=== PATIENT | male | born 1970 | race American Indian/Alaskan Native ===

== ENCOUNTER 2016-07-15 19:55 | Emergency (ER) | payer MEDICARE ==
[2016-07-16 02:40] VITALS: BP 129/92
--- NOTE | 2016-07-16 08:32 | XRay Report ---
CHEST 2 VIEWS: INDICATION: Shortness of breath. COMPARISON: 07/01/2016 FINDINGS: Frontal and lateral chest radiographs, 3 images, demonstrate improved congestive densities with now clear lungs. No large pleural effusions. Better delineated mild exaggerated cardiomediastinal silhouette, though overall felt within normal limits. Thoracic spondylosis. CONCLUSION: No acute chest process with improved congestive appearance, as described. Thank you for the opportunity to participate in this patient's care.
--- NOTE | 2016-07-17 10:57 | ED Elopement Review ---
ED Pt Elopement review - Call Back decision Pt Call Back Decision: No action required
== END 2016-07-16 02:52 ==
LOC: ED 19:55
DX: R06.02 Shortness of breath (principal); Z53.21 Procedure and treatment not carried out due to patient leaving prior to being seen by health care provider
CPT/HCPCS: 71020

== ENCOUNTER 2017-01-12 17:44 | Emergency (ER) | payer MEDICARE ==
[2017-01-12 18:55] LABS: Anion Gap 13 mmol/L; BUN/Creatinine Ratio 18.75; Blood Urea Nitrogen 15 mg/dL (9-20); Calcium 9.2 mg/dL (8.4-10.2); Carbon Dioxide 30 mmol/L (22-30); Chloride 99.5 mmol/L (98-107); Glucose 90 mg/dL (75-100); Potassium 4.5 mmol/L (3.6-5.0); Sodium 138 mmol/L (137-145)
[2017-01-12 19:12] LABS: Hematocrit 41.8 % (35.5-45.6); Hemoglobin 12.9 gm/dl (11.8-15.2); Mean Corpuscular HGB Conc 31 % (32-34); Mean Corpuscular Volume 71 fl (84-94); Red Blood Count 5.91 M/mm3 (3.65-5.03); Red Cell Distribution Width 18.9 % (13.2-15.2); White Blood Count 6.1 K/mm3 (4.5-11.0)
[2017-01-12 19:14] LABS: INR 1.05 (0.87-1.13)
[2017-01-12 19:15] LABS: Partial Thromboplastin Time 30.2 Sec. (24.2-36.6)
[2017-01-12 19:16] LABS: Mean Corpuscular Hemoglobin 22 pg (28-32)
[2017-01-12 20:27] LABS: Basophils % (Manual) 0 % (0.0-1.8); Blastocytes % (Manual) 0 %
[2017-01-12 20:28] LABS: Anisocytosis 1+
[2017-01-12 20:29] LABS: Hypochromasia 1+; Microcytosis 1+; Ovalocytes Few; Polychromasia Few
[2017-01-12 20:30] LABS: Diff Status Complete; Platelet Estimate Consistent w Auto
[2017-01-12 20:59] LABS: Platelet Count 127 K/mm3 (140-440)
[2017-01-13 01:45] VITALS: BP 152/103
--- NOTE | 2017-01-13 02:39 | Emergency Department Report ---
ED Shortness of Breath HPI - General Chief Complaint: Extremity Injury, Lower Stated Complaint: LEG PAIN Time Seen by Provider: 01/13/17 01:43 Source: patient, EMS Mode of arrival: Wheelchair Limitations: Physical Limitation - History of Present Illness Initial Comments: Patient is a 46-year-old male with a history of psychiatric history and recent knee surgery according to the patient here with complaint of bilateral leg swelling. He is a poor historian and is difficult to obtain a consistent concise history from. He complains of leg swelling and states that his surgeon told him to come to the emergency department to get further evaluation. He denies fever or chills he does say he has some mild shortness of breath but this is likely at his baseline given that he is a smoker. No fevers chills nausea vomiting. He says he been without his psychiatric meds for some time. -: Gradual Improves With: rest Worsens With: nothing Known History Of: other (COPD and smoker) Context: smoke/fume exposure Associated Symptoms: lower extremity pain - Related Data Previous Rx's Medication Instructions Recorded Last Taken Type ALBUTEROL NEB's [Proventil 0.083% 2.5 mg IH Q4HRT PRN #30 nebu 07/02/16 Unknown Rx NEBS] Furosemide [Lasix TAB] 40 mg PO QDAY #30 tablet 07/02/16 Unknown Rx Lisinopril [Zestril TAB] 20 mg PO QDAY #30 tablet 07/02/16 Unknown Rx Metoprolol [Lopressor TAB] 25 mg PO BID #60 tablet 07/02/16 Unknown Rx OLANzapine [ZyPREXA] 20 mg PO HS #30 tablet 07/02/16 Unknown Rx Sertraline [Zoloft] 50 mg PO QDAY tablet 01/18/17 Unknown Rx Divalproex ER [Depakote ER] 1,500 mg PO HS #30 tablet 01/20/17 Unknown Rx Allergies Allergy/AdvReac Type Severity Reaction Status Date / Time No Known Allergies Allergy Verified 11/19/13 15:20 ED Review of Systems ROS: Stated complaint: LEG PAIN Other details as noted in HPI Comment: All other systems reviewed and negative Constitutional: denies: chills, fever ENT: denies: ear pain, throat pain Respiratory: shortness of breath. denies: cough, orthopnea Cardiovascular: denies: chest pain, palpitations Gastrointestinal: denies: abdominal pain, nausea Musculoskeletal: other (bilateral tense edema). denies: back pain Skin: denies: rash Neurological: denies: headache Psychiatric: anxiety. denies: depression, homicidal thoughts, suicidal thoughts ED Past Medical Hx - Past Medical History Previous Medical History?: Yes Hx Hypertension: Yes Hx Arthritis: Yes Hx Psychiatric Treatment: Yes (bipolar and depression) Hx Asthma: Yes Additional medical history: sleep apnea - Surgical History Past Surgical History?: Yes Additional Surgical History: right knee surgery - Family History Family history: no significant - Social History Smoking Status: Current Every Day Smoker Substance Use Type: Prescribed - Medications Home Medications: Home Medications Medication Instructions Recorded Confirmed Last Taken Type ALBUTEROL NEB's [Proventil 0.083% 2.5 mg IH Q4HRT PRN #30 nebu 07/02/16 Unknown Rx NEBS] Furosemide [Lasix TAB] 40 mg PO QDAY #30 tablet 07/02/16 Unknown Rx Lisinopril [Zestril TAB] 20 mg PO QDAY #30 tablet 07/02/16 Unknown Rx Metoprolol [Lopressor TAB] 25 mg PO BID #60 tablet 07/02/16 Unknown Rx OLANzapine [ZyPREXA] 20 mg PO HS #30 tablet 07/02/16 Unknown Rx Sertraline [Zoloft] 50 mg PO QDAY tablet 01/18/17 Unknown Rx Divalproex ER [Depakote ER] 1,500 mg PO HS #30 tablet 01/20/17 Unknown Rx ED Physical Exam - General Limitations: No Limitations, Physical Limitation General appearance: alert, in no apparent distress, other (Wang obesity) - Head Head exam: Present: atraumatic, normocephalic - Eye Eye exam: Present: normal appearance - ENT ENT exam: Present: mucous membranes moist - Neck Neck exam: Present: normal inspection - Respiratory Respiratory exam: Present: normal lung sounds bilaterally, wheezes (scant). Absent: respiratory distress - Cardiovascular Cardiovascular Exam: Present: regular rate, normal rhythm. Absent: systolic murmur, diastolic murmur, rubs, gallop - GI/Abdominal GI/Abdominal exam: Present: soft, normal bowel sounds - Rectal Rectal exam: Present: deferred - Extremities Exam Extremities exam: Present: normal inspection, pedal edema, calf tenderness, other (patient with significant bilateral tense edema likely chronic). Absent: normal capillary refill - Back Exam Back exam: Present: normal inspection - Neurological Exam Neurological exam: Present: alert, oriented X3 - Psychiatric Psychiatric exam: Present: normal affect, normal mood - Skin Skin exam: Present: warm, dry, intact, normal color. Absent: rash ED Course Vital Signs 01/12/17 01/13/17 17:51 01:39 Temperature 97.9 F Pulse Rate 81 74 Respiratory 20 16 Rate Blood Pressure 153/96 Blood Pressure 152/103 [Left] O2 Sat by Pulse 98 94 Oximetry ED Medical Decision Making - Lab Data Result diagrams: 01/12/17 18:13 01/12/17 18:13 Laboratory Results - last 24 hr 01/12/17 01/12/17 01/12/17 18:12 18:13 18:13 WBC 6.1 RBC 5.91 H Hgb 12.9 Hct 41.8 MCV 71 L MCH 22 L MCHC 31 L RDW 18.9 H Plt Count 127 L [place] % (Auto) Mechanical Engineering Draftsperson Add Manual Diff Complete Total Counted 100 Seg Neuts % (Manual) 41.0 Band Neutrophils % 1.0 Lymphocytes % (Manual) 42.0 H Reactive Lymphs % (Man) 0 Monocytes % (Manual) 15.0 H Eosinophils % (Manual) 1.0 Basophils % (Manual) 0 Metamyelocytes % 0 Myelocytes % 0 Promyelocytes % 0 Blast Cells % 0 Nucleated RBC % Not Reportable Seg Neutrophils # Man 2.5 Band Neutrophils # 0.1 Lymphocytes # (Manual) 2.6 Abs React Lymphs (Man) 0.0 Monocytes # (Manual) 0.9 H Eosinophils # (Manual) 0.1 Basophils # (Manual) 0.0 Metamyelocytes # 0.0 Myelocytes # 0.0 Promyelocytes # 0.0 Blast Cells # 0.0 WBC Morphology Not Reportable Hypersegmented Neuts Not Reportable Hyposegmented Neuts Not Reportable Hypogranular Neuts Not Reportable Smudge Cells Not Reportable Toxic Granulation Not Reportable Toxic Vacuolation Not Reportable Dohle Bodies Not Reportable Pelger-Huet Anomaly Not Reportable Philip Rods Not Reportable Platelet Estimate Consistent w auto Clumped Platelets Not Reportable Plt Clumps, EDTA Not Reportable Large Platelets Not Reportable Giant Platelets Not Reportable Platelet Satelliting Not Reportable Plt Morphology Comment Not Reportable RBC Morphology Not Reportable Dimorphic RBCs Not Reportable Polychromasia Few Hypochromasia 1+ Poikilocytosis Not Reportable Anisocytosis 1+ Microcytosis 1+ Macrocytosis Not Reportable Spherocytes Not Reportable Pappenheimer Bodies Not Reportable Sickle Cells Not Reportable Target Cells Not Reportable Tear Drop Cells Not Reportable Ovalocytes Few Helmet Cells Not Reportable Jimenez-Bloxom Bodies Not Reportable [place] Rings Not Reportable Serenity Cells Not Reportable Bite Cells Not Reportable Crenated Cell Not Reportable Elliptocytes Not Reportable Acanthocytes (Spur) Not Reportable Rouleaux Not Reportable Hemoglobin C Crystals Not Reportable Schistocytes Not Reportable Malaria parasites Not Reportable Tomás Bodies Not Reportable Hem Pathologist Commnt No PT 13.6 INR 1.05 APTT 30.2 Sodium Potassium Chloride Carbon Dioxide Anion Gap BUN Creatinine Estimated GFR BUN/Creatinine Ratio Glucose Calcium Total Creatine Kinase 429 H NT-Pro-B Natriuret Pep 01/12/17 18:13 WBC RBC Hgb Hct MCV MCH MCHC RDW Plt Count [place] % (Auto) Add Manual Diff Total Counted Seg Neuts % (Manual) Band Neutrophils % Lymphocytes % (Manual) Reactive Lymphs % (Man) Monocytes % (Manual) Eosinophils % (Manual) Basophils % (Manual) Metamyelocytes % Myelocytes % Promyelocytes % Blast Cells % Nucleated RBC % Seg Neutrophils # Man Band Neutrophils # Lymphocytes # (Manual) Abs React Lymphs (Man) Monocytes # (Manual) Eosinophils # (Manual) Basophils # (Manual) Metamyelocytes # Myelocytes # Promyelocytes # Blast Cells # WBC Morphology Hypersegmented Neuts Hyposegmented Neuts Hypogranular Neuts Smudge Cells Toxic Granulation Toxic Vacuolation Dohle Bodies Pelger-Huet Anomaly Philip Rods Platelet Estimate Clumped Platelets Plt Clumps, EDTA Large Platelets Giant Platelets Platelet Satelliting Plt Morphology Comment RBC Morphology Dimorphic RBCs Polychromasia Hypochromasia Poikilocytosis Anisocytosis Microcytosis Macrocytosis Spherocytes Pappenheimer Bodies Sickle Cells Target Cells Tear Drop Cells Ovalocytes Helmet Cells Jimenez-Bloxom Bodies [place] Rings Serenity Cells Bite Cells Crenated Cell Elliptocytes Acanthocytes (Spur) Rouleaux Hemoglobin C Crystals Schistocytes Malaria parasites Tomás Bodies Hem Pathologist Commnt PT INR APTT Sodium 138 Potassium 4.5 Chloride 99.5 Carbon Dioxide 30 Anion Gap 13 BUN 15 Creatinine 0.8 Estimated GFR > 60 BUN/Creatinine Ratio 18.75 Glucose 90 Calcium 9.2 Total Creatine Kinase NT-Pro-B Natriuret Pep 86.89 - Medical Decision Making 46-year-old male with psychiatric history here with complaint of worsening bilateral leg swelling. He appears to have fairly tense edema in both his legs. He states that his orthopedic surgeon told him to come to the emergency department and evaluated. It is unclear to me if this is a chronic issue. The patient states that he has had swelling but this is slightly worse. He can't really elaborate on this. His labs are unremarkable. Given patient's social situation I will hold him in the emergency department overnight for bilateral ultrasounds. My concern is that he would not follow-up for his outpatient studies. If these are negative she can be discharged home. Portions of this chart were dictated with dictation software. There may be dictation errors contained within this note. Critical Care Time: No Critical care attestation.: If time is entered above; I have spent that time in minutes in the direct care of this critically ill patient, excluding procedure time. ED Disposition Clinical Impression: Leg pain, bilateral, Leg swelling Disposition: DC-01 TO HOME OR SELFCARE Is pt being admited?: No Condition: Stable Instructions: Leg Edema (ED), Arthralgia (ED) Additional Instructions: Please follow-up with your primary care physician and your orthopedic physician. Return to the emergency department with any worsening of your symptoms or any acute distress. Referrals: PRIMARY CARE, [Primary Care Provider] - LEYDI
--- NOTE | 2017-01-14 07:17 | Vascular Lab Report ---
LOWER EXTREMITY VENOUS DUPLEX: REASON FOR EXAM: Pain of the lower extremities. COMMENTS ON THE RIGHT: All veins visualized are freely compressible without evidence of internal echogenicity. Flow is spontaneous and phasic throughout. COMMENTS ON THE LEFT: All veins visualized are freely compressible without evidence of internal echogenicity. Flow is spontaneous and phasic throughout. IMPRESSION: No evidence of acute or chronic deep venous thrombosis in either lower extremity.
== END 2017-01-13 11:10 | disposition home or self-care (01) ==
LOC: ED 17:44
DX: M79.605 Pain in left leg (principal); M79.604 Pain in right leg; R22.41 Localized swelling, mass and lump, right lower limb; R22.42 Localized swelling, mass and lump, left lower limb; M19.90 Unspecified osteoarthritis, unspecified site; I10 Essential (primary) hypertension; F31.9 Bipolar disorder, unspecified; F17.200 Nicotine dependence, unspecified, uncomplicated; G47.30 Sleep apnea, unspecified
CPT/HCPCS: 36415; 80048; 82550; 83880; 85007; 85025; 85610; 85730; 93970

== ENCOUNTER 2017-01-14 00:28 | Inpatient (IN) | payer MEDICARE ==
[2017-01-14] MEDS ORDERED: GEODON IM ONE (01:12)
[2017-01-14] MEDS ORDERED: ATIVAN IM ONE (01:12)
[2017-01-14] MEDS ORDERED: BENADRYL IM ONE (01:12)
[2017-01-14] MEDS ORDERED: WATER FOR INJ (PF) 10 ML ONE (01:15)
[2017-01-14 01:46] LABS: Mean Corpuscular HGB Conc 31 % (32-34); Red Blood Count 6.19 M/mm3 (3.65-5.03); Red Cell Distribution Width 18.5 % (13.2-15.2); White Blood Count 6.7 K/mm3 (4.5-11.0)
[2017-01-14 01:49] LABS: Hematocrit 42.9 % (35.5-45.6); Hemoglobin 13.2 gm/dl (11.8-15.2); Mean Corpuscular Hemoglobin 21 pg (28-32); Mean Corpuscular Volume 69 fl (84-94); Platelet Count 126 K/mm3 (140-440)
[2017-01-14 02:05] LABS: Anion Gap 14 mmol/L; Blood Urea Nitrogen 14 mg/dL (9-20); Calcium 9.2 mg/dL (8.4-10.2); Carbon Dioxide 31 mmol/L (22-30); Chloride 97.2 mmol/L (98-107); Glucose 118 mg/dL (75-100); Potassium 3.7 mmol/L (3.6-5.0); Sodium 138 mmol/L (137-145)
[2017-01-14 02:25] LABS: Urine Drugs of Abuse Note Disclamer
[2017-01-14 02:47] LABS: Bilirubin,Urine NEG (Negative); Blood,Urine NEG (Negative); Ketones,Urine NEG (Negative); Leukocyte Esterase,Urine NEG (Negative); Mucus,Urine FEW /HPF; Nitrite,Urine NEG (Negative); Urobilinogen,Urine < 2.0 mg/dL (<2.0)
--- NOTE | 2017-01-14 03:41 | Emergency Department Report ---
ED Psych HPI - General Chief Complaint: Psych Stated Complaint: MH EVAL/MEDICAL CLEARANCE Time Seen by Provider: 01/14/17 01:12 Source: patient, old records reviewed (patient was seen here on the fifth by another ED physician for leg edema. Patient bilateral lower extremity vascular ultrasound that was negative for DVT) Mode of arrival: Ambulatory Limitations: Other - History of Present Illness Initial Comments: 46 yo male with a past medical history of arthritis, asthma, bipolar, sleep apnea, and hypertension presents to the hospital with psychosis and suicidal ideation. Patient does not have a specific plan and denies homicidal ideation. Patient is speaking constantly but is not making any sense. Patient is agitated and requiring seclusion and possible medication for safety. No physical complaints reported. Per previous medical record patient admitted to being noncompliant with psychiatric medication. - Related Data Previous Rx's Medication Instructions Recorded Last Taken Type ALBUTEROL NEB's [Proventil 0.083% 2.5 mg IH Q4HRT PRN #30 nebu 07/02/16 Unknown Rx NEBS] Divalproex [Mary Holm] 4 tab PO QHS #1 mo 07/02/16 Unknown Rx Furosemide [Lasix TAB] 40 mg PO QDAY #30 tablet 07/02/16 Unknown Rx Lisinopril [Zestril TAB] 20 mg PO QDAY #30 tablet 07/02/16 Unknown Rx Metoprolol [Lopressor] 25 mg PO BID #60 tablet 07/02/16 Unknown Rx OLANzapine [ZyPREXA] 20 mg PO HS #30 tablet 07/02/16 Unknown Rx traZODone [Desyrel] 1 tab PO QDAY #30 tablet 07/02/16 Unknown Rx Allergies Allergy/AdvReac Type Severity Reaction Status Date / Time No Known Allergies Allergy Verified 11/19/13 15:20 ED Review of Systems ROS: Stated complaint: MH EVAL/MEDICAL CLEARANCE Other details as noted in HPI Comment: Unobtainable due to pts medical conditions (due to psychosis) ED Past Medical Hx - Past Medical History Previous Medical History?: Yes Hx Hypertension: Yes Hx Arthritis: Yes Hx Psychiatric Treatment: Yes (bipolar and depression) Hx Asthma: Yes Additional medical history: sleep apnea - Surgical History Past Surgical History?: Yes Additional Surgical History: right knee surgery - Social History Smoking Status: Current Every Day Smoker Substance Use Type: None - Medications Home Medications: Home Medications Medication Instructions Recorded Confirmed Last Taken Type ALBUTEROL NEB's [Proventil 0.083% 2.5 mg IH Q4HRT PRN #30 nebu 07/02/16 Unknown Rx NEBS] Divalproex [Mary Holm] 4 tab PO QHS #1 mo 07/02/16 Unknown Rx Furosemide [Lasix TAB] 40 mg PO QDAY #30 tablet 07/02/16 Unknown Rx Lisinopril [Zestril TAB] 20 mg PO QDAY #30 tablet 07/02/16 Unknown Rx Metoprolol [Lopressor] 25 mg PO BID #60 tablet 07/02/16 Unknown Rx OLANzapine [ZyPREXA] 20 mg PO HS #30 tablet 07/02/16 Unknown Rx traZODone [Desyrel] 1 tab PO QDAY #30 tablet 07/02/16 Unknown Rx ED Physical Exam - General Limitations: No Limitations - Other Other exam information: General: Agitated Head exam: Atraumatic, normocephalic Eyes exam: Normal appearance ENT: Moist mucous membrane, normal oropharynx Neck exam: Normal inspection, full range of motion Respiratory exam: Clear to auscultation bilateral, no wheezes, rales, crackles Cardiovascular: Normal rate and rhythm Abdomen: Soft, nondistended, and nontender, with normal bowel sounds, no rebound, or guarding Extremity: Full range of motion, pedal edema Back: Normal Inspection, full range of motion, no tenderness Neurologic: Alert, oriented x3, cranial nerves intact, no motor or sensory deficit Psychiatric: Psychotic, rambling but not making sense Skin: Warm, dry, intact ED Course Vital Signs 01/14/17 01/14/17 01/14/17 00:36 02:57 04:04 Temperature 98.2 F Pulse Rate 92 H Respiratory 18 20 Rate Blood Pressure 142/93 O2 Sat by Pulse 95 74 L Oximetry 01/14/17 04:17 Temperature Pulse Rate 109 H Respiratory 28 H Rate Blood Pressure 155/98 O2 Sat by Pulse 95 Oximetry - Reevaluation(s) Reevaluation #1: 01/14/17 03:43 Patient required Geodon, Ativan, and Benadryl for sedation shortly after arrival and currently having sonorous respirations. I asked respiratory to assess patient and pulse ox. Room air pulse ox 78%. Patient does have a history of sleep apnea. ABG will be obtained and BiPAP and supplemental oxygen will be initiated. ED Medical Decision Making - Lab Data Result diagrams: 01/14/17 01:35 01/14/17 01:35 Lab Results 01/14/17 01/14/17 01/14/17 Range/Units 01:35 01:35 01:35 WBC 6.7 (4.5-11.0) K/mm3 RBC 6.19 H (3.65-5.03) M/mm3 Hgb 13.2 (11.8-15.2) gm/dl Hct 42.9 (35.5-45.6) % MCV 69 L (84-94) fl MCH 21 L (28-32) pg MCHC 31 L (32-34) % RDW 18.5 H (13.2-15.2) % Plt Count 126 L (140-440) K/mm3 [place] % (Auto) Recycling Manager Add Manual Diff Complete Total Counted 100 Seg Neuts % (Manual) 45.0 (40.0-70.0) % Band Neutrophils % 0 % Lymphocytes % (Manual) 35.0 (13.4-35.0) % Reactive Lymphs % (Man) 0 % Monocytes % (Manual) 19.0 H (0.0-7.3) % Eosinophils % (Manual) 1.0 (0.0-4.3) % Basophils % (Manual) 0 (0.0-1.8) % Metamyelocytes % 0 % Myelocytes % 0 % Promyelocytes % 0 % Blast Cells % 0 % Nucleated RBC % Not Reportable Seg Neutrophils # Man 3.0 (1.8-7.7) K/mm3 Band Neutrophils # 0.0 K/mm3 Lymphocytes # (Manual) 2.3 (1.2-5.4) K/mm3 Abs React Lymphs (Man) 0.0 K/mm3 Monocytes # (Manual) 1.3 H (0.0-0.8) K/mm3 Eosinophils # (Manual) 0.1 (0.0-0.4) K/mm3 Basophils # (Manual) 0.0 (0.0-0.1) K/mm3 Metamyelocytes # 0.0 K/mm3 Myelocytes # 0.0 K/mm3 Promyelocytes # 0.0 K/mm3 Blast Cells # 0.0 K/mm3 WBC Morphology Not Reportable Hypersegmented Neuts Not Reportable Hyposegmented Neuts Not Reportable Hypogranular Neuts Not Reportable Smudge Cells Not Reportable Toxic Granulation Few Toxic Vacuolation Not Reportable Dohle Bodies Not Reportable Pelger-Huet Anomaly Not Reportable Philip Rods Not Reportable Platelet Estimate Appears decreased Clumped Platelets Not Reportable Plt Clumps, EDTA Not Reportable Large Platelets Not Reportable Giant Platelets Not Reportable Platelet Satelliting Not Reportable Plt Morphology Comment Not Reportable RBC Morphology Not Reportable Dimorphic RBCs Not Reportable Polychromasia Not Reportable Hypochromasia 2+ Poikilocytosis Not Reportable Anisocytosis 1+ Microcytosis 1+ Macrocytosis Not Reportable Spherocytes Not Reportable Pappenheimer Bodies Not Reportable Sickle Cells Not Reportable Target Cells Few Tear Drop Cells Not Reportable Ovalocytes Not Reportable Helmet Cells Not Reportable Jimenez-Floyd Bodies Not Reportable [place] Rings Not Reportable [place] Cells Not Reportable Bite Cells Not Reportable Crenated Cell Not Reportable Elliptocytes Not Reportable Acanthocytes (Spur) Not Reportable Rouleaux Not Reportable Hemoglobin C Crystals Not Reportable Schistocytes Not Reportable Malaria parasites Not Reportable Tomás Bodies Not Reportable Hem Pathologist Commnt No Sodium 138 (137-145) mmol/L Potassium 3.7 (3.6-5.0) mmol/L Chloride 97.2 L (98-107) mmol/L Carbon Dioxide 31 H (22-30) mmol/L Anion Gap 14 mmol/L BUN 14 (9-20) mg/dL Creatinine 0.5 L (0.8-1.5) mg/dL Estimated GFR > 60 ml/min BUN/Creatinine Ratio 28.00 % Glucose 118 H (75-100) mg/dL Calcium 9.2 (8.4-10.2) mg/dL Urine Color (Yellow) Urine Turbidity (Clear) Urine pH (5.0-7.0) Ur Specific [place] (1.003-1.030) Urine Protein (Negative) mg/dL Urine Glucose (UA) (Negative) mg/dL Urine Ketones (Negative) mg/dL Urine Blood (Negative) Urine Nitrite (Negative) Urine Bilirubin (Negative) Urine Urobilinogen (<2.0) mg/dL Ur Leukocyte Esterase (Negative) Urine WBC (Auto) (0.0-6.0) /HPF Urine RBC (Auto) (0.0-6.0) /HPF U Epithel Cells (Auto) (0-13.0) /HPF Urine Mucus /HPF Urine Opiates Screen Urine Methadone Screen Ur Barbiturates Screen Ur Phencyclidine Scrn Ur Amphetamines Screen U Benzodiazepines Scrn Urine Cocaine Screen U Marijuana (THC) Screen Drugs of Abuse Note Plasma/Serum Alcohol < 0.01 (0-0.07) gm% 01/14/17 01/14/17 Range/Units 01:44 01:44 WBC (4.5-11.0) K/mm3 RBC (3.65-5.03) M/mm3 Hgb (11.8-15.2) gm/dl Hct (35.5-45.6) % MCV (84-94) fl MCH (28-32) pg MCHC (32-34) % RDW (13.2-15.2) % Plt Count (140-440) K/mm3 [place] % (Auto) Add Manual Diff Total Counted Seg Neuts % (Manual) (40.0-70.0) % Band Neutrophils % % Lymphocytes % (Manual) (13.4-35.0) % Reactive Lymphs % (Man) % Monocytes % (Manual) (0.0-7.3) % Eosinophils % (Manual) (0.0-4.3) % Basophils % (Manual) (0.0-1.8) % Metamyelocytes % % Myelocytes % % Promyelocytes % % Blast Cells % % Nucleated RBC % Seg Neutrophils # Man (1.8-7.7) K/mm3 Band Neutrophils # K/mm3 Lymphocytes # (Manual) (1.2-5.4) K/mm3 Abs React Lymphs (Man) K/mm3 Monocytes # (Manual) (0.0-0.8) K/mm3 Eosinophils # (Manual) (0.0-0.4) K/mm3 Basophils # (Manual) (0.0-0.1) K/mm3 Metamyelocytes # K/mm3 Myelocytes # K/mm3 Promyelocytes # K/mm3 Blast Cells # K/mm3 WBC Morphology Hypersegmented Neuts Hyposegmented Neuts Hypogranular Neuts Smudge Cells Toxic Granulation Toxic Vacuolation Dohle Bodies Pelger-Huet Anomaly Philip Rods Platelet Estimate Clumped Platelets Plt Clumps, EDTA Large Platelets Giant Platelets Platelet Satelliting Plt Morphology Comment RBC Morphology Dimorphic RBCs Polychromasia Hypochromasia Poikilocytosis Anisocytosis Microcytosis Macrocytosis Spherocytes Pappenheimer Bodies Sickle Cells Target Cells Tear Drop Cells Ovalocytes Helmet Cells Jimenez-Floyd Bodies [place] Rings Serenity Cells Bite Cells Crenated Cell Elliptocytes Acanthocytes (Spur) Rouleaux Hemoglobin C Crystals Schistocytes Malaria parasites Tomás Bodies Hem Pathologist Commnt Sodium (137-145) mmol/L Potassium (3.6-5.0) mmol/L Chloride (98-107) mmol/L Carbon Dioxide (22-30) mmol/L Anion Gap mmol/L BUN (9-20) mg/dL Creatinine (0.8-1.5) mg/dL Estimated GFR ml/min BUN/Creatinine Ratio % Glucose (75-100) mg/dL Calcium (8.4-10.2) mg/dL Urine Color Yellow (Yellow) Urine Turbidity Clear (Clear) Urine pH 5.0 (5.0-7.0) Ur Specific [place] 1.014 (1.003-1.030) Urine Protein 100 mg/dl (Negative) mg/dL Urine Glucose (UA) Neg (Negative) mg/dL Urine Ketones Neg (Negative) mg/dL Urine Blood Neg (Negative) Urine Nitrite Neg (Negative) Urine Bilirubin Neg (Negative) Urine Urobilinogen < 2.0 (<2.0) mg/dL Ur Leukocyte Esterase Neg (Negative) Urine WBC (Auto) 2.0 (0.0-6.0) /HPF Urine RBC (Auto) 5.0 (0.0-6.0) /HPF U Epithel Cells (Auto) < 1.0 (0-13.0) /HPF Urine Mucus Few /HPF Urine Opiates Screen Presumptive negative Urine Methadone Screen Presumptive negative Ur Barbiturates Screen Presumptive negative Ur Phencyclidine Scrn Presumptive negative Ur Amphetamines Screen Presumptive negative U Benzodiazepines Scrn Presumptive negative Urine Cocaine Screen Presumptive negative U Marijuana (THC) Screen Presumptive negative Drugs of Abuse Note Disclamer Plasma/Serum Alcohol (0-0.07) gm% - Radiology Data Radiology results: image reviewed (chest x-ray: inc interstial markings, poor inspiration) - Medical Decision Making 1013 form signed due to acute suicidal ideation and psychosis Patient on BiPAP for CO2 retention sedated secondary to increased agitation in the ED Patient cannot be medically cleared at this time therefore will be admitted to the hospital for further medical treatment and inpatient psychiatric consultation Patient chest x-ray shows poor inspiration and increased markings that could represent CHF as well - Differential Diagnosis psychosis, substance abuse, suicidal ideation Critical Care Time: No Critical care attestation.: If time is entered above; I have spent that time in minutes in the direct care of this critically ill patient, excluding procedure time. ED Disposition Clinical Impression: Bipolar disorder, Suicidal ideation, Respiratory failure with hypoxia, Sleep apnea, Psychosis, Acute and chronic respiratory failure with hypercapnia, Thrombocytopenia, Hypertension Disposition: OP ADMIT IP TO THIS HOSP Is pt being admited?: Yes Condition: Stable Time of Disposition: 04:29 (Dr Spicer/hosp)
[2017-01-14 03:51] LABS: Basophils % (Manual) 0 % (0.0-1.8); Blastocytes % (Manual) 0 %
[2017-01-14 03:52] LABS: Anisocytosis 1+; Diff Status Complete; Hypochromasia 2+; Microcytosis 1+; Platelet Estimate Appears Decreased; Target Cells Few; Toxic Granulation Few
[2017-01-14] MEDS ORDERED: ZOFRAN IV PRN (05:46)
[2017-01-14] MEDS ORDERED: DULCOLAX PR PRN (05:46)
[2017-01-14] MEDS ORDERED: MILK OF MAGNESIA PO PRN (05:46)
--- NOTE | 2017-01-14 05:48 | History and Physical Report ---
History of Present Illness Date of examination: 01/14/17 History of present illness: 46-year-old man with a history of hypertension, bipolar, obstructive sleep apnea , obesity comes emergency room for suicidal ideation and psychosis. The patient was agitated and was given 50 mg of Benadryl, 1 mg Ativan and 5 mg Geodon. Later was noted to have sonorous respiration, patient was placed on BiPAP. review of systems unobtainable PAST SURGICAL HISTORY: Unknown SOCIAL HISTORY: Unknown FAMILY HISTORY: Unknown Medications and Allergies Allergies Allergy/AdvReac Type Severity Reaction Status Date / Time No Known Allergies Allergy Verified 11/19/13 15:20 Home Medications Medication Instructions Recorded Confirmed Last Taken Type ALBUTEROL NEB's [Proventil 0.083% 2.5 mg IH Q4HRT PRN #30 nebu 07/02/16 Unknown Rx NEBS] Divalproex Dr [Depakote Dr] 4 tab PO QHS #1 mo 07/02/16 Unknown Rx Furosemide [Lasix TAB] 40 mg PO QDAY #30 tablet 07/02/16 Unknown Rx Lisinopril [Zestril TAB] 20 mg PO QDAY #30 tablet 07/02/16 Unknown Rx Metoprolol [Lopressor] 25 mg PO BID #60 tablet 07/02/16 Unknown Rx OLANzapine [ZyPREXA] 20 mg PO HS #30 tablet 07/02/16 Unknown Rx traZODone [Desyrel] 1 tab PO QDAY #30 tablet 07/02/16 Unknown Rx Active Meds: Active Medications Acetaminophen (Tylenol) 650 mg PO Q4H PRN PRN Reason: Pain MILD(1-3)/Fever >100.5/OJEDA Bisacodyl (Dulcolax) 10 mg RI QDAY PRN PRN Reason: Constipation unrelieved by MOM Enoxaparin Sodium (Lovenox) 30 mg SUB-Q QDAY PHIL Magnesium Hydroxide (Milk Of Magnesia) 30 ml PO Q4H PRN PRN Reason: Constipation Ondansetron HCl (Zofran) 4 mg IV Q8H PRN PRN Reason: N/V unrelieved by Reglan Exam - Physical Exam Narrative exam: Gen. appearance: Patient lying in bed, no apparent distress on BiPAP HEENT: Normocephalic, atraumatic, pupils equally round and reactive to light, able to do extraocular movement , and no sclericterus,. No JVD or thyromegaly or nodule,neck supple, no carotid bruit ,mucous membranes moist, no exudate or erythema Heart: S1, S2, regular rate and rhythm Lungs: Clear to auscultation clearly bilaterally, breathing comfortable Abdomen: Positive bowel sounds, nontender, nondistended, no organomegaly Extremity: No edema, cyanosis, clubbing Skin: No rash, nodules, warm, dry Neuro: Sedated - Constitutional Vitals: Temp Pulse Resp BP Pulse Ox 98.2 F 109 H 28 H 155/98 95 01/14/17 00:36 01/14/17 04:17 01/14/17 04:17 01/14/17 04:17 01/14/17 04:17 Results - Labs CBC & Chem 7: 01/14/17 01:35 01/14/17 01:35 Labs: Abnormal lab results 01/14/17 01/14/17 Range/Units 01:35 01:35 RBC 6.19 H (3.65-5.03) M/mm3 MCV 69 L (84-94) fl MCH 21 L (28-32) pg MCHC 31 L (32-34) % RDW 18.5 H (13.2-15.2) % Plt Count 126 L (140-440) K/mm3 Monocytes % (Manual) 19.0 H (0.0-7.3) % Monocytes # (Manual) 1.3 H (0.0-0.8) K/mm3 Chloride 97.2 L (98-107) mmol/L Carbon Dioxide 31 H (22-30) mmol/L Creatinine 0.5 L (0.8-1.5) mg/dL Glucose 118 H (75-100) mg/dL - Imaging and Cardiology Chest x-ray: image reviewed Assessment and Plan Acute respiratory failure Suicide ideation with psychosis Sleep apnea Bipolar Hypertension Obesity Thrombocytopenia Admit to medicine Continue BiPAP, consult psych, place but sitter To prophylaxis with SCD
--- NOTE | 2017-01-14 07:24 | Admit Criteria Form ---
Admission Criteria Documentation: RESPIRATORY FAILURE GRG Clinical Indications for Admission to Inpatient Care (Place 'X' for any and all applicable criteria): Hospital admission is needed for appropriate care of the patient because of acute respiratory failure or insufficiency as indicated by ANY ONE of the following(1)(2)(3)(4)(5)(6)(7)(8): [ X]I. Mechanical ventilation needed (acute invasive or noninvasive) [ ]II. Severe ventilation deficit as indicated by ANY ONE of the following (9) [ ]a) Respiratory acidosis (pH less than 7.32 and partial pressure of carbon dioxide greater than 40 mm Hg (5.3 kPa)) [ ]b) Partial pressure of carbon dioxide greater than 44 mm Hg (5.9 kPa ) (new) [ ]c) Airflow measurements less than 25% of predicted (eg, peak expiratory flow rate less than 100 L/minute) [ ]d) Forced vital capacity less than 15 mL/kg of ideal body weight, or 50% decrease in vital capacity from baseline [ ]III. Noncardiac pulmonary edema not resolving with rapid emergency treatment (8) [ ]IV. Severe respiratory distress as indicated by ANY ONE of the following: [ ]a) Severe tachypnea (respiratory rate greater than 30, greater than 45 for 6-month-old, greater than 60 for ) [ ]b) Severe hypoxemia (partial pressure of oxygen less than 50 mm Hg ( 6.7 kPa) on greater than 50% oxygen or partial pressure of oxygen to FIO2 ratio less than 200) [ ]c) Mental status deterioration from respiratory disease [ ]V. Airway obstruction or inadequate protection [A](10)(11) The original [employer] content created by [employer] has been revised. The portions of the content which have been revised are identified through the use of italic text or in bold, and [employer] has neither reviewed nor approved the modified material. All other unmodified content is copyright [employer]. Please see references footnoted in the original [employer] edition 2016 Admission Criteria Met: Yes
--- NOTE | 2017-01-14 07:48 | XRay Report ---
Single view chest: Compared to 07/15/16. History: Hypoxia. Findings: Cardiomegaly. Trachea is midline. Mild pulmonary venous congestion. No definite consolidation. Normal CP angles. Impression: Cardiomegaly with mild pulmonary venous congestion
[2017-01-14] MEDS ORDERED: LOVENOX SUB-Q SCH (10:00)
[2017-01-14 10:27] LABS: ISTAT Base Excess 6; ISTAT DEVICE 0; ISTAT HCO3 32.1; ISTAT PCO2 60.8 (35-45); ISTAT PO2 49 (80-105); ISTAT SO2 80; ISTAT TCO2 34
[2017-01-14] MEDS ORDERED: APRESOLINE IV ONE (13:09)
--- NOTE | 2017-01-14 17:13 | Event Note ---
Date: 01/14/17 Patient seen and evaluated medical records reviewed Admitted this morning. Suicidal ideation acute hypoxic respiratory failure requiring BiPAP and psychosis Medical records reviewed, agree with the current management Psych consult regarding treatment recommendations and disposition when stable
[2017-01-14] MEDS ORDERED: PROVENTIL IH PRN ×2 (17:14→17:16)
[2017-01-14] MEDS: LOPRESSOR PO SCH (22:10)
[2017-01-15 06:15] LABS: Mean Corpuscular HGB Conc 31 % (32-34); Mean Corpuscular Volume 71 fl (84-94); Red Blood Count 5.83 M/mm3 (3.65-5.03); Red Cell Distribution Width 19.3 % (13.2-15.2); White Blood Count 6.9 K/mm3 (4.5-11.0)
[2017-01-15 06:19] LABS: Anion Gap 8 mmol/L; Blood Urea Nitrogen 14 mg/dL (9-20); Calcium 8.9 mg/dL (8.4-10.2); Carbon Dioxide 37 mmol/L (22-30); Chloride 96.8 mmol/L (98-107); Glucose 97 mg/dL (75-100); Potassium 4.3 mmol/L (3.6-5.0); Sodium 137 mmol/L (137-145)
[2017-01-15 06:51] LABS: Hematocrit 41.5 % (35.5-45.6); Hemoglobin 12.7 gm/dl (11.8-15.2); Mean Corpuscular Hemoglobin 22 pg (28-32); Platelet Count 121 K/mm3 (140-440)
[2017-01-15 07:45] LABS: Anisocytosis 1+; Basophils % (Manual) 0 % (0.0-1.8); Blastocytes % (Manual) 0 %; Eosinophils % (Manual) 0 % (0.0-4.3); Hypochromasia 2+
[2017-01-15 07:52] LABS: Diff Status Complete; Large Platelets Few; Target Cells Rare
[2017-01-15] MEDS: ZESTRIL PO SCH (09:48)
[2017-01-15] MEDS: LOPRESSOR PO SCH ×2 (09:49→23:00)
[2017-01-15] MEDS: LASIX PO SCH (09:49)
[2017-01-15] MEDS: TYLENOL PO PRN (09:49)
--- NOTE | 2017-01-15 16:51 | Progress Note ---
Assessment and Plan Assessment and plan: --Suicidal ideation and thoughts with acute psychosis Continue suicidal watch, supportive therapy, psych evaluation for recommendations --Acute respiratory failure multifactorial COPD, morbid obesity, oxygen titrated O2 sats more than 90%, BiPAP as needed --History of bipolar disorder; continue current management, follow psych evaluation and recommendations --Obstructive sleep apnea; CPAP at night --Morbid obesity, counseling done advised dietary modification and exercise as tolerated and weight reduction when medically stable Patient may benefit by outpatient bariatric surgical evaluation for weight reduction program when medically stable --Hypertension; moderate control, continue current antihypertensives and when necessary medications --DVT prophylaxis with Lovenox --Continue 1013/suicidal watch Possible discharge home versus inpatient psych facility in 1-2 days if stable Plan of care discussed with the patient and his nurse History Interval history: Patient seen and evaluated in his room this morning medical records reviewed Safety seat at the bedside Patient has suicidal thoughts and ideation, feels slightly better today Alert awake oriented 3 not in acute distress Hospitalist Physical - Constitutional Vitals: Temp Pulse Resp BP Pulse Ox 98.1 F 60 20 127/84 97 01/15/17 16:00 01/15/17 16:00 01/15/17 16:00 01/15/17 16:00 01/15/17 09:15 General appearance: Present: no acute distress, well-nourished, obese (morbidly obese) - EENT Eyes: Present: PERRL, EOM intact - Neck Neck: Present: supple, normal ROM - Respiratory Respiratory effort: normal Respiratory: bilateral: diminished, negative: rales, rhonchi, wheezing - Cardiovascular Rhythm: regular Heart Sounds: Present: S1 & S2 - Extremities Extremities: no ischemia, pulses intact, No edema - Abdominal General gastrointestinal: soft, non-tender, non-distended, normal bowel sounds - Integumentary Integumentary: Present: clear, warm - Psychiatric Psychiatric: appropriate mood/affect, cooperative, depressed (sometimes ) - Neurologic Neurologic: CNII-XII intact, moves all extremities Results - Labs CBC & Chem 7: 01/15/17 05:36 01/15/17 05:36 Labs: Laboratory Last Values WBC 6.9 K/mm3 (4.5-11.0) 01/15/17 05:36 RBC 5.83 M/mm3 (3.65-5.03) H 01/15/17 05:36 Hgb 12.7 gm/dl (11.8-15.2) 01/15/17 05:36 Hct 41.5 % (35.5-45.6) 01/15/17 05:36 MCV 71 fl (84-94) L 01/15/17 05:36 MCH 22 pg (28-32) L 01/15/17 05:36 MCHC 31 % (32-34) L 01/15/17 05:36 RDW 19.3 % (13.2-15.2) H 01/15/17 05:36 Plt Count 121 K/mm3 (140-440) L 01/15/17 05:36 [place] % (Auto) Community Liaison Officer 01/15/17 05:36 Add Manual Diff Complete 01/15/17 05:36 Total Counted 100 01/15/17 05:36 Seg Neuts % (Manual) 41.0 % (40.0-70.0) 01/15/17 05:36 Band Neutrophils % 1.0 % 01/15/17 05:36 Lymphocytes % (Manual) 32.0 % (13.4-35.0) 01/15/17 05:36 Reactive Lymphs % (Man) 0 % 01/15/17 05:36 Monocytes % (Manual) 26.0 % (0.0-7.3) H 01/15/17 05:36 Eosinophils % (Manual) 0 % (0.0-4.3) 01/15/17 05:36 Basophils % (Manual) 0 % (0.0-1.8) 01/15/17 05:36 Metamyelocytes % 0 % 01/15/17 05:36 Myelocytes % 0 % 01/15/17 05:36 Promyelocytes % 0 % 01/15/17 05:36 Blast Cells % 0 % 01/15/17 05:36 Nucleated RBC % Not Reportable 01/15/17 05:36 Seg Neutrophils # Man 2.8 K/mm3 (1.8-7.7) 01/15/17 05:36 Band Neutrophils # 0.1 K/mm3 01/15/17 05:36 Lymphocytes # (Manual) 2.2 K/mm3 (1.2-5.4) 01/15/17 05:36 Abs React Lymphs (Man) 0.0 K/mm3 01/15/17 05:36 Monocytes # (Manual) 1.8 K/mm3 (0.0-0.8) H 01/15/17 05:36 Eosinophils # (Manual) 0.0 K/mm3 (0.0-0.4) 01/15/17 05:36 Basophils # (Manual) 0.0 K/mm3 (0.0-0.1) 01/15/17 05:36 Metamyelocytes # 0.0 K/mm3 01/15/17 05:36 Myelocytes # 0.0 K/mm3 01/15/17 05:36 Promyelocytes # 0.0 K/mm3 01/15/17 05:36 Blast Cells # 0.0 K/mm3 01/15/17 05:36 WBC Morphology Not Reportable 01/15/17 05:36 Hypersegmented Neuts Not Reportable 01/15/17 05:36 Hyposegmented Neuts Not Reportable 01/15/17 05:36 Hypogranular Neuts Not Reportable 01/15/17 05:36 Smudge Cells Not Reportable 01/15/17 05:36 Toxic Granulation Not Reportable 01/15/17 05:36 Toxic Vacuolation Not Reportable 01/15/17 05:36 Dohle Bodies Not Reportable 01/15/17 05:36 Pelger-Huet Anomaly Not Reportable 01/15/17 05:36 Philip Rods Not Reportable 01/15/17 05:36 Platelet Estimate Appears normal 01/15/17 05:36 Clumped Platelets Not Reportable 01/15/17 05:36 Plt Clumps, EDTA Not Reportable 01/15/17 05:36 Large Platelets Few 01/15/17 05:36 Giant Platelets Not Reportable 01/15/17 05:36 Platelet Satelliting Not Reportable 01/15/17 05:36 Plt Morphology Comment Not Reportable 01/15/17 05:36 RBC Morphology Not Reportable 01/15/17 05:36 Dimorphic RBCs Not Reportable 01/15/17 05:36 Polychromasia Not Reportable 01/15/17 05:36 Hypochromasia 2+ 01/15/17 05:36 Poikilocytosis Not Reportable 01/15/17 05:36 Anisocytosis 1+ 01/15/17 05:36 Microcytosis Not Reportable 01/15/17 05:36 Macrocytosis Not Reportable 01/15/17 05:36 Spherocytes Not Reportable 01/15/17 05:36 Pappenheimer Bodies Not Reportable 01/15/17 05:36 Sickle Cells Not Reportable 01/15/17 05:36 Target Cells Rare 01/15/17 05:36 Tear Drop Cells Not Reportable 01/15/17 05:36 Ovalocytes Not Reportable 01/15/17 05:36 Helmet Cells Not Reportable 01/15/17 05:36 [place] Bodies Not Reportable 01/15/17 05:36 [place] Rings Not Reportable 01/15/17 05:36 [place] Cells Not Reportable 01/15/17 05:36 Bite Cells Not Reportable 01/15/17 05:36 Crenated Cell Not Reportable 01/15/17 05:36 Elliptocytes Not Reportable 01/15/17 05:36 Acanthocytes (Spur) Not Reportable 01/15/17 05:36 Rouleaux Not Reportable 01/15/17 05:36 Hemoglobin C Crystals Not Reportable 01/15/17 05:36 Schistocytes Not Reportable 01/15/17 05:36 Malaria parasites Not Reportable 01/15/17 05:36 Tomás Bodies Not Reportable 01/15/17 05:36 Hem Pathologist Commnt No 01/15/17 05:36 POC ABG pH 7.330 (7.35-7.45) L 01/14/17 04:04 POC ABG pCO2 60.8 (35-45) H 01/14/17 04:04 POC ABG pO2 49 (80-105) L 01/14/17 04:04 POC ABG HCO3 32.1 01/14/17 04:04 POC ABG Total CO2 34 01/14/17 04:04 POC ABG O2 Sat 80 01/14/17 04:04 POC ABG Base Excess 6 01/14/17 04:04 FiO2 21 % 01/14/17 04:04 Sodium 137 mmol/L (137-145) 01/15/17 05:36 Potassium 4.3 mmol/L (3.6-5.0) 01/15/17 05:36 Chloride 96.8 mmol/L (98-107) L 01/15/17 05:36 Carbon Dioxide 37 mmol/L (22-30) H 01/15/17 05:36 Anion Gap 8 mmol/L 01/15/17 05:36 BUN 14 mg/dL (9-20) 01/15/17 05:36 Creatinine 0.5 mg/dL (0.8-1.5) L 01/15/17 05:36 Estimated GFR > 60 ml/min 01/15/17 05:36 BUN/Creatinine Ratio 28.00 % 01/15/17 05:36 Glucose 97 mg/dL (75-100) 01/15/17 05:36 Calcium 8.9 mg/dL (8.4-10.2) 01/15/17 05:36 Urine Color Yellow (Yellow) 01/14/17 01:44 Urine Turbidity Clear (Clear) 01/14/17 01:44 Urine pH 5.0 (5.0-7.0) 01/14/17 01:44 Ur Specific [place] 1.014 (1.003-1.030) 01/14/17 01:44 Urine Protein 100 mg/dl mg/dL (Negative) 01/14/17 01:44 Urine Glucose (UA) Neg mg/dL (Negative) 01/14/17 01:44 Urine Ketones Neg mg/dL (Negative) 01/14/17 01:44 Urine Blood Neg (Negative) 01/14/17 01:44 Urine Nitrite Neg (Negative) 01/14/17 01:44 Urine Bilirubin Neg (Negative) 01/14/17 01:44 Urine Urobilinogen < 2.0 mg/dL (<2.0) 01/14/17 01:44 Ur Leukocyte Esterase Neg (Negative) 01/14/17 01:44 Urine WBC (Auto) 2.0 /HPF (0.0-6.0) 01/14/17 01:44 Urine RBC (Auto) 5.0 /HPF (0.0-6.0) 01/14/17 01:44 U Epithel Cells (Auto) < 1.0 /HPF (0-13.0) 01/14/17 01:44 Urine Mucus Few /HPF 01/14/17 01:44 Urine Opiates Screen Presumptive negative 01/14/17 01:44 Urine Methadone Screen Presumptive negative 01/14/17 01:44 Ur Barbiturates Screen Presumptive negative 01/14/17 01:44 Ur Phencyclidine Scrn Presumptive negative 01/14/17 01:44 Ur Amphetamines Screen Presumptive negative 01/14/17 01:44 U Benzodiazepines Scrn Presumptive negative 01/14/17 01:44 Urine Cocaine Screen Presumptive negative 01/14/17 01:44 U Marijuana (THC) Screen Presumptive negative 01/14/17 01:44 Drugs of Abuse Note Disclamer 01/14/17 01:44 Plasma/Serum Alcohol < 0.01 gm% (0-0.07) 01/14/17 01:35
[2017-01-15] MEDS ORDERED: DESYREL PO SCH (22:30)
[2017-01-15] MEDS ORDERED: NAPROSYN PO ONE ×2 (22:33)
[2017-01-15] MEDS: LOVENOX SUB-Q SCH (23:00)
--- NOTE | 2017-01-16 09:51 | Progress Note ---
Assessment and Plan Assessment and plan: --Acute respiratory failure multifactorial COPD, morbid obesity, oxygen titrated O2 sats more than 90%, BiPAP as needed 10 symptoms significantly improved --Suicidal ideation and thoughts with acute psychosis Continue suicidal watch, chills denies any suicidal thoughts or psychotic episodes Psych evaluation pending --History of bipolar disorder; continue current management, follow psych evaluation and recommendations --Obstructive sleep apnea; CPAP at night --Morbid obesity, counseling done advised dietary modification and exercise as tolerated and weight reduction when medically stable Patient may benefit by outpatient bariatric surgical evaluation for weight reduction program when medically stable --Hypertension; moderate control, continue current antihypertensives and when necessary medications --DVT prophylaxis with Lovenox --Continue 1013/suicidal watch patient is medically stable for discharge, home versus inpatient psych facility History Interval history: Patient Seen and evaluated this morning medical records reviewed Patient is sleeping easily awakens and feels better no new complaints 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 Hospitalist Physical - Constitutional Vitals: Temp Pulse Resp BP Pulse Ox 98.0 F 47 L 20 139/76 95 01/16/17 07:00 01/16/17 07:00 01/16/17 07:00 01/16/17 07:00 01/16/17 09:14 General appearance: Present: no acute distress, well-nourished, obese (morbidly obese) - EENT Eyes: Present: PERRL, EOM intact - Neck Neck: Present: supple, normal ROM - Respiratory Respiratory effort: normal Respiratory: bilateral: diminished, negative: rales, rhonchi, wheezing - Cardiovascular Rhythm: regular Heart Sounds: Present: S1 & S2 - Extremities Extremities: no ischemia, pulses intact - Abdominal General gastrointestinal: soft, non-tender, non-distended, normal bowel sounds - Integumentary Integumentary: Present: clear, warm - Psychiatric Psychiatric: appropriate mood/affect, cooperative - Neurologic Neurologic: CNII-XII intact, moves all extremities Results - Labs CBC & Chem 7: 01/15/17 05:36 01/15/17 05:36 Labs: Laboratory Last Values WBC 6.9 K/mm3 (4.5-11.0) 01/15/17 05:36 RBC 5.83 M/mm3 (3.65-5.03) H 01/15/17 05:36 Hgb 12.7 gm/dl (11.8-15.2) 01/15/17 05:36 Hct 41.5 % (35.5-45.6) 01/15/17 05:36 MCV 71 fl (84-94) L 01/15/17 05:36 MCH 22 pg (28-32) L 01/15/17 05:36 MCHC 31 % (32-34) L 01/15/17 05:36 RDW 19.3 % (13.2-15.2) H 01/15/17 05:36 Plt Count 121 K/mm3 (140-440) L 01/15/17 05:36 [place] % (Auto) Care Analyst 01/15/17 05:36 Add Manual Diff Complete 01/15/17 05:36 Total Counted 100 01/15/17 05:36 Seg Neuts % (Manual) 41.0 % (40.0-70.0) 01/15/17 05:36 Band Neutrophils % 1.0 % 01/15/17 05:36 Lymphocytes % (Manual) 32.0 % (13.4-35.0) 01/15/17 05:36 Reactive Lymphs % (Man) 0 % 01/15/17 05:36 Monocytes % (Manual) 26.0 % (0.0-7.3) H 01/15/17 05:36 Eosinophils % (Manual) 0 % (0.0-4.3) 01/15/17 05:36 Basophils % (Manual) 0 % (0.0-1.8) 01/15/17 05:36 Metamyelocytes % 0 % 01/15/17 05:36 Myelocytes % 0 % 01/15/17 05:36 Promyelocytes % 0 % 01/15/17 05:36 Blast Cells % 0 % 01/15/17 05:36 Nucleated RBC % Not Reportable 01/15/17 05:36 Seg Neutrophils # Man 2.8 K/mm3 (1.8-7.7) 01/15/17 05:36 Band Neutrophils # 0.1 K/mm3 01/15/17 05:36 Lymphocytes # (Manual) 2.2 K/mm3 (1.2-5.4) 01/15/17 05:36 Abs React Lymphs (Man) 0.0 K/mm3 01/15/17 05:36 Monocytes # (Manual) 1.8 K/mm3 (0.0-0.8) H 01/15/17 05:36 Eosinophils # (Manual) 0.0 K/mm3 (0.0-0.4) 01/15/17 05:36 Basophils # (Manual) 0.0 K/mm3 (0.0-0.1) 01/15/17 05:36 Metamyelocytes # 0.0 K/mm3 01/15/17 05:36 Myelocytes # 0.0 K/mm3 01/15/17 05:36 Promyelocytes # 0.0 K/mm3 01/15/17 05:36 Blast Cells # 0.0 K/mm3 01/15/17 05:36 WBC Morphology Not Reportable 01/15/17 05:36 Hypersegmented Neuts Not Reportable 01/15/17 05:36 Hyposegmented Neuts Not Reportable 01/15/17 05:36 Hypogranular Neuts Not Reportable 01/15/17 05:36 Smudge Cells Not Reportable 01/15/17 05:36 Toxic Granulation Not Reportable 01/15/17 05:36 Toxic Vacuolation Not Reportable 01/15/17 05:36 Dohle Bodies Not Reportable 01/15/17 05:36 Pelger-Huet Anomaly Not Reportable 01/15/17 05:36 Philip Rods Not Reportable 01/15/17 05:36 Platelet Estimate Appears normal 01/15/17 05:36 Clumped Platelets Not Reportable 01/15/17 05:36 Plt Clumps, EDTA Not Reportable 01/15/17 05:36 Large Platelets Few 01/15/17 05:36 Giant Platelets Not Reportable 01/15/17 05:36 Platelet Satelliting Not Reportable 01/15/17 05:36 Plt Morphology Comment Not Reportable 01/15/17 05:36 RBC Morphology Not Reportable 01/15/17 05:36 Dimorphic RBCs Not Reportable 01/15/17 05:36 Polychromasia Not Reportable 01/15/17 05:36 Hypochromasia 2+ 01/15/17 05:36 Poikilocytosis Not Reportable 01/15/17 05:36 Anisocytosis 1+ 01/15/17 05:36 Microcytosis Not Reportable 01/15/17 05:36 Macrocytosis Not Reportable 01/15/17 05:36 Spherocytes Not Reportable 01/15/17 05:36 Pappenheimer Bodies Not Reportable 01/15/17 05:36 Sickle Cells Not Reportable 01/15/17 05:36 Target Cells Rare 01/15/17 05:36 Tear Drop Cells Not Reportable 01/15/17 05:36 Ovalocytes Not Reportable 01/15/17 05:36 Helmet Cells Not Reportable 01/15/17 05:36 [place] Bodies Not Reportable 01/15/17 05:36 [place] Rings Not Reportable 01/15/17 05:36 [place] Cells Not Reportable 01/15/17 05:36 Bite Cells Not Reportable 01/15/17 05:36 Crenated Cell Not Reportable 01/15/17 05:36 Elliptocytes Not Reportable 01/15/17 05:36 Acanthocytes (Spur) Not Reportable 01/15/17 05:36 Rouleaux Not Reportable 01/15/17 05:36 Hemoglobin C Crystals Not Reportable 01/15/17 05:36 Schistocytes Not Reportable 01/15/17 05:36 Malaria parasites Not Reportable 01/15/17 05:36 Tomás Bodies Not Reportable 01/15/17 05:36 Hem Pathologist Commnt No 01/15/17 05:36 POC ABG pH 7.330 (7.35-7.45) L 01/14/17 04:04 POC ABG pCO2 60.8 (35-45) H 01/14/17 04:04 POC ABG pO2 49 (80-105) L 01/14/17 04:04 POC ABG HCO3 32.1 01/14/17 04:04 POC ABG Total CO2 34 01/14/17 04:04 POC ABG O2 Sat 80 01/14/17 04:04 POC ABG Base Excess 6 01/14/17 04:04 FiO2 21 % 01/14/17 04:04 Sodium 137 mmol/L (137-145) 01/15/17 05:36 Potassium 4.3 mmol/L (3.6-5.0) 01/15/17 05:36 Chloride 96.8 mmol/L (98-107) L 01/15/17 05:36 Carbon Dioxide 37 mmol/L (22-30) H 01/15/17 05:36 Anion Gap 8 mmol/L 01/15/17 05:36 BUN 14 mg/dL (9-20) 01/15/17 05:36 Creatinine 0.5 mg/dL (0.8-1.5) L 01/15/17 05:36 Estimated GFR > 60 ml/min 01/15/17 05:36 BUN/Creatinine Ratio 28.00 % 01/15/17 05:36 Glucose 97 mg/dL (75-100) 01/15/17 05:36 Calcium 8.9 mg/dL (8.4-10.2) 01/15/17 05:36 Urine Color Yellow (Yellow) 01/14/17 01:44 Urine Turbidity Clear (Clear) 01/14/17 01:44 Urine pH 5.0 (5.0-7.0) 01/14/17 01:44 Ur Specific [place] 1.014 (1.003-1.030) 01/14/17 01:44 Urine Protein 100 mg/dl mg/dL (Negative) 01/14/17 01:44 Urine Glucose (UA) Neg mg/dL (Negative) 01/14/17 01:44 Urine Ketones Neg mg/dL (Negative) 01/14/17 01:44 Urine Blood Neg (Negative) 01/14/17 01:44 Urine Nitrite Neg (Negative) 01/14/17 01:44 Urine Bilirubin Neg (Negative) 01/14/17 01:44 Urine Urobilinogen < 2.0 mg/dL (<2.0) 01/14/17 01:44 Ur Leukocyte Esterase Neg (Negative) 01/14/17 01:44 Urine WBC (Auto) 2.0 /HPF (0.0-6.0) 01/14/17 01:44 Urine RBC (Auto) 5.0 /HPF (0.0-6.0) 01/14/17 01:44 U Epithel Cells (Auto) < 1.0 /HPF (0-13.0) 01/14/17 01:44 Urine Mucus Few /HPF 01/14/17 01:44 Urine Opiates Screen Presumptive negative 01/14/17 01:44 Urine Methadone Screen Presumptive negative 01/14/17 01:44 Ur Barbiturates Screen Presumptive negative 01/14/17 01:44 Ur Phencyclidine Scrn Presumptive negative 01/14/17 01:44 Ur Amphetamines Screen Presumptive negative 01/14/17 01:44 U Benzodiazepines Scrn Presumptive negative 01/14/17 01:44 Urine Cocaine Screen Presumptive negative 01/14/17 01:44 U Marijuana (THC) Screen Presumptive negative 01/14/17 01:44 Drugs of Abuse Note Disclamer 01/14/17 01:44 Plasma/Serum Alcohol < 0.01 gm% (0-0.07) 01/14/17 01:35
[2017-01-16] MEDS: LOPRESSOR PO SCH ×2 (10:01→21:40)
[2017-01-16] MEDS: ZESTRIL PO SCH (10:02)
[2017-01-16] MEDS: LASIX PO SCH (10:02)
--- NOTE | 2017-01-16 17:35 | Consultation ---
History of Present Illness - Reason for Consult Consult date: 01/16/17 Reason for consult: Mental Health Evaluation Requesting physician: CYRUS HERRERA - Chief Complaint Chief complaint: "I am suicidal" - History of Present Psychiatric Illness 46 yo male with a past medical history of arthritis, asthma, bipolar, sleep apnea, and hypertension presents to the hospital with psychosis and suicidal ideation. Today patient is calm and cooperative during the assessment. Patient would fall asleep during our conversation. He stated, "I'm tired." He stated being "suicidal" without a plan because of social stressors (financial issues and being homeless). He stated that his life is "worthless" at this time. He acknowledged that he was diagnosed with Schizoaffective DO a couple years. He stated that he experience AV's occasionally, but deny them now. He stated that his mood has been down for weeks because he does not have a place to stay. He stated receiving social security, but it's not enough to pay rent. He denies recreational drug use and excessive alcohol consumption (etoh). He denies having SI's in the past. Medications and Allergies Allergies Allergy/AdvReac Type Severity Reaction Status Date / Time No Known Allergies Allergy Verified 11/19/13 15:20 Home Medications Medication Instructions Recorded Confirmed Last Taken Type ALBUTEROL NEB's [Proventil 0.083% 2.5 mg IH Q4HRT PRN #30 nebu 07/02/16 Unknown Rx NEBS] Divalproex Dr [Mary Holm] 4 tab PO QHS #1 mo 07/02/16 Unknown Rx Furosemide [Lasix TAB] 40 mg PO QDAY #30 tablet 07/02/16 Unknown Rx Lisinopril [Zestril TAB] 20 mg PO QDAY #30 tablet 07/02/16 Unknown Rx Metoprolol [Lopressor] 25 mg PO BID #60 tablet 07/02/16 Unknown Rx OLANzapine [ZyPREXA] 20 mg PO HS #30 tablet 07/02/16 Unknown Rx traZODone [Desyrel] 1 tab PO QDAY #30 tablet 07/02/16 Unknown Rx Active Meds: Active Medications Acetaminophen (Tylenol) 650 mg PO Q4H PRN PRN Reason: Pain MILD(1-3)/Fever >100.5/OJEDA Last Admin: 01/15/17 09:49 Dose: 650 mg Albuterol (Proventil) 2.5 mg IH Q6HRT PRN PRN Reason: Shortness Of Breath Bisacodyl (Dulcolax) 10 mg RI QDAY PRN PRN Reason: Constipation unrelieved by MOM Enoxaparin Sodium (Lovenox) 40 mg SUB-Q QDAY@2200 [facility] Last Admin: 01/15/17 23:00 Dose: 40 mg Furosemide (Lasix) 40 mg PO QDAY [facility] Last Admin: 01/16/17 10:02 Dose: 40 mg Lisinopril (Zestril) 20 mg PO QDAY [facility] Last Admin: 01/16/17 10:02 Dose: 20 mg Magnesium Hydroxide (Milk Of Magnesia) 30 ml PO Q4H PRN PRN Reason: Constipation Metoprolol Tartrate (Lopressor) 25 mg PO BID [facility] Last Admin: 01/16/17 10:01 Dose: 25 mg Olanzapine (Zyprexa) 20 mg PO HS [facility] Last Admin: 01/15/17 23:00 Dose: 20 mg Ondansetron HCl (Zofran) 4 mg IV Q8H PRN PRN Reason: N/V unrelieved by Reglan Trazodone HCl (Desyrel) 100 mg PO QHS [facility] Last Admin: 01/15/17 23:00 Dose: 100 mg Past psychiatric history - Past Medical History Past Medical History: arthritis, hypertension, other (Sleep Apnea) Past Surgical History: No surgical history, Other (Right Knee Surgery) - past Psychiatric treatment and history psychiatric treatment history: Patient stated that his mental illness is managed by his PCP. He denies a fam psy hx. - Social History Social history: Lives alone Mental Status Exam - Vital signs Last Vital Signs Temp 98.2 F 01/16/17 16:00 Pulse 71 01/16/17 16:00 Resp 20 01/16/17 16:00 BP 130/90 01/16/17 16:00 Pulse Ox 95 01/16/17 09:14 - Exam Narrative exam: ROS: (+) depression MSE: Appearance: calm, cooperative Behavior: good eye contact, drowsy Speech: regular rate and tone Mood: "not well" Affect: labile Thought Process: circumstantial Thought Content: denies HI's and AH's, AV's intermittently Motor Activity: ambulatory Cognition: A/Ox 3 Insight: limited Judgment: limited Results Result Diagrams: 01/15/17 05:36 01/15/17 05:36 All other labs normal. Assessment and Plan Assessment and plan: Impression: MDD Severe Type, Historical Dx: Schizoaffective DO. Today patient is calm and cooperative during the assessment. Patient drowsy during assessment. PCO2 60.8 on admission. DDx: R/O Bipolar Recommendation/Plan: Continue 1013. Will follow patient to determine proper dispo once medically clear. Start Zoloft 50 mg PO for depression and continue Zyprexa 20 mg PO HS for mood. Discussed possible metabolic side effects of Zyprexa with patient. Discussed possible suicidality/medication induced jessica with patient reference antidepressants.
[2017-01-16] MEDS: ZOLOFT PO SCH (18:27)
[2017-01-16 19:24] LABS: Alanine Aminotransferase 12 units/L (7-56); Alkaline Phosphatase 52 units/L (35-129)
[2017-01-16] MEDS: LOVENOX SUB-Q SCH (21:41)
--- NOTE | 2017-01-17 08:59 | Progress Note ---
Assessment and Plan Assessment and plan: --Suicidal ideation / acute psychosis Psych following, recommend 1013 status, continue current medications --Acute respiratory failure multifactorial COPD, morbid obesity, continue oxygen titrated O2 sats more than 90%, BiPAP as needed Patient's symptoms significantly improved --History of bipolar disorder; continue current management, psych following --Obstructive sleep apnea; CPAP at night --Morbid obesity, counseling done advised dietary modification and exercise as tolerated and weight reduction when medically stable Patient may benefit by outpatient bariatric surgical evaluation for weight reduction program when medically stable --Hypertension; moderate control, continue current antihypertensives and when necessary medications --DVT prophylaxis with Lovenox --Continue 1013/suicidal watch Closely monitor the patient and adjust the management as needed History Interval history: Patient seen and evaluated this morning medical records reviewed No new events reported by the nursing staff, 1013 status Patient feels better and denies chest pain or shortness of breath Alert awake oriented 3 not in acute distress Hospitalist Physical - Constitutional Vitals: Temp Pulse Resp BP Pulse Ox 98.0 F 73 20 130/64 98 01/17/17 08:29 01/17/17 08:29 01/17/17 08:29 01/17/17 08:29 01/17/17 08:18 General appearance: Present: no acute distress, well-nourished, obese (morbidly obese) - EENT Eyes: Present: PERRL, EOM intact - Neck Neck: Present: supple, normal ROM - Respiratory Respiratory effort: normal Respiratory: bilateral: diminished, rhonchi (scanty), negative: rales, wheezing - Cardiovascular Rhythm: regular Heart Sounds: Present: S1 & S2 - Extremities Extremities: no ischemia, pulses intact, pulses symmetrical - Abdominal General gastrointestinal: soft, non-tender, non-distended, normal bowel sounds - Integumentary Integumentary: Present: clear, warm - Psychiatric Psychiatric: appropriate mood/affect, cooperative - Neurologic Neurologic: CNII-XII intact, moves all extremities Results - Labs CBC & Chem 7: 01/15/17 05:36 01/15/17 05:36 Labs: Laboratory Last Values WBC 6.9 K/mm3 (4.5-11.0) 01/15/17 05:36 RBC 5.83 M/mm3 (3.65-5.03) H 01/15/17 05:36 Hgb 12.7 gm/dl (11.8-15.2) 01/15/17 05:36 Hct 41.5 % (35.5-45.6) 01/15/17 05:36 MCV 71 fl (84-94) L 01/15/17 05:36 MCH 22 pg (28-32) L 01/15/17 05:36 MCHC 31 % (32-34) L 01/15/17 05:36 RDW 19.3 % (13.2-15.2) H 01/15/17 05:36 Plt Count 121 K/mm3 (140-440) L 01/15/17 05:36 [place] % (Auto) Data Communications Technician 01/15/17 05:36 Add Manual Diff Complete 01/15/17 05:36 Total Counted 100 01/15/17 05:36 Seg Neuts % (Manual) 41.0 % (40.0-70.0) 01/15/17 05:36 Band Neutrophils % 1.0 % 01/15/17 05:36 Lymphocytes % (Manual) 32.0 % (13.4-35.0) 01/15/17 05:36 Reactive Lymphs % (Man) 0 % 01/15/17 05:36 Monocytes % (Manual) 26.0 % (0.0-7.3) H 01/15/17 05:36 Eosinophils % (Manual) 0 % (0.0-4.3) 01/15/17 05:36 Basophils % (Manual) 0 % (0.0-1.8) 01/15/17 05:36 Metamyelocytes % 0 % 01/15/17 05:36 Myelocytes % 0 % 01/15/17 05:36 Promyelocytes % 0 % 01/15/17 05:36 Blast Cells % 0 % 01/15/17 05:36 Nucleated RBC % Not Reportable 01/15/17 05:36 Seg Neutrophils # Man 2.8 K/mm3 (1.8-7.7) 01/15/17 05:36 Band Neutrophils # 0.1 K/mm3 01/15/17 05:36 Lymphocytes # (Manual) 2.2 K/mm3 (1.2-5.4) 01/15/17 05:36 Abs React Lymphs (Man) 0.0 K/mm3 01/15/17 05:36 Monocytes # (Manual) 1.8 K/mm3 (0.0-0.8) H 01/15/17 05:36 Eosinophils # (Manual) 0.0 K/mm3 (0.0-0.4) 01/15/17 05:36 Basophils # (Manual) 0.0 K/mm3 (0.0-0.1) 01/15/17 05:36 Metamyelocytes # 0.0 K/mm3 01/15/17 05:36 Myelocytes # 0.0 K/mm3 01/15/17 05:36 Promyelocytes # 0.0 K/mm3 01/15/17 05:36 Blast Cells # 0.0 K/mm3 01/15/17 05:36 WBC Morphology Not Reportable 01/15/17 05:36 Hypersegmented Neuts Not Reportable 01/15/17 05:36 Hyposegmented Neuts Not Reportable 01/15/17 05:36 Hypogranular Neuts Not Reportable 01/15/17 05:36 Smudge Cells Not Reportable 01/15/17 05:36 Toxic Granulation Not Reportable 01/15/17 05:36 Toxic Vacuolation Not Reportable 01/15/17 05:36 Dohle Bodies Not Reportable 01/15/17 05:36 Pelger-Huet Anomaly Not Reportable 01/15/17 05:36 Philip Rods Not Reportable 01/15/17 05:36 Platelet Estimate Appears normal 01/15/17 05:36 Clumped Platelets Not Reportable 01/15/17 05:36 Plt Clumps, EDTA Not Reportable 01/15/17 05:36 Large Platelets Few 01/15/17 05:36 Giant Platelets Not Reportable 01/15/17 05:36 Platelet Satelliting Not Reportable 01/15/17 05:36 Plt Morphology Comment Not Reportable 01/15/17 05:36 RBC Morphology Not Reportable 01/15/17 05:36 Dimorphic RBCs Not Reportable 01/15/17 05:36 Polychromasia Not Reportable 01/15/17 05:36 Hypochromasia 2+ 01/15/17 05:36 Poikilocytosis Not Reportable 01/15/17 05:36 Anisocytosis 1+ 01/15/17 05:36 Microcytosis Not Reportable 01/15/17 05:36 Macrocytosis Not Reportable 01/15/17 05:36 Spherocytes Not Reportable 01/15/17 05:36 Pappenheimer Bodies Not Reportable 01/15/17 05:36 Sickle Cells Not Reportable 01/15/17 05:36 Target Cells Rare 01/15/17 05:36 Tear Drop Cells Not Reportable 01/15/17 05:36 Ovalocytes Not Reportable 01/15/17 05:36 Helmet Cells Not Reportable 01/15/17 05:36 [place] Bodies Not Reportable 01/15/17 05:36 [place] Rings Not Reportable 01/15/17 05:36 [place] Cells Not Reportable 01/15/17 05:36 Bite Cells Not Reportable 01/15/17 05:36 Crenated Cell Not Reportable 01/15/17 05:36 Elliptocytes Not Reportable 01/15/17 05:36 Acanthocytes (Spur) Not Reportable 01/15/17 05:36 Rouleaux Not Reportable 01/15/17 05:36 Hemoglobin C Crystals Not Reportable 01/15/17 05:36 Schistocytes Not Reportable 01/15/17 05:36 Malaria parasites Not Reportable 01/15/17 05:36 Tomás Bodies Not Reportable 01/15/17 05:36 Hem Pathologist Commnt No 01/15/17 05:36 POC ABG pH 7.330 (7.35-7.45) L 01/14/17 04:04 POC ABG pCO2 60.8 (35-45) H 01/14/17 04:04 POC ABG pO2 49 (80-105) L 01/14/17 04:04 POC ABG HCO3 32.1 01/14/17 04:04 POC ABG Total CO2 34 01/14/17 04:04 POC ABG O2 Sat 80 01/14/17 04:04 POC ABG Base Excess 6 01/14/17 04:04 FiO2 21 % 01/14/17 04:04 Sodium 137 mmol/L (137-145) 01/15/17 05:36 Potassium 4.3 mmol/L (3.6-5.0) 01/15/17 05:36 Chloride 96.8 mmol/L (98-107) L 01/15/17 05:36 Carbon Dioxide 37 mmol/L (22-30) H 01/15/17 05:36 Anion Gap 8 mmol/L 01/15/17 05:36 BUN 14 mg/dL (9-20) 01/15/17 05:36 Creatinine 0.5 mg/dL (0.8-1.5) L 01/15/17 05:36 Estimated GFR > 60 ml/min 01/15/17 05:36 BUN/Creatinine Ratio 28.00 % 01/15/17 05:36 Glucose 97 mg/dL (75-100) 01/15/17 05:36 Calcium 8.9 mg/dL (8.4-10.2) 01/15/17 05:36 AST 14 units/L (5-40) 01/16/17 18:52 ALT 12 units/L (7-56) 01/16/17 18:52 Alkaline Phosphatase 52 units/L (35-129) 01/16/17 18:52 Urine Color Yellow (Yellow) 01/14/17 01:44 Urine Turbidity Clear (Clear) 01/14/17 01:44 Urine pH 5.0 (5.0-7.0) 01/14/17 01:44 Ur Specific [place] 1.014 (1.003-1.030) 01/14/17 01:44 Urine Protein 100 mg/dl mg/dL (Negative) 01/14/17 01:44 Urine Glucose (UA) Neg mg/dL (Negative) 01/14/17 01:44 Urine Ketones Neg mg/dL (Negative) 01/14/17 01:44 Urine Blood Neg (Negative) 01/14/17 01:44 Urine Nitrite Neg (Negative) 01/14/17 01:44 Urine Bilirubin Neg (Negative) 01/14/17 01:44 Urine Urobilinogen < 2.0 mg/dL (<2.0) 01/14/17 01:44 Ur Leukocyte Esterase Neg (Negative) 01/14/17 01:44 Urine WBC (Auto) 2.0 /HPF (0.0-6.0) 01/14/17 01:44 Urine RBC (Auto) 5.0 /HPF (0.0-6.0) 01/14/17 01:44 U Epithel Cells (Auto) < 1.0 /HPF (0-13.0) 01/14/17 01:44 Urine Mucus Few /HPF 01/14/17 01:44 Urine Opiates Screen Presumptive negative 01/14/17 01:44 Urine Methadone Screen Presumptive negative 01/14/17 01:44 Ur Barbiturates Screen Presumptive negative 01/14/17 01:44 Valproic Acid < 2.8 ug/mL (50-100) L 01/16/17 18:52 Ur Phencyclidine Scrn Presumptive negative 01/14/17 01:44 Ur Amphetamines Screen Presumptive negative 01/14/17 01:44 U Benzodiazepines Scrn Presumptive negative 01/14/17 01:44 Urine Cocaine Screen Presumptive negative 01/14/17 01:44 U Marijuana (THC) Screen Presumptive negative 01/14/17 01:44 Drugs of Abuse Note Disclamer 01/14/17 01:44 Plasma/Serum Alcohol < 0.01 gm% (0-0.07) 01/14/17 01:35
[2017-01-17] MEDS: ZESTRIL PO SCH (10:01)
[2017-01-17] MEDS: LASIX PO SCH (10:01)
[2017-01-17] MEDS: LOPRESSOR PO SCH ×2 (10:02→22:00)
[2017-01-17] MEDS: ZOLOFT PO SCH (10:02)
--- NOTE | 2017-01-17 11:07 | Progress Note ---
Subjective - Reason for Consult Consult date: 01/17/17 Reason for consult: Psychiatry Follow-up - Chief Complaint Chief complaint: "I need money" 46 yo male with a past medical history of arthritis, asthma, bipolar, sleep apnea, and hypertension presents to the hospital with psychosis and suicidal ideation. Today patient is calm and cooperative during the assessment. Patient was able to tell me more about his concerns. Yesterday, patient was drowsy and falling asleep during our conversation. He stated one of his main issues is a all took his money that he was going to use to get a place to stay. Currently, the patient lives with friends. He stated that he has attempted suicide multiple times. He tried to poison himself on his last attempt because of life stressors. He stated, "I just want my life to get better." He denies HI's, VH's , but stated that he experience AV's intermittently. He rate his depression 6/10 , with 10 being the worse. He acknowledged side effects when he take depakote. He denies any side effects of his current psy medication regimen. Mental Status Exam - Vital signs Last Vital Signs Temp 98.0 F 01/17/17 08:29 Pulse 73 01/17/17 08:29 Resp 20 01/17/17 08:29 BP 130/78 01/17/17 10:02 Pulse Ox 98 01/17/17 08:18 - Exam Narrative exam: MSE: Appearance: calm, cooperative Behavior: good eye contact, drowsy Speech: regular rate and tone Mood: "still down" Affect: labile Thought Process: circumstantial Thought Content: denies HI's and AH's, AV's intermittently Motor Activity: ambulatory Cognition: A/Ox 3 Insight: fair Judgment: limited Assessment and Plan Impression: MDD Severe Type, Historical Dx: Schizoaffective DO. Today patient is calm and cooperative during the assessment. Patient more alert today. Recommendation/Plan: Continue 1013. Will follow patient to determine proper dispo once medically clear. Continue Zoloft 50 mg PO for depression and Zyprexa 20 mg PO HS for mood. Discussed possible metabolic side effects of Zyprexa with patient. Discussed possible suicidality/medication induced jessica with patient reference antidepressants.
[2017-01-17] MEDS: TYLENOL PO PRN (15:49)
[2017-01-17] MEDS: LOVENOX SUB-Q SCH (21:59)
[2017-01-18 09:03] LABS: Anion Gap 13 mmol/L; Blood Urea Nitrogen 18 mg/dL (9-20); Calcium 9.3 mg/dL (8.4-10.2); Carbon Dioxide 34 mmol/L (22-30); Chloride 98.9 mmol/L (98-107); Glucose 94 mg/dL (75-100); Potassium 4.4 mmol/L (3.6-5.0); Sodium 141 mmol/L (137-145)
--- NOTE | 2017-01-18 10:41 | Progress Note ---
Subjective - Reason for Consult Consult date: 01/18/17 Reason for consult: Psychiatry Follow-up - Chief Complaint Chief complaint: "I'm just tired" 46 yo male with a past medical history of arthritis, asthma, bipolar, sleep apnea, and hypertension presents to the hospital with psychosis and suicidal ideation. Today patient is calm and cooperative during the assessment. Patient stated that he want a better life "[place]." He stated getting a place to stay is priority. He stated that his SI's are ceasing, but they are still there. He denies HI's and VH's. Patient admit to "some" AH's, but he stated, "I ignore them." He denies sleep disturbance and a poor appetite. Mental Status Exam - Vital signs Last Vital Signs Temp 98.8 F 01/18/17 08:00 Pulse 63 01/18/17 08:00 Resp 18 01/18/17 08:00 BP 131/93 01/18/17 08:00 Pulse Ox 90 01/18/17 08:00 - Exam Narrative exam: MSE: Appearance: calm, cooperative Behavior: good eye contact, drowsy Speech: regular rate and tone Mood: "okay" Affect: labile Thought Process: circumstantial Thought Content: denies HI's and AH's, AV's intermittently Motor Activity: ambulatory Cognition: A/Ox 3 Insight: fair Judgment: limited Assessment and Plan Impression: MDD Severe Type, Historical Dx: Schizoaffective DO. Today patient is calm and cooperative during the assessment. Passive SI's. Recommendation/Plan: Continue 1013 with placement to inpatient psy services once medically clear. Continue Zoloft 50 mg PO for depression and Zyprexa 20 mg PO HS for mood. Discussed possible metabolic side effects of Zyprexa with patient. Discussed possible suicidality/medication induced jessica with patient reference antidepressants.
--- NOTE | 2017-01-18 12:21 | Progress Note ---
Hospitalist Physical - Constitutional Vitals: Temp Pulse Resp BP Pulse Ox 98.8 F 63 18 131/93 90 01/18/17 08:00 01/18/17 08:00 01/18/17 08:00 01/18/17 08:00 01/18/17 08:00 General appearance: Present: no acute distress, well-nourished, obese (morbidly obese) Results - Labs CBC & Chem 7: 01/15/17 05:36 01/18/17 08:16 Labs: Laboratory Last Values WBC 6.9 K/mm3 (4.5-11.0) 01/15/17 05:36 RBC 5.83 M/mm3 (3.65-5.03) H 01/15/17 05:36 Hgb 12.7 gm/dl (11.8-15.2) 01/15/17 05:36 Hct 41.5 % (35.5-45.6) 01/15/17 05:36 MCV 71 fl (84-94) L 01/15/17 05:36 MCH 22 pg (28-32) L 01/15/17 05:36 MCHC 31 % (32-34) L 01/15/17 05:36 RDW 19.3 % (13.2-15.2) H 01/15/17 05:36 Plt Count 121 K/mm3 (140-440) L 01/15/17 05:36 [place] % (Auto) Cnc Lathe Programmer 01/15/17 05:36 Add Manual Diff Complete 01/15/17 05:36 Total Counted 100 01/15/17 05:36 Seg Neuts % (Manual) 41.0 % (40.0-70.0) 01/15/17 05:36 Band Neutrophils % 1.0 % 01/15/17 05:36 Lymphocytes % (Manual) 32.0 % (13.4-35.0) 01/15/17 05:36 Reactive Lymphs % (Man) 0 % 01/15/17 05:36 Monocytes % (Manual) 26.0 % (0.0-7.3) H 01/15/17 05:36 Eosinophils % (Manual) 0 % (0.0-4.3) 01/15/17 05:36 Basophils % (Manual) 0 % (0.0-1.8) 01/15/17 05:36 Metamyelocytes % 0 % 01/15/17 05:36 Myelocytes % 0 % 01/15/17 05:36 Promyelocytes % 0 % 01/15/17 05:36 Blast Cells % 0 % 01/15/17 05:36 Nucleated RBC % Not Reportable 01/15/17 05:36 Seg Neutrophils # Man 2.8 K/mm3 (1.8-7.7) 01/15/17 05:36 Band Neutrophils # 0.1 K/mm3 01/15/17 05:36 Lymphocytes # (Manual) 2.2 K/mm3 (1.2-5.4) 01/15/17 05:36 Abs React Lymphs (Man) 0.0 K/mm3 01/15/17 05:36 Monocytes # (Manual) 1.8 K/mm3 (0.0-0.8) H 01/15/17 05:36 Eosinophils # (Manual) 0.0 K/mm3 (0.0-0.4) 01/15/17 05:36 Basophils # (Manual) 0.0 K/mm3 (0.0-0.1) 01/15/17 05:36 Metamyelocytes # 0.0 K/mm3 01/15/17 05:36 Myelocytes # 0.0 K/mm3 01/15/17 05:36 Promyelocytes # 0.0 K/mm3 01/15/17 05:36 Blast Cells # 0.0 K/mm3 01/15/17 05:36 WBC Morphology Not Reportable 01/15/17 05:36 Hypersegmented Neuts Not Reportable 01/15/17 05:36 Hyposegmented Neuts Not Reportable 01/15/17 05:36 Hypogranular Neuts Not Reportable 01/15/17 05:36 Smudge Cells Not Reportable 01/15/17 05:36 Toxic Granulation Not Reportable 01/15/17 05:36 Toxic Vacuolation Not Reportable 01/15/17 05:36 Dohle Bodies Not Reportable 01/15/17 05:36 Pelger-Huet Anomaly Not Reportable 01/15/17 05:36 Philip Rods Not Reportable 01/15/17 05:36 Platelet Estimate Appears normal 01/15/17 05:36 Clumped Platelets Not Reportable 01/15/17 05:36 Plt Clumps, EDTA Not Reportable 01/15/17 05:36 Large Platelets Few 01/15/17 05:36 Giant Platelets Not Reportable 01/15/17 05:36 Platelet Satelliting Not Reportable 01/15/17 05:36 Plt Morphology Comment Not Reportable 01/15/17 05:36 RBC Morphology Not Reportable 01/15/17 05:36 Dimorphic RBCs Not Reportable 01/15/17 05:36 Polychromasia Not Reportable 01/15/17 05:36 Hypochromasia 2+ 01/15/17 05:36 Poikilocytosis Not Reportable 01/15/17 05:36 Anisocytosis 1+ 01/15/17 05:36 Microcytosis Not Reportable 01/15/17 05:36 Macrocytosis Not Reportable 01/15/17 05:36 Spherocytes Not Reportable 01/15/17 05:36 Pappenheimer Bodies Not Reportable 01/15/17 05:36 Sickle Cells Not Reportable 01/15/17 05:36 Target Cells Rare 01/15/17 05:36 Tear Drop Cells Not Reportable 01/15/17 05:36 Ovalocytes Not Reportable 01/15/17 05:36 Helmet Cells Not Reportable 01/15/17 05:36 [place] Bodies Not Reportable 01/15/17 05:36 [place] Rings Not Reportable 01/15/17 05:36 [place] Cells Not Reportable 01/15/17 05:36 Bite Cells Not Reportable 01/15/17 05:36 Crenated Cell Not Reportable 01/15/17 05:36 Elliptocytes Not Reportable 01/15/17 05:36 Acanthocytes (Spur) Not Reportable 01/15/17 05:36 Rouleaux Not Reportable 01/15/17 05:36 Hemoglobin C Crystals Not Reportable 01/15/17 05:36 Schistocytes Not Reportable 01/15/17 05:36 Malaria parasites Not Reportable 01/15/17 05:36 Tomás Bodies Not Reportable 01/15/17 05:36 Hem Pathologist Commnt No 01/15/17 05:36 POC ABG pH 7.330 (7.35-7.45) L 01/14/17 04:04 POC ABG pCO2 60.8 (35-45) H 01/14/17 04:04 POC ABG pO2 49 (80-105) L 01/14/17 04:04 POC ABG HCO3 32.1 01/14/17 04:04 POC ABG Total CO2 34 01/14/17 04:04 POC ABG O2 Sat 80 01/14/17 04:04 POC ABG Base Excess 6 01/14/17 04:04 FiO2 21 % 01/14/17 04:04 Sodium 141 mmol/L (137-145) 01/18/17 08:16 Potassium 4.4 mmol/L (3.6-5.0) 01/18/17 08:16 Chloride 98.9 mmol/L (98-107) 01/18/17 08:16 Carbon Dioxide 34 mmol/L (22-30) H 01/18/17 08:16 Anion Gap 13 mmol/L 01/18/17 08:16 BUN 18 mg/dL (9-20) 01/18/17 08:16 Creatinine 0.6 mg/dL (0.8-1.5) L 01/18/17 08:16 Estimated GFR > 60 ml/min 01/18/17 08:16 BUN/Creatinine Ratio 30.00 % 01/18/17 08:16 Glucose 94 mg/dL (75-100) 01/18/17 08:16 Calcium 9.3 mg/dL (8.4-10.2) 01/18/17 08:16 AST 14 units/L (5-40) 01/16/17 18:52 ALT 12 units/L (7-56) 01/16/17 18:52 Alkaline Phosphatase 52 units/L (35-129) 01/16/17 18:52 Urine Color Yellow (Yellow) 01/14/17 01:44 Urine Turbidity Clear (Clear) 01/14/17 01:44 Urine pH 5.0 (5.0-7.0) 01/14/17 01:44 Ur Specific [place] 1.014 (1.003-1.030) 01/14/17 01:44 Urine Protein 100 mg/dl mg/dL (Negative) 01/14/17 01:44 Urine Glucose (UA) Neg mg/dL (Negative) 01/14/17 01:44 Urine Ketones Neg mg/dL (Negative) 01/14/17 01:44 Urine Blood Neg (Negative) 01/14/17 01:44 Urine Nitrite Neg (Negative) 01/14/17 01:44 Urine Bilirubin Neg (Negative) 01/14/17 01:44 Urine Urobilinogen < 2.0 mg/dL (<2.0) 01/14/17 01:44 Ur Leukocyte Esterase Neg (Negative) 01/14/17 01:44 Urine WBC (Auto) 2.0 /HPF (0.0-6.0) 01/14/17 01:44 Urine RBC (Auto) 5.0 /HPF (0.0-6.0) 01/14/17 01:44 U Epithel Cells (Auto) < 1.0 /HPF (0-13.0) 01/14/17 01:44 Urine Mucus Few /HPF 01/14/17 01:44 Urine Opiates Screen Presumptive negative 01/14/17 01:44 Urine Methadone Screen Presumptive negative 01/14/17 01:44 Ur Barbiturates Screen Presumptive negative 01/14/17 01:44 Valproic Acid < 2.8 ug/mL (50-100) L 01/16/17 18:52 Ur Phencyclidine Scrn Presumptive negative 01/14/17 01:44 Ur Amphetamines Screen Presumptive negative 01/14/17 01:44 U Benzodiazepines Scrn Presumptive negative 01/14/17 01:44 Urine Cocaine Screen Presumptive negative 01/14/17 01:44 U Marijuana (THC) Screen Presumptive negative 01/14/17 01:44 Drugs of Abuse Note Disclamer 01/14/17 01:44 Plasma/Serum Alcohol < 0.01 gm% (0-0.07) 01/14/17 01:35
[2017-01-18] MEDS: LOPRESSOR PO SCH ×2 (12:59→21:59)
[2017-01-18] MEDS: ZOLOFT PO SCH (13:02)
[2017-01-18] MEDS: ZESTRIL PO SCH (13:02)
[2017-01-18] MEDS: LASIX PO SCH (13:02)
--- NOTE | 2017-01-18 18:11 | Discharge Summary ---
Providers - Providers Date of Admission: 01/14/17 05:46 Date of discharge: 01/18/17 Attending physician: VLAD LUGO 01/15/17 09:33 psychiatry consult [Consult to Mental Health] [CONS] Routine Reason For Exam: suicidal/1013 Place consult to:: lead simulation modeling engineer Notified:: seen by psych Primary care physician: STONE DECORATOR Hospitalization Reason for admission: suicidal ideation/acute respiratory failure Condition: Stable Pertinent studies: Chest x-ray; cardiomegaly with mild pulmonary venous congestion Hospital course: 46-year-old morbidly obese male patient with significant past medical history of hypertension bipolar disorder obstructive sleep apnea due to obesity was admitted through emergency room. with History of suicidal ideation and acute psychosis The patient was agitated and was given Benadryl Ativan and Geodon, when he suddenly went into deep sleepwith sonorous respirations. Patient was evaluated and admitted to the hospital symptomatically managed, site place the patient on 1013 status, received oxygen nebulizers and supportive care Patient symptoms significant, psych has recommended transfer to inpatient psych facility once medically stable. Today he is comfortable in bed, saturating well at room air, sometimes required nasal cannula oxygen Alert awake oriented 3, Vital signs stable [id number] evaluation and physical examination done by me prior to discharge, did not show any new changes Medically and hemodynamically stable for discharge and transfer to inpatient psych facility. Final diagnosis; Suicidal ideation Acute psychosis Acute respiratory Failure improved Morbid obesity Hypertension Obstructive sleep apnea on CPAP at night COPD On going tobacco use Disposition: DC/TX-65 PSY HOSP/PSY UNIT Time spent for discharge: 33 min Core Measure Documentation - Palliative Care Palliative Care/ Comfort Measures: Not Applicable - Core Measures Any of the following diagnoses?: none Exam - Constitutional Vitals: Temp Pulse Resp BP Pulse Ox 98.4 F 61 18 142/75 97 01/18/17 16:41 01/18/17 16:41 01/18/17 16:41 01/18/17 16:41 01/18/17 16:41 General appearance: Present: no acute distress, well-nourished, obese (morbidly obese) - EENT Eyes: Present: PERRL, EOM intact - Neck Neck: Present: supple, normal ROM - Respiratory Respiratory effort: normal Respiratory: bilateral: diminished, wheezing (scanty), negative: rales, rhonchi - Cardiovascular Rhythm: regular Heart Sounds: Present: S1 & S2 - Extremities Extremities: no ischemia, pulses intact - Abdominal General gastrointestinal: Present: soft, non-tender, non-distended, normal bowel sounds - Integumentary Integumentary: Present: clear, warm - Musculoskeletal Musculoskeletal: strength equal bilaterally - Psychiatric Psychiatric: appropriate mood/affect, cooperative - Neurologic Neurologic: CNII-XII intact, moves all extremities Plan Activity: advance as tolerated, other (1013 status) Diet: other (Cardiac diet) Special Instructions: smoking cessation Additional Instructions: Transfer to inpatient psych facility for further evaluation and management Follow up with: PRIMARY CARE, [Primary Care Provider] - 3-5 Days
[2017-01-18] MEDS: LOVENOX SUB-Q SCH (21:56)
[2017-01-19] MEDS: ZESTRIL PO SCH (11:04)
[2017-01-19] MEDS: ZOLOFT PO SCH (11:05)
[2017-01-19] MEDS: LOPRESSOR PO SCH ×2 (11:05→22:28)
[2017-01-19] MEDS: LASIX PO SCH (11:05)
--- NOTE | 2017-01-19 16:31 | Progress Note ---
Subjective - Reason for Consult Consult date: 01/19/17 Reason for consult: follow up - Chief Complaint Chief complaint: "I need to go home" 46 yo male with a past medical history of arthritis, asthma, bipolar, sleep apnea, and hypertension presented to the hospital with psychosis and suicidal ideation. Today patient is calm and cooperative during the assessment.He denies all hallucinations today. He denies SI/HI. He denies sleep disturbance and a poor appetite. He is perseverative about going home. He is concerned his knees will stop working with his lack of mobility in the hospital. He denies medication side effects. Mental Status Exam - Vital signs Last Vital Signs Temp 97.8 F 01/19/17 16:14 Pulse 66 01/19/17 16:14 Resp 20 01/19/17 16:14 BP 122/80 01/19/17 16:14 Pulse Ox 99 01/19/17 16:14 Assessment and Plan MSE: Appearance: calm, cooperative Behavior: good eye contact Speech: regular rate and tone Mood: labile Affect: labile Thought Process: circumstantial Thought Content: denies HI's and AVH's, Motor Activity: ambulatory Cognition: A/Ox 3 Insight: fair Judgment: limited Assessment and Plan Impression: MDD Severe Type, Historical Dx: Schizoaffective DO. Today patient is calm and cooperative during the assessment. Denies SI/HI or AVH Recommendation/Plan: Continue 1013 with placement to inpatient psy services once medically clear. Continue Zoloft 50 mg PO for depression and Zyprexa 20 mg PO HS for mood. Discussed possible metabolic side effects of Zyprexa with patient. Discussed possible suicidality/medication induced jessica with patient reference antidepressants. He was previously on depakote 2000mg hs for mood/ bipolar disorder. Depakote 1500mg er started HS for mood stabilization. Continue zoloft and zyprexa for mood/depression/psychotic features.
--- NOTE | 2017-01-19 17:42 | Progress Note ---
Assessment and Plan Assessment and plan: --Suicidal ideation / acute psychosis Continue current management ,Psych following, recommend 1013 status, advised transfer to inpatient psych facility when medically stable --Acute on chronic respiratory failure multifactorial Secondary to COPD morbid obesity, oxygen titrated to O2 sats more than 90%, supportive care --History of bipolar disorder; continue current medications per psych --Obstructive sleep apnea; CPAP at night --Morbid obesity, counseling done advised dietary modification and exercise as tolerated and weight reduction when medically stable Patient may benefit by outpatient bariatric surgical evaluation for weight reduction program when medically stable --Hypertension; moderate control, continue current antihypertensives and when necessary medications --DVT prophylaxis with Lovenox --Continue 1013/suicidal watch Closely monitor the patient and adjust the management as needed Initially patient was discharged for possible transfer to inpatient psych, however no beds available and advised to transfer back when beds are available History Interval history: Patient seen and evaluated medical records reviewed Feels better today, no new complaints Remains 1013/suicide watch Alert awake oriented 3, no acute distress Hospitalist Physical - Constitutional Vitals: Temp Pulse Resp BP Pulse Ox 97.8 F 66 20 122/80 99 01/19/17 16:14 01/19/17 16:14 01/19/17 16:14 01/19/17 16:14 01/19/17 16:14 General appearance: Present: no acute distress, well-nourished, obese (morbidly obese) - EENT Eyes: Present: PERRL, EOM intact - Neck Neck: Present: supple, normal ROM - Respiratory Respiratory effort: normal Respiratory: negative: rales, rhonchi, wheezing - Cardiovascular Rhythm: regular Heart Sounds: Present: S1 & S2 - Extremities Extremities: no ischemia, pulses intact Peripheral Pulses: within normal limits - Abdominal General gastrointestinal: soft, non-tender, non-distended, normal bowel sounds - Integumentary Integumentary: Present: clear, warm - Psychiatric Psychiatric: appropriate mood/affect, cooperative - Neurologic Neurologic: CNII-XII intact, moves all extremities Results - Labs CBC & Chem 7: 01/15/17 05:36 01/18/17 08:16 Labs: Laboratory Last Values WBC 6.9 K/mm3 (4.5-11.0) 01/15/17 05:36 RBC 5.83 M/mm3 (3.65-5.03) H 01/15/17 05:36 Hgb 12.7 gm/dl (11.8-15.2) 01/15/17 05:36 Hct 41.5 % (35.5-45.6) 01/15/17 05:36 MCV 71 fl (84-94) L 01/15/17 05:36 MCH 22 pg (28-32) L 01/15/17 05:36 MCHC 31 % (32-34) L 01/15/17 05:36 RDW 19.3 % (13.2-15.2) H 01/15/17 05:36 Plt Count 121 K/mm3 (140-440) L 01/15/17 05:36 [place] % (Auto) Hall Coordinator 01/15/17 05:36 Add Manual Diff Complete 01/15/17 05:36 Total Counted 100 01/15/17 05:36 Seg Neuts % (Manual) 41.0 % (40.0-70.0) 01/15/17 05:36 Band Neutrophils % 1.0 % 01/15/17 05:36 Lymphocytes % (Manual) 32.0 % (13.4-35.0) 01/15/17 05:36 Reactive Lymphs % (Man) 0 % 01/15/17 05:36 Monocytes % (Manual) 26.0 % (0.0-7.3) H 01/15/17 05:36 Eosinophils % (Manual) 0 % (0.0-4.3) 01/15/17 05:36 Basophils % (Manual) 0 % (0.0-1.8) 01/15/17 05:36 Metamyelocytes % 0 % 01/15/17 05:36 Myelocytes % 0 % 01/15/17 05:36 Promyelocytes % 0 % 01/15/17 05:36 Blast Cells % 0 % 01/15/17 05:36 Nucleated RBC % Not Reportable 01/15/17 05:36 Seg Neutrophils # Man 2.8 K/mm3 (1.8-7.7) 01/15/17 05:36 Band Neutrophils # 0.1 K/mm3 01/15/17 05:36 Lymphocytes # (Manual) 2.2 K/mm3 (1.2-5.4) 01/15/17 05:36 Abs React Lymphs (Man) 0.0 K/mm3 01/15/17 05:36 Monocytes # (Manual) 1.8 K/mm3 (0.0-0.8) H 01/15/17 05:36 Eosinophils # (Manual) 0.0 K/mm3 (0.0-0.4) 01/15/17 05:36 Basophils # (Manual) 0.0 K/mm3 (0.0-0.1) 01/15/17 05:36 Metamyelocytes # 0.0 K/mm3 01/15/17 05:36 Myelocytes # 0.0 K/mm3 01/15/17 05:36 Promyelocytes # 0.0 K/mm3 01/15/17 05:36 Blast Cells # 0.0 K/mm3 01/15/17 05:36 WBC Morphology Not Reportable 01/15/17 05:36 Hypersegmented Neuts Not Reportable 01/15/17 05:36 Hyposegmented Neuts Not Reportable 01/15/17 05:36 Hypogranular Neuts Not Reportable 01/15/17 05:36 Smudge Cells Not Reportable 01/15/17 05:36 Toxic Granulation Not Reportable 01/15/17 05:36 Toxic Vacuolation Not Reportable 01/15/17 05:36 Dohle Bodies Not Reportable 01/15/17 05:36 Pelger-Huet Anomaly Not Reportable 01/15/17 05:36 Philip Rods Not Reportable 01/15/17 05:36 Platelet Estimate Appears normal 01/15/17 05:36 Clumped Platelets Not Reportable 01/15/17 05:36 Plt Clumps, EDTA Not Reportable 01/15/17 05:36 Large Platelets Few 01/15/17 05:36 Giant Platelets Not Reportable 01/15/17 05:36 Platelet Satelliting Not Reportable 01/15/17 05:36 Plt Morphology Comment Not Reportable 01/15/17 05:36 RBC Morphology Not Reportable 01/15/17 05:36 Dimorphic RBCs Not Reportable 01/15/17 05:36 Polychromasia Not Reportable 01/15/17 05:36 Hypochromasia 2+ 01/15/17 05:36 Poikilocytosis Not Reportable 01/15/17 05:36 Anisocytosis 1+ 01/15/17 05:36 Microcytosis Not Reportable 01/15/17 05:36 Macrocytosis Not Reportable 01/15/17 05:36 Spherocytes Not Reportable 01/15/17 05:36 Pappenheimer Bodies Not Reportable 01/15/17 05:36 Sickle Cells Not Reportable 01/15/17 05:36 Target Cells Rare 01/15/17 05:36 Tear Drop Cells Not Reportable 01/15/17 05:36 Ovalocytes Not Reportable 01/15/17 05:36 Helmet Cells Not Reportable 01/15/17 05:36 [place] Bodies Not Reportable 01/15/17 05:36 [place] Rings Not Reportable 01/15/17 05:36 [place] Cells Not Reportable 01/15/17 05:36 Bite Cells Not Reportable 01/15/17 05:36 Crenated Cell Not Reportable 01/15/17 05:36 Elliptocytes Not Reportable 01/15/17 05:36 Acanthocytes (Spur) Not Reportable 01/15/17 05:36 Rouleaux Not Reportable 01/15/17 05:36 Hemoglobin C Crystals Not Reportable 01/15/17 05:36 Schistocytes Not Reportable 01/15/17 05:36 Malaria parasites Not Reportable 01/15/17 05:36 Tomás Bodies Not Reportable 01/15/17 05:36 Hem Pathologist Commnt No 01/15/17 05:36 POC ABG pH 7.330 (7.35-7.45) L 01/14/17 04:04 POC ABG pCO2 60.8 (35-45) H 01/14/17 04:04 POC ABG pO2 49 (80-105) L 01/14/17 04:04 POC ABG HCO3 32.1 01/14/17 04:04 POC ABG Total CO2 34 01/14/17 04:04 POC ABG O2 Sat 80 01/14/17 04:04 POC ABG Base Excess 6 01/14/17 04:04 FiO2 21 % 01/14/17 04:04 Sodium 141 mmol/L (137-145) 01/18/17 08:16 Potassium 4.4 mmol/L (3.6-5.0) 01/18/17 08:16 Chloride 98.9 mmol/L (98-107) 01/18/17 08:16 Carbon Dioxide 34 mmol/L (22-30) H 01/18/17 08:16 Anion Gap 13 mmol/L 01/18/17 08:16 BUN 18 mg/dL (9-20) 01/18/17 08:16 Creatinine 0.6 mg/dL (0.8-1.5) L 01/18/17 08:16 Estimated GFR > 60 ml/min 01/18/17 08:16 BUN/Creatinine Ratio 30.00 % 01/18/17 08:16 Glucose 94 mg/dL (75-100) 01/18/17 08:16 Calcium 9.3 mg/dL (8.4-10.2) 01/18/17 08:16 AST 14 units/L (5-40) 01/16/17 18:52 ALT 12 units/L (7-56) 01/16/17 18:52 Alkaline Phosphatase 52 units/L (35-129) 01/16/17 18:52 Urine Color Yellow (Yellow) 01/14/17 01:44 Urine Turbidity Clear (Clear) 01/14/17 01:44 Urine pH 5.0 (5.0-7.0) 01/14/17 01:44 Ur Specific [place] 1.014 (1.003-1.030) 01/14/17 01:44 Urine Protein 100 mg/dl mg/dL (Negative) 01/14/17 01:44 Urine Glucose (UA) Neg mg/dL (Negative) 01/14/17 01:44 Urine Ketones Neg mg/dL (Negative) 01/14/17 01:44 Urine Blood Neg (Negative) 01/14/17 01:44 Urine Nitrite Neg (Negative) 01/14/17 01:44 Urine Bilirubin Neg (Negative) 01/14/17 01:44 Urine Urobilinogen < 2.0 mg/dL (<2.0) 01/14/17 01:44 Ur Leukocyte Esterase Neg (Negative) 01/14/17 01:44 Urine WBC (Auto) 2.0 /HPF (0.0-6.0) 01/14/17 01:44 Urine RBC (Auto) 5.0 /HPF (0.0-6.0) 01/14/17 01:44 U Epithel Cells (Auto) < 1.0 /HPF (0-13.0) 01/14/17 01:44 Urine Mucus Few /HPF 01/14/17 01:44 Urine Opiates Screen Presumptive negative 01/14/17 01:44 Urine Methadone Screen Presumptive negative 01/14/17 01:44 Ur Barbiturates Screen Presumptive negative 01/14/17 01:44 Valproic Acid < 2.8 ug/mL (50-100) L 01/16/17 18:52 Ur Phencyclidine Scrn Presumptive negative 01/14/17 01:44 Ur Amphetamines Screen Presumptive negative 01/14/17 01:44 U Benzodiazepines Scrn Presumptive negative 01/14/17 01:44 Urine Cocaine Screen Presumptive negative 01/14/17 01:44 U Marijuana (THC) Screen Presumptive negative 01/14/17 01:44 Drugs of Abuse Note Disclamer 01/14/17 01:44 Plasma/Serum Alcohol < 0.01 gm% (0-0.07) 01/14/17 01:35
--- NOTE | 2017-01-19 17:52 | Progress Note ---
Assessment and Plan Assessment and plan: --Acute on chronic respiratory failure multifactorial COPD, morbid obesity, continue oxygen titrated O2 sats more than 90%, BiPAP as needed Patient's symptoms significantly improved --Suicidal ideation / acute psychosis Patient denies suicidal thoughts , but reports intermittent hallucinations Psych following, continue current medications --History of bipolar disorder; continue current management, psych following --Obstructive sleep apnea; CPAP at night --Morbid obesity, counseling done advised dietary modification and exercise as tolerated and weight reduction when medically stable Patient may benefit by outpatient bariatric surgical evaluation for weight reduction program when medically stable --Hypertension; moderate control, continue current antihypertensives and when necessary medications --DVT prophylaxis with Lovenox --Continue 1013/suicidal watch Closely monitor the patient and adjust the management as needed Disposition; DC and transfer to psych facility when bed is available History Interval history: Patient seen and evaluated this morning medical records reviewed Could not be discharged as no beds available in psych facility Patient is alert and awake no new complaints Vital signs reviewed stable Hospitalist Physical - Constitutional Vitals: Temp Pulse Resp BP Pulse Ox 97.8 F 66 20 122/80 99 01/19/17 16:14 01/19/17 16:14 01/19/17 16:14 01/19/17 16:14 01/19/17 16:14 General appearance: Present: no acute distress, well-nourished, obese (morbidly obese) - EENT Eyes: Present: PERRL, EOM intact - Neck Neck: Present: supple, normal ROM - Respiratory Respiratory effort: normal Respiratory: bilateral: CTA, negative: rales, rhonchi, wheezing - Cardiovascular Rhythm: regular Heart Sounds: Present: S1 & S2 - Extremities Extremities: no ischemia, No edema Peripheral Pulses: within normal limits - Abdominal General gastrointestinal: soft, non-tender, non-distended, normal bowel sounds - Integumentary Integumentary: Present: clear, warm - Psychiatric Psychiatric: appropriate mood/affect, cooperative - Neurologic Neurologic: CNII-XII intact, moves all extremities Results - Labs CBC & Chem 7: 01/15/17 05:36 01/18/17 08:16 Labs: Laboratory Last Values WBC 6.9 K/mm3 (4.5-11.0) 01/15/17 05:36 RBC 5.83 M/mm3 (3.65-5.03) H 01/15/17 05:36 Hgb 12.7 gm/dl (11.8-15.2) 01/15/17 05:36 Hct 41.5 % (35.5-45.6) 01/15/17 05:36 MCV 71 fl (84-94) L 01/15/17 05:36 MCH 22 pg (28-32) L 01/15/17 05:36 MCHC 31 % (32-34) L 01/15/17 05:36 RDW 19.3 % (13.2-15.2) H 01/15/17 05:36 Plt Count 121 K/mm3 (140-440) L 01/15/17 05:36 [place] % (Auto) Retirement Administrator 01/15/17 05:36 Add Manual Diff Complete 01/15/17 05:36 Total Counted 100 01/15/17 05:36 Seg Neuts % (Manual) 41.0 % (40.0-70.0) 01/15/17 05:36 Band Neutrophils % 1.0 % 01/15/17 05:36 Lymphocytes % (Manual) 32.0 % (13.4-35.0) 01/15/17 05:36 Reactive Lymphs % (Man) 0 % 01/15/17 05:36 Monocytes % (Manual) 26.0 % (0.0-7.3) H 01/15/17 05:36 Eosinophils % (Manual) 0 % (0.0-4.3) 01/15/17 05:36 Basophils % (Manual) 0 % (0.0-1.8) 01/15/17 05:36 Metamyelocytes % 0 % 01/15/17 05:36 Myelocytes % 0 % 01/15/17 05:36 Promyelocytes % 0 % 01/15/17 05:36 Blast Cells % 0 % 01/15/17 05:36 Nucleated RBC % Not Reportable 01/15/17 05:36 Seg Neutrophils # Man 2.8 K/mm3 (1.8-7.7) 01/15/17 05:36 Band Neutrophils # 0.1 K/mm3 01/15/17 05:36 Lymphocytes # (Manual) 2.2 K/mm3 (1.2-5.4) 01/15/17 05:36 Abs React Lymphs (Man) 0.0 K/mm3 01/15/17 05:36 Monocytes # (Manual) 1.8 K/mm3 (0.0-0.8) H 01/15/17 05:36 Eosinophils # (Manual) 0.0 K/mm3 (0.0-0.4) 01/15/17 05:36 Basophils # (Manual) 0.0 K/mm3 (0.0-0.1) 01/15/17 05:36 Metamyelocytes # 0.0 K/mm3 01/15/17 05:36 Myelocytes # 0.0 K/mm3 01/15/17 05:36 Promyelocytes # 0.0 K/mm3 01/15/17 05:36 Blast Cells # 0.0 K/mm3 01/15/17 05:36 WBC Morphology Not Reportable 01/15/17 05:36 Hypersegmented Neuts Not Reportable 01/15/17 05:36 Hyposegmented Neuts Not Reportable 01/15/17 05:36 Hypogranular Neuts Not Reportable 01/15/17 05:36 Smudge Cells Not Reportable 01/15/17 05:36 Toxic Granulation Not Reportable 01/15/17 05:36 Toxic Vacuolation Not Reportable 01/15/17 05:36 Dohle Bodies Not Reportable 01/15/17 05:36 Pelger-Huet Anomaly Not Reportable 01/15/17 05:36 Philip Rods Not Reportable 01/15/17 05:36 Platelet Estimate Appears normal 01/15/17 05:36 Clumped Platelets Not Reportable 01/15/17 05:36 Plt Clumps, EDTA Not Reportable 01/15/17 05:36 Large Platelets Few 01/15/17 05:36 Giant Platelets Not Reportable 01/15/17 05:36 Platelet Satelliting Not Reportable 01/15/17 05:36 Plt Morphology Comment Not Reportable 01/15/17 05:36 RBC Morphology Not Reportable 01/15/17 05:36 Dimorphic RBCs Not Reportable 01/15/17 05:36 Polychromasia Not Reportable 01/15/17 05:36 Hypochromasia 2+ 01/15/17 05:36 Poikilocytosis Not Reportable 01/15/17 05:36 Anisocytosis 1+ 01/15/17 05:36 Microcytosis Not Reportable 01/15/17 05:36 Macrocytosis Not Reportable 01/15/17 05:36 Spherocytes Not Reportable 01/15/17 05:36 Pappenheimer Bodies Not Reportable 01/15/17 05:36 Sickle Cells Not Reportable 01/15/17 05:36 Target Cells Rare 01/15/17 05:36 Tear Drop Cells Not Reportable 01/15/17 05:36 Ovalocytes Not Reportable 01/15/17 05:36 Helmet Cells Not Reportable 01/15/17 05:36 [place] Bodies Not Reportable 01/15/17 05:36 [place] Rings Not Reportable 01/15/17 05:36 [place] Cells Not Reportable 01/15/17 05:36 Bite Cells Not Reportable 01/15/17 05:36 Crenated Cell Not Reportable 01/15/17 05:36 Elliptocytes Not Reportable 01/15/17 05:36 Acanthocytes (Spur) Not Reportable 01/15/17 05:36 Rouleaux Not Reportable 01/15/17 05:36 Hemoglobin C Crystals Not Reportable 01/15/17 05:36 Schistocytes Not Reportable 01/15/17 05:36 Malaria parasites Not Reportable 01/15/17 05:36 Tomás Bodies Not Reportable 01/15/17 05:36 Hem Pathologist Commnt No 01/15/17 05:36 POC ABG pH 7.330 (7.35-7.45) L 01/14/17 04:04 POC ABG pCO2 60.8 (35-45) H 01/14/17 04:04 POC ABG pO2 49 (80-105) L 01/14/17 04:04 POC ABG HCO3 32.1 01/14/17 04:04 POC ABG Total CO2 34 01/14/17 04:04 POC ABG O2 Sat 80 01/14/17 04:04 POC ABG Base Excess 6 01/14/17 04:04 FiO2 21 % 01/14/17 04:04 Sodium 141 mmol/L (137-145) 01/18/17 08:16 Potassium 4.4 mmol/L (3.6-5.0) 01/18/17 08:16 Chloride 98.9 mmol/L (98-107) 01/18/17 08:16 Carbon Dioxide 34 mmol/L (22-30) H 01/18/17 08:16 Anion Gap 13 mmol/L 01/18/17 08:16 BUN 18 mg/dL (9-20) 01/18/17 08:16 Creatinine 0.6 mg/dL (0.8-1.5) L 01/18/17 08:16 Estimated GFR > 60 ml/min 01/18/17 08:16 BUN/Creatinine Ratio 30.00 % 01/18/17 08:16 Glucose 94 mg/dL (75-100) 01/18/17 08:16 Calcium 9.3 mg/dL (8.4-10.2) 01/18/17 08:16 AST 14 units/L (5-40) 01/16/17 18:52 ALT 12 units/L (7-56) 01/16/17 18:52 Alkaline Phosphatase 52 units/L (35-129) 01/16/17 18:52 Urine Color Yellow (Yellow) 01/14/17 01:44 Urine Turbidity Clear (Clear) 01/14/17 01:44 Urine pH 5.0 (5.0-7.0) 01/14/17 01:44 Ur Specific [place] 1.014 (1.003-1.030) 01/14/17 01:44 Urine Protein 100 mg/dl mg/dL (Negative) 01/14/17 01:44 Urine Glucose (UA) Neg mg/dL (Negative) 01/14/17 01:44 Urine Ketones Neg mg/dL (Negative) 01/14/17 01:44 Urine Blood Neg (Negative) 01/14/17 01:44 Urine Nitrite Neg (Negative) 01/14/17 01:44 Urine Bilirubin Neg (Negative) 01/14/17 01:44 Urine Urobilinogen < 2.0 mg/dL (<2.0) 01/14/17 01:44 Ur Leukocyte Esterase Neg (Negative) 01/14/17 01:44 Urine WBC (Auto) 2.0 /HPF (0.0-6.0) 01/14/17 01:44 Urine RBC (Auto) 5.0 /HPF (0.0-6.0) 01/14/17 01:44 U Epithel Cells (Auto) < 1.0 /HPF (0-13.0) 01/14/17 01:44 Urine Mucus Few /HPF 01/14/17 01:44 Urine Opiates Screen Presumptive negative 01/14/17 01:44 Urine Methadone Screen Presumptive negative 01/14/17 01:44 Ur Barbiturates Screen Presumptive negative 01/14/17 01:44 Valproic Acid < 2.8 ug/mL (50-100) L 01/16/17 18:52 Ur Phencyclidine Scrn Presumptive negative 01/14/17 01:44 Ur Amphetamines Screen Presumptive negative 01/14/17 01:44 U Benzodiazepines Scrn Presumptive negative 01/14/17 01:44 Urine Cocaine Screen Presumptive negative 01/14/17 01:44 U Marijuana (THC) Screen Presumptive negative 01/14/17 01:44 Drugs of Abuse Note Disclamer 01/14/17 01:44 Plasma/Serum Alcohol < 0.01 gm% (0-0.07) 01/14/17 01:35
[2017-01-19] MEDS: LOVENOX SUB-Q SCH (22:28)
[2017-01-20] MEDS: LASIX PO SCH (09:38)
[2017-01-20] MEDS: LOPRESSOR PO SCH (09:38)
[2017-01-20] MEDS: ZOLOFT PO SCH (09:38)
[2017-01-20] MEDS: ZESTRIL PO SCH (09:39)
--- NOTE | 2017-01-20 10:41 | Progress Note ---
Subjective - Reason for Consult Consult date: 01/20/17 Reason for consult: Psychiatry Follow-up - Chief Complaint Chief complaint: "I want to go home" 46 yo male with a past medical history of arthritis, asthma, bipolar, sleep apnea, and hypertension presented to the hospital with psychosis and suicidal ideation. Today patient is calm and cooperative during the assessment. He denies SI/HI's, AVH's, and depression. He stated that he will go to a group home or call a friend to reside with that person. Our previous conversation, patient was concerned about not having a place to stay. During our conversation I observed patient eating his breakfast. Per the staff, patient has been completing his ADL's. He denies any side effects from his medications. Mental Status Exam - Vital signs Last Vital Signs Temp 98.2 F 01/20/17 08:00 Pulse 70 01/20/17 08:00 Resp 20 01/20/17 08:00 BP 124/74 01/20/17 09:39 Pulse Ox 96 01/20/17 08:00 - Exam Narrative exam: MSE: Appearance: calm, cooperative Behavior: good eye contact, drowsy Speech: regular rate and tone Mood: "okay" Affect: congruent to mood Thought Process: linear Thought Content: denies SI/HI's and AVH's Motor Activity: ambulatory Cognition: A/Ox 3 Insight: fair Judgment: fair Assessment and Plan Impression: MDD Severe Type, Historical Dx: Schizoaffective DO. Today patient is calm and cooperative during the assessment. Denies SI//HI's. Patient is no threat to self or others. Recommendation/Plan: Rescind 1013. Continue Zoloft 50 mg PO for depression, Zyprexa 20 mg PO HS for mood, and Depakote 1500 mg daily for mood. Discussed possible metabolic side effects of Zyprexa with patient. Discussed possible suicidality/medication induced jessica with patient reference antidepressants. Route Service Manager involvement, patient is homeless. Patient prefer to see his PCP for outpatient psy services.
--- NOTE | 2017-01-20 15:25 | Discharge Summary ---
Providers - Providers Date of Admission: 01/14/17 05:46 Date of discharge: 01/20/17 Attending physician: VLAD LUGO 01/15/17 09:33 psychiatry consult [Consult to Mental Health] [CONS] Routine Reason For Exam: suicidal/1013 Place consult to:: internal control consultant Notified:: seen by psych Primary care physician: FISH RECEIVER Hospitalization Condition: Stable Disposition: DC-01 TO HOME OR SELFCARE Time spent for discharge: 33 min Core Measure Documentation - Palliative Care Palliative Care/ Comfort Measures: Not Applicable - Core Measures Any of the following diagnoses?: none Exam - Constitutional Vitals: Temp Pulse Resp BP Pulse Ox 98.2 F 70 20 124/74 96 01/20/17 08:00 01/20/17 08:00 01/20/17 08:00 01/20/17 09:39 01/20/17 10:50 General appearance: Present: no acute distress, obese (morbidly obese) - EENT Eyes: Present: PERRL, EOM intact - Neck Neck: Present: supple, normal ROM - Respiratory Respiratory effort: normal Respiratory: bilateral: diminished, negative: rales, rhonchi, wheezing - Cardiovascular Rhythm: regular Heart Sounds: Present: S1 & S2 - Extremities Extremities: no ischemia, No edema - Abdominal General gastrointestinal: Present: soft, non-tender, non-distended, normal bowel sounds - Integumentary Integumentary: Present: clear, warm - Musculoskeletal Musculoskeletal: strength equal bilaterally - Psychiatric Psychiatric: appropriate mood/affect, cooperative - Neurologic Neurologic: CNII-XII intact, moves all extremities Plan Activity: no restrictions Diet: regular Special Instructions: smoking cessation Additional Instructions: Outpatient psych/behavioral health follow-up 3-4 days. if You have any chest pain or shortness of breath, contact M.D. or go to emergency room. f/u Private Workers Compensation Manager 1 week Follow up with: PRIMARY CARE, [Primary Care Provider] - 3-5 Days Prescriptions: Divalproex ER [Depakote ER] 1,500 mg PO HS #30 tablet
[2017-01-20 16:03] VITALS: BP 117/59
== END 2017-01-20 18:50 | disposition home or self-care (01) | DRG 189 ==
LOC: ED 00:28 → 3A 05:46
PROVIDERS: ADMIT Internal Medicine; ATTEND Internal Medicine
PROC: 4A033R1 Measurement of Arterial Saturation, Peripheral, Percutaneous Approach (ICD-10-PCS; principal; 2017-01-14)
PROC: 5A09457 Assistance with Respiratory Ventilation, 24-96 Consecutive Hours, Continuous Positive Airway Pressure (ICD-10-PCS; 2017-01-15)
DX: J96.21 Acute and chronic respiratory failure with hypoxia (principal); R45.851 Suicidal ideations; Z68.41 Body mass index [BMI] 40.0-44.9, adult; F23 Brief psychotic disorder; J45.909 Unspecified asthma, uncomplicated; F31.9 Bipolar disorder, unspecified; I10 Essential (primary) hypertension; F17.200 Nicotine dependence, unspecified, uncomplicated; J96.22 Acute and chronic respiratory failure with hypercapnia; D69.6 Thrombocytopenia, unspecified; G47.30 Sleep apnea, unspecified; E66.01 Morbid (severe) obesity due to excess calories; J44.9 Chronic obstructive pulmonary disease, unspecified; F25.9 Schizoaffective disorder, unspecified
CPT/HCPCS: 36415; 71010; 80048; 80164; 80307; 80320; 81001; 82803; 84075; 84450; 84460; 85007; 85025; 94660; 94760; 96372; 99406; G0480; J0360; J1200; J1650; J2060; J3486

== ENCOUNTER 2017-02-14 14:09 | Emergency (ER) | payer MEDICARE ==
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
[2017-02-14 16:45] VITALS: BP 143/97
--- NOTE | 2017-02-14 18:20 | Emergency Department Report ---
HPI - General Chief Complaint: Extremity Injury, Lower Time Seen by Provider: 02/14/17 16:31 - HPI HPI: This is a 46-year-old male presents to ED complaining of right knee pain for the past couple of months. Patient states he had surgery on it a while ago. Patient states he has some pain to his right knee swelling. Patient denies any injury to the knee. ED Past Medical Hx - Past Medical History Previous Medical History?: Yes Hx Hypertension: Yes Hx Arthritis: Yes Hx Psychiatric Treatment: Yes (bipolar and depression) Hx Asthma: Yes Hx COPD: Yes Additional medical history: sleep apnea - Surgical History Past Surgical History?: Yes Additional Surgical History: right knee surgery - Social History Smoking Status: Current Every Day Smoker Substance Use Type: None - Medications Home Medications: Home Medications Medication Instructions Recorded Confirmed Last Taken Type ALBUTEROL NEB's [Proventil 0.083% 2.5 mg IH Q4HRT PRN #30 nebu 07/02/16 Unknown Rx NEBS] Furosemide [Lasix TAB] 40 mg PO QDAY #30 tablet 07/02/16 Unknown Rx Lisinopril [Zestril TAB] 20 mg PO QDAY #30 tablet 07/02/16 Unknown Rx Metoprolol [Lopressor TAB] 25 mg PO BID #60 tablet 07/02/16 Unknown Rx OLANzapine [ZyPREXA] 20 mg PO HS #30 tablet 07/02/16 Unknown Rx Sertraline [Zoloft] 50 mg PO QDAY tablet 01/18/17 Unknown Rx Divalproex ER [Depakote ER] 1,500 mg PO HS #30 tablet 01/20/[address] [Teenan Dr] 75 mg PO DAILY #30 tablet 02/14/17 Unknown Rx ED Review of Systems ROS: Stated complaint: RIGHT KNEE PAIN Other details as noted in HPI Constitutional: denies: chills, fever Eyes: denies: eye pain, eye discharge, vision change ENT: denies: ear pain, throat pain Respiratory: denies: cough, shortness of breath, wheezing Cardiovascular: denies: chest pain, palpitations Endocrine: no symptoms reported Gastrointestinal: denies: abdominal pain, nausea, diarrhea Genitourinary: denies: urgency, dysuria Musculoskeletal: denies: back pain, joint swelling, arthralgia, myalgia Skin: denies: rash, lesions Neurological: denies: headache, weakness, paresthesias Psychiatric: denies: anxiety, depression Hematological/Lymphatic: denies: easy bleeding, easy bruising Physical Exam - Physical Exam Vital Signs: Vital Signs 02/14/17 16:42 Temperature 98.2 F Pulse Rate 83 Respiratory 16 Rate Blood Pressure 143/97 O2 Sat by Pulse 100 Oximetry Physical Exam: GENERAL: Alert and oriented x3, no apparent distress, resting comfortably on the bed Normal Gait, atraumatic. HEAD: Head is normocephalic and a-traumatic. EYES: Extra ocular muscles are intact. Pupils are equal, round, and reactive to light and accommodation. LUNGS: Symetrical with respiration, No wheezing, no rales or crackles, CTAB. HEART: S1, S2 present, regular rate and rhythm without murmur, no rubs, no gallops. Non tender to palpation ABDOMEN: No organomegaly was noted,Positive bowel sounds, soft, and non- distended. . Nontender to palpation on all Quadrants, NO CVA tenderness. EXTREMITIES/MUSCULOSKELETAL: No cyanosis, clubbing, rash, lesions or edema. Full ROM bilaterally. UE/LE Pulses 2+ bilaterally. Knee joint swelling and tenderness scars seen from old surgery, mildly tender to palpation of the right knee, no calf tenderness bilaterally. NEUROLOGIC: The patient is cooperative with no focal neurologic deficits. Cranial nerves II through XII are grossly intact. Normal speech. Normal sensation in V1, V2, V3 bilaterally. Normal sensation in bilateral upper extremities, No loss of sensation, SKIN: Warm and dry, No lesions, No ulceration or induration present. ED Course Vital Signs 02/14/17 16:42 Temperature 98.2 F Pulse Rate 83 Respiratory 16 Rate Blood Pressure 143/97 O2 Sat by Pulse 100 Oximetry ED Medical Decision Making - Radiology Data Radiology results: report reviewed, image reviewed FINAL REPORT EXAM: XR KNEE 3V RT HISTORY: pain TECHNIQUE: Right knee three views PRIORS: No prior studies available for comparison FINDINGS: There is tibiofemoral joint space narrowing greatest at the lateral compartment. There is degenerative change at the patellofemoral joint space. Superior and inferior patellar osteophytes are noted. There is no evidence for joint effusion. No acute fracture is identified. No dislocation seen. IMPRESSION: Moderate DJD greatest at the patellofemoral joint space Transcribed By: NORMA Dictated By: SHARLA HU MD Electronically Authenticated By: SHARLA HU MD Signed Date/Time: 02/14/17 1823 - Medical Decision Making 46-year-old male presents with knee pain ED course: X-ray of the knees obtained. CBC result above Discussed findings with patient. Discussed with patient's ice and rest his knee. Discussed the patient osteoarthritis Discussed patient to follow up with his primary care physician. Critical care attestation.: If time is entered above; I have spent that time in minutes in the direct care of this critically ill patient, excluding procedure time. ED Disposition Clinical Impression: Chronic knee pain Qualifiers: Laterality: right Qualified Code(s): M25.561 - Pain in right knee Disposition: DC- TO HOME OR SELFCARE Is pt being admited?: No Does the pt Need Aspirin: No Condition: Stable Instructions: Osteoarthritis (ED), Arthralgia (ED) Prescriptions: Diclofenac Dr [Voltaren ] 75 mg PO DAILY #30 tablet Referrals: PRIMARY CAREMD [Primary Care Provider] - 3-5 Days MIRIAN AWAD MD [Staff Physician] - 3-5 Days IRAIS SANCHEZ MD [Referring] - 3-5 Days MIKO MURRAY MD [Referring] - 3-5 Days Forms: Work/School Release Form(ED) Time of Disposition: 18:49
--- NOTE | 2017-02-14 18:29 | XRay Report ---
FINAL REPORT EXAM: XR KNEE 3V RT HISTORY: pain TECHNIQUE: Right knee three views PRIORS: No prior studies available for comparison FINDINGS: There is tibiofemoral joint space narrowing greatest at the lateral compartment. There is degenerative change at the patellofemoral joint space. Superior and inferior patellar osteophytes are noted. There is no evidence for joint effusion. No acute fracture is identified. No dislocation seen. IMPRESSION: Moderate DJD greatest at the patellofemoral joint space
[2017-02-14] MEDS ORDERED: TORADOL IM ONE (18:57)
== END 2017-02-14 19:34 | disposition home or self-care (01) ==
LOC: ED 14:09
DX: M25.561 Pain in right knee (principal); I10 Essential (primary) hypertension; M19.90 Unspecified osteoarthritis, unspecified site; F31.9 Bipolar disorder, unspecified; J45.909 Unspecified asthma, uncomplicated; J44.9 Chronic obstructive pulmonary disease, unspecified; F17.200 Nicotine dependence, unspecified, uncomplicated
CPT/HCPCS: 73562; 96372; 99283; J1885

== ENCOUNTER 2017-06-16 18:12 | Emergency (ER) | payer MEDICARE ==
[2017-06-16 19:44] LABS: Mean Corpuscular HGB Conc 30 % (32-34); Red Blood Count 7.04 M/mm3 (3.65-5.03); White Blood Count 5.8 K/mm3 (4.5-11.0)
[2017-06-16 19:46] LABS: Hematocrit 45.8 % (35.5-45.6); Hemoglobin 13.6 gm/dl (11.8-15.2); Mean Corpuscular Hemoglobin 19 pg (28-32); Mean Corpuscular Volume 65 fl (84-94); Red Cell Distribution Width 24.2 % (13.2-15.2)
[2017-06-16 19:47] LABS: Platelet Count 111 K/mm3 (140-440)
[2017-06-16 19:56] LABS: Alanine Aminotransferase 8 units/L (7-56); Albumin 3.7 g/dL (3.9-5); Alkaline Phosphatase 66 units/L (35-129); Anion Gap 13 mmol/L; BUN/Creatinine Ratio 23; Blood Urea Nitrogen 14 mg/dL (9-20); Calcium 8.8 mg/dL (8.4-10.2); Carbon Dioxide 32 mmol/L (22-30); Chloride 100.2 mmol/L (98-107); Glucose 95 mg/dL (75-100); Lipase 19 units/L (13-60); Potassium 4.4 mmol/L (3.6-5.0); Sodium 141 mmol/L (137-145); Total Protein 7.4 g/dL (6.3-8.2)
[2017-06-16 20:21] LABS: Basophils % (Manual) 0 % (0.0-1.8); Blastocytes % (Manual) 0 %; Eosinophils % (Manual) 0 % (0.0-4.3)
[2017-06-16 20:22] LABS: Anisocytosis 2+; Giant Platelets Rare; Large Platelets Few; Platelet Estimate Consistent w Auto; Target Cells 1+
[2017-06-16 20:23] LABS: Diff Status Complete; Microcytosis 1+
[2017-06-17 04:23] VITALS: BP 189/110
== END 2017-06-17 06:48 | disposition left against medical advice (07) ==
LOC: ED 18:12
DX: R10.9 Unspecified abdominal pain (principal); Z53.21 Procedure and treatment not carried out due to patient leaving prior to being seen by health care provider
CPT/HCPCS: 36415; 80053; 83690; 85007; 85025

== ENCOUNTER 2017-11-29 15:09 | Outpatient (CLI) | payer MEDICARE ==
[2017-11-29 16:06] LABS: Mean Corpuscular HGB Conc 31 % (32-34); Mean Corpuscular Volume 72 fl (84-94); Red Blood Count 6.34 M/mm3 (3.65-5.03); Red Cell Distribution Width 18.9 % (13.2-15.2)
[2017-11-29 16:08] LABS: Hematocrit 45.3 % (35.5-45.6); Hemoglobin 14.1 gm/dl (11.8-15.2); Mean Corpuscular Hemoglobin 22 pg (28-32); Platelet Count 101 K/mm3 (140-440)
[2017-11-29 16:40] LABS: Alanine Aminotransferase 11 units/L (7-56); Albumin 3.9 g/dL (3.9-5); BUN/Creatinine Ratio 33; Blood Urea Nitrogen 20 mg/dL (9-20); Calcium 9.5 mg/dL (8.4-10.2); Chol/HDL Ratio 4.66 %; HDL Cholesterol 39 mg/dL (40-59); Hemolysis Index 2; LDL Cholesterol,Direct 131 mg/dL (50-130)
[2017-11-29 16:47] LABS: Free T4 (Free Thyroxine) 1.06 ng/dL (0.76-1.46)
--- NOTE | 2017-11-30 08:45 | XRay Report ---
FINAL REPORT EXAM: XR CHEST ROUTINE 2V HISTORY: ASTHMA TECHNIQUE: PA and lateral views of the chest were submitted. FINDINGS: The heart is mildly enlarged. The thoracic aorta is mildly tortuous. The lungs are not congested. There are no localized infiltrates or effusions. The skeletal structures reveal multilevel disc degeneration in the dorsal spine. IMPRESSION: No active chest disease.
== END 2017-11-29 15:10 | disposition home or self-care (01) ==
LOC: XRAY 15:09
PROVIDERS: ATTEND Internal Medicine
DX: I51.7 Cardiomegaly (principal); M51.34 Other intervertebral disc degeneration, thoracic region; J45.909 Unspecified asthma, uncomplicated; I10 Essential (primary) hypertension; E66.9 Obesity, unspecified; F17.210 Nicotine dependence, cigarettes, uncomplicated
CPT/HCPCS: 36415; 71046; 80053; 80061; 82785; 84439; 84443; 85027; 86003

== ENCOUNTER 2018-04-02 22:28 | Emergency (ER) | payer MEDICARE ==
[2018-04-02 22:40] VITALS: BP 136/76
[2018-04-03 00:10] LABS: Hemoglobin 13.9 gm/dl (11.8-15.2); Red Cell Distribution Width 19.7 % (13.2-15.2)
[2018-04-03 00:16] LABS: Hematocrit 43.6 % (35.5-45.6); Mean Corpuscular HGB Conc 32 % (32-34); Mean Corpuscular Volume 73 fl (84-94); Red Blood Count 5.94 M/mm3 (3.65-5.03)
[2018-04-03 00:19] LABS: Mean Corpuscular Hemoglobin 23 pg (28-32); Platelet Count 110 K/mm3 (140-440)
[2018-04-03 00:21] LABS: INR 1.04 (0.87-1.13)
[2018-04-03 00:22] LABS: Partial Thromboplastin Time 26.9 Sec. (24.2-36.6)
[2018-04-03 00:52] LABS: BUN/Creatinine Ratio 23; Blood Urea Nitrogen 16 mg/dL (9-20); Calcium 9.3 mg/dL (8.4-10.2); Hemolysis Index 3
--- NOTE | 2018-04-03 01:57 | Emergency Department Report ---
ED Extremity Problem HPI - General Chief complaint: Extremity Injury, Lower Stated complaint: LT KNEE PAIN Time Seen by Provider: 04/03/18 01:31 Source: family, EMS Mode of arrival: Wheelchair Limitations: No Limitations - History of Present Illness Initial comments: 47-year-old -[place] male with a past medical history of bipolar, depression, arthritis, asthma, COPD, right knee surgery comes in complaining of left knee stiffness and pain and swelling. Patient states that he had he has to extend his left leg because of the swelling and the pain he is not able to flex it. Patient does have a history of chronic knee problems and is followed by Dr. Blank. Patient reports that he has pending a bilateral total knee replacement. Patient reports that the swelling and the pain in the stiffness started 2 days ago. She denies any chest pain no shortness of breathing no headache. He reports that the pain is sharp achy and throbbing. MD Complaint: extremity pain, extremity swelling -: days(s) (2) Location: left - Related Data Home Medications Medication Instructions Recorded Confirmed Last Taken Divalproex ER [Depakote ER] 2,000 mg PO HS 11/16/17 11/16/17 Unknown traZODone [Desyrel] 50 mg PO QHS 11/16/17 11/16/17 Unknown Previous Rx's Medication Instructions Recorded Last Taken Type OLANzapine [ZyPREXA] 20 mg PO HS #30 tablet 07/02/16 Unknown Rx Allergies Allergy/AdvReac Type Severity Reaction Status Date / Time tramadol AdvReac Unknown Verified 04/03/18 02:52 ED Review of Systems ROS: Stated complaint: LT KNEE PAIN Other details as noted in HPI ED Past Medical Hx - Past Medical History Hx Hypertension: Yes (NEVER GOT RX FILLED ( ONE YR AGO)) Hx Arthritis: Yes Hx Psychiatric Treatment: Yes (bipolar and depression) Hx Asthma: Yes Hx COPD: Yes Hx Tuberculosis: Yes (POSITIVE SKIN TEST,TOOK [place] , NEG CXR) Hx HIV: No Additional medical history: sleep apnea - Surgical History Additional Surgical History: right knee surgery - Social History Smoking Status: Never Smoker Substance Use Type: None - Medications Home Medications: Home Medications Medication Instructions Recorded Confirmed Last Taken Type OLANzapine [ZyPREXA] 20 mg PO HS #30 tablet 07/02/16 11/16/17 Unknown Rx Divalproex ER [Depakote ER] 2,000 mg PO HS 11/16/17 11/16/17 Unknown History traZODone [Desyrel] 50 mg PO QHS 11/16/17 11/16/17 Unknown History ED Physical Exam - General Limitations: No Limitations General appearance: alert, in no apparent distress - Head Head exam: Present: atraumatic, normocephalic - Eye Eye exam: Present: EOMI - ENT ENT exam: Present: mucous membranes moist - Respiratory Respiratory exam: Present: normal lung sounds bilaterally. Absent: respiratory distress - Cardiovascular Cardiovascular Exam: Present: regular rate, normal rhythm. Absent: systolic murmur, diastolic murmur, rubs, gallop - Expanded Lower Extremity Exam Left Hip exam: Present: normal inspection, full ROM, tenderness Upper Leg exam: Present: normal inspection, full ROM Knee exam: Present: tenderness (posterior knee), swelling. Absent: full ROM ( not able to flex) Foot/Toe exam: Present: full ROM, swelling. Absent: tenderness Neuro vascular tendon exam: Present: no vascular compromise. Absent: pulse deficit Gait: Positive: observed and normal - Back Exam Back exam: Present: full ROM, tenderness - Neurological Exam Neurological exam: Present: alert, oriented X3 - Psychiatric Psychiatric exam: Present: normal affect, normal mood - Skin Skin exam: Present: warm, dry, intact, normal color. Absent: rash ED Course Vital Signs 04/02/18 04/02/18 22:34 22:47 Temperature 99.5 F 99.5 F Pulse Rate 72 80 Respiratory 18 18 Rate Blood Pressure 136/76 136/76 O2 Sat by Pulse 95 95 Oximetry ED Medical Decision Making - Lab Data Result diagrams: 04/02/18 23:57 04/02/18 23:57 - Medical Decision Making Patient has been evaluated by this provider fast track. PTT PT INR d-dimer CBCs BMP ordered Patient has elevated d-dimer 870 something. Patient be given Lovenox 120 mg subcutaneous Patient instructed to follow up around 932 vascular for ultrasound of leg.. Ambulatory orders have been printed in given to patient's. Critical care attestation.: If time is entered above; I have spent that time in minutes in the direct care of this critically ill patient, excluding procedure time. ED Disposition Clinical Impression: Pain and swelling of left lower extremity, Elevated d-dimer Disposition: TO HOME OR SELFCARE Is pt being admited?: No Does the pt Need Aspirin: No Condition: Stable Additional Instructions: Please return back to x-ray ultrasound approximately 9:30 in the morning to have urine ultrasound of her left leg. Referrals: PRIMARY CARE, [Primary Care Provider] - 3-5 Days
[2018-04-03] MEDS ORDERED: LOVENOX SUB-Q SCH (02:00)
[2018-04-03] MEDS ORDERED: ULTRAM PO ONE (02:18)
[2018-04-03] MEDS ORDERED: TYLENOL PO ONE (02:54)
--- NOTE | 2018-04-03 02:54 | XRay Report ---
FINAL REPORT PROCEDURE: XR SPINE LUMBOSACRAL 2-3V TECHNIQUE: Lumbar spine radiographs, including AP, lateral, and lumbosacral spot views. CPT 68843 HISTORY: back pain lower COMPARISON: No prior studies are available for comparison. FINDINGS: Alignment: Normal. Vertebral body heights/Disk spaces: Normal. Fracture(s): None. Facets: Normal. Bone mineralization: Normal. IMPRESSION: Normal Examination.
== END 2018-04-03 03:17 | disposition home or self-care (01) ==
LOC: ED 22:28
DX: M25.662 Stiffness of left knee, not elsewhere classified (principal); M79.89 Other specified soft tissue disorders; M25.562 Pain in left knee; R79.1 Abnormal coagulation profile; I10 Essential (primary) hypertension; M19.90 Unspecified osteoarthritis, unspecified site; J44.9 Chronic obstructive pulmonary disease, unspecified; Z88.8 Allergy status to other drugs, medicaments and biological substances
CPT/HCPCS: 36415; 72100; 80048; 85027; 85379; 85610; 85730; 96372; 99284; J1650

== ENCOUNTER 2018-04-03 08:01 | Emergency (ER) | payer MEDICARE ==
[2018-04-03 09:20] LABS: Basophils # (Auto) 0.1 K/mm3 (0.0-0.1); Basophils % (Auto) 1.3 % (0.0-1.8); Eosinophils # (Auto) 0.1 K/mm3 (0.0-0.4); Hematocrit 41.9 % (35.5-45.6); Hemoglobin 13.5 gm/dl (11.8-15.2); Lymphocytes % (Auto) 42.4 % (13.4-35.0); Mean Corpuscular HGB Conc 32 % (32-34); Mean Corpuscular Volume 73 fl (84-94); Monocytes # (Auto) 0.9 K/mm3 (0.0-0.8); Monocytes % (Auto) 13.2 % (0.0-7.3); Red Blood Count 5.75 M/mm3 (3.65-5.03)
[2018-04-03 09:23] LABS: Mean Corpuscular Hemoglobin 24 pg (28-32); Platelet Count 117 K/mm3 (140-440)
[2018-04-03 09:35] LABS: BUN/Creatinine Ratio 28; Blood Urea Nitrogen 17 mg/dL (9-20); Calcium 9.2 mg/dL (8.4-10.2); Hemolysis Index 32
--- NOTE | 2018-04-03 13:31 | Emergency Department Report ---
ED General Adult HPI - General Chief complaint: Chest Pain Stated complaint: CHEST PAIN Time Seen by Provider: 04/03/18 13:18 Source: patient Mode of arrival: Ambulatory Limitations: No Limitations - History of Present Illness Initial comments: Patient presents immersed for more left leg pain and was seen last night for this complaint as well. Patient had elevated d-dimer and appointment with outpatient ultrasound this morning but showed up to the ED instead -: Sudden Radiation: non-radiation Severity scale (0 -10): 6 Consistency: constant Improves with: none Worsens with: none Associated Symptoms: denies other symptoms Treatments Prior to Arrival: none - Related Data Home Medications Medication Instructions Recorded Confirmed Last Taken Divalproex ER [Depakote ER] 2,000 mg PO HS 11/16/17 11/16/17 Unknown traZODone [Desyrel] 50 mg PO QHS 11/16/17 11/16/17 Unknown Previous Rx's Medication Instructions Recorded Last Taken Type OLANzapine [ZyPREXA] 20 mg PO HS #30 tablet 07/02/16 Unknown Rx Allergies Allergy/AdvReac Type Severity Reaction Status Date / Time tramadol AdvReac Unknown Verified 04/03/18 02:52 ED Review of Systems ROS: Stated complaint: CHEST PAIN Other details as noted in HPI Comment: All other systems reviewed and negative Constitutional: denies: chills, fever Eyes: denies: eye pain, eye discharge, vision change ENT: denies: ear pain, throat pain Respiratory: denies: cough, shortness of breath, wheezing Cardiovascular: denies: chest pain, palpitations Endocrine: no symptoms reported Gastrointestinal: denies: abdominal pain, nausea, diarrhea Genitourinary: denies: urgency, dysuria Musculoskeletal: denies: back pain, joint swelling, arthralgia Skin: denies: rash, lesions Neurological: denies: headache, weakness, paresthesias Psychiatric: denies: anxiety, depression Hematological/Lymphatic: denies: easy bleeding, easy bruising ED Past Medical Hx - Past Medical History Previous Medical History?: Yes Hx Hypertension: Yes (NEVER GOT RX FILLED ( ONE YR AGO)) Hx Arthritis: Yes Hx Psychiatric Treatment: Yes (bipolar and depression) Hx Asthma: Yes Hx COPD: Yes Hx Tuberculosis: Yes (POSITIVE SKIN TEST,TOOK [place] , NEG CXR) Hx HIV: No Additional medical history: sleep apnea - Surgical History Past Surgical History?: Yes Additional Surgical History: right knee surgery - Social History Smoking Status: Current Every Day Smoker Substance Use Type: None - Medications Home Medications: Home Medications Medication Instructions Recorded Confirmed Last Taken Type OLANzapine [ZyPREXA] 20 mg PO HS #30 tablet 07/02/16 11/16/17 Unknown Rx Divalproex ER [Depakote ER] 2,000 mg PO HS 11/16/17 11/16/17 Unknown History traZODone [Desyrel] 50 mg PO QHS 11/16/17 11/16/17 Unknown History ED Physical Exam - General Limitations: No Limitations General appearance: alert, in no apparent distress - Head Head exam: Present: atraumatic, normocephalic - Eye Eye exam: Present: normal appearance - ENT ENT exam: Present: mucous membranes moist - Neck Neck exam: Present: normal inspection - Respiratory Respiratory exam: Present: normal lung sounds bilaterally. Absent: respiratory distress, wheezes, rales, rhonchi - Cardiovascular Cardiovascular Exam: Present: regular rate, normal rhythm. Absent: systolic murmur, diastolic murmur, rubs, gallop - GI/Abdominal GI/Abdominal exam: Present: soft, normal bowel sounds. Absent: distended, tenderness - Rectal Rectal exam: Present: deferred - Extremities Exam Extremities exam: Present: normal inspection - Back Exam Back exam: Present: normal inspection - Neurological Exam Neurological exam: Present: alert, oriented X3, CN II-XII intact. Absent: motor sensory deficit - Psychiatric Psychiatric exam: Present: normal affect, normal mood - Skin Skin exam: Present: warm, dry, intact, normal color. Absent: rash ED Course Vital Signs 04/03/18 04/03/18 08:42 12:54 Temperature 98.2 F 98.7 F Pulse Rate 76 62 Respiratory 18 15 Rate Blood Pressure 140/82 127/80 O2 Sat by Pulse 94 95 Oximetry ED Medical Decision Making - Lab Data Result diagrams: 04/03/18 08:57 04/03/18 08:57 - Medical Decision Making Patient will be sent to ultrasound for his scheduled DVT ultrasound Critical care attestation.: If time is entered above; I have spent that time in minutes in the direct care of this critically ill patient, excluding procedure time. ED Disposition Clinical Impression: Leg pain Disposition: DC-01 TO HOME OR SELFCARE Is pt being admited?: No Does the pt Need Aspirin: No Condition: Stable Instructions: Knee Pain (ED) Additional Instructions: Return if worse He will be sent to radiology for an ultrasound that was scheduled for this a.m. Referrals: PRIMARY CARE, [Primary Care Provider] - 3-5 Days Time of Disposition: 13:31
[2018-04-03 14:21] VITALS: BP 139/100
== END 2018-04-03 14:22 | disposition home or self-care (01) ==
LOC: ED 08:01
DX: M79.605 Pain in left leg (principal); I10 Essential (primary) hypertension; M19.90 Unspecified osteoarthritis, unspecified site; F31.9 Bipolar disorder, unspecified; J44.9 Chronic obstructive pulmonary disease, unspecified; G47.30 Sleep apnea, unspecified; F17.200 Nicotine dependence, unspecified, uncomplicated; Z88.5 Allergy status to narcotic agent
CPT/HCPCS: 36415; 80048; 84484; 85025; 93005; 93010; 99284

== ENCOUNTER 2018-04-09 04:45 | Emergency (ER) | payer MEDICARE ==
[2018-04-09 06:11] VITALS: BP 148/99
--- NOTE | 2018-04-09 09:27 | Emergency Department Report ---
HPI - General Chief Complaint: Extremity Injury, Lower Time Seen by Provider: 04/09/18 09:16 - HPI HPI: 47-year-old English male presents to the emergency department with complaint of acute on chronic left knee pain and left hip and back pain. The patient was seen here 3 days ago, had some blood work, an x-ray of the lumbar spine, and a venous Doppler ultrasound. He says that he is unaware of any of the results. He has a past medical history of asthma, COPD, hypertension, bipolar disorder and depression, sleep apnea. He says that he has a primary care physician but has not seen them regarding his symptoms. He walks with a cane at baseline. ED Past Medical Hx - Past Medical History Hx Hypertension: Yes (NEVER GOT RX FILLED ( ONE YR AGO)) Hx Arthritis: Yes Hx Psychiatric Treatment: Yes (bipolar and depression) Hx Asthma: Yes Hx COPD: Yes Hx Tuberculosis: Yes (POSITIVE SKIN TEST,TOOK TX , NEG CXR) Hx HIV: No Additional medical history: sleep apnea - Surgical History Additional Surgical History: right knee surgery - Social History Smoking Status: Current Every Day Smoker Substance Use Type: None - Medications Home Medications: Home Medications Medication Instructions Recorded Confirmed Last Taken Type OLANzapine [ZyPREXA] 20 mg PO HS #30 tablet 07/02/16 11/16/17 Unknown Rx Divalproex ER [Depakote ER] 2,000 mg PO HS 11/16/17 11/16/17 Unknown History traZODone [Desyrel] 50 mg PO QHS 11/16/17 11/16/17 Unknown History Ibuprofen 800 mg PO TID #20 tablet 04/09/18 Unknown Rx ED Review of Systems ROS: Stated complaint: LEFT KNEE PAIN Other details as noted in HPI Comment: All other systems reviewed and negative Constitutional: denies: chills, fever Eyes: denies: eye pain, eye discharge, vision change ENT: denies: ear pain, throat pain Respiratory: denies: cough, shortness of breath, wheezing Cardiovascular: edema. denies: chest pain, palpitations Gastrointestinal: denies: abdominal pain, nausea, diarrhea Genitourinary: denies: urgency, dysuria Musculoskeletal: back pain, arthralgia Skin: denies: rash, lesions Neurological: denies: headache, weakness, paresthesias Physical Exam - Physical Exam Vital Signs: Vital Signs 04/09/18 06:04 Temperature 98.8 F Pulse Rate 89 Respiratory 18 Rate Blood Pressure 148/99 O2 Sat by Pulse 100 Oximetry Physical Exam: GENERAL: The patient is well-developed well-nourished. HENT: Normocephalic. Atraumatic. Patient has moist mucous membranes. EYES: Extraocular motions are intact. Pupils equal reactive to light bilaterally. NECK: Supple. Trachea is midline. CHEST/LUNGS: Clear to auscultation. There is no respiratory distress noted. HEART/CARDIOVASCULAR: Regular. There is no tachycardia. There is no murmur. ABDOMEN: Abdomen is soft, nontender. Patient has normal bowel sounds. Morbidly obese habitus. SKIN: Skin is warm and dry. NEURO: Patient appears very sleepy but is easily arousable. Once awake he is alert and oriented to person place and time. He is cooperative. No focal deficits. He has normal speech. MUSCULOSKELETAL: There is some tenderness palpation to the left anterior knee. No laxity with valgus or varus stress of the affected left knee. Negative anterior and posterior drawer test. There is some swelling of the left knee. BACK: No midline thoracic or lumbar tenderness to palpation, step-off or deformity. ED Course Vital Signs 04/09/18 06:04 Temperature 98.8 F Pulse Rate 89 Respiratory 18 Rate Blood Pressure 148/99 O2 Sat by Pulse 100 Oximetry ED Medical Decision Making - Lab Data Result diagrams: 04/09/18 09:28 04/09/18 09:28 - Radiology Data Radiology results: image reviewed interpreted by me: X-ray of the left hip does not show any fracture, dislocation or any other acute process. X-ray of the left knee does not show any fracture, dislocation but there is a mild joint effusion. - Medical Decision Making First patient is very sleepy, but he has a history of sleep apnea and has been in the emergency department since about 2 AM. Upon reevaluation later, the patient is awake, alert and no longer falling asleep. Labs were unremarkable without any elevation in his CO2/bicarbonate, no renal insufficiency or any leukocytosis or hypoglycemia/hyperglycemia. X-rays were done of the left hip and the left knee that did not show any fracture, dislocation but just shows a mild left knee joint effusion. The patient has chronic knee, hip and back pains. he has established care with Dr. Blank. He will be placed on some anti -inflammatories and encouraged to see his orthopedist. He will return to the ER with any worsening of symptoms or any acute distress. Also I reviewed the patient's previous venous Doppler ultrasound which showed no signs of any DVT but did show a Acuña's cyst. This could potentially be part of the reason the patient has knee pain and swelling. - Differential Diagnosis fracture, dislocation, osteoarthritis, joint effusion Critical Care Time: No Critical care attestation.: If time is entered above; I have spent that time in minutes in the direct care of this critically ill patient, excluding procedure time. ED Disposition Clinical Impression: Left hip pain Left knee pain Qualifiers: Chronicity: unspecified Qualified Code(s): M25.562 - Pain in left knee Acuña's cyst of knee Qualifiers: Laterality: left Qualified Code(s): M71.22 - Synovial cyst of popliteal space [ Acuña], left knee Disposition: TO HOME OR SELFCARE Is pt being admited?: No Condition: Stable Instructions: Acuña's Cyst (ED), Knee Pain (ED), Arthralgia (ED) Additional Instructions: Please follow up with Dr. Blank this week. Return to the emergency Department with any worsening of her symptoms or any acute distress. Prescriptions: Ibuprofen 800 mg PO TID #20 tablet Referrals: PAUL NIETO MD [Primary Care Provider] - 3-5 Days HAYDEE BLANK MD [Staff Physician] - 3-5 Days Time of Disposition: 10:53
[2018-04-09 10:02] LABS: Hematocrit 43.8 % (35.5-45.6); Hemoglobin 14.1 gm/dl (11.8-15.2); Mean Corpuscular HGB Conc 32 % (32-34); Mean Corpuscular Volume 74 fl (84-94); Red Blood Count 5.94 M/mm3 (3.65-5.03); Red Cell Distribution Width 19.9 % (13.2-15.2)
[2018-04-09 10:12] LABS: BUN/Creatinine Ratio 20; Blood Urea Nitrogen 14 mg/dL (9-20); Calcium 9.3 mg/dL (8.4-10.2); Hemolysis Index 8
[2018-04-09 10:14] LABS: Mean Corpuscular Hemoglobin 24 pg (28-32)
[2018-04-09 10:16] LABS: Platelet Count 98 K/mm3 (140-440)
[2018-04-09] MEDS ORDERED: TORADOL IM ONE (10:30)
--- NOTE | 2018-04-09 10:32 | XRay Report ---
FINAL REPORT EXAM: XR KNEE 3V LT HISTORY: left knee pain COMPARISON: None. TECHNIQUE: Three views of the left knee FINDINGS: There is joint space narrowing with tricompartmental osteophyte formation. There is no acute fracture or dislocation. There is a moderate joint effusion. The overlying soft tissues are intact. IMPRESSION: Severe degenerative changes of the left knee. Moderate joint effusion. No acute fracture or dislocation.
--- NOTE | 2018-04-09 10:52 | XRay Report ---
FINAL REPORT EXAM: XR HIP 2-3V LT HISTORY: left hip pain COMPARISON: None. TECHNIQUE: Frontal view of the pelvis and lateral view of the left hip FINDINGS: There is normal alignment without acute fracture or dislocation. The bilateral hip joint spaces are preserved. The sacroiliac joints and symphysis pubis are intact. The overlying soft tissues are normal. IMPRESSION: No acute bony abnormality of the pelvis and left hip.
[2018-04-09 11:09] LABS: Band Neutrophils # (Manual) 0.1 K/mm3; Basophils % (Manual) 0 % (0.0-1.8); Eosinophils % (Manual) 0 % (0.0-4.3); Total Cells Counted 100
[2018-04-09 11:10] LABS: Anisocytosis 1+; Hypochromasia 1+
== END 2018-04-09 11:01 | disposition home or self-care (01) ==
LOC: ED 04:45
DX: M71.22 Synovial cyst of popliteal space [Baker], left knee (principal); M25.552 Pain in left hip; M54.89 Other dorsalgia; I10 Essential (primary) hypertension; M19.90 Unspecified osteoarthritis, unspecified site; F31.9 Bipolar disorder, unspecified; F32.9 Major depressive disorder, single episode, unspecified; J44.9 Chronic obstructive pulmonary disease, unspecified; F17.200 Nicotine dependence, unspecified, uncomplicated; A15.8 Other respiratory tuberculosis; Z79.899 Other long term (current) drug therapy
CPT/HCPCS: 36415; 73502; 73562; 80048; 83880; 85007; 85025; 96372; 99283; J1885

== ENCOUNTER 2018-07-31 10:36 | Emergency (ER) | payer MEDICARE ==
[2018-07-31 10:52] VITALS: BP 148/93
[2018-07-31] MEDS ORDERED: TETRACAINE 0.5% OU PRN (11:04)
[2018-07-31] MEDS ORDERED: TETRACAINE 0.5% ONE (11:07)
--- NOTE | 2018-07-31 11:19 | Emergency Department Report ---
ED Eye Problem HPI - General Chief complaint: Eye Problems Stated complaint: OBJECT IN (R) EYE Time Seen by Provider: 07/31/18 11:01 Source: patient, EMS Mode of arrival: Ambulatory Limitations: No Limitations - History of Present Illness Initial comments: Mr. Villalpando is a very pleasant 47-year-old male presents with foreign body sensation in the right eye. He awakened with foreign body sensation. He feels as if crumb is moving around in his eye. He denies any significant dust or environmental exposure. He denies fever. Denies trauma. Denies cold symptoms. No occupational hazards due to unemployment. He is currently disabled due to severe knee pain. No history of eye problems. No history of cataract or glaucoma. No history of contact lens use. MD chief complaint: foreign body -: This morning Onset Description: gradual Location: right eye Place: home If Injury: none Eye Symptoms: redness, foreign body sensation, itching Severity: mild Consistency: constant Treatments Prior to Arrival: irrigated eye - Related Data Home Medications Medication Instructions Recorded Confirmed Last Taken Divalproex ER [Depakote ER] 2,000 mg PO HS 11/16/17 07/18/18 Unknown traZODone [Desyrel] 150 mg PO QHS 11/16/17 07/18/18 Unknown Albuterol Sulfate [Ventolin Hfa] 2 puff IH PRN PRN 07/18/18 07/18/18 Unknown Previous Rx's Medication Instructions Recorded Last Taken Type OLANzapine [ZyPREXA] 20 mg PO HS #30 tablet 07/02/16 Unknown Rx Allergies Allergy/AdvReac Type Severity Reaction Status Date / Time tramadol AdvReac Unknown Verified 04/03/18 02:52 ED Review of Systems ROS: Stated complaint: OBJECT IN (R) EYE Other details as noted in HPI Constitutional: denies: fever, malaise Eyes: denies: eye pain, eye discharge, vision change Respiratory: denies: cough, shortness of breath Cardiovascular: denies: chest pain ED Past Medical Hx - Past Medical History Previous Medical History?: Yes Hx Hypertension: Yes (NEVER GOT RX FILLED ( ONE YR AGO)) Hx Arthritis: Yes Hx Psychiatric Treatment: Yes (bipolar and depression) Hx Asthma: Yes Hx COPD: Yes Hx Tuberculosis: Yes (POSITIVE SKIN TEST,TOOK [place] , NEG CXR) Hx HIV: No Additional medical history: sleep apnea - Surgical History Past Surgical History?: Yes Additional Surgical History: right knee surgery - Social History Smoking Status: Current Every Day Smoker Substance Use Type: None - Medications Home Medications: Home Medications Medication Instructions Recorded Confirmed Last Taken Type OLANzapine [ZyPREXA] 20 mg PO HS #30 tablet 07/02/16 07/18/18 Unknown Rx Divalproex ER [Depakote ER] 2,000 mg PO HS 11/16/17 07/18/18 Unknown History traZODone [Desyrel] 150 mg PO QHS 11/16/17 07/18/18 Unknown History Albuterol Sulfate [Ventolin Hfa] 2 puff IH PRN PRN 07/18/18 07/18/18 Unknown History ED Physical Exam - General Limitations: No Limitations General appearance: alert, in no apparent distress - Head Head exam: Present: atraumatic, normocephalic - Eye Eye exam: Present: conjunctival injection. Absent: scleral icterus, nystagmus, periorbital swelling, periorbital tenderness - Expanded Eye Exam Expanded Eyelids: Normal Inspection: Right Pupils: Regular, Round: Right, Reactive: Right Sclera/Conjunctival: Injection: Right (yes), Hemorrhage: Right (none), Foreign Body: Right (none), Exudate: Right (none) Anterior chamber: Normal Inspection: Right Posterior chamber: Deferred: Right - ENT ENT exam: Present: mucous membranes moist - Respiratory Respiratory exam: Absent: respiratory distress - Neurological Exam Neurological exam: Present: alert, oriented X3, normal gait - Psychiatric Psychiatric exam: Present: normal affect, normal mood - Skin Skin exam: Present: warm, dry, intact, normal color ED Course Vital Signs 07/31/18 07/31/18 10:46 10:53 Temperature 97.4 F L Pulse Rate 72 Respiratory 18 Rate Blood Pressure 148/93 O2 Sat by Pulse 96 Oximetry ED Medical Decision Making - Medical Decision Making Foreign body sensation right eye, symptoms resolved with tetracaine. After flushing with normal saline, Mr. Villalpando could not feel FB sensation. With eyelid inversion unable to find foreign body. Possible eyelash or dust particle. Recommended [id number] eyedrops for continued irrigation. Critical care attestation.: If time is entered above; I have spent that time in minutes in the direct care of this critically ill patient, excluding procedure time. ED Disposition Clinical Impression: Eye foreign body Disposition: DC-01 TO HOME OR SELFCARE Is pt being admited?: No Does the pt Need Aspirin: No Instructions: Eye Foreign Body (ED) Referrals: ANU HERRERA JR, MD [Primary Care Provider] - as needed
== END 2018-07-31 11:51 | disposition home or self-care (01) ==
LOC: ED 10:36
DX: T15.91XA Foreign body on external eye, part unspecified, right eye, initial encounter (principal); I10 Essential (primary) hypertension; M19.90 Unspecified osteoarthritis, unspecified site; F31.9 Bipolar disorder, unspecified; J44.9 Chronic obstructive pulmonary disease, unspecified; F17.200 Nicotine dependence, unspecified, uncomplicated; Z98.890 Other specified postprocedural states; Z88.6 Allergy status to analgesic agent; W45.8XXA Other foreign body or object entering through skin, initial encounter; Y93.89 Activity, other specified; Y92.009 Unspecified place in unspecified non-institutional (private) residence as the place of occurrence of the external cause; Y99.8 Other external cause status
CPT/HCPCS: 99283

== ENCOUNTER 2018-11-21 17:26 | Emergency (ER) | payer MEDICARE ==
[2018-11-21 17:54] VITALS: BP 153/93
--- NOTE | 2018-11-21 17:58 | Emergency Department Report ---
Chief Complaint: Psych Stated Complaint: MEDICATION REFILL Time Seen by Provider: 11/21/18 17:53 - HPI History of Present Illness: This is a 47 y.o. male that presents to ER with psychosis. Patient reports hearing voices. He was brought in via EMS. Patient states he is seeing things that others can't see. He is paranoid and think someone is out to kill him and following him. He denies SI/HI. - Exam Vital Signs: Vital Signs 11/21/18 17:53 Temperature 97.7 F Pulse Rate 91 H Respiratory 22 Rate Blood Pressure 153/93 O2 Sat by Pulse 92 Oximetry MSE screening note: Focused history and physical exam performed. Due to findings the following was ordered: Labs Main ED for further evaluation. ED Disposition for MSE Condition: Stable
--- NOTE | 2018-11-21 18:58 | Emergency Department Report ---
ED Psych HPI - General Chief Complaint: Psych Stated Complaint: MEDICATION REFILL Time Seen by Provider: 11/21/18 17:53 Source: patient, EMS Mode of arrival: Ambulatory - History of Present Illness Initial Comments: 47 years old male with history of schizophrenia, hypertension, obstructive sleep apnea and COPD. Patient presented to the ER by EMS stating that he is hearing voices and seeing things that other people don't see. Patient also stating that a lot of people out there to get him. Patient is paranoid. Patient denied any suicidal or homicidal ideation. Patient stated that he is out of his psych medicines for the last 2 weeks. MD Complaint: altered mental status - Related Data Home Medications Medication Instructions Recorded Confirmed Last Taken Divalproex ER [Depakote ER] 2,000 mg PO HS 11/16/17 11/22/18 Unknown traZODone [Desyrel] 150 mg PO QHS 11/16/17 11/22/18 Unknown Albuterol Sulfate [Ventolin Hfa] 2 puff IH PRN PRN 07/18/18 11/22/18 Unknown Previous Rx's Medication Instructions Recorded Last Taken Type OLANzapine [ZyPREXA] 20 mg PO HS #30 tablet 07/02/16 Unknown Rx Polymyxin B Sulf/Trimethoprim 1 drop OP Q3HR 3 Days #1 bottle 07/31/18 Unknown Rx [Polytrim Eye Drops [id number]/0.1%] Allergies Allergy/AdvReac Type Severity Reaction Status Date / Time tramadol AdvReac Unknown Verified 11/25/18 11:40 ED Review of Systems ROS: Stated complaint: MEDICATION REFILL Other details as noted in HPI Comment: All other systems reviewed and negative Constitutional: denies: chills, fever Respiratory: denies: cough, shortness of breath, SOB with exertion Cardiovascular: denies: chest pain, palpitations Gastrointestinal: denies: abdominal pain, nausea, diarrhea, constipation Neurological: denies: headache, weakness, numbness, paresthesias, confusion Psychiatric: auditory hallucinations, visual hallucinations. denies: anxiety, depression, homicidal thoughts, suicidal thoughts ED Past Medical Hx - Past Medical History Hx Hypertension: Yes Hx Arthritis: Yes Hx Psychiatric Treatment: Yes (bipolar and depression) Hx Asthma: Yes Hx COPD: Yes Hx Tuberculosis: Yes (POSITIVE SKIN TEST,TOOK [place] , NEG CXR) Hx HIV: No Additional medical history: sleep apnea - Surgical History Additional Surgical History: right knee surgery - Social History Smoking Status: Never Smoker Substance Use Type: None - Medications Home Medications: Home Medications Medication Instructions Recorded Confirmed Last Taken Type OLANzapine [ZyPREXA] 20 mg PO HS #30 tablet 07/02/16 11/22/18 Unknown Rx Divalproex ER [Depakote ER] 2,000 mg PO HS 11/16/17 11/22/18 Unknown History traZODone [Desyrel] 150 mg PO QHS 11/16/17 11/22/18 Unknown History Albuterol Sulfate [Ventolin Hfa] 2 puff IH PRN PRN 07/18/18 11/22/18 Unknown History Polymyxin B Sulf/Trimethoprim 1 drop OP Q3HR 3 Days #1 bottle 07/31/18 11/22/18 Unknown Rx [Polytrim Eye Drops [id number]/0.1%] ED Physical Exam - General Limitations: No Limitations General appearance: alert, in no apparent distress - Head Head exam: Present: atraumatic, normocephalic, normal inspection - Eye Eye exam: Present: normal appearance, PERRL - ENT ENT exam: Present: normal exam, normal orophraynx, mucous membranes moist - Neck Neck exam: Present: normal inspection, full ROM. Absent: tenderness, meningismus, lymphadenopathy, thyromegaly - Respiratory Respiratory exam: Present: normal lung sounds bilaterally - Cardiovascular Cardiovascular Exam: Present: regular rate, normal rhythm, normal heart sounds - GI/Abdominal GI/Abdominal exam: Present: soft, normal bowel sounds. Absent: distended, tenderness, guarding, rebound, rigid, organomegaly, mass, bruit, pulsatile mass, hernia - Extremities Exam Extremities exam: Present: normal inspection, full ROM, normal capillary refill. Absent: pedal edema, calf tenderness - Back Exam Back exam: Present: normal inspection, full ROM. Absent: CVA tenderness (R), CVA tenderness (L), muscle spasm, paraspinal tenderness, vertebral tenderness - Neurological Exam Neurological exam: Present: alert, oriented X3, CN II-XII intact, normal gait, reflexes normal - Psychiatric Psychiatric exam: Present: normal mood. Absent: depressed, agitated, anxious, flat affect, manic, homicidal ideation, suicidal ideation - Skin Skin exam: Present: warm, intact, normal color ED Course Vital Signs 11/21/18 17:53 Temperature 97.7 F Pulse Rate 91 H Respiratory 22 Rate Blood Pressure 153/93 O2 Sat by Pulse 92 Oximetry ED Medical Decision Making - Lab Data Result diagrams: 11/21/18 18:53 11/21/18 18:53 - Medical Decision Making 47 years old male with history of schizophrenia, hypertension, obstructive sleep apnea and COPD. Patient presented to the ER by EMS stating that he is hearing voices and seeing things that other people don't see. Patient also stating that a lot of people out there to get him. Patient is paranoid. Patient denied any suicidal or homicidal ideation. Patient stated that he is out of his psych medicines for the last 2 weeks. Patient remained stable in the emergency room. No evidence of acute psychosis. No suicidal or homicidal ideation. Patient was not placed on 1013. Patient is medically cleared to be evaluated by psychiatric team. Critical care attestation.: If time is entered above; I have spent that time in minutes in the direct care of this critically ill patient, excluding procedure time. ED Disposition Clinical Impression: Schizophrenia Disposition: DC-07 LEFT AGAINST MED ADVICE Is pt being admited?: No Condition: Stable Referrals: XIAO HATCH MD [Primary Care Provider] - 3-5 Days
[2018-11-21 19:06] LABS: Basophils % (Auto) 0.7 % (0.0-1.8); Eosinophils # (Auto) 0.2 K/mm3 (0.0-0.4); Eosinophils % (Auto) 3.9 % (0.0-4.3); Lymphocytes # (Auto) 1.9 K/mm3 (1.2-5.4); Lymphocytes % (Auto) 33.4 % (13.4-35.0); Mean Corpuscular HGB Conc 31 % (32-34); Mean Corpuscular Volume 71 fl (84-94); Monocytes # (Auto) 0.7 K/mm3 (0.0-0.8); Monocytes % (Auto) 13.1 % (0.0-7.3); Red Blood Count 6.94 M/mm3 (3.65-5.03)
[2018-11-21 19:09] LABS: Hemoglobin 15.3 gm/dl (11.8-15.2)
[2018-11-21 19:10] LABS: Hematocrit 49.4 % (35.5-45.6); Platelet Count 93 K/mm3 (140-440)
[2018-11-21 19:21] LABS: BUN/Creatinine Ratio 22; Blood Urea Nitrogen 13 mg/dL (9-20); Calcium 9.5 mg/dL (8.4-10.2); Hemolysis Index 28
[2018-11-22 10:58] LABS: Bacteria,Urine 1+ /HPF (Negative); Bilirubin,Urine NEG (Negative); Blood,Urine NEG (Negative); Color,Urine Yellow (Yellow); Mucus,Urine 3+ /HPF; Urobilinogen,Urine < 2.0 mg/dL (<2.0)
[2018-11-22 11:11] LABS: Amphetamine Screen,Urine PRESUMPTIVE NEGATIVE; Benzodiazepines Screen,Urine PRESUMPTIVE NEGATIVE; Cannabinoid Screen,Urine PRESUMPTIVE NEGATIVE; Cocaine Screen,Urine PRESUMPTIVE NEGATIVE; Methadone Screen,Urine PRESUMPTIVE NEGATIVE; Opiate Screen,Urine PRESUMPTIVE NEGATIVE
== END 2018-11-22 10:30 | disposition left against medical advice (07) ==
LOC: ED 17:26
DX: F20.9 Schizophrenia, unspecified (principal); F31.9 Bipolar disorder, unspecified; I10 Essential (primary) hypertension; M19.90 Unspecified osteoarthritis, unspecified site; J44.9 Chronic obstructive pulmonary disease, unspecified; Z88.6 Allergy status to analgesic agent
CPT/HCPCS: 36415; 80048; 80307; 81001; 85025; 99284; G0480; 80320

== ENCOUNTER 2018-12-07 10:59 | Emergency (ER) | payer MEDICARE ==
[2018-12-07 11:08] VITALS: BP 129/76
--- NOTE | 2018-12-07 11:50 | Emergency Department Report ---
HPI - General Chief Complaint: Extremity Injury, Lower Time Seen by Provider: 12/07/18 11:25 - HPI HPI: 47-year-old -[place] male presents to the emergency department with complaint of a one-week history of bilateral lower extremity darkening of the skin, pain, and some recent swelling. The patient also complains of some pain towards the right side of his rib cage. He denies any recent travel. He denies any fever, shortness of breath, nausea, vomiting or diaphoresis. He says he got some Lasix from his primary care physician for the swelling which did improve. He has a past medical history of arthritis, asthma, hypertension and bipolar disorder. ED Past Medical Hx - Past Medical History Hx Hypertension: Yes Hx Arthritis: Yes Hx Psychiatric Treatment: Yes (bipolar and depression) Hx Asthma: Yes Hx COPD: Yes Hx Tuberculosis: Yes (POSITIVE SKIN TEST,TOOK TX , NEG CXR) Hx HIV: No Additional medical history: sleep apnea - Surgical History Additional Surgical History: right knee surgery - Social History Smoking Status: Current Every Day Smoker Substance Use Type: None - Medications Home Medications: Home Medications Medication Instructions Recorded Confirmed Last Taken Type OLANzapine [ZyPREXA] 20 mg PO HS #30 tablet 07/02/16 11/22/18 Unknown Rx Divalproex ER [Depakote ER] 2,000 mg PO HS 11/16/17 11/22/18 Unknown History traZODone [Desyrel] 150 mg PO QHS 11/16/17 11/22/18 Unknown History Albuterol Sulfate [Ventolin Hfa] 2 puff IH PRN PRN 07/18/18 11/22/18 Unknown History Polymyxin B Sulf/Trimethoprim 1 drop OP Q3HR 3 Days #1 bottle 07/31/18 11/22/18 Unknown Rx [Polytrim Eye Drops 20211tkqgt/0.1%] ED Review of Systems ROS: Stated complaint: (L) SIDE EXTREME PAIN Other details as noted in HPI Comment: All other systems reviewed and negative Constitutional: denies: chills, fever Eyes: denies: eye pain, vision change ENT: denies: ear pain, throat pain Respiratory: denies: cough, shortness of breath Cardiovascular: edema. denies: palpitations Gastrointestinal: denies: abdominal pain, vomiting Genitourinary: denies: dysuria, discharge Musculoskeletal: arthralgia, myalgia Skin: change in color. denies: rash Neurological: paresthesias. denies: weakness Physical Exam - Physical Exam Vital Signs: Vital Signs 12/07/18 11:05 Temperature 98 F Pulse Rate 95 H Respiratory 16 Rate Blood Pressure 129/76 O2 Sat by Pulse 97 Oximetry Physical Exam: GENERAL: The patient is well-developed well-nourished. HENT: Normocephalic. Atraumatic. Patient has moist mucous membranes. EYES: Extraocular motions are intact. Pupils equal reactive to light bilat erally. NECK: Supple. Trachea is midline. CHEST/LUNGS: Clear to auscultation. There is no respiratory distress noted. HEART/CARDIOVASCULAR: Regular. There is no tachycardia. There is no murmur. ABDOMEN: Abdomen is soft, nontender. Patient has normal bowel sounds. Obese habitus. SKIN: There is some darkening of the bilateral lower extremities from the knees down to the ankles. No lesions. No erythema. No warmth or fluctuance. There is some very mild pitting edema to the bilateral lower extremities from the knees distally. NEURO: The patient is awake, alert, and oriented. The patient is cooperative. The patient has no focal neurologic deficits. The patient has normal speech. MUSCULOSKELETAL: There is some tenderness to palpation to the bilateral tib-fib There is no limitation range of motion. There is no evidence of acute injury. ED Course Vital Signs 12/07/18 11:05 Temperature 98 F Pulse Rate 95 H Respiratory 16 Rate Blood Pressure 129/76 O2 Sat by Pulse 97 Oximetry ED Medical Decision Making - Lab Data Result diagrams: 12/07/18 11:38 12/07/18 11:38 - Radiology Data Radiology results: report reviewed, image reviewed interpreted by me: Chest x-ray does not show any acute process. There are no pleural effusions, obvious pneumonia and there is no pneumothorax. PROCEDURE: VL VENOUS DUPLEX LE BILAT TECHNIQUE: Duplex Doppler ultrasound examination of the venous system of the right leg and left leg HISTORY: LE pain and swelling COMPARISONS: 04/03/2018 FINDINGS: RIGHT LEG: Normal compressibility, vascular patency, and augmentation are present diffusely throughout the visualized portion of the deep veins. No abnormal intraluminal echoes are visualized to suggest deep vein thrombus. IMPRESSION: No ultrasound evidence of DVT in the right leg LEFT LEG: Normal compressibility, vascular patency, and augmentation are present diffusely throughout the visualized portion of the deep veins. No abnormal intraluminal echoes are visualized to suggest deep vein thrombus. IMPRESSION: No ultrasound evidence of DVT in the left leg This document is electronically signed by Emeka Foley MD., Dec 07 2018 02:07:04 PM ET Transcribed By: LUIS ENRIQUE Dictated By: EMEKA FOLEY MD Electronically Authenticated By: EMEKA FOLEY MD Signed Date/Time: 12/07/18 1409 - Medical Decision Making This patient presents to the emergency department with bilateral lower extremity swelling, pain and darkening of the skin. He also complains of some pain towards the right side of the rib cage. He had bilateral lower extremity venous Dopplers that were negative for DVT. His labs have been unremarkable including CBC, metabolic panel, proBNP and TSH. A chest x-ray did not show any pneumothorax, focal consolidation, pneumonia, or any other acute processes. I think the patient's symptoms could be secondary to venous stasis, but there does not appear to be any type of pathology requiring admission at this time. He has been discharged to follow up with primary care and return to the ER with any worsening of symptoms or any acute distress. - Differential Diagnosis DVT, venous stasis, cellulitis, CHF Critical Care Time: No Critical care attestation.: If time is entered above; I have spent that time in minutes in the direct care of this critically ill patient, excluding procedure time. ED Disposition Clinical Impression: Lower extremity pain, bilateral, Swelling of lower extremity, Venous stasis of both lower extremities, Rib pain on right side Disposition: -01 TO HOME OR SELFCARE Is pt being admited?: No Condition: Stable Instructions: Stasis Dermatitis (ED), Leg Edema (ED) Additional Instructions: Please follow-up with your primary care physician in the next few days. Return to the emergency Department with any worsening of your symptoms or any acute distress. Referrals: Primary Care Provider, Your [Other] - [facility]
[2018-12-07 12:17] LABS: Hemoglobin 15.4 gm/dl (11.8-15.2); Mean Corpuscular HGB Conc 32 % (32-34); Mean Corpuscular Volume 70 fl (84-94); Red Blood Count 6.98 M/mm3 (3.65-5.03)
--- NOTE | 2018-12-07 12:20 | XRay Report ---
ROUTINE CHEST, TWO VIEWS: HISTORY: Rib pain. The trachea, heart, mediastinal contour, lung simon and bony thorax are unremarkable. No rib abnormality is detected on x-ray. IMPRESSION: Unremarkable chest x-ray.
[2018-12-07 12:23] LABS: Red Cell Distribution Width 20.5 % (13.2-15.2)
[2018-12-07 12:41] LABS: BUN/Creatinine Ratio 19; Blood Urea Nitrogen 13 mg/dL (9-20); Hemolysis Index 14
--- NOTE | 2018-12-07 14:09 | Vascular Lab Report ---
PROCEDURE: VL VENOUS DUPLEX LE BILAT TECHNIQUE: Duplex Doppler ultrasound examination of the venous system of the right leg and left leg HISTORY: LE pain and swelling COMPARISONS: 04/03/2018 FINDINGS: RIGHT LEG: Normal compressibility, vascular patency, and augmentation are present diffusely throughout the visua lized portion of the deep veins. No abnormal intraluminal echoes are visualized to suggest deep vein thrombus. IMPRESSION: No ultrasound evidence of DVT in the right leg LEFT LEG: Normal compressibility, vascular patency, and augmentation are present diffusely throughout the visua lized portion of the deep veins. No abnormal intraluminal echoes are visualized to suggest deep vein thrombus. IMPRESSION: No ultrasound evidence of DVT in the left leg This document is electronically signed by Emeka Foley MD., Dec 07 2018 02:07:04 PM ET
[2018-12-07 15:06] LABS: Anisocytosis 1+; Basophils % (Manual) 0 % (0.0-1.8); Hypochromasia 1+; Platelet Estimate Consistent w Auto; Total Cells Counted 100
[2018-12-07 15:19] LABS: Platelet Count 110 K/mm3 (140-440)
== END 2018-12-07 14:24 | disposition home or self-care (01) ==
LOC: ED 10:59
DX: M79.661 Pain in right lower leg (principal); M79.662 Pain in left lower leg; M79.89 Other specified soft tissue disorders; R07.81 Pleurodynia; M79.10 Myalgia, unspecified site; F17.200 Nicotine dependence, unspecified, uncomplicated; I10 Essential (primary) hypertension; M19.90 Unspecified osteoarthritis, unspecified site; J44.9 Chronic obstructive pulmonary disease, unspecified; G47.30 Sleep apnea, unspecified; Z88.5 Allergy status to narcotic agent
CPT/HCPCS: 36415; 71046; 80048; 83880; 84443; 85007; 85025; 93970; 99284

== ENCOUNTER 2018-12-08 01:09 | Emergency (ER) | payer MEDICARE ==
[2018-12-08 01:38] VITALS: BP 138/89
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
== END 2018-12-08 04:07 | disposition home or self-care (01) ==
LOC: ED 01:09
DX: G47.33 Obstructive sleep apnea (adult) (pediatric) (principal); R06.02 Shortness of breath; I10 Essential (primary) hypertension; M19.90 Unspecified osteoarthritis, unspecified site; J44.9 Chronic obstructive pulmonary disease, unspecified; F17.200 Nicotine dependence, unspecified, uncomplicated; Z79.899 Other long term (current) drug therapy; Z88.6 Allergy status to analgesic agent
CPT/HCPCS: 99281

== ENCOUNTER 2018-12-23 13:40 | Emergency (ER) | payer MEDICARE ==
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
[2018-12-23 15:06] LABS: Hematocrit 49.2 % (35.5-45.6); Hemoglobin 15.6 gm/dl (11.8-15.2); Mean Corpuscular HGB Conc 32 % (32-34); Mean Corpuscular Volume 71 fl (84-94)
[2018-12-23 15:18] LABS: BUN/Creatinine Ratio 20; Blood Urea Nitrogen 12 mg/dL (9-20); Calcium 9.5 mg/dL (8.4-10.2); Hemolysis Index 8
[2018-12-23 15:47] LABS: Bilirubin,Urine NEG (Negative); Blood,Urine NEG (Negative); Color,Urine Yellow (Yellow); Mucus,Urine 2+ /HPF; Protein,Urine <15 mg/dL mg/dL (Negative)
[2018-12-23 15:56] LABS: Amphetamine Screen,Urine PRESUMPTIVE NEGATIVE; Benzodiazepines Screen,Urine PRESUMPTIVE NEGATIVE; Cannabinoid Screen,Urine PRESUMPTIVE NEGATIVE; Cocaine Screen,Urine PRESUMPTIVE NEGATIVE; Methadone Screen,Urine PRESUMPTIVE NEGATIVE; Opiate Screen,Urine PRESUMPTIVE NEGATIVE
[2018-12-23 15:57] LABS: Platelet Count 115 K/mm3 (140-440); Red Cell Distribution Width 20.7 % (13.2-15.2)
[2018-12-23 16:02] LABS: Basophils % (Manual) 0 % (0.0-1.8); Total Cells Counted 100
[2018-12-23 16:03] LABS: Hypochromasia 1+; Large Platelets Few; Platelet Estimate Consistent w Auto; Target Cells 1+
[2018-12-23 21:32] VITALS: BP 144/89
== END 2018-12-23 21:32 ==
LOC: ED 13:40
DX: F31.9 Bipolar disorder, unspecified (principal); I10 Essential (primary) hypertension; M19.90 Unspecified osteoarthritis, unspecified site; J44.9 Chronic obstructive pulmonary disease, unspecified; F17.210 Nicotine dependence, cigarettes, uncomplicated; Z88.6 Allergy status to analgesic agent
CPT/HCPCS: 36415; 80048; 80156; 80164; 80307; 81001; 85007; 85025; 99284; G0480; 80320

== ENCOUNTER 2018-12-23 20:44 | Inpatient (IN) | payer MEDICARE ==
[2018-12-23] MEDS ORDERED: PROAIR IH PRN (21:18)
[2018-12-23] MEDS ORDERED: HALDOL IM PRN (21:20)
[2018-12-23] MEDS ORDERED: ATIVAN IM PRN (21:20)
[2018-12-23] MEDS ORDERED: PROVENTIL IH PRN (21:52)
[2018-12-23] MEDS ORDERED: DESYREL PO SCH (22:00)
[2018-12-23] MEDS: DESYREL PO SCH (23:39)
[2018-12-24] MEDS ORDERED: [UNRECOGNIZED DRUG - OTHER] OP SCH
[2018-12-24] MEDS ORDERED: POLYMYXIN B SULF OP SCH
[2018-12-24] MEDS ORDERED: TRIMETHOPRIM OP SCH
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
--- NOTE | 2018-12-24 11:20 | Consultation ---
History of Present Illness - History of Present Illness 48M with schizophrenia admitted for hallucinations Past History Past Medical History: arthritis, COPD, hypertension, hyperlipidemia Past Surgical History: No surgical history Social history: smoking, alcohol abuse Medications and Allergies Allergies Allergy/AdvReac Type Severity Reaction Status Date / Time ziprasidone [From Geodon] Allergy Unknown Verified 01/01/19 21:01 tramadol AdvReac Unknown Verified 12/07/18 11:00 Home Medications Medication Instructions Recorded Confirmed Last Taken Type Albuterol Sulfate [Ventolin Hfa] 2 puff IH PRN PRN 07/18/18 01/02/19 Unknown History Polymyxin B Sulf/Trimethoprim 1 drop OP Q3HR 3 Days #1 bottle 07/31/18 01/02/19 Unknown Rx [Polytrim Eye Drops 10091gvjkd/0.1%] Divalproex ER [Depakote ER] 2,000 mg PO HS 30 Days tablet 12/26/18 01/02/19 Unknown Rx Nicotine [Habitrol] 14 mg TD QDAY #30 patch 12/26/18 01/02/19 Unknown Rx OLANzapine [Zyprexa] 20 mg PO HS 30 Days tablet 12/26/18 01/02/19 Unknown Rx traZODone [Desyrel] 150 mg PO QHS 30 Days tablet 12/26/18 01/02/19 Unknown Rx Active Meds: Active Medications Albuterol (Proventil) 2.5 mg IH Q4HRT PRN PRN Reason: Shortness Of Breath Divalproex Sodium (Depakote Er) 2,000 mg PO [facility] Last Admin: 12/23/18 23:39 Dose: 2,000 mg Documented by: Haloperidol Lactate (Haldol) 5 mg IM Q6H PRN PRN Reason: Agitation Lorazepam (Ativan) 2 mg IM Q6H PRN PRN Reason: Agitation Miscellaneous Medication (Polymyxin B Sulf/Trimethoprim [Polytrim Eye Drops 25223gpmym/0.1%]) 1 drop OP Q3HR PHIL Nicotine (Habitrol) 14 mg TD QDAY PHIL Olanzapine (Zyprexa) 20 mg PO HS [facility] Last Admin: 12/23/18 23:39 Dose: 20 mg Documented by: Trazodone HCl (Desyrel) 150 mg PO QHS [facility] Last Admin: 12/23/18 23:39 Dose: 150 mg Documented by: Review of Systems All systems: negative Constitutional: no sweats Ears, nose, mouth and throat: no ear pain Cardiovascular: no chest pain Respiratory: no cough Gastrointestinal: no abdominal pain Genitourinary Male: no dysuria Rectal: no pain Musculoskeletal: no neck stiffness Integumentary: no rash Neurological: no head injury Psychiatric: change in sleep habits Endocrine: no cold intolerance Hematologic/Lymphatic: no easy bruising Allergic/Immunologic: no urticaria Exam - Constitutional General appearance: Present: no acute distress, well-nourished - EENT Eyes: Present: PERRL ENT: hearing intact, clear oral mucosa - Neck Neck: Present: supple, normal ROM - Respiratory Respiratory effort: normal Respiratory: bilateral: CTA - Cardiovascular Heart Sounds: Present: S1 & S2. Absent: rub, click - Extremities Extremities: pulses symmetrical, No edema Peripheral Pulses: within normal limits - Abdominal General gastrointestinal: Present: soft, non-tender, non-distended, normal bowel sounds Male genitourinary: Present: normal - Integumentary Integumentary: Present: clear, warm, dry - Musculoskeletal Musculoskeletal: gait normal, strength equal bilaterally - Psychiatric Psychiatric: no appropriate mood/affect, no intact judgment & insight - Neurologic Neurologic: CNII-XII intact, moves all extremities Assessment and Plan 46-year-old man with a history of hypertension, bipolar, hx of SI, obstructive sleep apnea, obesity , copd, tobacco abuse copd christian bipolar obesity tobacco abuse cont home meds psych rx per psychiatry
[2018-12-24] MEDS: HABITROL TD SCH (13:18)
[2018-12-24 18:56] LABS: Chol/HDL Ratio 4.62 %
[2018-12-24] MEDS: DESYREL PO SCH (22:00)
--- NOTE | 2018-12-25 09:24 | Progress Note ---
Subjective Date of service: 12/25/18 Principal diagnosis: Schizoaffective disorder Subjective Comment: Patient seen in the dayroom this morning. He reports that he is experiencing distressing auditory hallucinations, mainly of negative and derogatory contents. He states that the voices are telling him to kill himself. He endorses suicidal thoughts with plans to walk in to traffic. He also endorses feeling paranoid and feels unsafe outside the hospital. He is compliant with medications and reports feeling over sedated as side effects. Objective - Criteria for Continued Treatment Criteria for Continued Treatment: Improving Level of Functioning, Stablizing Level of Functioning, Improving Emotional/Socia, Decreasing Frequency of Hospitalization - Mental Status Mental Status: Alert - Objective Observation Participation Level: Moderate Assessment and Plan - Patient Problems (1) Schizoaffective disorder, bipolar type Current Visit: Yes Status: Acute Plan to address problem: Patient will be admitted for inpatient psychiatric evaluation, medication adjustment and close monitoring The patient's behavior, mood, sleep and appetite will be closely monitored. Patient will be enrolled in individual and group therapeutic sessions and encouraged to attend. Patient will be provided with a safe and structured environment. Patient's physical health needs will be addressed by the Hospitalist. Social Assessment will be completed and the Silk Screen Repairer will work with patient and family to ensure a suitable and safe disposition Medication adjustment will be made as clinically indicated Will add Abilify 5mg qam to help with psychosis and mood plus it is not sedating The patient agreed on the treatment plan, understood the risk, benefit, alternative treatment, potential consequence of no treatment, and gave informed consent.
[2018-12-25] MEDS: HABITROL TD SCH (10:56)
[2018-12-25] MEDS: ABILIFY PO SCH (16:37)
[2018-12-25] MEDS: DESYREL PO SCH (21:18)
--- NOTE | 2018-12-26 07:43 | Progress Note ---
Subjective Date of service: 12/26/18 Principal diagnosis: Schizoaffective disorder Subjective Comment: Patient seen with Nursing Staff in in his room this morning. He reports that he is experiencing auditory hallucinations but denies SI/HI/Paranoia. He declined the Abilify that was started yesterday, states that he cannot tolerate Abilify. He states that he is homeless and has no where to go to if discharged today. Patient encouraged to spend this morning to call around and make arrangement for his accommodation. The plan is to discharge him later today if he is able to secure an accommodation or in am tomorrow. He is compliant with medications and denies side effects. Objective - Criteria for Continued Treatment Criteria for Continued Treatment: Improving Level of Functioning, Stablizing Level of Functioning, Improving Emotional/Socia, Decreasing Frequency of Hospitalization - Mental Status Mental Status: Alert - Objective Observation Participation Level: Moderate Assessment and Plan - Patient Problems (1) Schizoaffective disorder, bipolar type Current Visit: Yes Status: Acute Plan to address problem: Patient will be admitted for inpatient psychiatric evaluation, medication adjustment and close monitoring The patient's behavior, mood, sleep and appetite will be closely monitored. Patient will be enrolled in individual and group therapeutic sessions and encouraged to attend. Patient will be provided with a safe and structured environment. Patient's physical health needs will be addressed by the Hospitalist. Social Assessment will be completed and the Marketing Information Coordinator will work with pat ient and family to ensure a suitable and safe disposition Medication adjustment will be made as clinically indicated Will discontinue Abilify as patient states that he is not able to tolerate it The patient agreed on the treatment plan, understood the risk, benefit, alternative treatment, potential consequence of no treatment, and gave informed consent.
--- NOTE | 2018-12-26 09:19 | Discharge Summary ---
Providers - Providers Date of Admission: 12/23/18 21:13 Date of discharge: 12/26/18 Attending physician: CLARE SHEARER MD [facility] Reason for admission: Distressing auditory and visual hallucinations Condition: Good Hospital course: The patient was provided inpatient psychiatric treatment with safe and supportive environment, group therapy, individual counseling, psychiatric medication, medication adjustment, adverse effect monitor, medical evaluation, medical treatment, social service assessment, family/social support meeting, placement assessment and psycho-education. The patients mood, anxiety, thoughts, stress management skill, cognition, impulse/anger control, motivation, understanding of disease, compliance to treatment and appreciation on family/social support are improved and stabilized. At the time of discharge, the patient had no suicidal ideas, no homicidal ideas, no aggressive thoughts, no endangering behavior and no debilitating adverse effects. The patient agreed on the treatment plan, understood the risk, benefit, alternative treatment, poten tial consequence of no treatment, and gave informed consent. The patient was advised to be compliant with medications, not to use drugs and not to drink alcohol. The patient understands that if suicidal ideas, homicidal ideas, or any endangering thoughts arise, the patient should immediately seek for emergent assistance including but not limited to crisis hot line and emergency room. Follow up with out-patient Psychiatrist and PCP within 14 - 21 days of discharge. Disposition: -01 TO HOME OR SELFCARE Allergies/Adverse Reactions: Allergies tramadol Adverse Reaction (Verified 12/07/18 11:00) Unknown Vital Signs: Last Vital Signs Temp 98.0 F 12/25/18 19:37 Pulse 64 12/25/18 19:37 Resp 18 12/25/18 19:37 BP 138/85 12/25/18 19:37 Pulse Ox 95 12/25/18 19:37 Last Lab: Laboratory Last Values 6.2 % (4-6) H 12/24/18 11:44 Triglycerides 91 mg/dL (2-149) 12/24/18 11:44 Cholesterol 162 mg/dL (50-199) 12/24/18 11:44 114 mg/dL (50-130) 12/24/18 11:44 35 mg/dL (40-59) L 12/24/18 11:44 4.62 % 12/24/18 11:44 - Discharge Diagnoses (1) Schizoaffective disorder, bipolar type Status: Acute Core Measure Documentation - Palliative Care Palliative Care/ Comfort Measures: Not Applicable - Core Measures Any of the following diagnoses?: none Exam - Constitutional Vitals: Temp Pulse Resp BP Pulse Ox 98.0 F 64 18 138/85 95 12/25/18 19:37 12/25/18 19:37 12/25/18 19:37 12/25/18 19:37 12/25/18 19:37 General appearance: Present: no acute distress, well-nourished - EENT Eyes: Present: PERRL, EOM intact ENT: hearing intact, clear oral mucosa, dentition normal - Neck Neck: Present: supple, normal ROM - Respiratory Respiratory effort: normal Plan Activity: no restrictions Weight Bearing Status: Full Weight Bearing Diet: regular Follow up with: XIAO HATCH MD [Primary Care Provider] - 7 Days Prescriptions: traZODone [Desyrel] 150 mg PO QHS 30 Days tablet Divalproex ER [Depakote ER] 2,000 mg PO HS 30 Days tablet Nicotine [Habitrol] 14 mg TD QDAY #30 patch OLANzapine [Zyprexa] 20 mg PO HS 30 Days tablet
[2018-12-26 09:50] VITALS: BP 127/81
[2018-12-26] MEDS: HABITROL TD SCH (10:21)
[2018-12-26] MEDS: ABILIFY PO SCH (10:21)
== END 2018-12-26 16:00 | disposition home or self-care (01) | DRG 885 ==
LOC: UNDOADMIN 20:44 → 3A 20:44 → 5A 21:13
PROVIDERS: ADMIT Psychiatry & Neurology Psychiatry; ATTEND Psychiatry & Neurology Psychiatry
DX: F25.0 Schizoaffective disorder, bipolar type (principal); Z68.41 Body mass index [BMI] 40.0-44.9, adult; J44.9 Chronic obstructive pulmonary disease, unspecified; G47.33 Obstructive sleep apnea (adult) (pediatric); E66.9 Obesity, unspecified; F17.200 Nicotine dependence, unspecified, uncomplicated; I10 Essential (primary) hypertension; Z59.0 Homelessness; Z88.6 Allergy status to analgesic agent; Z79.51 Long term (current) use of inhaled steroids
CPT/HCPCS: 36415; 80048; 80061; 80156; 80164; 80307; 80320; 81001; 83036; 85007; 85025; 99284; G0378; G0480

== ENCOUNTER 2018-12-28 21:47 | Emergency (ER) | payer MEDICARE ==
[2018-12-28 21:53] VITALS: BP 142/88
--- NOTE | 2018-12-28 21:54 | Emergency Department Report ---
Blank Doc - Documentation Documentation: This is a 48-year-old male that presents with dizziness and headache. Denies history of dizziness or headaches. Denies any other complaints or symptoms. This initial assessment/diagnostic orders/clinical plan/treatment(s) is/are subject to change based on patient's health status, clinical progression and re- assessment by fellow clinical providers in the ED. Further treatment and workup at subsequent clinical providers discretion. Patient/guardians urged not to elope from the ED as their condition may be serious if not clinically assessed and managed. Initial orders include: 1- Patient sent to [facility] for further evaluation and treatment 2- labs 3- CT head
[2018-12-28 22:43] LABS: Hematocrit 46.5 % (35.5-45.6); Hemoglobin 15.2 gm/dl (11.8-15.2); Mean Corpuscular HGB Conc 33 % (32-34); Mean Corpuscular Volume 71 fl (84-94); Red Blood Count 6.54 M/mm3 (3.65-5.03)
[2018-12-28 22:44] LABS: Platelet Count 129 K/mm3 (140-440); Red Cell Distribution Width 20.6 % (13.2-15.2)
[2018-12-28 22:58] LABS: BUN/Creatinine Ratio 16; Blood Urea Nitrogen 13 mg/dL (9-20); Calcium 9.5 mg/dL (8.4-10.2); Hemolysis Index 3
--- NOTE | 2018-12-29 01:45 | Emergency Department Report ---
ED Dizziness HPI - General Chief Complaint: Dizziness Stated Complaint: OJEDA/SWEATS Time Seen by Provider: 12/28/18 21:53 Source: patient Mode of arrival: Ambulatory Limitations: No Limitations - History of Present Illness Initial Comments: 48-year-old -Malag[place] male with a past medical history of tobacco abuse, obesity, asthma, hypertension, bipolar and depression disorder presents emergency department complaining of having so mild dizziness and sweats while he was outside on the portable a lot of mosquitoes. Reports no fever, chills, sweats, rashes, chest pain, palpitations, coryza Complaint: dizziness Timing: unsure History of Same: No History of Trauma: No Improves With: nothing Worsens With: nothing Associated Symptoms: denies: chest pain, confusion, cough, fever/chills, loss of appetite, malaise, seizure, shortness of breath, syncope, weakness - Related Data Home Medications Medication Instructions Recorded Confirmed Last Taken Albuterol Sulfate [Ventolin Hfa] 2 puff IH PRN PRN 07/18/18 12/24/18 Unknown Previous Rx's Medication Instructions Recorded Last Taken Type Polymyxin B Sulf/Trimethoprim 1 drop OP Q3HR 3 Days #1 bottle 07/31/18 Unknown Rx [Polytrim Eye Drops 17187xcxbp/0.1%] Divalproex ER [Depakote ER] 2,000 mg PO HS 30 Days tablet 12/26/18 Unknown Rx Nicotine [Habitrol] 14 mg TD QDAY #30 patch 12/26/18 Unknown Rx OLANzapine [Zyprexa] 20 mg PO HS 30 Days tablet 12/26/18 Unknown Rx traZODone [Desyrel] 150 mg PO QHS 30 Days tablet 12/26/18 Unknown Rx Allergies Allergy/AdvReac Type Severity Reaction Status Date / Time tramadol AdvReac Unknown Verified 12/07/18 11:00 ED Review of Systems ROS: Stated complaint: OJEDA/SWEATS Other details as noted in HPI Constitutional: denies: chills, fever Eyes: denies: eye pain, eye discharge, vision change ENT: denies: ear pain, throat pain Respiratory: denies: cough, shortness of breath, wheezing Cardiovascular: denies: chest pain, palpitations Endocrine: no symptoms reported Gastrointestinal: denies: abdominal pain, nausea, diarrhea Genitourinary: denies: urgency, dysuria Musculoskeletal: denies: back pain, joint swelling, arthralgia Skin: denies: rash, lesions Neurological: denies: headache, weakness, paresthesias Psychiatric: denies: anxiety, depression Hematological/Lymphatic: denies: easy bleeding, easy bruising ED Past Medical Hx - Past Medical History Previous Medical History?: Yes Hx Hypertension: Yes Hx Arthritis: Yes Hx Psychiatric Treatment: Yes (bipolar and depression) Hx Asthma: Yes Hx COPD: Yes Hx Tuberculosis: Yes (POSITIVE SKIN TEST,TOOK TX , NEG CXR) Hx HIV: No Additional medical history: sleep apnea - Surgical History Past Surgical History?: Yes Additional Surgical History: right knee surgery - Social History Smoking Status: Current Every Day Smoker Substance Use Type: None - Medications Home Medications: Home Medications Medication Instructions Recorded Confirmed Last Taken Type Albuterol Sulfate [Ventolin Hfa] 2 puff IH PRN PRN 07/18/18 12/24/18 Unknown History Polymyxin B Sulf/Trimethoprim 1 drop OP Q3HR 3 Days #1 bottle 07/31/18 12/24/18 Unknown Rx [Polytrim Eye Drops 67189vnyeh/0.1%] Divalproex ER [Depakote ER] 2,000 mg PO HS 30 Days tablet 12/26/18 Unknown Rx Nicotine [Habitrol] 14 mg TD QDAY #30 patch 12/26/18 Unknown Rx OLANzapine [Zyprexa] 20 mg PO HS 30 Days tablet 12/26/18 Unknown Rx traZODone [Desyrel] 150 mg PO QHS 30 Days tablet 12/26/18 Unknown Rx ED Physical Exam - General Limitations: No Limitations General appearance: alert, in no apparent distress - Head Head exam: Present: atraumatic, normocephalic - Eye Eye exam: Present: normal appearance, PERRL, EOMI Pupils: Present: normal accommodation - ENT ENT exam: Present: mucous membranes moist - Neck Neck exam: Present: normal inspection - Respiratory Respiratory exam: Present: normal lung sounds bilaterally. Absent: respiratory distress - Cardiovascular Cardiovascular Exam: Present: regular rate, normal rhythm. Absent: systolic murmur, diastolic murmur, rubs, gallop - GI/Abdominal GI/Abdominal exam: Present: soft, normal bowel sounds - Rectal Rectal exam: Present: deferred - Extremities Exam Extremities exam: Present: normal inspection, full ROM, normal capillary refill. Absent: pedal edema, joint swelling, calf tenderness - Back Exam Back exam: Present: normal inspection - Neurological Exam Neurological exam: Present: alert, oriented X3 - Psychiatric Psychiatric exam: Present: normal affect, normal mood - Skin Skin exam: Present: warm, dry, intact, normal color. Absent: rash ED Course Vital Signs 12/28/18 12/28/18 21:52 21:53 Temperature 97.8 F 97.8 F Pulse Rate 77 74 Respiratory 20 18 Rate Blood Pressure 142/88 142/88 O2 Sat by Pulse 89 98 Oximetry ED Medical Decision Making - Lab Data Result diagrams: 12/28/18 22:16 12/28/18 22:16 - Medical Decision Making 48-year-old male complaining of so of having some dizziness earlier this evening which is resolved emergency department. She is ambulatory, speaking in full sentences, eating, tolerating by mouth no chest pain or palpitations noted. He is able to recite periodic table Critical care attestation.: If time is entered above; I have spent that time in minutes in the direct care of this critically ill patient, excluding procedure time. ED Disposition Clinical Impression: Dizziness Disposition: DC-01 TO HOME OR SELFCARE Is pt being admited?: No Does the pt Need Aspirin: No Condition: Stable Instructions: Dizziness (ED), Lightheadedness (ED) Referrals: ZANDRA EDOUARD MD [Primary Care Provider] - 3-5 Days
[2018-12-29 04:23] LABS: Anisocytosis 1+; Eosinophils % (Manual) 0 % (0.0-4.3); Hypochromasia 1+; Platelet Estimate Consistent w Auto; Total Cells Counted 100
== END 2018-12-29 02:00 | disposition home or self-care (01) ==
LOC: ED 21:47
DX: R42 Dizziness and giddiness (principal); I10 Essential (primary) hypertension; F31.9 Bipolar disorder, unspecified; M19.90 Unspecified osteoarthritis, unspecified site; J44.9 Chronic obstructive pulmonary disease, unspecified; F17.200 Nicotine dependence, unspecified, uncomplicated; G47.00 Insomnia, unspecified; E66.9 Obesity, unspecified; Z68.41 Body mass index [BMI] 40.0-44.9, adult; Z79.899 Other long term (current) drug therapy; Z88.5 Allergy status to narcotic agent
CPT/HCPCS: 36415; 80048; 85007; 85025; 99283

== ENCOUNTER 2019-01-01 20:55 | Inpatient (IN) | payer MEDICARE ==
--- NOTE | 2019-01-01 21:49 | Event Note ---
ED Screening Note Date of service: 01/01/19 Time: 21:45 ED Screening Note: 48 y/o male reports that he is homeless and has chest pain. This initial assessment/diagnostic orders/clinical plan/treatment(s) is/are subject to change based on patients health status, clinical progression and re-assessment by fellow clinical providers in the ED. Further treatment and workup at subsequent clinical providers discretion. Patient/guardian urged not to elope from the ED as their condition may be serious if not clinically assessed and managed. Initial orders include:
[2019-01-01 22:20] LABS: Hematocrit 46.6 % (35.5-45.6); Hemoglobin 14.8 gm/dl (11.8-15.2); Mean Corpuscular HGB Conc 32 % (32-34); Mean Corpuscular Volume 71 fl (84-94); Red Blood Count 6.54 M/mm3 (3.65-5.03)
[2019-01-01 22:25] LABS: Red Cell Distribution Width 20.7 % (13.2-15.2)
[2019-01-01 22:26] LABS: Platelet Count 111 K/mm3 (140-440)
[2019-01-01 22:51] LABS: BUN/Creatinine Ratio 20; Blood Urea Nitrogen 14 mg/dL (9-20); Calcium 8.9 mg/dL (8.4-10.2); Hemolysis Index 10
[2019-01-01 22:55] LABS: Basophils % (Manual) 0 % (0.0-1.8); Eosinophils % (Manual) 0 % (0.0-4.3); Total Cells Counted 100
[2019-01-01 22:56] LABS: Platelet Estimate Consistent w Auto
[2019-01-01 22:57] LABS: Anisocytosis 1+; Target Cells Few
--- NOTE | 2019-01-02 01:48 | Emergency Department Report ---
HPI - General Chief Complaint: Chest Pain Time Seen by Provider: 01/02/19 01:19 - HPI HPI: 48-year-old -[place] male presents to the emergency department with complaint of some palpitations that started tonight. He says it feels like his heart is racing and like "some energy is building on." He says it is associated with some shortness of breath and a mixed dry and productive cough. Patient also complains of having both auditory and visual hallucinations. He is unable to describe the auditory hallucinations very well but says that he sees spirits flying around him. He does admit to some depression but denies any suicidal ideations or any homicidal ideations. The patient has a history of bipolar disorder and depression but says he is not on any medication and is currently homeless. He has a past medical history of arthritis, asthma, CHF, COPD, hypertension. He has not taken anything for his symptoms prior to presentation. ED Past Medical Hx - Past Medical History Hx Hypertension: Yes Hx Congestive Heart Failure: Yes Hx Renal Disease: No Hx Arthritis: Yes Hx Seizures: No Hx Psychiatric Treatment: Yes (bipolar and depression) Hx Asthma: Yes Hx COPD: Yes Hx Tuberculosis: Yes (POSITIVE SKIN TEST,TOOK TX , NEG CXR) Hx Dementia: No Hx HIV: No Additional medical history: sleep apnea - Surgical History Hx Cholecystectomy: No Hx Appendectomy: No Additional Surgical History: right knee surgery - Social History Smoking Status: Never Smoker Substance Use Type: None - Medications Home Medications: Home Medications Medication Instructions Recorded Confirmed Last Taken Type Albuterol Sulfate [Ventolin Hfa] 2 puff IH PRN PRN 07/18/18 12/24/18 Unknown History Polymyxin B Sulf/Trimethoprim 1 drop OP Q3HR 3 Days #1 bottle 07/31/18 12/24/18 Unknown Rx [Polytrim Eye Drops 60168guhcz/0.1%] Divalproex ER [Depakote ER] 2,000 mg PO HS 30 Days tablet 12/26/18 Unknown Rx Nicotine [Habitrol] 14 mg TD QDAY #30 patch 12/26/18 Unknown Rx OLANzapine [Zyprexa] 20 mg PO HS 30 Days tablet 12/26/18 Unknown Rx traZODone [Desyrel] 150 mg PO QHS 30 Days tablet 12/26/18 Unknown Rx ED Review of Systems ROS: Stated complaint: CHEST PAIN Other details as noted in HPI Comment: All other systems reviewed and negative Constitutional: denies: chills, fever Eyes: denies: eye pain, vision change ENT: denies: ear pain, throat pain Respiratory: cough, shortness of breath Cardiovascular: palpitations. denies: edema Gastrointestinal: denies: abdominal pain, vomiting Genitourinary: denies: dysuria, discharge Musculoskeletal: denies: back pain, arthralgia Skin: denies: rash, lesions Neurological: denies: headache, weakness Psychiatric: depression, auditory hallucinations, visual hallucinations. denies: homicidal thoughts, suicidal thoughts Physical Exam - Physical Exam Vital Signs: Vital Signs 01/01/19 21:44 Temperature 98.9 F Pulse Rate 84 Respiratory 18 Rate Blood Pressure 136/85 O2 Sat by Pulse 98 Oximetry Physical Exam: GENERAL: The patient is well-developed well-nourished. HENT: Normocephalic. Atraumatic. Patient has moist mucous membranes. Mallampati of 4. EYES: Extraocular motions are intact. Pupils equal reactive to light bilaterally. NECK: Supple. Trachea is midline. CHEST/LUNGS: Clear to auscultation. There is no respiratory distress noted. HEART/CARDIOVASCULAR: Regular. There is no tachycardia. There is no murmur. ABDOMEN: Abdomen is soft, nontender. Patient has normal bowel sounds. Obese habitus SKIN: Skin is warm and dry. NEURO: The patient is awake, alert, and oriented. The patient is cooperative. The patient has no focal neurologic deficits. MUSCULOSKELETAL: There is no tenderness or deformity. There is no limitation range of motion. There is no evidence of acute injury. PSYCH: Pressured speech. ED Course Vital Signs 01/01/19 21:44 Temperature 98.9 F Pulse Rate 84 Respiratory 18 Rate Blood Pressure 136/85 O2 Sat by Pulse 98 Oximetry ED Medical Decision Making - Lab Data Result diagrams: 01/01/19 21:57 01/01/19 21:57 - EKG Data -: EKG Interpreted by Me EKG shows normal: sinus rhythm, axis, intervals, QRS complexes, ST-T waves (nonspecific ST-T waves) Rate: normal - EKG Data When compared to previous EKG there are: no significant change Interpretation: unchanged when compared t (04/07/18) - Radiology Data Radiology results: report reviewed PROCEDURE: CT ANGIO CHEST TECHNIQUE: Computerized tomographic angiography of the chest was performed after the IV injection of iodinated nonionic contrast including image processing. The image data was postprocessed using 2-dimensional multiplanar reformatted (MPR) and 3-dimensional (MIP and/or volume rendered) techniques. Automated exposure control, adjustment of mA and/or kV according to patient size, or iterative reconstruction dose optimization techniques were utilized. CT DOSE LENGTH PRODUCT: 855.4 mGycm HISTORY: CP, elevated dimer COMPARISONS: None . FINDINGS: Normal caliber main pulmonary artery. Well opacified pulmonary arterial tree. No pulmonary embolism. No pericardial effusion. Thoracic aorta is normal in course and caliber. No periaortic fluid or stranding. No pneumothorax, effusion or focal airspace disease. Bibasilar atelectasis. Motion artifact. The central airways are patent. No bronchiectasis. Imaged portion of the upper abdomen is unremarkable. The superficial soft tissues are unremarkable. No acute bony abnormality or worrisome osseous lesions identified. IMPRESSION: No pulmonary embolism or other acute finding. This document is electronically signed by Amador Diaz MD., January 02 2019 05:26:36 AM ET Transcribed By: MATIAS Dictated By: AMADOR DIAZ MD Electronically Authenticated By: AMADOR DIAZ MD Signed Date/Time: 01/02/19 0528 - Medical Decision Making This patient presents to the emergency department with a complaint of some palpitations, chest pain, and a request to get some psychiatric help. Regarding the psychiatric, the patient has some pressured speech and says that he has some auditory and visual hallucinations, denies any suicidal or homicidal ideations. He was seen by the psych supervisor steno pool, Alfonso, who agrees that he does not necessarily meet criteria to be made a 1013 and the patient was just recently discharged from the geropsychiatric unit. Some of this seems like more of a social concern then psychiatric as patient is currently homeless and is in between a [facility] and a senior living. The patient's labs were mostly unremarkable except for an elevated d-dimer. Negative troponins 2 thus far. He had a CT angiography of the chest on that does not show any pulmonary embolism, dissection, aneurysm. The patient has a history of obstructive sleep apnea and it appears to be very severe. When he is sleeping in the emergency department, he keeps taking off the BiPAP mask provided and then has oxygen desaturation into the 70s. We attempted to redirect him multiple times but he appears to be noncompliant with the CPAP/BiPAP here. If the patient is truly homeless, I do not feel that he will be able to obtain an use a CPAP or BiPAP machine to treat this obstructive sleep apnea. This also may be the reason for the patient's complaints of palpitations and chest pain. It does not appear that he has had any recent full cardiac workup including a stress test. For all these reasons, the patient w ill be admitted to the hospital for further evaluation and treatment and was accepted for admission by the hospitalist, Dr. Spicer. - Differential Diagnosis NM, PE, sleep apnea, COPD, pneumonia Critical Care Time: No Critical care attestation.: If time is entered above; I have spent that time in minutes in the direct care of this critically ill patient, excluding procedure time. ED Disposition Clinical Impression: Obstructive sleep apnea, Acute chest pain, Hypoxia, Palpitations Disposition: OP ADMIT IP TO THIS HOSP Is pt being admited?: Yes Condition: Fair Instructions: Chest Pain (ED) Referrals: ZANDRA EDOUARD MD [Primary Care Provider] - 3-5 Days Time of Disposition: 06:10
--- NOTE | 2019-01-02 05:28 | Cat Scan Report ---
PROCEDURE: CT ANGIO CHEST TECHNIQUE: Computerized tomographic angiography of the chest was performed after the IV injection of iodinated nonionic contrast including image processing. The image data was postprocessed using 2-di mensional multiplanar reformatted (MPR) and 3-dimensional (MIP and/or volume rendered) techniques. Au tomated exposure control, adjustment of mA and/or kV according to patient size, or iterative reconstr uction dose optimization techniques were utilized. CT DOSE LENGTH PRODUCT: 855.4 mGycm HISTORY: CP, elevated dimer COMPARISONS: None . FINDINGS: Normal caliber main pulmonary artery. Well opacified pulmonary arterial tree. No pulmonary embolism . No pericardial effusion. Thoracic aorta is normal in course and caliber. No periaortic fluid or stranding. No pneumothorax, effusion or focal airspace disease. Bibasilar atelectasis. Motion artifact. The cent ral airways are patent. No bronchiectasis. Imaged portion of the upper abdomen is unremarkable. The superficial soft tissues are unremarkable. No acute bony abnormality or worrisome osseous lesions identified. IMPRESSION: No pulmonary embolism or other acute finding. This document is electronically signed by Amador Vazquez MD., January 02 2019 05:26:36 AM ET
--- NOTE | 2019-01-02 06:12 | History and Physical Report ---
History of Present Illness Date of examination: 01/02/19 Date of admission: 01/02/2019 Chief complaint: SOB palpitation History of present illness: Pt is a 48 year old male with PMHx of asthma, CHF, COPD, hypertension, bipolar disorder, arthritis, hypertension and depression who presents to the ER with c/o SOB and palpitation. Pt was seen in the ER and started in nebulizer treatment, his respiration deteriorated and he end up in a BiPAP patient continue to decli ne and he is admitted to ICU for continuous treatments. Patient was unable to provide medical history due to his condition, most of the history was provided by patient's nurse in the room. Patient appears to be in acute distress, his respiration is unlabored, stat ABGs ordered, results pending. Past History Past Medical History: arthritis, COPD, hypertension, hyperlipidemia Past Surgical History: No surgical history Social history: smoking, alcohol abuse Medications and Allergies Allergies Allergy/AdvReac Type Severity Reaction Status Date / Time ziprasidone [From Geodon] Allergy Unknown Verified 01/01/19 21:01 tramadol AdvReac Unknown Verified 12/07/18 11:00 Home Medications Medication Instructions Recorded Confirmed Last Taken Type Albuterol Sulfate [Ventolin Hfa] 2 puff IH PRN PRN 07/18/18 12/24/18 Unknown History Polymyxin B Sulf/Trimethoprim 1 drop OP Q3HR 3 Days #1 bottle 07/31/18 12/24/18 Unknown Rx [Polytrim Eye Drops 13933haxgc/0.1%] Divalproex ER [Depakote ER] 2,000 mg PO HS 30 Days tablet 12/26/18 Unknown Rx Nicotine [Habitrol] 14 mg TD QDAY #30 patch 12/26/18 Unknown Rx OLANzapine [Zyprexa] 20 mg PO HS 30 Days tablet 12/26/18 Unknown Rx traZODone [Desyrel] 150 mg PO QHS 30 Days tablet 12/26/18 Unknown Rx Active Meds: Active Medications Enoxaparin Sodium (Lovenox) 30 mg SUB-Q QDAY [facility] Review of Systems ROS unobtainable: due to endotracheal tube, due to mental status Exam - Constitutional Vitals: Temp Pulse Resp BP Pulse Ox 98.9 F 91 H 22 155/92 93 01/01/19 21:44 01/02/19 06:00 01/02/19 06:00 01/02/19 06:00 01/02/19 06:00 General appearance: Present: severe distress - EENT ENT: hearing intact - Neck Neck: Present: normal ROM - Respiratory Respiratory effort: labored Respiratory: bilateral: diminished - Cardiovascular Rhythm: regular Heart Sounds: Present: S1 & S2 - Extremities Extremity abnormal: edema, ulceration Peripheral Pulses: within normal limits - Abdominal General gastrointestinal: Present: deferred Male genitourinary: Present: deferred - Rectal Rectal Exam: deferred - Integumentary Integumentary: Present: warm - Musculoskeletal Musculoskeletal: strength equal bilaterally - Psychiatric Psychiatric: appropriate mood/affect - Neurologic Neurologic: moves all extremities Results - Labs CBC & Chem 7: 01/01/19 21:57 01/01/19 21:57 Labs: Laboratory Last Values WBC 5.2 K/mm3 (4.5-11.0) 01/01/19 21:57 RBC 6.54 M/mm3 (3.65-5.03) H 01/01/19 21:57 Hgb 14.8 gm/dl (11.8-15.2) 01/01/19 21:57 Hct 46.6 % (35.5-45.6) H 01/01/19 21:57 MCV 71 fl (84-94) L 01/01/19 21:57 MCH 23 pg (28-32) L 01/01/19 21:57 MCHC 32 % (32-34) 01/01/19 21:57 RDW 20.7 % (13.2-15.2) H 01/01/19 21:57 Plt Count 111 K/mm3 (140-440) L 01/01/19 21:57 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 01/01/19 21:57 Add Manual Diff Complete 01/01/19 21:57 Total Counted 100 01/01/19 21:57 Seg Neuts % (Manual) 42.0 % (40.0-70.0) 01/01/19 21:57 0 % 01/01/19 21:57 46.0 % (13.4-35.0) H 01/01/19 21:57 Reactive Lymphs % (Man) 0 % 01/01/19 21:57 12.0 % (0.0-7.3) H 01/01/19 21:57 0 % (0.0-4.3) 01/01/19 21:57 0 % (0.0-1.8) 01/01/19 21:57 0 % 01/01/19 21:57 0 % 01/01/19 21:57 0 % 01/01/19 21:57 0 % 01/01/19 21:57 Nucleated RBC % Not Reportable 01/01/19 21:57 Seg Neutrophils # Man 2.2 K/mm3 (1.8-7.7) 01/01/19 21:57 Band Neutrophils # 0.0 K/mm3 01/01/19 21:57 2.4 K/mm3 (1.2-5.4) 01/01/19 21:57 Abs React Lymphs (Man) 0.0 K/mm3 01/01/19 21:57 0.6 K/mm3 (0.0-0.8) 01/01/19 21:57 0.0 K/mm3 (0.0-0.4) 01/01/19 21:57 0.0 K/mm3 (0.0-0.1) 01/01/19 21:57 0.0 K/mm3 01/01/19 21:57 0.0 K/mm3 01/01/19 21:57 0.0 K/mm3 01/01/19 21:57 Blast Cells # 0.0 K/mm3 01/01/19 21:57 WBC Morphology Not Reportable 01/01/19 21:57 Hypersegmented Neuts Not Reportable 01/01/19 21:57 Hyposegmented Neuts Not Reportable 01/01/19 21:57 Hypogranular Neuts Not Reportable 01/01/19 21:57 Not Reportable 01/01/19 21:57 Not Reportable 01/01/19 21:57 Not Reportable 01/01/19 21:57 Not Reportable 01/01/19 21:57 Not Reportable 01/01/19 21:57 Not Reportable 01/01/19 21:57 Consistent w auto 01/01/19 21:57 Not Reportable 01/01/19 21:57 Plt Clumps, EDTA Not Reportable 01/01/19 21:57 Not Reportable 01/01/19 21:57 Not Reportable 01/01/19 21:57 Not Reportable 01/01/19 21:57 Plt Morphology Comment Not Reportable 01/01/19 21:57 RBC Morphology Not Reportable 01/01/19 21:57 Dimorphic RBCs Not Reportable 01/01/19 21:57 Not Reportable 01/01/19 21:57 Not Reportable 01/01/19 21:57 Not Reportable 01/01/19 21:57 1+ 01/01/19 21:57 Not Reportable 01/01/19 21:57 Not Reportable 01/01/19 21:57 Not Reportable 01/01/19 21:57 Not Reportable 01/01/19 21:57 Not Reportable 01/01/19 21:57 Few 01/01/19 21:57 Not Reportable 01/01/19 21:57 Not Reportable 01/01/19 21:57 Not Reportable 01/01/19 21:57 Not Reportable 01/01/19 21:57 Not Reportable 01/01/19 21:57 Not Reportable 01/01/19 21:57 Not Reportable 01/01/19 21:57 Not Reportable 01/01/19 21:57 Not Reportable 01/01/19 21:57 Acanthocytes (Spur) Not Reportable 01/01/19 21:57 Rouleaux Not Reportable 01/01/19 21:57 Not Reportable 01/01/19 21:57 Not Reportable 01/01/19 21:57 Not Reportable 01/01/19 21:57 Not Reportable 01/01/19 21:57 Hem Pathologist Commnt No 01/01/19 21:57 375.73 ng/mlDDU (0-234) H 01/02/19 01:58 Sodium 139 mmol/L (137-145) 01/01/19 21:57 Potassium 4.1 mmol/L (3.6-5.0) 01/01/19 21:57 Chloride 101.4 mmol/L (98-107) 01/01/19 21:57 Carbon Dioxide 27 mmol/L (22-30) 01/01/19 21:57 15 mmol/L 01/01/19 21:57 BUN 14 mg/dL (9-20) 01/01/19 21:57 0.7 mg/dL (0.8-1.5) L 01/01/19 21:57 Estimated GFR > 60 ml/min 01/01/19 21:57 20 % 01/01/19 21:57 Glucose 121 mg/dL (75-100) H 01/01/19 21:57 Calcium 8.9 mg/dL (8.4-10.2) 01/01/19 21:57 < 0.010 ng/mL (0.00-0.029) 01/02/19 01:58 NT-Pro-B Natriuret Pep 32.20 pg/mL (0-450) 01/02/19 01:58 TSH 2.490 mlU/mL (0.270-4.200) 01/02/19 01:58 Plasma/Serum Alcohol < 0.01 % (0-0.07) 01/02/19 01:58 Assessment and Plan Assessment and plan: 1. COPD with acute exacerbation 2. Hypoxia with acute respiratory failure 3. Acute dyspnea 4. Obstructive sleep apnea 5. CAD/CHF 6. Obesity 6. Hypotension 7. H/o schizophrenia and bipolar disorder 8. Osteoarthritis Plan: Patient is admitted to ICU for respiratory failure Started on Solu-Medrol IV every 6 hours Monitor respiratory status Consult pulmonary critical care for management Resume home meds Advair twice a day Case management for DC planning (patient is homeless) Advance Directives: Yes VTE prophylaxis?: Chemical Plan of care discussed with patient/family: Yes
[2019-01-02] MEDS ORDERED: ZOFRAN IV PRN ×2 (06:25→06:27)
[2019-01-02] MEDS ORDERED: SODIUM CHLORIDE FLUSH SYRINGE 10 ML IV PRN (06:25)
[2019-01-02] MEDS ORDERED: TYLENOL PO PRN (06:25)
--- NOTE | 2019-01-02 06:45 | Event Note ---
48 year-old man with history of COPD, sleep apnea, obesity, hypertension, bipolar, schizophrenia, CHF, emergency room for evaluation of chest pain, shortness of breath. The patient was placed on BiPAP in the emergency room. When I saw the patient he was very hard to be arouse, he is combative and noncompliant in wearing the BiPAP. I order stat ABG which shows respiratory acidosis with hypercarbia, 7.18/78/210/30. The patient took his mask off and threw it off, he is now more awake. We'll place him in the ICU for close monitoring, start high-dose steroids, nebulizer treatments, consult critical care. Check cardiac enzymes, evaluate for stress test. The history could not be obtained because he so combative. ER physician reports that he is homeless
[2019-01-02] MEDS ORDERED: DUONEB *Not for PRN Use IH SCH (08:00)
[2019-01-02] MEDS ORDERED: LOVENOX SUB-Q SCH ×2 (10:00)
[2019-01-02] MEDS: SOLU-Medrol IV SCH ×2 (14:36→18:03)
[2019-01-02] MEDS: SODIUM CHLORIDE FLUSH SYRINGE 10 ML IV SCH ×2 (14:36→22:00)
[2019-01-02] MEDS ORDERED: SOLU-Medrol ONE (18:00)
[2019-01-02] MEDS ORDERED: DUONEB *Not for PRN Use IH ONE (20:04)
[2019-01-02 21:21] VITALS: BP 119/81
[2019-01-02 22:31] LABS: Bilirubin,Urine NEG (Negative); Blood,Urine NEG (Negative); Color,Urine Yellow (Yellow); Mucus,Urine FEW /HPF; Protein,Urine <15 mg/dL mg/dL (Negative); Urobilinogen,Urine < 2.0 mg/dL (<2.0)
[2019-01-02 22:41] LABS: Amphetamine Screen,Urine PRESUMPTIVE NEGATIVE; Benzodiazepines Screen,Urine PRESUMPTIVE NEGATIVE; Cannabinoid Screen,Urine PRESUMPTIVE NEGATIVE; Cocaine Screen,Urine PRESUMPTIVE NEGATIVE; Methadone Screen,Urine PRESUMPTIVE NEGATIVE; Opiate Screen,Urine PRESUMPTIVE NEGATIVE
--- NOTE | 2019-01-03 01:57 | Event Note ---
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 Pt was on ER holding awaiting to be transferred to ICU. While in the ER, patient was very anxious and agitated, he was refusing all treatments, he was alert and oriented 3. Patient became more anxious in the units, he refuses to comply to treatments, he got dressed and demands to leave AMA. All attempt to convince patient to stay for the breathing treatment and blood pressure monitoring was unsuccessful, he was extremely agitated and willing to signed the AMA form. Pt states that he would await for his brother to pick him up. Patient was assessed before leaving, he was alert and orientated in no acute distress, he was ambulatory, no signs of respiratory distress. AMA form was signed and witnessed.
--- NOTE | 2019-01-03 10:22 | Discharge Summary ---
Providers - Providers Date of Admission: 01/02/19 05:51 Date of discharge: 01/03/19 Attending physician: JONI JORDAN 01/02/19 03:55 Consult to Case Management [CONS] Routine Services Needed at Discharge: Legal Office Administrator Comment:: Disposition planning 01/02/19 06:25 Consult to Physician [CONS] Routine Comment: Dr. Jamisno notified @ 1227 Consulting Provider: MADHURI GODOY Physician Instructions: Reason For Exam: cc Primary care physician: ZANDRA EDOUARD Hospitalization Condition: Fair Hospital course: Pt is a 48 year old male with PMHx of asthma, CHF, COPD, hypertension, bipolar disorder, arthritis, hypertension and depression who presents to the ER with c/o SOB and palpitation. Pt was seen in the ER and started in nebulizer treatment, his respiration deteriorated and he end up in a BiPAP patient continue to decline and he is admitted to ICU for continuous treatments. Patient was unable to provide medical history due to his condition, most of the history was provided by patient's nurse in the room. Patient in acute distress, his respiration is labored, stat ABGs ordered Past History Past Medical History: arthritis, COPD, hypertension, hyperlipidemia Past Surgical History: No surgical history Social history: smoking, alcohol abuse A/p 1. COPD with acute exacerbation 2. Hypoxia with acute respiratory failure 3. Acute dyspnea 4. Obstructive sleep apnea 5. CAD/CHF 6. Obesity 6. Hypotension 7. H/o schizophrenia and bipolar disorder 8. Osteoarthritis Plan: Patient admitted to ICU for respiratory failure Started on Solu-Medrol IV every 6 hours Duonebs and IV Abx Consulted pulmonary critical care for management Resumed home meds Advair twice a day Patient was improving Patient signed AMA around midnight saying that he usually goes to [place] Disposition: DC-07 LEFT AGAINST MED ADVICE Core Measure Documentation - Palliative Care Palliative Care/ Comfort Measures: Not Applicable - Core Measures Any of the following diagnoses?: none Exam - Constitutional Vitals: Temp Pulse Resp BP Pulse Ox 98.1 F 82 26 H 119/81 100 01/02/19 19:10 01/02/19 22:00 01/02/19 21:00 01/02/19 21:00 01/02/19 21:32 General appearance: Present: no acute distress, well-nourished - EENT Eyes: Present: PERRL ENT: hearing intact, clear oral mucosa - Neck Neck: Present: supple, normal ROM - Respiratory Respiratory effort: normal Respiratory: bilateral: CTA - Cardiovascular Heart rate: 78 Rhythm: regular Heart Sounds: Present: S1 & S2. Absent: rub, click - Extremities Extremities: no ischemia, pulses intact, pulses symmetrical, No edema Peripheral Pulses: within normal limits - Abdominal General gastrointestinal: Present: soft, non-tender, non-distended, normal bowel sounds Male genitourinary: Present: normal - Integumentary Integumentary: Present: clear, warm, dry - Musculoskeletal Musculoskeletal: gait normal, strength equal bilaterally - Psychiatric Psychiatric: appropriate mood/affect, intact judgment & insight - Neurologic Neurologic: CNII-XII intact, moves all extremities - Allied Health Allied health notes reviewed: nursing, case management Plan Activity: no restrictions Follow up with: ZANDRA EDOUARD MD [Primary Care Provider] - 3-5 Days
== END 2019-01-03 | disposition left against medical advice (07) | DRG 189 ==
LOC: ED 20:55 → CC1 01-02 05:51
PROVIDERS: ADMIT Internal Medicine; ATTEND Internal Medicine
PROC: 5A09357 Assistance with Respiratory Ventilation, Less than 24 Consecutive Hours, Continuous Positive Airway Pressure (ICD-10-PCS; principal; 2019-01-02)
PROC: 4A033R1 Measurement of Arterial Saturation, Peripheral, Percutaneous Approach (ICD-10-PCS; 2019-01-02)
DX: J96.01 Acute respiratory failure with hypoxia (principal); J44.1 Chronic obstructive pulmonary disease with (acute) exacerbation; I11.0 Hypertensive heart disease with heart failure; I50.9 Heart failure, unspecified; F31.9 Bipolar disorder, unspecified; M19.90 Unspecified osteoarthritis, unspecified site; G47.33 Obstructive sleep apnea (adult) (pediatric); I25.10 Atherosclerotic heart disease of native coronary artery without angina pectoris; E66.9 Obesity, unspecified; F20.9 Schizophrenia, unspecified; Z53.21 Procedure and treatment not carried out due to patient leaving prior to being seen by health care provider; Z68.41 Body mass index [BMI] 40.0-44.9, adult; Z88.8 Allergy status to other drugs, medicaments and biological substances
CPT/HCPCS: 36415; 36600; 71275; 80048; 80307; 80320; 81001; 82550; 82553; 82803; 83880; 84443; 84484; 85007; 85025; 85379; 93005; 93010; 94640; 94660; G0378; G0480; J2930; Q9967

== ENCOUNTER 2019-03-04 18:13 | Emergency (ER) | payer MEDICARE ==
[2019-03-04 20:27] LABS: Bilirubin,Urine NEG (Negative); Blood,Urine NEG (Negative); Color,Urine Yellow (Yellow); Mucus,Urine 1+ /HPF
[2019-03-04 20:35] LABS: Amphetamine Screen,Urine PRESUMPTIVE NEGATIVE; Benzodiazepines Screen,Urine PRESUMPTIVE NEGATIVE; Cannabinoid Screen,Urine PRESUMPTIVE NEGATIVE; Cocaine Screen,Urine PRESUMPTIVE NEGATIVE; Methadone Screen,Urine PRESUMPTIVE NEGATIVE; Opiate Screen,Urine PRESUMPTIVE NEGATIVE
[2019-03-04 21:35] LABS: Basophils # (Auto) 0.1 K/mm3 (0.0-0.1); Basophils % (Auto) 1.2 % (0.0-1.8); Eosinophils # (Auto) 0.1 K/mm3 (0.0-0.4); Eosinophils % (Auto) 1.8 % (0.0-4.3); Hematocrit 51.9 % (35.5-45.6); Hemoglobin 16.7 gm/dl (11.8-15.2); Lymphocytes # (Auto) 2.3 K/mm3 (1.2-5.4); Lymphocytes % (Auto) 39.4 % (13.4-35.0); Mean Corpuscular HGB Conc 32 % (32-34); Mean Corpuscular Volume 72 fl (84-94); Monocytes # (Auto) 0.8 K/mm3 (0.0-0.8); Monocytes % (Auto) 13.3 % (0.0-7.3); Red Blood Count 7.21 M/mm3 (3.65-5.03); Red Cell Distribution Width 19.5 % (13.2-15.2)
[2019-03-04 21:37] LABS: Platelet Count 121 K/mm3 (140-440)
--- NOTE | 2019-03-04 21:44 | Emergency Department Report ---
<CYRUS HERRERA - Last Filed: 03/05/19 01:48> ED Psych HPI - General Chief Complaint: Psych Stated Complaint: OUT OF MEDS Time Seen by Provider: 03/04/19 18:58 Source: patient, EMS Mode of arrival: Ambulatory Limitations: No Limitations - History of Present Illness Initial Comments: 48-year-old male with a past medical history schizophrenia, bipolar disorder, arthritis, CHF, asthma, COPD, and hypertension presents to the hospital with complaints of auditory hallucinations and racing thoughts that worsened today. Patient ran out of his medication 5 days ago (not 5 years as per triage).. He does not have a psychiatrist or primary care doctor to refill his medication. Patient states he is having voices telling him he is worthless and he is talking to these voices because he was unsure if they were real or not. He is r equesting admission for stabilization. He denies homicidal or suicidal ideation. He has chronic knee pain and denies any other pain complaints. - Related Data Home Medications Medication Instructions Recorded Confirmed Last Taken Albuterol Sulfate [Ventolin Hfa] 2 puff IH PRN PRN 07/18/18 01/02/19 Unknown Previous Rx's Medication Instructions Recorded Last Taken Type Polymyxin B Sulf/Trimethoprim 1 drop OP Q3HR 3 Days #1 bottle 07/31/18 Unknown Rx [Polytrim Eye Drops 36113mrrsx/0.1%] Divalproex ER [Depakote ER] 2,000 mg PO HS 30 Days tablet 12/26/18 Unknown Rx Nicotine [Habitrol] 14 mg TD QDAY #30 patch 12/26/18 Unknown Rx OLANzapine [Zyprexa] 20 mg PO HS 30 Days tablet 12/26/18 Unknown Rx traZODone [Desyrel] 150 mg PO QHS 30 Days tablet 12/26/18 Unknown Rx Allergies Allergy/AdvReac Type Severity Reaction Status Date / Time ziprasidone [From Geodon] Allergy Unknown Verified 03/04/19 18:22 tramadol AdvReac Unknown Verified 03/04/19 18:22 ED Past Medical Hx - Past Medical History Previous Medical History?: Yes Hx Hypertension: Yes Hx Congestive Heart Failure: Yes Hx Renal Disease: No Hx Arthritis: Yes Hx Seizures: No Hx Psychiatric Treatment: Yes (bipolar and depression) Hx Asthma: Yes Hx COPD: Yes Hx Tuberculosis: Yes (POSITIVE SKIN TEST,TOOK [place] , NEG CXR) Hx Dementia: No Hx HIV: No Additional medical history: sleep apnea - Surgical History Past Surgical History?: Yes Hx Cholecystectomy: No Hx Appendectomy: No Additional Surgical History: right knee surgery - Social History Smoking Status: Current Every Day Smoker Substance Use Type: None - Medications Home Medications: Home Medications Medication Instructions Recorded Confirmed Last Taken Type Albuterol Sulfate [Ventolin Hfa] 2 puff IH PRN PRN 07/18/18 01/02/19 Unknown History Polymyxin B Sulf/Trimethoprim 1 drop OP Q3HR 3 Days #1 bottle 07/31/18 01/02/19 Unknown Rx [Polytrim Eye Drops 43863mnrqo/0.1%] Divalproex ER [Depakote ER] 2,000 mg PO HS 30 Days tablet 12/26/18 01/02/19 Unknown Rx Nicotine [Habitrol] 14 mg TD QDAY #30 patch 12/26/18 01/02/19 Unknown Rx OLANzapine [Zyprexa] 20 mg PO HS 30 Days tablet 12/26/18 01/02/19 Unknown Rx traZODone [Desyrel] 150 mg PO QHS 30 Days tablet 12/26/18 01/02/19 Unknown Rx ED Physical Exam - General Limitations: No Limitations ED Medical Decision Making - Lab Data Result diagrams: 03/04/19 21:21 03/04/19 21:21 Lab Results 03/04/19 03/04/19 03/04/19 Range/Units 19:55 19:55 21:21 WBC 5.9 (4.5-11.0) K/mm3 RBC 7.21 H (3.65-5.03) M/mm3 Hgb 16.7 H (11.8-15.2) gm/dl Hct 51.9 H (35.5-45.6) % MCV 72 L (84-94) fl MCH 23 L (28-32) pg MCHC 32 (32-34) % RDW 19.5 H (13.2-15.2) % Plt Count 121 L (140-440) K/mm3 Lymph % (Auto) 39.4 H (13.4-35.0) % Rincon % (Auto) 13.3 H (0.0-7.3) % Eos % (Auto) 1.8 (0.0-4.3) % Baso % (Auto) 1.2 (0.0-1.8) % Lymph # 2.3 (1.2-5.4) K/mm3 Rincon # 0.8 (0.0-0.8) K/mm3 Eos # 0.1 (0.0-0.4) K/mm3 Baso # 0.1 (0.0-0.1) K/mm3 Seg Neutrophils % 44.3 (40.0-70.0) % Seg Neutrophils # 2.6 (1.8-7.7) K/mm3 Sodium (137-145) mmol/L Potassium (3.6-5.0) mmol/L Chloride (98-107) mmol/L Carbon Dioxide (22-30) mmol/L Anion Gap mmol/L BUN (9-20) mg/dL Creatinine (0.8-1.5) mg/dL Estimated GFR ml/min BUN/Creatinine Ratio % Glucose (75-100) mg/dL Calcium (8.4-10.2) mg/dL Total Bilirubin (0.1-1.2) mg/dL AST (5-40) units/L ALT (7-56) units/L Alkaline Phosphatase (35-129) units/L Total Protein (6.3-8.2) g/dL Albumin (3.9-5) g/dL Albumin/Globulin Ratio % Urine Color Yellow (Yellow) Urine Turbidity Clear (Clear) Urine pH 7.0 (5.0-7.0) Ur Specific Dwight 1.021 (1.003-1.030) Urine Protein 100 mg/dl (Negative) mg/dL Urine Glucose (UA) Neg (Negative) mg/dL Urine Ketones Neg (Negative) mg/dL Urine Blood Neg (Negative) Urine Nitrite Neg (Negative) Urine Bilirubin Neg (Negative) Urine Urobilinogen 2.0 (<2.0) mg/dL Ur Leukocyte Esterase Neg (Negative) Urine WBC (Auto) 1.0 (0.0-6.0) /HPF Urine RBC (Auto) 2.0 (0.0-6.0) /HPF U Epithel Cells (Auto) < 1.0 (0-13.0) /HPF Urine Mucus 1+ /HPF Salicylates (2.8-20.0) mg/dL Urine Opiates Screen Presumptive negative Urine Methadone Screen Presumptive negative Acetaminophen (10.0-30.0) ug/mL Ur Barbiturates Screen Presumptive negative Valproic Acid (50-100) ug/mL Ur Phencyclidine Scrn Presumptive negative Ur Amphetamines Screen Presumptive negative U Benzodiazepines Scrn Presumptive negative Urine Cocaine Screen Presumptive negative U Marijuana (THC) Screen Presumptive negative Drugs of Abuse Note Disclamer Plasma/Serum Alcohol (0-0.07) % 03/04/19 03/04/19 03/04/19 Range/Units 21:21 21:21 21:21 WBC (4.5-11.0) K/mm3 RBC (3.65-5.03) M/mm3 Hgb (11.8-15.2) gm/dl Hct (35.5-45.6) % MCV (84-94) fl MCH (28-32) pg MCHC (32-34) % RDW (13.2-15.2) % Plt Count (140-440) K/mm3 Lymph % (Auto) (13.4-35.0) % Rincon % (Auto) (0.0-7.3) % Eos % (Auto) (0.0-4.3) % Baso % (Auto) (0.0-1.8) % Lymph # (1.2-5.4) K/mm3 Rincon # (0.0-0.8) K/mm3 Eos # (0.0-0.4) K/mm3 Baso # (0.0-0.1) K/mm3 Seg Neutrophils % (40.0-70.0) % Seg Neutrophils # (1.8-7.7) K/mm3 Sodium 140 (137-145) mmol/L Potassium 4.1 (3.6-5.0) mmol/L Chloride 98.7 (98-107) mmol/L Carbon Dioxide 28 (22-30) mmol/L Anion Gap 17 mmol/L BUN 10 (9-20) mg/dL Creatinine 0.7 L (0.8-1.5) mg/dL Estimated GFR > 60 ml/min BUN/Creatinine Ratio 14 % Glucose 85 (75-100) mg/dL Calcium 9.5 (8.4-10.2) mg/dL Total Bilirubin 0.40 (0.1-1.2) mg/dL AST 21 (5-40) units/L ALT 13 (7-56) units/L Alkaline Phosphatase 69 (35-129) units/L Total Protein 8.4 H (6.3-8.2) g/dL Albumin 4.2 (3.9-5) g/dL Albumin/Globulin Ratio 1.0 % Urine Color (Yellow) Urine Turbidity (Clear) Urine pH (5.0-7.0) Ur Specific Dwight (1.003-1.030) Urine Protein (Negative) mg/dL Urine Glucose (UA) (Negative) mg/dL Urine Ketones (Negative) mg/dL Urine Blood (Negative) Urine Nitrite (Negative) Urine Bilirubin (Negative) Urine Urobilinogen (<2.0) mg/dL Ur Leukocyte Esterase (Negative) Urine WBC (Auto) (0.0-6.0) /HPF Urine RBC (Auto) (0.0-6.0) /HPF U Epithel Cells (Auto) (0-13.0) /HPF Urine Mucus /HPF Salicylates < 0.3 L (2.8-20.0) mg/dL Urine Opiates Screen Urine Methadone Screen Acetaminophen < 5.0 L (10.0-30.0) ug/mL Ur Barbiturates Screen Valproic Acid 16.7 L (50-100) ug/mL Ur Phencyclidine Scrn Ur Amphetamines Screen U Benzodiazepines Scrn Urine Cocaine Screen U Marijuana (THC) Screen Drugs of Abuse Note Plasma/Serum Alcohol (0-0.07) % 03/04/19 Range/Units 21:21 WBC (4.5-11.0) K/mm3 RBC (3.65-5.03) M/mm3 Hgb (11.8-15.2) gm/dl Hct (35.5-45.6) % MCV (84-94) fl MCH (28-32) pg MCHC (32-34) % RDW (13.2-15.2) % Plt Count (140-440) K/mm3 Lymph % (Auto) (13.4-35.0) % R[place] % (Auto) (0.0-7.3) % Eos % (Auto) (0.0-4.3) % Baso % (Auto) (0.0-1.8) % Lymph # (1.2-5.4) K/mm3 [place] # (0.0-0.8) K/mm3 Eos # (0.0-0.4) K/mm3 Baso # (0.0-0.1) K/mm3 Seg Neutrophils % (40.0-70.0) % Seg Neutrophils # (1.8-7.7) K/mm3 Sodium (137-145) mmol/L Potassium (3.6-5.0) mmol/L Chloride (98-107) mmol/L Carbon Dioxide (22-30) mmol/L Anion Gap mmol/L BUN (9-20) mg/dL Creatinine (0.8-1.5) mg/dL Estimated GFR ml/min BUN/Creatinine Ratio % Glucose (75-100) mg/dL Calcium (8.4-10.2) mg/dL Total Bilirubin (0.1-1.2) mg/dL AST (5-40) units/L ALT (7-56) units/L Alkaline Phosphatase (35-129) units/L Total Protein (6.3-8.2) g/dL Albumin (3.9-5) g/dL Albumin/Globulin Ratio % Urine Color (Yellow) Urine Turbidity (Clear) Urine pH (5.0-7.0) Ur Specific Dwight (1.003-1.030) Urine Protein (Negative) mg/dL Urine Glucose (UA) (Negative) mg/dL Urine Ketones (Negative) mg/dL Urine Blood (Negative) Urine Nitrite (Negative) Urine Bilirubin (Negative) Urine Urobilinogen (<2.0) mg/dL Ur Leukocyte Esterase (Negative) Urine WBC (Auto) (0.0-6.0) /HPF Urine RBC (Auto) (0.0-6.0) /HPF U Epithel Cells (Auto) (0-13.0) /HPF Urine Mucus /HPF Salicylates (2.8-20.0) mg/dL Urine Opiates Screen Urine Methadone Screen Acetaminophen (10.0-30.0) ug/mL Ur Barbiturates Screen Valproic Acid (50-100) ug/mL Ur Phencyclidine Scrn Ur Amphetamines Screen U Benzodiazepines Scrn Urine Cocaine Screen U Marijuana (THC) Screen Drugs of Abuse Note Plasma/Serum Alcohol < 0.01 (0-0.07) % - Medical Decision Making pt with psychosis secondary to medication noncompliance requesting stabilization At this time patient isn't volunteering does not meet 1013 criteria Mental health evaluation pending inpatient medically clear Norvasc 5 mg daily will be started for hypertension - Differential Diagnosis psychosis, schizophrenia, bipolar, medication noncompliance, SI, HI Critical Care Time: No ED Disposition Clinical Impression: Bipolar disorder, Schizoaffective disorder, bipolar type Disposition: DC-01 TO HOME OR SELFCARE Is pt being admited?: No Condition: Stable Instructions: Schizophrenia (ED) [facility] [Primary Care Provider] - 3-5 Days Time of Disposition: 01:49 <SAGE DEL RIO - Last Filed: 03/05/19 09:35> ED Review of Systems ROS: Stated complaint: OUT OF MEDS Other details as noted in HPI ED Course Vital Signs 03/04/19 03/04/19 03/04/19 18:17 21:30 22:00 Temperature 98.6 F 98.6 F Pulse Rate 78 75 Respiratory 18 18 20 Rate Blood Pressure 172/92 Blood Pressure 162/88 [Right] O2 Sat by Pulse 99 99 98 Oximetry 03/05/19 03/05/19 03:30 07:00 Temperature 97.9 F 98.3 F Pulse Rate 68 85 Respiratory 20 18 Rate Blood Pressure Blood Pressure 151/97 150/87 [Right] O2 Sat by Pulse 96 92 Oximetry - Reevaluation(s) Reevaluation #1: 03/05/19 09:33 Patient is 48 years old male with history of schizophrenia. Patient seen by our psychiatric team and advised patient can be discharged and follow up with his psychiatric as an outpatient. I personally examined the patient patient denied any suicidal or homicidal ideation. Patient is not in acute psychosis. Patient discharged home in a stable medical and psychiatric condition. ED Medical Decision Making - Lab Data Result diagrams: 03/04/19 21:21 03/04/19 21:21 Critical care attestation.: If time is entered above; I have spent that time in minutes in the direct care of this critically ill patient, excluding procedure time.
[2019-03-04 21:58] LABS: Alanine Aminotransferase 13 units/L (7-56); Albumin 4.2 g/dL (3.9-5); BUN/Creatinine Ratio 14; Blood Urea Nitrogen 10 mg/dL (9-20); Calcium 9.5 mg/dL (8.4-10.2); Hemolysis Index 28
[2019-03-05] MEDS ORDERED: PROVENTIL IH PRN (01:45)
[2019-03-05 07:58] VITALS: BP 150/87
--- NOTE | 2019-03-05 08:52 | Consultation ---
History of Present Illness - Reason for Consult Consult date: 03/05/19 Reason for consult: Mental Health Evaluation Requesting physician: CYRUS HERRERA - Chief Complaint Chief complaint: "I am fine" - History of Present Psychiatric Illness 48 y.o. AA male who presented to the ER for medication refill. Today the patient was calm during the assessment. He stated that he just want to take he want to go inpatient (psy) and take his medication so he can be released. He was explained the referral process for inpatient psy services, PHP, and outpatient psy services. He stated that he prefer to "go home" and see his PCP who manage his medications. The patient was offered prescriptions for his psy medications, PHP referral, and or a outpatient referral for psy services since he no longer have a psychiatrist, he refused. He stated, 'I will see my primary doctor." He denies SI/HI's and VH's. He stated that he hear voices "sometimes." He stated that the voices are not telling him to do unsafe acts. He denies erratic sleep and a poor appetite. He denies recreational drug use and alcohol consumption (etoh). Medications and Allergies Allergies Allergy/AdvReac Type Severity Reaction Status Date / Time ziprasidone [From Geodon] Allergy Unknown Verified 03/04/19 18:22 tramadol AdvReac Unknown Verified 03/04/19 18:22 Home Medications Medication Instructions Recorded Confirmed Last Taken Type Albuterol Sulfate [Ventolin Hfa] 2 puff IH PRN PRN 07/18/18 01/02/19 Unknown History Polymyxin B Sulf/Trimethoprim 1 drop OP Q3HR 3 Days #1 bottle 07/31/18 01/02/19 Unknown Rx [Polytrim Eye Drops 96530cpujo/0.1%] Divalproex ER [Depakote ER] 2,000 mg PO HS 30 Days tablet 12/26/18 01/02/19 Unknown Rx Nicotine [Habitrol] 14 mg TD QDAY #30 patch 12/26/18 01/02/19 Unknown Rx OLANzapine [Zyprexa] 20 mg PO HS 30 Days tablet 12/26/18 01/02/19 Unknown Rx traZODone [Desyrel] 150 mg PO QHS 30 Days tablet 12/26/18 01/02/19 Unknown Rx Active Meds: Active Medications Albuterol (Proventil) 2.5 mg IH Q4HR PRN PRN Reason: Wheezing Last Admin: 03/05/19 04:40 Dose: 2.5 mg Documented by: Amlodipine Besylate (Norvasc) 5 mg PO DAILY PHIL Past psychiatric history - Past Medical History Past Medical History: COPD, hypertension, other (Arthritis ) Past Surgical History: Other (Right Knee Surgery) - past Psychiatric treatment and history psychiatric treatment history: Hx of mood/psychotic do. Denies a fam psy hx. - Social History Social history: Lives alone Mental Status Exam - Vital signs Last Vital Signs Temp 98.3 F 03/05/19 07:00 Pulse 85 03/05/19 07:00 Resp 18 03/05/19 07:00 BP 150/87 03/05/19 07:00 Pulse Ox 92 03/05/19 07:00 - Exam Narrative exam: MSE: Appearance: calm, cooperative Behavior: regular eye contact Speech: regular rate and tone Mood: "okay" Affect: congruent to mood Thought Process: circumstantial Thought Content: denies SI/HI's and AVH's Motor Activity: ambulatory Cognition: A/O x3 Insight: fair Judgment: fair Results Result Diagrams: 03/04/19 21:21 03/04/19 21:21 Abnormal lab results 03/04/19 03/04/19 03/04/19 Range/Units 21:21 21:21 21:21 RBC 7.21 H (3.65-5.03) M/mm3 Hgb 16.7 H (11.8-15.2) gm/dl Hct 51.9 H (35.5-45.6) % MCV 72 L (84-94) fl MCH 23 L (28-32) pg RDW 19.5 H (13.2-15.2) % Plt Count 121 L (140-440) K/mm3 Lymph % (Auto) 39.4 H (13.4-35.0) % [place] % (Auto) 13.3 H (0.0-7.3) % Creatinine 0.7 L (0.8-1.5) mg/dL Total Protein 8.4 H (6.3-8.2) g/dL Salicylates < 0.3 L (2.8-20.0) mg/dL Acetaminophen (10.0-30.0) ug/mL Valproic Acid 16.7 L (50-100) ug/mL 03/04/19 Range/Units 21:21 RBC (3.65-5.03) M/mm3 Hgb (11.8-15.2) gm/dl Hct (35.5-45.6) % MCV (84-94) fl MCH (28-32) pg RDW (13.2-15.2) % Plt Count (140-440) K/mm3 Lymph % (Auto) (13.4-35.0) % [place] % (Auto) (0.0-7.3) % Creatinine (0.8-1.5) mg/dL Total Protein (6.3-8.2) g/dL Salicylates (2.8-20.0) mg/dL Acetaminophen < 5.0 L (10.0-30.0) ug/mL Valproic Acid (50-100) ug/mL All other labs normal. Assessment and Plan Assessment and plan: Impression: Hx of Mood/Psychotic DO. Today the patient was calm during the asses sment. Recommendation/Plan: The patient prefer to see hs PCP for his medications. Dispo: The patient can follow up with [facility] or his PCP for outpatient psy services. Psy sign off. Will staff with Dr Gurdeep Angeles.
[2019-03-05] MEDS ORDERED: NORVASC PO SCH (10:00)
== END 2019-03-05 09:36 | disposition home or self-care (01) ==
LOC: EEVIPCON 18:13 → ED 18:13
DX: F31.9 Bipolar disorder, unspecified (principal); F25.9 Schizoaffective disorder, unspecified; I11.0 Hypertensive heart disease with heart failure; I50.9 Heart failure, unspecified; M19.90 Unspecified osteoarthritis, unspecified site; J44.9 Chronic obstructive pulmonary disease, unspecified; F17.200 Nicotine dependence, unspecified, uncomplicated; Z88.8 Allergy status to other drugs, medicaments and biological substances; Z79.899 Other long term (current) drug therapy
CPT/HCPCS: 36415; 80053; 80164; 80307; 80320; 81001; 85025; 94640; G0480

== ENCOUNTER 2019-07-12 21:21 | Emergency (ER) | payer MEDICARE ==
[2019-07-12 22:07] LABS: Basophils # (Auto) 0.1 K/mm3 (0.0-0.1); Basophils % (Auto) 1.5 % (0.0-1.8); Eosinophils # (Auto) 0.1 K/mm3 (0.0-0.4); Eosinophils % (Auto) 2.4 % (0.0-4.3); Lymphocytes # (Auto) 2.5 K/mm3 (1.2-5.4); Lymphocytes % (Auto) 41.2 % (13.4-35.0); Mean Corpuscular HGB Conc 31 % (32-34); Monocytes # (Auto) 0.9 K/mm3 (0.0-0.8); Monocytes % (Auto) 14.5 % (0.0-7.3); Red Blood Count 6.95 M/mm3 (3.65-5.03)
[2019-07-12 22:08] LABS: Hematocrit 48.5 % (35.5-45.6); Mean Corpuscular Volume 70 fl (84-94); Platelet Count 121 K/mm3 (140-440); Red Cell Distribution Width 22.1 % (13.2-15.2)
[2019-07-12 22:27] LABS: BUN/Creatinine Ratio 13; Blood Urea Nitrogen 9 mg/dL (9-20); Hemolysis Index 19
--- NOTE | 2019-07-12 22:35 | Emergency Department Report ---
<CLARITA MOJICA - Last Filed: 07/12/19 22:31> ED Psych HPI - General Chief Complaint: Psych Stated Complaint: FATIGUE Time Seen by Provider: 07/12/19 22:19 Source: patient, EMS Mode of arrival: Ambulatory - History of Present Illness MD Complaint: suicidal ideation -: Gradual, days(s) (2) Associated Psychiatric Symptoms: depression, suicidal ideation History of same: Yes Quality: constant Improves With: none Worsens With: none Context: not taking psychiatric (been off medications for 1 month as he was unable to get refill from his doctor.) Treatments Prior to Arrival: none If Self Harm: admits thoughts of, has plan - Related Data Home Medications Medication Instructions Recorded Confirmed Last Taken Albuterol Sulfate [Ventolin Hfa] 2 puff IH PRN PRN 07/18/18 01/02/19 Unknown Previous Rx's Medication Instructions Recorded Last Taken Type Polymyxin B Sulf/Trimethoprim 1 drop OP Q3HR 3 Days #1 bottle 07/31/18 Unknown Rx [Polytrim Eye Drops 88434ahsdv/0.1%] Divalproex ER [Depakote ER] 2,000 mg PO HS 30 Days tablet 12/26/18 Unknown Rx Nicotine [Habitrol] 14 mg TD QDAY #30 patch 12/26/18 Unknown Rx OLANzapine [Zyprexa] 20 mg PO HS 30 Days tablet 12/26/18 Unknown Rx traZODone [Desyrel] 150 mg PO QHS 30 Days tablet 12/26/18 Unknown Rx Allergies Allergy/AdvReac Type Severity Reaction Status Date / Time ziprasidone [From Geodon] Allergy Unknown Verified 03/04/19 18:22 tramadol AdvReac Unknown Verified 03/04/19 18:22 ED Past Medical Hx - Past Medical History Previous Medical History?: Yes Hx Hypertension: Yes Hx Congestive Heart Failure: Yes Hx Renal Disease: No Hx Arthritis: Yes Hx Seizures: No Hx Psychiatric Treatment: Yes (bipolar and depression) Hx Asthma: Yes Hx COPD: Yes Hx Tuberculosis: Yes (POSITIVE SKIN TEST,TOOK [place] , NEG CXR) Hx Dementia: No Hx HIV: No Additional medical history: sleep apnea - Surgical History Past Surgical History?: Yes Hx Cholecystectomy: No Hx Appendectomy: No Additional Surgical History: right knee surgery - Social History Smoking Status: Never Smoker - Medications Home Medications: Home Medications Medication Instructions Recorded Confirmed Last Taken Type Albuterol Sulfate [Ventolin Hfa] 2 puff IH PRN PRN 07/18/18 01/02/19 Unknown History Polymyxin B Sulf/Trimethoprim 1 drop OP Q3HR 3 Days #1 bottle 07/31/18 01/02/19 Unknown Rx [Polytrim Eye Drops 35889haqqw/0.1%] Divalproex ER [Depakote ER] 2,000 mg PO HS 30 Days tablet 12/26/18 01/02/19 Unknown Rx Nicotine [Habitrol] 14 mg TD QDAY #30 patch 12/26/18 01/02/19 Unknown Rx OLANzapine [Zyprexa] 20 mg PO HS 30 Days tablet 12/26/18 01/02/19 Unknown Rx traZODone [Desyrel] 150 mg PO QHS 30 Days tablet 12/26/18 01/02/19 Unknown Rx ED Physical Exam - General Limitations: No Limitations General appearance: alert, in no apparent distress - Head Head exam: Present: atraumatic, normocephalic, normal inspection - Eye Eye exam: Present: normal appearance, PERRL, EOMI. Absent: conjunctival injection, periorbital swelling Pupils: Present: normal accommodation - ENT ENT exam: Present: mucous membranes moist - Neck Neck exam: Present: normal inspection, full ROM - Respiratory Respiratory exam: Present: normal lung sounds bilaterally. Absent: respiratory distress, wheezes, rales, accessory muscle use, decreased breath sounds - Cardiovascular Cardiovascular Exam: Present: regular rate, normal rhythm. Absent: bradycardia, tachycardia, systolic murmur, diastolic murmur, rubs, gallop - GI/Abdominal GI/Abdominal exam: Present: soft, normal bowel sounds. Absent: guarding, rebound, hyperactive bowel sounds, hypoactive bowel sounds, organomegaly, mass, bruit - Rectal Rectal exam: Present: deferred - Extremities Exam Extremities exam: Present: normal inspection - Back Exam Back exam: Present: normal inspection - Neurological Exam Neurological exam: Present: alert, oriented X3 - Psychiatric Psychiatric exam: Present: normal affect, normal mood - Skin Skin exam: Present: warm, dry, intact, normal color. Absent: rash ED Medical Decision Making - Lab Data Result diagrams: 07/12/19 21:55 07/12/19 21:55 ED Disposition Clinical Impression: Suicidal thoughts, Schizoaffective disorder, bipolar type, Medical clearance for psychiatric admission Disposition: DC/TX-65 PSY HOSP/PSY UNIT Condition: Stable <JAVIERCYRUS C - Last Filed: 07/13/19 14:00> ED Review of Systems ROS: Stated complaint: FATIGUE Other details as noted in HPI ED Course Vital Signs 07/12/19 07/13/19 07/13/19 21:38 02:28 10:28 Temperature 98.5 F 98.8 F 98.3 F Pulse Rate 100 H 93 H 63 Respiratory 18 18 16 Rate Blood Pressure 137/90 152/83 Blood Pressure 150/91 [Left] O2 Sat by Pulse 96 96 99 Oximetry ED Medical Decision Making - Lab Data Result diagrams: 07/12/19 21:55 07/12/19 21:55 Critical care attestation.: If time is entered above; I have spent that time in minutes in the direct care of this critically ill patient, excluding procedure time. ED Disposition Is pt being admited?: No Time of Disposition: 14:00 (pt d/katlny to 5th floor psych unit)
[2019-07-12] MEDS ORDERED: LORazepam 2 MG/ML VIAL IM STA (23:25)
[2019-07-12 23:52] LABS: Bilirubin,Urine NEG (Negative); Blood,Urine NEG (Negative); Color,Urine Yellow (Yellow); Protein,Urine <15 mg/dL mg/dL (Negative); Urobilinogen,Urine < 2.0 mg/dL (<2.0); WBC,Urine < 1.0 /HPF (0.0-6.0)
[2019-07-12 23:59] LABS: Amphetamine Screen,Urine PRESUMPTIVE NEGATIVE; Benzodiazepines Screen,Urine PRESUMPTIVE NEGATIVE; Cannabinoid Screen,Urine PRESUMPTIVE NEGATIVE; Cocaine Screen,Urine PRESUMPTIVE NEGATIVE; Methadone Screen,Urine PRESUMPTIVE NEGATIVE; Opiate Screen,Urine PRESUMPTIVE NEGATIVE
[2019-07-13 20:10] VITALS: BP 114/76
== END 2019-07-13 20:47 ==
LOC: ED 21:21
DX: F25.0 Schizoaffective disorder, bipolar type (principal); R45.851 Suicidal ideations; I11.0 Hypertensive heart disease with heart failure; I50.9 Heart failure, unspecified; M19.90 Unspecified osteoarthritis, unspecified site; F31.9 Bipolar disorder, unspecified; J44.9 Chronic obstructive pulmonary disease, unspecified; Z86.11 Personal history of tuberculosis
CPT/HCPCS: 36415; 80048; 80164; 80307; 81001; 85025; 96372; 99284; J2060; 80320; G0480

== ENCOUNTER 2019-08-06 04:25 | Emergency (ER) | payer MEDICARE ==
--- NOTE | 2019-08-06 05:49 | XRay Report ---
CHEST 1 VIEW INDICATION / CLINICAL INFORMATION: JOSE LUIS. COMPARISON: 12/07/2018 FINDINGS: SUPPORT DEVICES: None. HEART / MEDIASTINUM: No significant abnormality. LUNGS / PLEURA: There is prominence of the right hilum which appears to be right perihilar airspace c onsolidation... No pneumothorax. ADDITIONAL FINDINGS: No significant additional findings. IMPRESSION: 1. There is prominence of the right hilum which appears to be right perihilar airspace consolidation. Follow-up radiograph should be obtained in the next several weeks to ensure clearing and to ensure t hat there is no underlying lesion. Signer Name: Mynor Monson MD Signed: 08/06/2019 5:45 AM Workstation Name: [id number]
--- NOTE | 2019-08-06 09:10 | Emergency Department Report ---
ED Abdominal Pain HPI - General Chief Complaint: Abdominal Pain Stated Complaint: RIB PAIN Time Seen by Provider: 08/06/19 08:40 Source: patient, EMS Mode of arrival: Ambulatory Limitations: Physical Limitation - History of Present Illness Initial Comments: This is a 48-year-old male who presents to the emergency room with right flank pain. Past medical history of COPD, hypertension, schizoaffective disorder, sleep apnea, and bipolar. Patient states he was seen at [facility] 2 weeks ago and diagnosed with pulmonary embolism on the right lung. He is currently taking Xarelto. Patient states he's finished all of his prednisone. He denies follow-up with her primary care doctor. Reports pain on the right flank and not sure if is related to pulmonary embolism. He also reports a cough which he had for 2-3 weeks. MD Complaint: flank pain (right) Onset/Timin -: days(s) Location: R flank Radiation: none Migration to: no migration Severity: moderate Severity scale (0 -10): 7 Quality: aching Consistency: intermittent Improves With: nothing Worsens With: nothing Associated Symptoms: denies other symptoms - Related Data Home Medications Medication Instructions Recorded Confirmed Last Taken Albuterol Sulfate [Ventolin Hfa] 2 puff IH PRN PRN 07/18/18 07/14/19 Unknown Previous Rx's Medication Instructions Recorded Last Taken Type Polymyxin B Sulf/Trimethoprim 1 drop OP Q3HR 3 Days #1 bottle 07/31/18 Unknown Rx [Polytrim Eye Drops 95927vbuku/0.1%] Divalproex ER [Depakote ER] 2,000 mg PO HS 30 Days tablet 12/26/18 Unknown Rx Nicotine [Habitrol] 14 mg TD QDAY #30 patch 12/26/18 Unknown Rx OLANzapine [Zyprexa] 20 mg PO HS 30 Days #30 tablet 07/16/19 Unknown Rx traZODone [Desyrel] 150 mg PO QHS 30 Days #30 tablet 07/16/19 Unknown Rx levoFLOXacin [Levaquin] 750 mg PO QDAY #5 tablet 08/06/19 Unknown Rx Allergies Allergy/AdvReac Type Severity Reaction Status Date / Time ziprasidone [From Geodon] Allergy Unknown Verified 03/04/19 18:22 tramadol AdvReac Unknown Verified 03/04/19 18:22 ED Review of Systems ROS: Stated complaint: RIB PAIN Other details as noted in HPI Constitutional: denies: chills, fever Respiratory: denies: cough, shortness of breath, wheezing Cardiovascular: denies: chest pain, palpitations Gastrointestinal: abdominal pain. denies: nausea, diarrhea Genitourinary: denies: urgency, dysuria Musculoskeletal: denies: back pain, joint swelling, arthralgia Skin: denies: rash, lesions Neurological: denies: headache, weakness, paresthesias Psychiatric: denies: anxiety, depression ED Past Medical Hx - Past Medical History Previous Medical History?: Yes Hx Hypertension: Yes Hx Congestive Heart Failure: Yes Hx Renal Disease: No Hx Arthritis: Yes Hx Seizures: No Hx Psychiatric Treatment: Yes (bipolar and depression) Hx Asthma: Yes Hx COPD: Yes Hx Tuberculosis: Yes (POSITIVE SKIN TEST,TOOK TX , NEG CXR) Hx Dementia: No Hx HIV: No Additional medical history: sleep apnea - Surgical History Past Surgical History?: Yes Hx Cholecystectomy: No Hx Appendectomy: No Additional Surgical History: right knee surgery - Social History Smoking Status: Current Every Day Smoker Substance Use Type: None - Medications Home Medications: Home Medications Medication Instructions Recorded Confirmed Last Taken Type Albuterol Sulfate [Ventolin Hfa] 2 puff IH PRN PRN 07/18/18 07/14/19 Unknown His tory Polymyxin B Sulf/Trimethoprim 1 drop OP Q3HR 3 Days #1 bottle 07/31/18 07/14/19 Unknown Rx [Polytrim Eye Drops [id number]/0.1%] Divalproex ER [Depakote ER] 2,000 mg PO HS 30 Days tablet 12/26/18 07/14/19 Unknown Rx Nicotine [Habitrol] 14 mg TD QDAY #30 patch 12/26/18 07/14/19 Unknown Rx OLANzapine [Zyprexa] 20 mg PO HS 30 Days #30 tablet 07/16/19 Unknown Rx traZODone [Desyrel] 150 mg PO QHS 30 Days #30 tablet 07/16/19 Unknown Rx levoFLOXacin [Levaquin] 750 mg PO QDAY #5 tablet 08/06/19 Unknown Rx ED Physical Exam - General Limitations: Physical Limitation General appearance: alert, in no apparent distress - Respiratory Respiratory exam: Present: normal lung sounds bilaterally. Absent: respiratory distress - Cardiovascular Cardiovascular Exam: Present: regular rate, normal rhythm. Absent: systolic murmur, diastolic murmur, rubs, gallop - GI/Abdominal GI/Abdominal exam: Present: soft, tenderness (right upper quadrant), normal bowel sounds. Absent: distended, guarding, rebound, rigid, organomegaly, mass - Back Exam Back exam: Present: full ROM. Absent: CVA tenderness (R), CVA tenderness (L), muscle spasm, rash noted - Neurological Exam Neurological exam: Present: alert, oriented X3, normal gait - Psychiatric Psychiatric exam: Present: normal affect, normal mood - Skin Skin exam: Present: warm, dry, intact, normal color. Absent: rash ED Course Vital Signs 08/06/19 08/06/19 04:29 10:28 Temperature 98.5 F 98.5 F Pulse Rate 105 H 102 H Respiratory 20 16 Rate Blood Pressure 148/90 134/85 O2 Sat by Pulse 94 84 Oximetry - Reevaluation(s) Reevaluation #1: 08/06/19 10:[address] Mcnamara concerning air space and prominent right hilum on CXR. Suggested to start on antibiotics for possible pneumonia. ED Medical Decision Making - Lab Data Result diagrams: 08/06/19 09:16 08/06/19 09:16 Lab Results 08/06/19 08/06/19 08/06/19 Range/Units 09:16 09:16 09:17 WBC 7.4 (4.5-11.0) K/mm3 RBC 6.72 H (3.65-5.03) M/mm3 Hgb 14.4 (11.8-15.2) gm/dl Hct 46.2 H (35.5-45.6) % MCV 69 L (84-94) fl MCH 22 L (28-32) pg MCHC 31 L (32-34) % RDW 21.6 H (13.2-15.2) % Lymph % (Auto) 18.8 (13.4-35.0) % [place] % (Auto) 15.5 H (0.0-7.3) % Eos % (Auto) 0.9 (0.0-4.3) % Baso % (Auto) 0.5 (0.0-1.8) % Lymph # 1.4 (1.2-5.4) K/mm3 [place] # 1.2 H (0.0-0.8) K/mm3 Eos # 0.1 (0.0-0.4) K/mm3 Baso # 0.0 (0.0-0.1) K/mm3 Seg Neutrophils % 64.3 (40.0-70.0) % Seg Neutrophils # 4.8 (1.8-7.7) K/mm3 Sodium 139 (137-145) mmol/L Potassium 4.5 (3.6-5.0) mmol/L Chloride 98.0 (98-107) mmol/L Carbon Dioxide 26 (22-30) mmol/L Anion Gap 20 mmol/L BUN 8 L (9-20) mg/dL Creatinine 0.6 L (0.8-1.5) mg/dL Estimated GFR > 60 ml/min BUN/Creatinine Ratio 13 % Glucose 113 H (75-100) mg/dL Calcium 9.2 (8.4-10.2) mg/dL Total Bilirubin 0.20 (0.1-1.2) mg/dL AST 15 (5-40) units/L ALT 11 (7-56) units/L Alkaline Phosphatase 51 (35-129) units/L Total Protein 7.6 (6.3-8.2) g/dL Albumin 3.7 L (3.9-5) g/dL Albumin/Globulin Ratio 0.9 % Lipase 15 (13-60) units/L Urine Color Yellow (Yellow) Urine Turbidity Clear (Clear) Urine pH 6.0 (5.0-7.0) Ur Specific [place] 1.017 (1.003-1.030) Urine Protein 30 mg/dl (Negative) mg/dL Urine Glucose (UA) Neg (Negative) mg/dL Urine Ketones Neg (Negative) mg/dL Urine Blood Neg (Negative) Urine Nitrite Neg (Negative) Urine Bilirubin Neg (Negative) Urine Urobilinogen 4.0 (<2.0) mg/dL Ur Leukocyte Esterase Neg (Negative) Urine WBC (Auto) 2.0 (0.0-6.0) /HPF Urine RBC (Auto) 2.0 (0.0-6.0) /HPF U Epithel Cells (Auto) < 1.0 (0-13.0) /HPF - Radiology Data Radiology results: report reviewed CHEST 1 VIEW INDICATION / CLINICAL INFORMATION: JOSE LUIS. COMPARISON: 12/07/2018 FINDINGS: SUPPORT DEVICES: None. HEART / MEDIASTINUM: No significant abnormality. LUNGS / PLEURA: There is prominence of the right hilum which appears to be right perihilar airspace consolidation... No pneumothorax. ADDITIONAL FINDINGS: No significant additional findings. IMPRESSION: 1. There is prominence of the right hilum which appears to be right perihilar airspace consolidation. Follow-up radiograph should be obtained in the next several weeks to ensure clearing and to ensure that there is no underlying lesion. LIMITED RUQ ABDOMINAL ULTRASOUND INDICATION: RUQ tenderness. COMPARISON: No relevant prior imaging study available. FINDINGS: Pancreas: Visualized portions show no significant abnormality. Abdominal Aorta: No significant abnormality. IVC: No significant abnormality. Liver: The liver measures 19.1 cm in length. No significant abnormality. Normal hepatopedal blood flow in the main portal vein. Gallbladder: No significant abnormality. Bile ducts: No significant abnormality. Common bile duct measures 3 mm. Right kidney: No significant abnormality visualized.. Free fluid: None. Additional Findings: None. IMPRESSION: 1. Hepatomegaly. Otherwise unremarkable exam. - Medical Decision Making This is a 48 y.o. male that presents with right flank pain for 2 days. Vitals are stable inpatient in no acute distress. Obtained CMP, CBC, UA, chest x-ray, and US of abdomen. Mild anemia. All other labs are unremarkable. There is prominence of the right hilum which appears to be right perihilar airspace consolidation. Follow-up radiograph should be obtained in the next several weeks to ensure clearing and to ensure that there is no underlying lesion. US of abdomen Hepatomegaly. Otherwise unremarkable exam. Consulted attending Dr. Mcnamara. Patient will be treated with antibiotics for possible pneumonia. Instructed to have repeat chest x-ray in 3-4 weeks outpatient with PCP. Instructed to continue taken Xarelto for pulmonary embolism. Discussed plan with patient and agreed to plan. No further questions noted by the patient. Discharged home in stable condition. Follow up with PCP in 2-3 days. Critical care attestation.: If time is entered above; I have spent that time in minutes in the direct care of this critically ill patient, excluding procedure time. ED Disposition Clinical Impression: Right flank pain, Cough in adult Community acquired pneumonia Qualifiers: Laterality: right Lung location: unspecified part of lung Qualified Code(s): J18.9 - Pneumonia, unspecified organism Disposition: DC-01 TO HOME OR SELFCARE Is pt being admited?: No Condition: Stable Instructions: Bacterial Pneumonia (ED) Additional Instructions: Complete antibiotics as prescribed. Follow-up with the primary care doctor in 2-3 days. You will need to get a repeat chest x-ray in 3-4 weeks. This can be done outpatient with a primary care doctor. I have provided a list of people for you to follow-up with below in the referral section. Prescriptions: levoFLOXacin [Levaquin] 750 mg PO QDAY #5 tablet Referrals: [facility] [Provider Group] - 3-5 Days [facility] [Outside] - 3-5 Days ZANDRA EDOUARD MD [Staff Physician] - 3-5 Days SCOTT FREGOSO MD [Staff Physician] - 3-5 Days ANU HERRERA JR, MD [Staff Physician] - 3-5 Days Time of Disposition: 10:26
[2019-08-06 09:31] LABS: Bilirubin,Urine NEG (Negative); Blood,Urine NEG (Negative); Color,Urine Yellow (Yellow)
--- NOTE | 2019-08-06 09:55 | Ultrasound Report ---
LIMITED RUQ ABDOMINAL ULTRASOUND INDICATION: RUQ tenderness. COMPARISON: No relevant prior imaging study available. FINDINGS: Pancreas: Visualized portions show no significant abnormality. Abdominal Aorta: No significant abnormality. IVC: No significant abnormality. Liver: The liver measures 19.1 cm in length. No significant abnormality. Normal hepatopedal blood fl ow in the main portal vein. Gallbladder: No significant abnormality. Bile ducts: No significant abnormality. Common bile duct measures 3 mm. Right kidney: No significant abnormality visualized.. Free fluid: None. Additional Findings: None. IMPRESSION: 1. Hepatomegaly. Otherwise unremarkable exam. Signer Name: Omega White MD Signed: 08/06/2019 9:50 AM Workstation Name: [id number]
[2019-08-06 09:56] LABS: Basophils % (Auto) 0.5 % (0.0-1.8); Eosinophils # (Auto) 0.1 K/mm3 (0.0-0.4); Eosinophils % (Auto) 0.9 % (0.0-4.3); Hematocrit 46.2 % (35.5-45.6); Hemoglobin 14.4 gm/dl (11.8-15.2); Lymphocytes # (Auto) 1.4 K/mm3 (1.2-5.4); Lymphocytes % (Auto) 18.8 % (13.4-35.0); Mean Corpuscular HGB Conc 31 % (32-34); Monocytes # (Auto) 1.2 K/mm3 (0.0-0.8); Monocytes % (Auto) 15.5 % (0.0-7.3); Red Blood Count 6.72 M/mm3 (3.65-5.03)
[2019-08-06 10:01] LABS: Mean Corpuscular Volume 69 fl (84-94); Red Cell Distribution Width 21.6 % (13.2-15.2)
[2019-08-06 10:19] LABS: Alanine Aminotransferase 11 units/L (7-56); Albumin 3.7 g/dL (3.9-5); BUN/Creatinine Ratio 13; Blood Urea Nitrogen 8 mg/dL (9-20); Calcium 9.2 mg/dL (8.4-10.2); Hemolysis Index 25
[2019-08-06 10:31] VITALS: BP 134/85
[2019-08-06 10:45] LABS: Platelet Count 57 K/mm3 (140-440)
== END 2019-08-06 10:37 | disposition home or self-care (01) ==
LOC: ED 04:25
DX: J16.8 Pneumonia due to other specified infectious organisms (principal); R05 Cough; R10.9 Unspecified abdominal pain; I11.0 Hypertensive heart disease with heart failure; I50.9 Heart failure, unspecified; M19.90 Unspecified osteoarthritis, unspecified site; J45.909 Unspecified asthma, uncomplicated; A15.9 Respiratory tuberculosis unspecified; F17.200 Nicotine dependence, unspecified, uncomplicated; Z79.899 Other long term (current) drug therapy; Z88.8 Allergy status to other drugs, medicaments and biological substances
CPT/HCPCS: 36415; 71046; 76705; 80053; 81001; 83690; 85025

== ENCOUNTER 2019-08-08 09:01 | Emergency (ER) | payer MEDICARE ==
--- NOTE | 2019-08-08 11:02 | Event Note ---
ED Screening Note ED Screening Note: he presents with CP +sob recently diagnosed with PNA recent diagnosis of PE at an outside hospital states two days ago he missed one dose of xareto +productive fever +chills This initial assessment/diagnostic orders/clinical plan/treatment(s) is/are subject to change based on patients health status, clinical progression and re- assessment by fellow clinical providers in the ED. Further treatment and workup at subsequent clinical providers discretion. Patient/guardian urged not to elope from the ED as their condition may be serious if not clinically assessed and managed.
[2019-08-08 11:25] LABS: Mean Corpuscular HGB Conc 31 % (32-34)
[2019-08-08 11:30] LABS: Hematocrit 44.3 % (35.5-45.6); Hemoglobin 13.6 gm/dl (11.8-15.2); Mean Corpuscular Volume 69 fl (84-94); Red Cell Distribution Width 21.8 % (13.2-15.2)
--- NOTE | 2019-08-08 11:41 | XRay Report ---
CHEST 2 VIEWS INDICATION / CLINICAL INFORMATION: Shortness of breath. COMPARISON: 08/06/2019. FINDINGS: SUPPORT DEVICES: None. HEART / MEDIASTINUM: There is borderline cardiomegaly. Right hilar prominence is stable. LUNGS / PLEURA: There is mild diffuse interstitial lung disease. No definite focal parenchymal diseas e is seen. No pneumothorax. ADDITIONAL FINDINGS: No significant additional findings. IMPRESSION: No significant interval change. Signer Name: Wang Medina MD Signed: 08/08/2019 11:36 AM Workstation Name: [id number]
[2019-08-08 11:54] LABS: Alanine Aminotransferase 15 units/L (7-56); Albumin 3.4 g/dL (3.9-5); BUN/Creatinine Ratio 14; Blood Urea Nitrogen 18 mg/dL (9-20); Calcium 8.8 mg/dL (8.4-10.2); Hemolysis Index 11
[2019-08-08] MEDS ORDERED: ALBUTEROL 2.5 MG/3 ML NEBU IH ONE (11:59)
[2019-08-08] MEDS ORDERED: IPRATROPIUM 0.02% NEBU 2.5 ML IH ONE (11:59)
[2019-08-08] MEDS ORDERED: FUROSEMIDE 40 MG/4 ML INJ IV ONE (11:59)
--- NOTE | 2019-08-08 12:00 | Emergency Department Report ---
ED Shortness of Breath HPI - General Chief Complaint: Dyspnea/Respdistress Stated Complaint: LOW O2 Time Seen by Provider: 08/08/19 11:21 Source: patient Mode of arrival: Ambulatory Limitations: No Limitations - History of Present Illness Initial Comments: patient is a 40-year-old male presents emergency room with complaints of shortness of breath that worsened today. He has associated left-sided chest pain. He states he is also still having a productive cough, chills and subjective fever. patient was diagnosed with pneumonia 2 days ago in the em ergency department and was started on Levaquin. Patient states also approximately 2 or 3 weeks ago he was diagnosed with a PE at an outside hospital and was started on xarelto. He states that 2 days ago he did miss one dose of his xaretlo. He is a current every day smoker and smokes approximately half a pack to a pack per day. He denies any oxygen use at home. He does not report any nausea, vomiting, diarrhea, radiation of his chest pain, headache, vision changes, numbness, weakness. - Related Data Home Medications Medication Instructions Recorded Confirmed Last Taken Albuterol Sulfate [Ventolin Hfa] 2 puff IH PRN PRN 07/18/18 08/08/19 Unknown Fluticasone/Vilanterol [Breo 1 each IH DAILY 08/08/19 08/08/19 Unknown Ellipta 100-25 Mcg INH] Rivaroxaban [Xarelto] 15 mg PO BID 08/08/19 08/08/19 Unknown amLODIPine [Norvasc] 10 mg PO DAILY 08/08/19 08/08/19 Unknown lisinopriL [Zestril] 20 mg PO QDAY 08/08/19 08/08/19 Unknown Previous Rx's Medication Instructions Recorded Last Taken Type Polymyxin B Sulf/Trimethoprim 1 drop OP Q3HR 3 Days #1 bottle 07/31/18 Unknown Rx [Polytrim Eye Drops 06552wdyif/0.1%] Divalproex ER [Depakote ER] 2,000 mg PO HS 30 Days tablet 12/26/18 Unknown Rx Nicotine [Habitrol] 14 mg TD QDAY #30 patch 12/26/18 Unknown Rx OLANzapine [Zyprexa] 20 mg PO HS 30 Days #30 tablet 07/16/19 Unknown Rx traZODone [Desyrel] 150 mg PO QHS 30 Days #30 tablet 07/16/19 Unknown Rx levoFLOXacin [Levaquin] 750 mg PO QDAY #5 tablet 08/06/19 Unknown Rx Allergies Allergy/AdvReac Type Severity Reaction Status Date / Time ziprasidone [From Geodon] Allergy Unknown Verified 03/04/19 18:22 tramadol AdvReac Unknown Verified 03/04/19 18:22 ED Review of Systems ROS: Stated complaint: LOW O2 Other details as noted in HPI Comment: All other systems reviewed and negative ED Past Medical Hx - Past Medical History Previous Medical History?: Yes Hx Hypertension: Yes Hx Congestive Heart Failure: Yes Hx Diabetes: No Hx Renal Disease: No Hx Arthritis: Yes Hx Seizures: No Hx Psychiatric Treatment: Yes (bipolar and depression) Hx Asthma: Yes Hx COPD: Yes Hx Tuberculosis: Yes (POSITIVE SKIN TEST,TOOK [place] , NEG CXR) Hx Dementia: No Hx HIV: No Additional medical history: sleep apnea - Surgical History Past Surgical History?: Yes Hx Cholecystectomy: No Hx Appendectomy: No Additional Surgical History: right knee surgery - Social History Smoking Status: Current Every Day Smoker Substance Use Type: None - Medications Home Medications: Home Medications Medication Instructions Recorded Confirmed Last Taken Type Albuterol Sulfate [Ventolin Hfa] 2 puff IH PRN PRN 07/18/18 08/08/19 Unknown History Polymyxin B Sulf/Trimethoprim 1 drop OP Q3HR 3 Days #1 bottle 07/31/18 08/08/19 Unknown Rx [Polytrim Eye Drops 86153uyfsi/0.1%] Divalproex ER [Depakote ER] 2,000 mg PO HS 30 Days tablet 12/26/18 08/08/19 Unknown Rx Nicotine [Habitrol] 14 mg TD QDAY #30 patch 12/26/18 08/08/19 Unknown Rx OLANzapine [Zyprexa] 20 mg PO HS 30 Days #30 tablet 07/16/19 08/08/19 Unknown Rx traZODone [Desyrel] 150 mg PO QHS 30 Days #30 tablet 07/16/19 08/08/19 Unknown Rx levoFLOXacin [Levaquin] 750 mg PO QDAY #5 tablet 08/06/19 08/08/19 Unknown Rx Fluticasone/Vilanterol [Breo 1 each IH DAILY 08/08/19 08/08/19 Unknown History Ellipta 100-25 Mcg INH] Rivaroxaban [Xarelto] 15 mg PO BID 08/08/19 08/08/19 Unknown History amLODIPine [Norvasc] 10 mg PO DAILY 08/08/19 08/08/19 Unknown History lisinopriL [Zestril] 20 mg PO QDAY 08/08/19 08/08/19 Unknown History ED Physical Exam - General Limitations: No Limitations General appearance: alert, in no apparent distress - Head Head exam: Present: atraumatic, normocephalic - Eye Eye exam: Present: normal appearance - ENT ENT exam: Present: mucous membranes moist - Respiratory Respiratory exam: Present: wheezes (very mild expiratory wheeze), rhonchi, decreased breath sounds. Absent: rales, stridor, chest wall tenderness, accessory muscle use, prolonged expiratory - Cardiovascular Cardiovascular Exam: Present: normal rhythm, tachycardia, normal heart sounds. Absent: systolic murmur, diastolic murmur, rubs, gallop - Extremities Exam Extremities exam: Present: other (bilateral LE edema, left greater than right) - Neurological Exam Neurological exam: Present: alert, oriented X3 - Psychiatric Psychiatric exam: Present: normal affect, normal mood - Skin Skin exam: Present: warm, dry, intact ED Course Vital Signs 08/08/19 08/08/19 08/08/19 09:17 10:56 11:30 Temperature 98.7 F Pulse Rate 108 H 100 H Pulse Rate [ Throughout] Respiratory 20 19 Rate Respiratory Rate [ Throughout] Blood Pressure 115/70 Blood Pressure 119/67 [Right] O2 Sat by Pulse 86 91 89 Oximetry 08/08/19 08/08/19 08/08/19 11:45 12:00 12:33 Temperature Pulse Rate 96 H 96 H 96 H Pulse Rate [ Throughout] Respiratory 28 H 13 16 Rate Respiratory Rate [ Throughout] Blood Pressure 129/72 124/44 133/62 Blood Pressure [Right] O2 Sat by Pulse 88 97 99 Oximetry 08/08/19 08/08/19 12:41 13:00 Temperature Pulse Rate 98 H Pulse Rate [ 82 Throughout] Respiratory 19 Rate Respiratory 18 Rate [ Throughout] Blood Pressure 123/50 Blood Pressure [Right] O2 Sat by Pulse 92 Oximetry ED Medical Decision Making - Lab Data Result diagrams: 08/08/19 11:11 08/08/19 11:11 Lab Results 08/08/19 08/08/19 08/08/19 Range/Units 11:11 11:11 11:11 WBC 6.9 (4.5-11.0) K/mm3 RBC 6.40 H (3.65-5.03) M/mm3 Hgb 13.6 (11.8-15.2) gm/dl Hct 44.3 (35.5-45.6) % MCV 69 L (84-94) fl MCH 21 L (28-32) pg MCHC 31 L (32-34) % RDW 21.8 H (13.2-15.2) % Plt Count 71 L (140-440) K/mm3 Beckham % (Auto) Direct Sales Consultant Add Manual Diff Complete Total Counted 100 Seg Neuts % (Manual) 63.0 (40.0-70.0) % Band Neutrophils % 0 % Lymphocytes % (Manual) 23.0 (13.4-35.0) % Reactive Lymphs % (Man) 0 % Monocytes % (Manual) 13.0 H (0.0-7.3) % Eosinophils % (Manual) 1.0 (0.0-4.3) % Basophils % (Manual) 0 (0.0-1.8) % Metamyelocytes % 0 % Myelocytes % 0 % Promyelocytes % 0 % Blast Cells % 0 % Nucleated RBC % 1.0 H (0.0-0.9) % Seg Neutrophils # Man 4.3 (1.8-7.7) K/mm3 Band Neutrophils # 0.0 K/mm3 Lymphocytes # (Manual) 1.6 (1.2-5.4) K/mm3 Abs React Lymphs (Man) 0.0 K/mm3 Monocytes # (Manual) 0.9 H (0.0-0.8) K/mm3 Eosinophils # (Manual) 0.1 (0.0-0.4) K/mm3 Basophils # (Manual) 0.0 (0.0-0.1) K/mm3 Metamyelocytes # 0.0 K/mm3 Myelocytes # 0.0 K/mm3 Promyelocytes # 0.0 K/mm3 Blast Cells # 0.0 K/mm3 WBC Morphology Not Reportable Hypersegmented Neuts Not Reportable Hyposegmented Neuts Not Reportable Hypogranular Neuts Not Reportable Smudge Cells Not Reportable Toxic Granulation Not Reportable Toxic Vacuolation Not Reportable Dohle Bodies Not Reportable Pelger-Huet Anomaly Not Reportable Philip Rods Not Reportable Platelet Estimate Consistent w auto Clumped Platelets Not Reportable Plt Clumps, EDTA Not Reportable Large Platelets Few Giant Platelets Not Reportable Platelet Satelliting Not Reportable Plt Morphology Comment Not Reportable RBC Morphology Not Reportable Dimorphic RBCs Not Reportable Polychromasia Not Reportable Hypochromasia 2+ Poikilocytosis Few Anisocytosis 1+ Microcytosis 1+ Macrocytosis Not Reportable Spherocytes Not Reportable Pappenheimer Bodies Not Reportable Sickle Cells Not Reportable Target Cells 1+ Tear Drop Cells Not Reportable Ovalocytes Not Reportable Helmet Cells Not Reportable Jimenez-Wauzeka Bodies Not Reportable Cameron Rings Not Reportable Cliff Cells Not Reportable Bite Cells Not Reportable Crenated Cell Not Reportable Elliptocytes Not Reportable Acanthocytes (Spur) Not Reportable Rouleaux Not Reportable Hemoglobin C Crystals Not Reportable Schistocytes Not Reportable Malaria parasites Not Reportable Tomás Bodies Not Reportable Hem Pathologist Commnt No Sodium 137 (137-145) mmol/L Potassium 4.5 (3.6-5.0) mmol/L Chloride 96.5 L (98-107) mmol/L Carbon Dioxide 25 (22-30) mmol/L Anion Gap 20 mmol/L BUN 18 (9-20) mg/dL Creatinine 1.3 D (0.8-1.5) mg/dL Estimated GFR > 60 ml/min BUN/Creatinine Ratio 14 % Glucose 107 H (75-100) mg/dL Lactic Acid 1.80 (0.7-2.0) mmol/L Calcium 8.8 (8.4-10.2) mg/dL Total Bilirubin 0.20 (0.1-1.2) mg/dL AST 21 (5-40) units/L ALT 15 (7-56) units/L Alkaline Phosphatase 49 (35-129) units/L Troponin T (0.00-0.029) ng/mL NT-Pro-B Natriuret Pep (0-450) pg/mL Total Protein 7.0 (6.3-8.2) g/dL Albumin 3.4 L (3.9-5) g/dL Albumin/Globulin Ratio 0.9 % Urine Color (Yellow) Urine Turbidity (Clear) Urine pH (5.0-7.0) Ur Specific [place] (1.003-1.030) Urine Protein (Negative) mg/dL Urine Glucose (UA) (Negative) mg/dL Urine Ketones (Negative) mg/dL Urine Blood (Negative) Urine Nitrite (Negative) Urine Bilirubin (Negative) Urine Urobilinogen (<2.0) mg/dL Ur Leukocyte Esterase (Negative) Urine WBC (Auto) (0.0-6.0) /HPF Urine RBC (Auto) (0.0-6.0) /HPF U Epithel Cells (Auto) (0-13.0) /HPF Urine Mucus /HPF 08/08/19 08/08/19 08/08/19 Range/Units 11:11 11:11 14:21 WBC (4.5-11.0) K/mm3 RBC (3.65-5.03) M/mm3 Hgb (11.8-15.2) gm/dl Hct (35.5-45.6) % MCV (84-94) fl MCH (28-32) pg MCHC (32-34) % RDW (13.2-15.2) % Plt Count (140-440) K/mm3 Beckham % (Auto) Add Manual Diff Total Counted Seg Neuts % (Manual) (40.0-70.0) % Band Neutrophils % % Lymphocytes % (Manual) (13.4-35.0) % Reactive Lymphs % (Man) % Monocytes % (Manual) (0.0-7.3) % Eosinophils % (Manual) (0.0-4.3) % Basophils % (Manual) (0.0-1.8) % Metamyelocytes % % Myelocytes % % Promyelocytes % % Blast Cells % % Nucleated RBC % (0.0-0.9) % Seg Neutrophils # Man (1.8-7.7) K/mm3 Band Neutrophils # K/mm3 Lymphocytes # (Manual) (1.2-5.4) K/mm3 Abs React Lymphs (Man) K/mm3 Monocytes # (Manual) (0.0-0.8) K/mm3 Eosinophils # (Manual) (0.0-0.4) K/mm3 Basophils # (Manual) (0.0-0.1) K/mm3 Metamyelocytes # K/mm3 Myelocytes # K/mm3 Promyelocytes # K/mm3 Blast Cells # K/mm3 WBC Morphology Hypersegmented Neuts Hyposegmented Neuts Hypogranular Neuts Smudge Cells Toxic Granulation Toxic Vacuolation Dohle Bodies Pelger-Huet Anomaly Philip Rods Platelet Estimate Clumped Platelets Plt Clumps, EDTA Large Platelets Giant Platelets Platelet Satelliting Plt Morphology Comment RBC Morphology Dimorphic RBCs Polychromasia Hypochromasia Poikilocytosis Anisocytosis Microcytosis Macrocytosis Spherocytes Pappenheimer Bodies Sickle Cells Target Cells Tear Drop Cells Ovalocytes Helmet Cells Jimenez-Wauzeka Bodies Cameron Rings Cliff Cells Bite Cells Crenated Cell Elliptocytes Acanthocytes (Spur) Rouleaux Hemoglobin C Crystals Schistocytes Malaria parasites Tomás Bodies Hem Pathologist Commnt Sodium (137-145) mmol/L Potassium (3.6-5.0) mmol/L Chloride (98-107) mmol/L Carbon Dioxide (22-30) mmol/L Anion Gap mmol/L BUN (9-20) mg/dL Creatinine (0.8-1.5) mg/dL Estimated GFR ml/min BUN/Creatinine Ratio % Glucose (75-100) mg/dL Lactic Acid (0.7-2.0) mmol/L Calcium (8.4-10.2) mg/dL Total Bilirubin (0.1-1.2) mg/dL AST (5-40) units/L ALT (7-56) units/L Alkaline Phosphatase (35-129) units/L Troponin T < 0.010 0.013 (0.00-0.029) ng/mL NT-Pro-B Natriuret Pep 1155 H (0-450) pg/mL Total Protein (6.3-8.2) g/dL Albumin (3.9-5) g/dL Albumin/Globulin Ratio % Urine Color (Yellow) Urine Turbidity (Clear) Urine pH (5.0-7.0) Ur Specific [place] (1.003-1.030) Urine Protein (Negative) mg/dL Urine Glucose (UA) (Negative) mg/dL Urine Ketones (Negative) mg/dL Urine Blood (Negative) Urine Nitrite (Negative) Urine Bilirubin (Negative) Urine Urobilinogen (<2.0) mg/dL Ur Leukocyte Esterase (Negative) Urine WBC (Auto) (0.0-6.0) /HPF Urine RBC (Auto) (0.0-6.0) /HPF U Epithel Cells (Auto) (0-13.0) /HPF Urine Mucus /HPF 08/08/19 Range/Units Unknown WBC (4.5-11.0) K/mm3 RBC (3.65-5.03) M/mm3 Hgb (11.8-15.2) gm/dl Hct (35.5-45.6) % MCV (84-94) fl MCH (28-32) pg MCHC (32-34) % RDW (13.2-15.2) % Plt Count (140-440) K/mm3 Beckham % (Auto) Add Manual Diff Total Counted Seg Neuts % (Manual) (40.0-70.0) % Band Neutrophils % % Lymphocytes % (Manual) (13.4-35.0) % Reactive Lymphs % (Man) % Monocytes % (Manual) (0.0-7.3) % Eosinophils % (Manual) (0.0-4.3) % Basophils % (Manual) (0.0-1.8) % Metamyelocytes % % Myelocytes % % Promyelocytes % % Blast Cells % % Nucleated RBC % (0.0-0.9) % Seg Neutrophils # Man (1.8-7.7) K/mm3 Band Neutrophils # K/mm3 Lymphocytes # (Manual) (1.2-5.4) K/mm3 Abs React Lymphs (Man) K/mm3 Monocytes # (Manual) (0.0-0.8) K/mm3 Eosinophils # (Manual) (0.0-0.4) K/mm3 Basophils # (Manual) (0.0-0.1) K/mm3 Metamyelocytes # K/mm3 Myelocytes # K/mm3 Promyelocytes # K/mm3 Blast Cells # K/mm3 WBC Morphology Hypersegmented Neuts Hyposegmented Neuts Hypogranular Neuts Smudge Cells Toxic Granulation Toxic Vacuolation Dohle Bodies Pelger-Huet Anomaly Philip Rods Platelet Estimate Clumped Platelets Plt Clumps, EDTA Large Platelets Giant Platelets Platelet Satelliting Plt Morphology Comment RBC Morphology Dimorphic RBCs Polychromasia Hypochromasia Poikilocytosis Anisocytosis Microcytosis Macrocytosis Spherocytes Pappenheimer Bodies Sickle Cells Target Cells Tear Drop Cells Ovalocytes Helmet Cells Jimenez-Wauzeka Bodies Cameron Rings Serenity Cells Bite Cells Crenated Cell Elliptocytes Acanthocytes (Spur) Rouleaux Hemoglobin C Crystals Schistocytes Malaria parasites Tomás Bodies Hem Pathologist Commnt Sodium (137-145) mmol/L Potassium (3.6-5.0) mmol/L Chloride (98-107) mmol/L Carbon Dioxide (22-30) mmol/L Anion Gap mmol/L BUN (9-20) mg/dL Creatinine (0.8-1.5) mg/dL Estimated GFR ml/min BUN/Creatinine Ratio % Glucose (75-100) mg/dL Lactic Acid (0.7-2.0) mmol/L Calcium (8.4-10.2) mg/dL Total Bilirubin (0.1-1.2) mg/dL AST (5-40) units/L ALT (7-56) units/L Alkaline Phosphatase (35-129) units/L Troponin T (0.00-0.029) ng/mL NT-Pro-B Natriuret Pep (0-450) pg/mL Total Protein (6.3-8.2) g/dL Albumin (3.9-5) g/dL Albumin/Globulin Ratio % Urine Color Yellow (Yellow) Urine Turbidity Slightly-cloudy (Clear) Urine pH 5.0 (5.0-7.0) Ur Specific [place] 1.011 (1.003-1.030) Urine Protein 30 mg/dl (Negative) mg/dL Urine Glucose (UA) Neg (Negative) mg/dL Urine Ketones Neg (Negative) mg/dL Urine Blood Neg (Negative) Urine Nitrite Neg (Negative) Urine Bilirubin Neg (Negative) Urine Urobilinogen < 2.0 (<2.0) mg/dL Ur Leukocyte Esterase Neg (Negative) Urine WBC (Auto) 6.0 (0.0-6.0) /HPF Urine RBC (Auto) 4.0 (0.0-6.0) /HPF U Epithel Cells (Auto) 1.0 (0-13.0) /HPF Urine Mucus Few /HPF - Radiology Data Radiology results: report reviewed CT chest with contrast INDICATION : CP, SOB, hypoxia, recent dx of PNA and PE TECHNIQUE: 100 mL of intravenous contrast administered. All CT scans at this location are performed using CT dose reduction for ALARA by means of automated exposure control. COMPARISON: Chest radiograph performed earlier the same day, CT 01/02/2019. FINDINGS: Lungs are clear without evidence of focal pulmonary consolidation or edema. No discrete pulmonary mass or nodule. No pleural effusion or pneumothorax. Heart is borderline enlarged in terms of size. No pericardial effusion. No mediastinal or axillary lymphadenopathy. Osseous structures show no evidence acute fracture or aggressive osseous destructive lesion. Limited evaluation of the upper abdomen is unremarkable. IMPRESSION: No acute findings within the chest. Specifically, no evidence of pulmonary embolism. Signer Name: Amador Martinez MD Signed: 08/08/2019 2:40 PM Workstation Name: [id number] Transcribed By: MA Dictated By: AMADOR MARTINEZ MD Electronically Authenticated By: AMADOR MARTINEZ MD Signed Date/Time: 08/08/19 1440 DD/ 1430 TD/TT: CHEST 2 VIEWS INDICATION / CLINICAL INFORMATION: Shortness of breath. COMPARISON: 08/06/2019. FINDINGS: SUPPORT DEVICES: None. HEART / MEDIASTINUM: There is borderline cardiomegaly. Right hilar prominence is stable. LUNGS / PLEURA: There is mild diffuse interstitial lung disease. No definite focal parenchymal disease is seen. No pneumothorax. ADDITIONAL FINDINGS: No significant additional findings. IMPRESSION: No significant interval change. Signer Name: Wang Medina MD Signed: 08/08/2019 11:36 AM Workstation Name: [id number] Transcribed By: Dictated By: Wang Medina MD Electronically Authenticated By: Wang Medina MD Signed Date/Time: 08/08/19 1136 DD/ 1132 TD/TT: - Medical Decision Making patient is a 40-year-old male presents emergency room with complaints of shortness of breath that worsened today. He has associated left-sided chest pain. He states he is also still having a productive cough, chills and subjective fever. patient was diagnosed with pneumonia 2 days ago in the emergency department and was started on Levaquin. Patient states also approximately 2 or 3 weeks ago he was diagnosed with a PE at an outside hospital and was started on xarelto. He states that 2 days ago he did miss one dose of his xaretlo. He is a current every day smoker and smokes approximately half a pack to a pack per day. He denies any oxygen use at home. He does not report any nausea, vomiting, diarrhea, radiation of his chest pain, headache, vision changes, numbness, weakness. initial vitals with tachycardia and hypoxia. improved upon placing pt on a nonrebreather mask. labs with elevated BNP otherwise stable. pt has bilateral LE edema. CXR: There is borderline cardiomegaly. Right hilar prominence is stable. LUNGS / PLEURA: There is mild diffuse interstitial lung disease. No definite focal parenchymal disease is seen. No pneumothorax. CT angio chest: No acute findings within the chest. Specifically, no evidence of pulmonary embolism. Symptoms and examination most likely consistent with acute heart failure. 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 I advised patient that he would n eed to be admitted to the hospital. She was initially agreeable with admission. I spoke in depth with patient 2-3 times about patient staying in the hospital and the risk associated with leaving AGAINST MEDICAL ADVICE. pt elected to leave AMA and signed AMA form. Patient is alert and oriented 3. The patient exhibits decision-making capacity. The patient is free from distracting injury. The risks of leaving without a complete medical examination, and AGAINST MEDICAL ADVICE, were explained to the patient, and they included , disability, paralysis, permanent loss of quality of life. The patient verbalized understanding to these and was able to articulate these risks in their own words. - Differential Diagnosis CHF, PE, ACS, PTX, cardiomyopathy, COPD, asthma, bronchitis Critical care attestation.: If time is entered above; I have spent that time in minutes in the direct care of this critically ill patient, excluding procedure time. ED Disposition Clinical Impression: Hypoxia, SOB (shortness of breath), Leg swelling, Elevated brain natriuretic peptide (BNP) level Disposition: DC-07 LEFT AGAINST MED ADVICE Is pt being admited?: No Does the pt Need Aspirin: No Condition: Undetermined Referrals: PRIMARY CARE, [Referring] - [facility] Forms: AMA Form
[2019-08-08 12:13] LABS: Basophils % (Manual) 0 % (0.0-1.8); Total Cells Counted 100
[2019-08-08 12:14] LABS: Anisocytosis 1+; Hypochromasia 2+; Large Platelets Few; Platelet Estimate Consistent w Auto; Poikilocytosis Few; Target Cells 1+
[2019-08-08 12:27] LABS: Platelet Count 71 K/mm3 (140-440)
[2019-08-08 14:10] LABS: Bilirubin,Urine NEG (Negative); Blood,Urine NEG (Negative); Color,Urine Yellow (Yellow); Mucus,Urine FEW /HPF; Urobilinogen,Urine < 2.0 mg/dL (<2.0)
[2019-08-08 14:13] VITALS: BP 123/50
--- NOTE | 2019-08-08 14:44 | Cat Scan Report ---
CT chest with contrast INDICATION : CP, SOB, hypoxia, recent dx of PNA and PE TECHNIQUE: 100 mL of intravenous contrast administered. All CT scans at this location are performed using CT dose reduction for ALARA by means of automated exposure control. COMPARISON: Chest radiograph performed earlier the same day, CT 01/02/2019. FINDINGS: Lungs are clear without evidence of focal pulmonary consolidation or edema. No discrete pulmonary mas s or nodule. No pleural effusion or pneumothorax. Heart is borderline enlarged in terms of size. No pericardial effusion. No mediastinal or axillary ly mphadenopathy. Osseous structures show no evidence acute fracture or aggressive osseous destructive lesion. Limited evaluation of the upper abdomen is unremarkable. IMPRESSION: No acute findings within the chest. Specifically, no evidence of pulmonary embolism. Signer Name: Amador Link MD Signed: 08/08/2019 2:40 PM Workstation Name: [id number]
[2019-08-08] MEDS ORDERED: LORazepam 2 MG/ML VIAL IV ONE (14:47)
[2019-08-08] MEDS ORDERED: guaiFENesin ER 600 MG TAB PO ONE (14:47)
== END 2019-08-08 17:20 | disposition left against medical advice (07) ==
LOC: ED 09:01
DX: R06.02 Shortness of breath (principal); R09.02 Hypoxemia; R79.89 Other specified abnormal findings of blood chemistry; M79.89 Other specified soft tissue disorders; I11.0 Hypertensive heart disease with heart failure; I50.9 Heart failure, unspecified; M19.90 Unspecified osteoarthritis, unspecified site; F31.9 Bipolar disorder, unspecified; J44.9 Chronic obstructive pulmonary disease, unspecified; F17.200 Nicotine dependence, unspecified, uncomplicated; Z86.11 Personal history of tuberculosis; Z98.890 Other specified postprocedural states; Z88.8 Allergy status to other drugs, medicaments and biological substances; Z79.899 Other long term (current) drug therapy
CPT/HCPCS: 36415; 71046; 71275; 80053; 81001; 82140; 83880; 84484; 85007; 85025; 87040; 94640; 96374; 96375; 99285; J1940; J2060; Q9967; 94644

== ENCOUNTER 2019-11-12 02:18 | Emergency (ER) | payer MEDICARE ==
[2019-11-12 02:33] VITALS: BP 141/87
--- NOTE | 2019-11-12 03:01 | Emergency Department Report ---
ED Extremity Problem HPI - General Chief complaint: Extremity Problem,Nontraumatic Stated complaint: KNEE PAIN Time Seen by Provider: 11/12/19 02:36 Source: patient, EMS Mode of arrival: Wheelchair Limitations: Physical Limitation - History of Present Illness Initial comments: 48-year-old male with history of bipolar disorder, osteoarthritis presents to ED with bilateral knee pain and swelling. Patient has had multiple visits to this ER for knee pain and swelling in the lower extremities. Patient has also had multiple visits with Dr. Blank, orthopedic surgeon. Patient states he has a diagnosis of arthritis. States his pain and swelling in both legs began again approximately 3 days ago. Patient denies any fever or shortness of breath. MD Complaint: extremity pain, extremity swelling -: days(s) (3) Location: bilateral lower extremity History of Same: Yes -: Yes arthralgia Severity scale (0 -10): 10 Consistency: constant Worsens with: walking Associated Symptoms: denies: chest pain, shortness of breath, fever - Related Data Home Medications Medication Instructions Recorded Confirmed Last Taken Albuterol Sulfate [Ventolin Hfa] 2 puff IH PRN PRN 07/18/18 08/08/19 Unknown Fluticasone/Vilanterol [Breo 1 each IH DAILY 08/08/19 08/08/19 Unknown Ellipta 100-25 Mcg INH] Rivaroxaban [Xarelto] 15 mg PO BID 08/08/19 08/08/19 Unknown amLODIPine [Norvasc] 10 mg PO DAILY 08/08/19 08/08/19 Unknown lisinopriL [Zestril] 20 mg PO QDAY 08/08/19 08/08/19 Unknown Previous Rx's Medication Instructions Recorded Last Taken Type Polymyxin B Sulf/Trimethoprim 1 drop OP Q3HR 3 Days #1 bottle 07/31/18 Unknown Rx [Polytrim Eye Drops 85569hmblq/0.1%] Divalproex ER [Depakote ER] 2,000 mg PO HS 30 Days tablet 12/26/18 Unknown Rx Nicotine [Habitrol] 14 mg TD QDAY #30 patch 12/26/18 Unknown Rx OLANzapine [Zyprexa] 20 mg PO HS 30 Days #30 tablet 07/16/19 Unknown Rx traZODone [Desyrel] 150 mg PO QHS 30 Days #30 tablet 07/16/19 Unknown Rx levoFLOXacin [Levaquin] 750 mg PO QDAY #5 tablet 08/06/19 Unknown Rx Allergies Allergy/AdvReac Type Severity Reaction Status Date / Time ziprasidone [From [place]] Allergy Unknown Verified 03/04/19 18:22 tramadol AdvReac Unknown Verified 03/04/19 18:22 ED Review of Systems ROS: Stated complaint: KNEE PAIN Other details as noted in HPI Constitutional: denies: chills, fever Respiratory: denies: shortness of breath Cardiovascular: denies: chest pain Musculoskeletal: as per HPI ED Past Medical Hx - Past Medical History Previous Medical History?: Yes Hx Hypertension: Yes Hx Congestive Heart Failure: Yes Hx Diabetes: No Hx Renal Disease: No Hx Arthritis: Yes Hx Seizures: No Hx Psychiatric Treatment: Yes (bipolar and depression) Hx Asthma: Yes Hx COPD: Yes Hx Tuberculosis: Yes (POSITIVE SKIN TEST,TOOK [place] , NEG CXR) Hx Dementia: No Hx HIV: No Additional medical history: sleep apnea - Surgical History Past Surgical History?: Yes Hx Cholecystectomy: No Hx Appendectomy: No Additional Surgical History: right knee surgery - Social History Smoking Status: Current Every Day Smoker - Medications Home Medications: Home Medications Medication Instructions Recorded Confirmed Last Taken Type Albuterol Sulfate [Ventolin Hfa] 2 puff IH PRN PRN 07/18/18 08/08/19 Unknown History Polymyxin B Sulf/Trimethoprim 1 drop OP Q3HR 3 Days #1 bottle 07/31/18 08/08/19 Unknown Rx [Polytrim Eye Drops 38442qqajv/0.1%] Divalproex ER [Depakote ER] 2,000 mg PO HS 30 Days tablet 12/26/18 08/08/19 Unknown Rx Nicotine [Habitrol] 14 mg TD QDAY #30 patch 12/26/18 08/08/19 Unknown Rx OLANzapine [Zyprexa] 20 mg PO HS 30 Days #30 tablet 07/16/19 08/08/19 Unknown Rx traZODone [Desyrel] 150 mg PO QHS 30 Days #30 tablet 07/16/19 08/08/19 Unknown Rx levoFLOXacin [Levaquin] 750 mg PO QDAY #5 tablet 08/06/19 08/08/19 Unknown Rx Fluticasone/Vilanterol [Breo 1 each IH DAILY 08/08/19 08/08/19 Unknown History Ellipta 100-25 Mcg INH] Rivaroxaban [Xarelto] 15 mg PO BID 08/08/19 08/08/19 Unknown History amLODIPine [Norvasc] 10 mg PO DAILY 08/08/19 08/08/19 Unknown History lisinopriL [Zestril] 20 mg PO QDAY 08/08/19 08/08/19 Unknown History ED Physical Exam - General Limitations: Physical Limitation General appearance: alert, in no apparent distress - Head Head exam: Present: atraumatic, normocephalic - Eye Eye exam: Present: normal appearance, EOMI - ENT ENT exam: Present: mucous membranes moist - Neck Neck exam: Present: normal inspection - Respiratory Respiratory exam: Present: normal lung sounds bilaterally. Absent: respiratory distress - Cardiovascular Cardiovascular Exam: Present: regular rate, normal rhythm - GI/Abdominal GI/Abdominal exam: Absent: distended - Extremities Exam Extremities exam: Present: other (2+ nonpitting edema to BLE w/ moderate swelling to bilateral knees) - Neurological Exam Neurological exam: Present: alert, oriented X3 - Psychiatric Psychiatric exam: Present: normal affect, normal mood - Skin Skin exam: Present: warm, dry, intact, normal color ED Course Vital Signs 11/12/19 02:26 Temperature 97.4 F L Pulse Rate 89 Respiratory 18 Rate Blood Pressure 141/87 [Right] O2 Sat by Pulse 94 Oximetry ED Medical Decision Making - Medical Decision Making Patient with history of chronic knee pain and swelling presents to ED today due to worsening of his condition. Patient denies any chest pain, shortness of breath or fever.. Vitals unremarkable. Patient advised to follow-up with Dr. Blank, his orthopedic surgeon. - Differential Diagnosis Arthritis Critical care attestation.: If time is entered above; I have spent that time in minutes in the direct care of this critically ill patient, excluding procedure time. ED Disposition Clinical Impression: Osteoarthritis, Bilateral lower extremity pain Disposition: - TO HOME OR SELFCARE Is pt being admited?: No Condition: Stable Instructions: Osteoarthritis (ED), Arthralgia (ED) Referrals: HAYDEE BLANK MD [Staff Physician] - 3-5 Days Time of Disposition: 03:02
== END 2019-11-12 04:06 | disposition home or self-care (01) ==
LOC: ED 02:18
DX: M17.4 Other bilateral secondary osteoarthritis of knee (principal); I11.0 Hypertensive heart disease with heart failure; I50.9 Heart failure, unspecified; F31.9 Bipolar disorder, unspecified; J44.9 Chronic obstructive pulmonary disease, unspecified; F17.200 Nicotine dependence, unspecified, uncomplicated; Z98.890 Other specified postprocedural states; Z79.899 Other long term (current) drug therapy; Z88.6 Allergy status to analgesic agent; Z88.8 Allergy status to other drugs, medicaments and biological substances

== ENCOUNTER 2019-11-18 03:11 | Emergency (ER) | payer MEDICARE ==
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
[2019-11-18 04:21] LABS: Hematocrit 47.2 % (35.5-45.6); Hemoglobin 14.6 gm/dl (11.8-15.2)
--- NOTE | 2019-11-18 04:26 | XRay Report ---
CHEST 1 VIEW INDICATION: cough "fume exposure". COMPARISON: 08/08/2019 FINDINGS: Support devices: None. Heart: Within normal limits. Lungs/Pleura: Mild bilateral central peribronchial thickening without consolidation or effusion. Additional findings: None. IMPRESSION: 1. Mild bilateral central peribronchial thickening could be reactive or seen with edema. Signer Name: Omega White MD Signed: 11/18/2019 4:21 AM Workstation Name: [id number]
--- NOTE | 2019-11-18 04:27 | XRay Report ---
Bilateral knees-2 views each INDICATION: b/l knee pain. COMPARISON: None. IMPRESSION: True lateral views are not provided. There is moderate tricompartmental DJD bilaterally with generalized soft tissue swelling about both knees. No gross fracture identified. Signer Name: Omega White MD Signed: 11/18/2019 4:23 AM Workstation Name: [id number]
[2019-11-18 04:35] LABS: BUN/Creatinine Ratio 23; Blood Urea Nitrogen 14 mg/dL (9-20); Calcium 9.3 mg/dL (8.4-10.2); Hemolysis Index 11
[2019-11-20 12:24] VITALS: BP 143/88
== END 2019-11-18 05:58 | disposition home or self-care (01) ==
LOC: ED 03:11
DX: M17.4 Other bilateral secondary osteoarthritis of knee (principal); E66.01 Morbid (severe) obesity due to excess calories; I11.0 Hypertensive heart disease with heart failure; I50.9 Heart failure, unspecified; J44.9 Chronic obstructive pulmonary disease, unspecified; F31.9 Bipolar disorder, unspecified; F32.89 Other specified depressive episodes; F17.200 Nicotine dependence, unspecified, uncomplicated; Z98.890 Other specified postprocedural states; Z68.41 Body mass index [BMI] 40.0-44.9, adult; Z79.899 Other long term (current) drug therapy; Z88.6 Allergy status to analgesic agent
CPT/HCPCS: 36415; 71045; 80048; 80164; 80320; 82550; 83735; 85014; 85018; 85049; 93005; G0480

== ENCOUNTER 2019-12-16 23:01 | Emergency (ER) | payer MEDICARE ==
[2019-12-16 23:09] VITALS: BP 140/78
[2019-12-17 00:23] LABS: Hematocrit 45.7 % (35.5-45.6); Hemoglobin 14.5 gm/dl (11.8-15.2); Mean Corpuscular HGB Conc 32 % (32-34); Mean Corpuscular Volume 70 fl (84-94); Red Blood Count 6.48 M/mm3 (3.65-5.03); Red Cell Distribution Width 18.8 % (13.2-15.2)
[2019-12-17 00:43] LABS: BUN/Creatinine Ratio 16; Blood Urea Nitrogen 14 mg/dL (9-20); Calcium 8.9 mg/dL (8.4-10.2); Hemolysis Index 26
[2019-12-17 03:53] LABS: Basophils % (Manual) 0 % (0.0-1.8); Eosinophils % (Manual) 0 % (0.0-4.3); Total Cells Counted 100
[2019-12-17 03:55] LABS: Anisocytosis 1+; Hypochromasia 1+
[2019-12-17 03:56] LABS: Platelet Estimate Consistent w Auto
[2019-12-17 04:08] LABS: Platelet Count 121 K/mm3 (140-440)
== END 2019-12-17 01:31 | disposition left against medical advice (07) ==
LOC: ED 23:01
DX: K62.5 Hemorrhage of anus and rectum (principal); I11.0 Hypertensive heart disease with heart failure; I50.9 Heart failure, unspecified; M19.91 Primary osteoarthritis, unspecified site; J44.9 Chronic obstructive pulmonary disease, unspecified; F31.9 Bipolar disorder, unspecified; Z00.00 Encounter for general adult medical examination without abnormal findings; Z98.890 Other specified postprocedural states; Z88.8 Allergy status to other drugs, medicaments and biological substances
CPT/HCPCS: 36415; 80048; 85007; 85025

== ENCOUNTER 2019-12-23 13:42 | Emergency (ER) | payer MEDICARE ==
[2019-12-23 14:41] VITALS: BP 120/70
--- NOTE | 2019-12-23 16:40 | Event Note ---
ED Screening Note ED Screening Note: pt presents for anal drainage This initial assessment/diagnostic orders/clinical plan/treatment(s) is/are subject to change based on patients health status, clinical progression and re- assessment by fellow clinical providers in the ED. Further treatment and workup at subsequent clinical providers discretion. Patient/guardian urged not to elope from the ED as their condition may be serious if not clinically assessed and managed. Initial orders include: ACC eval
== END 2019-12-23 16:40 ==
LOC: ED 13:42
DX: K62.89 Other specified diseases of anus and rectum (principal); Z53.21 Procedure and treatment not carried out due to patient leaving prior to being seen by health care provider

== ENCOUNTER 2020-01-29 14:37 | Emergency (ER) | payer MEDICARE ==
[2020-01-29 15:54] VITALS: BP 126/69
--- NOTE | 2020-01-29 16:10 | Event Note ---
ED Screening Note ED Screening Note: r wrist pain no fall or trauma hyperverbal his pcp is not open This initial assessment/diagnostic orders/clinical plan/treatment(s) is/are subject to change based on patients health status, clinical progression and re- assessment by fellow clinical providers in the ED. Further treatment and workup at subsequent clinical providers discretion. Patient/guardian urged not to elope from the ED as their condition may be serious if not clinically assessed and managed. Initial orders include: refuses to leave ER
--- NOTE | 2020-01-29 16:14 | Emergency Department Report ---
Chief Complaint: Extremity Injury, Upper Stated Complaint: RT WRIST AND ARM PAIN Time Seen by Provider: 01/29/20 16:01 - Exam Vital Signs: Vital Signs 01/29/20 15:51 Temperature 98.2 F Pulse Rate 102 H Respiratory 18 Rate Blood Pressure 126/69 O2 Sat by Pulse 91 Oximetry MSE screening note: Focused history and physical exam performed. Due to findings the following was ordered: ED Disposition for MSE Clinical Impression: Wrist pain Disposition: MED SCREENING EXAM-LEFT Is pt being admited?: No Does the pt Need Aspirin: No Condition: Stable Additional Instructions: MOTRIN FOR PAIN SEE PCP NEW REFERRAL BELOW Time of Disposition: 16:14
== END 2020-01-29 16:37 | disposition left against medical advice (07) ==
LOC: ED 14:37
DX: M25.531 Pain in right wrist (principal); Z53.21 Procedure and treatment not carried out due to patient leaving prior to being seen by health care provider

== ENCOUNTER 2020-03-09 06:29 | Emergency (ER) | payer MEDICARE ==
[2020-03-09 07:55] VITALS: BP 119/96
--- NOTE | 2020-03-09 07:55 | Emergency Department Report ---
ED Lower Extremity HPI - General Chief Complaint: Extremity Problem,Nontraumatic Stated Complaint: BOTH LEG PAIN Time Seen by Provider: 03/09/20 07:29 Source: patient Mode of arrival: Wheelchair Limitations: No Limitations - History of Present Illness Initial Comments: This is a 49-year-old male nontoxic, well nourished in appearance, no acute signs of distress presents to the ED with c/o of chronic bilateral knee pain 2 years. Patient does follow-up with a primary care doctor and Dr. Weber and was told that he needs bilateral knee replacements. Patient denies any new injuries or trauma. Patient denies taking anything [id number] for pain. Patient also is requesting for psychiatric medication refill. Last dose was about last week and see his primary care doctor for this condition. Patient denies any suicidal homicidal ideation. Denies any anxiety or depression. Patient denies any numbness, tingling, fever, chills, nausea, vomiting, chest pain, shortness of breath, headache, stiff neck. Patient denies any joint swelling or joint redness. Patient denies decreased range of motion. Patient stated has decreased gait due to pain. MD Complaint: knee injury -: year(s) Injury: Knee: Right, Left Severity: mild Severity scale (0 -10): 3 Improves With: nothing Worsens With: nothing Associated Symptoms: ambulatory. denies: snap/pop sensation, swelling, numbness, tingling, unable to bear weight, able to partially bear weight - Related Data Home Medications Medication Instructions Recorded Confirmed Last Taken Albuterol Sulfate [Ventolin Hfa] 2 puff IH PRN PRN 07/18/18 08/08/19 Unknown Fluticasone/Vilanterol [Breo 1 each IH DAILY 08/08/19 08/08/19 Unknown Ellipta 100-25 Mcg INH] Rivaroxaban [Xarelto] 15 mg PO BID 08/08/19 08/08/19 Unknown amLODIPine [Norvasc] 10 mg PO DAILY 08/08/19 08/08/19 Unknown lisinopriL [Zestril] 20 mg PO QDAY 08/08/19 08/08/19 Unknown Previous Rx's Medication Instructions Recorded Last Taken Type Polymyxin B Sulf/Trimethoprim 1 drop OP Q3HR 3 Days #1 bottle 07/31/18 Unknown Rx [Polytrim Eye Drops 68577utdcz/0.1%] Divalproex ER [Depakote ER] 2,000 mg PO HS 30 Days tablet 12/26/18 Unknown Rx Nicotine [Habitrol] 14 mg TD QDAY #30 patch 12/26/18 Unknown Rx OLANzapine [Zyprexa] 20 mg PO HS 30 Days #30 tablet 07/16/19 Unknown Rx traZODone [Desyrel] 150 mg PO QHS 30 Days #30 tablet 07/16/19 Unknown Rx levoFLOXacin [Levaquin] 750 mg PO QDAY #5 tablet 08/06/19 Unknown Rx Acetaminophen [Non-Aspirin Extra 500 mg PO Q6HR PRN #30 tablet 11/18/19 Unknown Rx Strength] Albuterol Sulfate [Proair 90 mcg IH Q4HR PRN #2 aer.pow.ba 11/18/19 Unknown Rx Respiclick] Furosemide [Lasix] 20 mg PO QDAY #30 tablet 11/18/19 Unknown Rx Furosemide [Lasix TAB] 40 mg PO QDAY 30 Days #30 tablet 12/29/19 Unknown Rx Allergies Allergy/AdvReac Type Severity Reaction Status Date / Time ziprasidone [From Geodon] Allergy Unknown Verified 12/23/19 14:34 tramadol AdvReac Unknown Verified 12/23/19 14:34 ED Review of Systems ROS: Stated complaint: BOTH LEG PAIN Other details as noted in HPI Constitutional: denies: chills, fever Eyes: denies: eye pain, eye discharge, vision change ENT: denies: ear pain, throat pain Respiratory: denies: cough, shortness of breath, wheezing Cardiovascular: denies: chest pain, palpitations Endocrine: no symptoms reported Gastrointestinal: denies: abdominal pain, nausea, diarrhea Genitourinary: denies: urgency, dysuria Musculoskeletal: denies: back pain, joint swelling, arthralgia Skin: denies: rash, lesions Neurological: denies: headache, weakness, paresthesias Psychiatric: denies: anxiety, depression Hematological/Lymphatic: denies: easy bleeding, easy bruising ED Past Medical Hx - Past Medical History Previous Medical History?: Yes Hx Hypertension: Yes Hx Congestive Heart Failure: Yes Hx Diabetes: No Hx Renal Disease: No Hx Arthritis: Yes Hx Seizures: No Hx Psychiatric Treatment: Yes (bipolar and depression) Hx Asthma: Yes Hx COPD: Yes Hx Tuberculosis: Yes (POSITIVE SKIN TEST,TOOK TX , NEG CXR) Hx Dementia: No Hx HIV: No Additional medical history: sleep apnea - Surgical History Past Surgical History?: Yes Hx Cholecystectomy: No Hx Appendectomy: No Additional Surgical History: right knee surgery - Social History Smoking Status: Current Every Day Smoker Substance Use Type: Alcohol - Medications Home Medications: Home Medications Medication Instructions Recorded Confirmed Last Taken Type Albuterol Sulfate [Ventolin Hfa] 2 puff IH PRN PRN 07/18/18 08/08/19 Unknown History Polymyxin B Sulf/Trimethoprim 1 drop OP Q3HR 3 Days #1 bottle 07/31/18 08/08/19 Unknown Rx [Polytrim Eye Drops 56168fninb/0.1%] Divalproex ER [Depakote ER] 2,000 mg PO HS 30 Days tablet 12/26/18 08/08/19 Unknown Rx Nicotine [Habitrol] 14 mg TD QDAY #30 patch 12/26/18 08/08/19 Unknown Rx OLANzapine [Zyprexa] 20 mg PO HS 30 Days #30 tablet 07/16/19 08/08/19 Unknown Rx traZODone [Desyrel] 150 mg PO QHS 30 Days #30 tablet 07/16/19 08/08/19 Unknown Rx levoFLOXacin [Levaquin] 750 mg PO QDAY #5 tablet 08/06/19 08/08/19 Unknown Rx Fluticasone/Vilanterol [Breo 1 each IH DAILY 08/08/19 08/08/19 Unknown History Ellipta 100-25 Mcg INH] Rivaroxaban [Xarelto] 15 mg PO BID 08/08/19 08/08/19 Unknown History amLODIPine [Norvasc] 10 mg PO DAILY 08/08/19 08/08/19 Unknown History lisinopriL [Zestril] 20 mg PO QDAY 08/08/19 08/08/19 Unknown History Acetaminophen [Non-Aspirin Extra 500 mg PO Q6HR PRN #30 tablet 11/18/19 Unknown Rx Strength] Albuterol Sulfate [Proair 90 mcg IH Q4HR PRN #2 aer.pow.ba 11/18/19 Unknown Rx Respiclick] Furosemide [Lasix] 20 mg PO QDAY #30 tablet 11/18/19 Unknown Rx Furosemide [Lasix TAB] 40 mg PO QDAY 30 Days #30 tablet 12/29/19 Unknown Rx ED Physical Exam - General Limitations: No Limitations General appearance: alert, in no apparent distress - Head Head exam: Present: atraumatic, normocephalic - Eye Eye exam: Present: normal appearance - Neck Neck exam: Present: normal inspection, full ROM. Absent: tenderness, meningismus, lymphadenopathy - Respiratory Respiratory exam: Absent: respiratory distress - Cardiovascular Cardiovascular Exam: Present: regular rate - Extremities Exam Extremities exam: Present: normal inspection, full ROM, normal capillary refill. Absent: tenderness, joint swelling, calf tenderness - Expanded Lower Extremity Exam Left Hip exam: Present: normal inspection (bilateral exam), full ROM (bilateral exam). Absent: tenderness, swelling Upper Leg exam: Present: normal inspection (bilateral exam), full ROM (bilateral exam). Absent: tenderness, swelling Knee exam: Present: normal inspection (bilateral exam), full ROM (bilateral exam), full knee extension (bilateral exam). Absent: tenderness (bilateral exam), swelling (bilateral exam), abrasion (bilateral exam), laceration (bilateral exam), ecchymosis (bilateral exam), deformity (bilateral exam), crepidus (bilateral exam), dislocation (bilateral exam), erythema (bilateral exam), effusion (bilateral exam), pain w/ pronation/supination, posterior draw sign, pain/laxity with valgus, pain/laxity with varus Lower Leg exam: Present: normal inspection (bilateral exam), full ROM (bilateral exam). Absent: tenderness (bilateral exam), swelling (bilateral exam), abrasion (bilateral exam), laceration (bilateral exam), ecchymosis (bilateral exam), deformity (bilateral exam), crepidus (bilateral exam), dislocation, erythema (bilateral exam), palpable cord (bilateral exam), Zoila's sign (bilateral exam) Ankle exam: Present: normal inspection (bilateral exam), full ROM (bilateral exam). Absent: tenderness (bilateral exam), swelling (bilateral exam) Foot/Toe exam: Present: normal inspection (bilateral exam), full ROM (bilateral exam). Absent: tenderness (bilateral exam), swelling (bilateral exam) Neuro vascular tendon exam: Present: no vascular compromise (bilateral exam) Gait: Positive: observed and normal (bilateral exam) - Back Exam Back exam: Present: normal inspection, full ROM. Absent: tenderness, CVA tenderness (R), CVA tenderness (L), muscle spasm, paraspinal tenderness, vertebral tenderness, rash noted - Neurological Exam Neurological exam: Present: alert, oriented X3, normal gait - Psychiatric Psychiatric exam: Present: normal affect, normal mood. Absent: depressed, agitated, anxious, flat affect, manic, homicidal ideation, suicidal ideation - Skin Skin exam: Present: warm, dry, intact, normal color. Absent: rash ED Course Vital Signs 03/09/20 07:16 Temperature 97.4 F L Pulse Rate 88 Respiratory 18 Rate Blood Pressure 119/96 O2 Sat by Pulse 95 Oximetry Vital Signs 03/09/20 07:16 Temperature 97.4 F L Pulse Rate 88 Respiratory 18 Rate Blood Pressure 119/96 O2 Sat by Pulse 95 Oximetry - Reevaluation(s) Reevaluation #1: 03/09/20 07:57 Patient is speaking in full sentences with no signs of distress noted. ED Lower Extremity MDM - Medical Decision Making This is a 49-year-old male that presents with chronic bilateral knee pain and medication refill. Patient is stable and was examined by me. I referred patient to an orthopedic doctor for further evaluation for possible MRI. Patient sees primary care doctor and orthopedic for this conditions. Patient does not present with a medical emergency currently in the ER. Patient was instructed to take [id number] medications for pain which may help patient for chronic pain. There is no suicidal or homicidal ideation in ER. No acute psychosis present. Patient does have normal gait with no tenderness and no joint swelling. No ecchymosis. no joint redness or swelling. Not warm to touch. No signs of cellulites present. At time of discharge, the patient does not seem toxic or ill in appearance. No acute signs of distress noted. Patient agrees to discharge treatment plan of care. No further questions noted by the patient. Critical care attestation.: If time is entered above; I have spent that time in minutes in the direct care of this critically ill patient, excluding procedure time. ED Disposition Clinical Impression: Medication refill Chronic knee pain Qualifiers: Laterality: bilateral Qualified Code(s): M25.561 - Pain in right knee Disposition: MED SCREENING EXAM-LEFT Is pt being admited?: No Does the pt Need Aspirin: No Condition: Stable Instructions: Knee Pain (ED) Additional Instructions: Follow-up with your primary care doctor and orthopedic doctor LEYDI for medication refill and chronic knee pains or if symptoms worsen and continue return to the ED as soon as possible. Referrals: PRIMARY CARE, [Primary Care Provider] - 3-5 Days ZANDRA EDOUARD MD [Staff Physician] - 3-5 Days HAYDEE WEBER MD [Staff Physician] - 3-5 Days
== END 2020-03-09 08:54 | disposition left against medical advice (07) ==
LOC: ED 06:29
DX: M25.561 Pain in right knee (principal); M25.562 Pain in left knee; Z76.0 Encounter for issue of repeat prescription; Z53.21 Procedure and treatment not carried out due to patient leaving prior to being seen by health care provider

== ENCOUNTER 2020-10-25 05:01 | Emergency (ER) | payer MEDICARE ==
[2020-10-25 05:11] VITALS: BP 118/85
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
[2020-10-25 06:16] LABS: Mean Corpuscular HGB Conc 31 % (32-34); Mean Corpuscular Volume 75 fl (84-94); Red Blood Count 6.71 M/mm3 (3.65-5.03); Red Cell Distribution Width 17.9 % (13.2-15.2)
[2020-10-25 06:22] LABS: Hemoglobin 15.5 gm/dl (11.8-15.2); Platelet Count 124 K/mm3 (140-440)
[2020-10-25 06:40] LABS: Alanine Aminotransferase 12 units/L (7-56); Albumin 4.3 g/dL (3.9-5); BUN/Creatinine Ratio 13; Blood Urea Nitrogen 13 mg/dL (9-20); Calcium 9.5 mg/dL (8.4-10.2); Hemolysis Index 21
[2020-10-25 08:37] LABS: Total Cells Counted 100
[2020-10-25 08:38] LABS: Anisocytosis 1+; Hypochromasia 1+; Large Platelets Few; Platelet Estimate Consistent w Auto
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
== END 2020-10-25 13:55 | disposition home or self-care (01) ==
LOC: ED 05:01
DX: M79.601 Pain in right arm (principal); I11.0 Hypertensive heart disease with heart failure; I50.9 Heart failure, unspecified; M19.91 Primary osteoarthritis, unspecified site; F31.9 Bipolar disorder, unspecified; J44.9 Chronic obstructive pulmonary disease, unspecified; Z98.890 Other specified postprocedural states; Z79.899 Other long term (current) drug therapy; Z88.8 Allergy status to other drugs, medicaments and biological substances
CPT/HCPCS: 36415; 80053; 80320; 85007; 85025; G0480

== ENCOUNTER 2020-12-25 17:00 | Emergency (ER) | payer MEDICARE ==
[2020-12-25] MEDS ORDERED: ASPIRIN 325 MG TAB PO ONE (17:06)
--- NOTE | 2020-12-25 18:25 | XRay Report ---
XR chest routine 2V INDICATION / CLINICAL INFORMATION: CP. COMPARISON: 11/18/2019 FINDINGS: SUPPORT DEVICES: None. HEART /PULMONARY VASCULATURE: No significant abnormality. LUNGS / PLEURA: No significant pulmonary or pleural abnormality. No pneumothorax. ADDITIONAL FINDINGS: No significant additional findings. IMPRESSION: 1. No acute findings. Signer Name: Blas Ortega MD Signed: 12/25/2020 6:21 PM Workstation Name: [id number]
[2020-12-25 18:32] LABS: Hematocrit 47.7 % (35.5-45.6); Hemoglobin 15.1 gm/dl (11.8-15.2); Mean Corpuscular HGB Conc 32 % (32-34); Mean Corpuscular Volume 73 fl (84-94); Red Blood Count 6.54 M/mm3 (3.65-5.03); Red Cell Distribution Width 17.5 % (13.2-15.2)
[2020-12-25 18:33] LABS: Platelet Count 148 K/mm3 (140-440)
[2020-12-25 18:48] LABS: Alanine Aminotransferase 10 units/L (7-56); Albumin 4.3 g/dL (3.9-5); BUN/Creatinine Ratio 16; Blood Urea Nitrogen 13 mg/dL (9-20); Calcium 9.8 mg/dL (8.4-10.2); Hemolysis Index 21
[2020-12-25 19:07] LABS: Anisocytosis 1+; Hypochromasia 1+; Total Cells Counted 100
[2020-12-25 19:08] LABS: Large Platelets Few; Platelet Estimate Consistent w Auto
[2020-12-25] MEDS ORDERED: ASPIRIN 81 MG TAB CHEW ONE (21:01)
--- NOTE | 2020-12-25 21:06 | Emergency Department Report ---
ED Chest Pain HPI - General Chief Complaint: Chest Pain Stated Complaint: CHEST PAIN/COUGH/SHANNON KNEE Time Seen by Provider: 12/25/20 20:49 Source: patient Mode of arrival: Ambulatory Limitations: No Limitations - History of Present Illness Initial Comments: 49-year-old male with history of bipolar disorder, hypertension, CHF, and COPD, and history of being on Xarelto but not currently on anticoagulation presents complaining of 3 days of persistent dry cough and chest pain. He describes chest pain that is constantly there for the last 3 days however, it intermittently gets worse and becomes sharp and radiates to his right arm. He also reports that over the same period of time he has had pain and swelling in his lower extremities. He has not tried anything for his symptoms. He denies any associated shortness of breath, nausea/vomiting, palpitations, syncope, fever/chills, wheezing, abdominal pain, nausea/vomiting, or any other complaints. - Related Data Home Medications Medication Instructions Recorded Confirmed Last Taken Albuterol Sulfate [Ventolin Hfa] 2 puff IH PRN PRN 07/18/18 08/08/19 Unknown Fluticasone/Vilanterol [Breo 1 each IH DAILY 08/08/19 08/08/19 Unknown Ellipta 100-25 Mcg INH] Rivaroxaban [Xarelto] 15 mg PO BID 08/08/19 08/08/19 Unknown amLODIPine [Norvasc] 10 mg PO DAILY 08/08/19 08/08/19 Unknown lisinopriL [Zestril] 20 mg PO QDAY 08/08/19 08/08/19 Unknown Previous Rx's Medication Instructions Recorded Last Taken Type Polymyxin B Sulf/Trimethoprim 1 drop OP Q3HR 3 Days #1 bottle 07/31/18 Unknown Rx [Polytrim Eye Drops 06890qwyjk/0.1%] Divalproex ER [Depakote ER] 2,000 mg PO HS 30 Days tablet 12/26/18 Unknown Rx Nicotine [Habitrol] 14 mg TD QDAY #30 patch 12/26/18 Unknown Rx OLANzapine [Zyprexa] 20 mg PO HS 30 Days #30 tablet 07/16/19 Unknown Rx traZODone [Desyrel] 150 mg PO QHS 30 Days #30 tablet 07/16/19 Unknown Rx levoFLOXacin [Levaquin] 750 mg PO QDAY #5 tablet 08/06/19 Unknown Rx Acetaminophen [Non-Aspirin Extra 500 mg PO Q6HR PRN #30 tablet 11/18/19 Unknown Rx Strength] Albuterol Sulfate [Proair 90 mcg IH Q4HR PRN #2 aer.pow.ba 11/18/19 Unknown Rx Respiclick] Furosemide [Lasix] 20 mg PO QDAY #30 tablet 11/18/19 Unknown Rx Furosemide [Lasix TAB] 40 mg PO QDAY 30 Days #30 tablet 12/29/19 Unknown Rx Naproxen [Naprosyn] 500 mg PO BID #14 tablet 10/25/20 Unknown Rx Benzonatate [Tessalon Perles] 100 mg PO Q8HR PRN #20 capsule 12/25/20 Unknown Rx Allergies Allergy/AdvReac Type Severity Reaction Status Date / Time ziprasidone [From Geodon] Allergy Unknown Verified 12/25/20 17:01 tramadol AdvReac Unknown Verified 12/25/20 17:01 Heart Score - HEART Score History: Highly suspicious EKG: Normal Age: 45-65 Risk factors: > 3 risk factors or hx of atherosclerotic disease Troponin: < normal limit HEART Score: 5 - EKG Read Time Time EKG Completed: 17:10 EKG Read Time: 17:20 ED Review of Systems ROS: Stated complaint: CHEST PAIN/COUGH/SHANNON KNEE Other details as noted in HPI Constitutional: denies: chills, fever Eyes: denies: eye pain, vision change ENT: denies: throat pain, congestion Respiratory: cough. denies: shortness of breath Cardiovascular: chest pain. denies: palpitations Gastrointestinal: denies: abdominal pain, nausea, vomiting Genitourinary: denies: dysuria, frequency Musculoskeletal: other (lower extremity swelling/pain). denies: back pain, joint swelling Skin: denies: rash Neurological: denies: weakness, paresthesias Psychiatric: denies: anxiety, depression ED Past Medical Hx - Past Medical History Hx Hypertension: Yes Hx Congestive Heart Failure: Yes Hx Diabetes: No Hx Renal Disease: No Hx Arthritis: Yes Hx Seizures: No Hx Psychiatric Treatment: Yes (bipolar and depression) Hx Asthma: Yes Hx COPD: Yes Hx Tuberculosis: Yes (POSITIVE SKIN TEST,TOOK [place] , NEG CXR) Hx Dementia: No Hx HIV: No Additional medical history: sleep apnea - Surgical History Hx Cholecystectomy: No Hx Appendectomy: No Additional Surgical History: right knee surgery - Social History Smoking Status: Current Every Day Smoker - Medications Home Medications: Home Medications Medication Instructions Recorded Confirmed Last Taken Type Albuterol Sulfate [Ventolin Hfa] 2 puff IH PRN PRN 07/18/18 08/08/19 Unknown History Polymyxin B Sulf/Trimethoprim 1 drop OP Q3HR 3 Days #1 bottle 07/31/18 08/08/19 Unknown Rx [Polytrim Eye Drops [id number]/0.1%] Divalproex ER [Depakote ER] 2,000 mg PO HS 30 Days tablet 12/26/18 08/08/19 Unknown Rx Nicotine [Habitrol] 14 mg TD QDAY #30 patch 12/26/18 08/08/19 Unknown Rx OLANzapine [Zyprexa] 20 mg PO HS 30 Days #30 tablet 07/16/19 08/08/19 Unknown Rx traZODone [Desyrel] 150 mg PO QHS 30 Days #30 tablet 07/16/19 08/08/19 Unknown Rx levoFLOXacin [Levaquin] 750 mg PO QDAY #5 tablet 08/06/19 08/08/19 Unknown Rx Fluticasone/Vilanterol [Breo 1 each IH DAILY 08/08/19 08/08/19 Unknown History Ellipta 100-25 Mcg INH] Rivaroxaban [Xarelto] 15 mg PO BID 08/08/19 08/08/19 Unknown History amLODIPine [Norvasc] 10 mg PO DAILY 08/08/19 08/08/19 Unknown History lisinopriL [Zestril] 20 mg PO QDAY 08/08/19 08/08/19 Unknown History Acetaminophen [Non-Aspirin Extra 500 mg PO Q6HR PRN #30 tablet 11/18/19 Unknown Rx Strength] Albuterol Sulfate [Proair 90 mcg IH Q4HR PRN #2 aer.pow.ba 11/18/19 Unknown Rx Respiclick] Furosemide [Lasix] 20 mg PO QDAY #30 tablet 11/18/19 Unknown Rx Furosemide [Lasix TAB] 40 mg PO QDAY 30 Days #30 tablet 12/29/19 Unknown Rx Naproxen [Naprosyn] 500 mg PO BID #14 tablet 10/25/20 Unknown Rx Benzonatate [Tessalon Perles] 100 mg PO Q8HR PRN #20 capsule 12/25/20 Unknown Rx ED Physical Exam - General Limitations: No Limitations - Other Other exam information: GENERAL: Well developed and well nourished. No acute distress HEENT: Normocephalic. No obvious signs of trauma. Moist mucous membranes. EYES: Extraocular movements are intact. NECK: Supple. Trachea is midline. LUNGS: Nonlabored breathing. Equal chest rise bilaterally. Clear to auscultation bilaterally. HEART/CARDIOVASCULAR: Regular rate and rhythm. No murmurs or rubs. VASCULAR: 2+ peripheral pulses. 1+ pitting edema bilateral lower extremities ABDOMEN: Abdomen is soft and nondistended. There is no significant tenderness, guarding or rebound. SKIN: Skin is warm and dry NEURO: Patient is awake, alert, and oriented. shooter helper II-XII grossly intact. No focal deficits. MUSCULOSKELETAL: No obvious deformities. No significant tenderness. ED Course Vital Signs 12/25/20 12/25/20 12/25/20 17:06 20:54 21:52 Temperature 98.3 F Pulse Rate 93 H 86 89 Respiratory 20 20 19 Rate Blood Pressure 141/90 Blood Pressure 155/98 [Left] O2 Sat by Pulse 89 97 20 L Oximetry JOHNATHON score - Johnathon Score Age > 65: (0) No Aspirin use within the Past 7 Days: (0) No 3 or more CAD Risk Factors: (1) Yes 2 or more Angina events in past 24 hrs: (1) Yes Known CAD with more than 50% Stenosis: (0) No Elevated Cardiac Markers: (0) No ST Deviation Greater than 0.5mm: (0) No JOHNATHON Score: 2 ED Medical Decision Making - Lab Data Result diagrams: 12/25/20 18:15 12/25/20 18:15 Lab Results 12/25/20 12/25/20 Range/Units 18:15 18:15 WBC 5.8 (4.5-11.0) K/mm3 RBC 6.54 H (3.65-5.03) M/mm3 Hgb 15.1 (11.8-15.2) gm/dl Hct 47.7 H (35.5-45.6) % MCV 73 L (84-94) fl MCH 23 L (28-32) pg MCHC 32 (32-34) % RDW 17.5 H (13.2-15.2) % Plt Count 148 (140-440) K/mm3 Add Manual Diff Complete Total Counted 100 Seg Neutrophils % Account Clerk Seg Neuts % (Manual) 38.0 L (40.0-70.0) % Lymphocytes % (Manual) 38.0 H (13.4-35.0) % Monocytes % (Manual) 21.0 H (0.0-7.3) % Eosinophils % (Manual) 2.0 (0.0-4.3) % Basophils % (Manual) 1.0 (0.0-1.8) % Nucleated RBC % Not Reportable Seg Neutrophils # Man 2.2 (1.8-7.7) K/mm3 Band Neutrophils # 0.0 K/mm3 Lymphocytes # (Manual) 2.2 (1.2-5.4) K/mm3 Abs React Lymphs (Man) 0.0 K/mm3 Monocytes # (Manual) 1.2 H (0.0-0.8) K/mm3 Eosinophils # (Manual) 0.1 (0.0-0.4) K/mm3 Basophils # (Manual) 0.1 (0.0-0.1) K/mm3 Metamyelocytes # 0.0 K/mm3 Myelocytes # 0.0 K/mm3 Promyelocytes # 0.0 K/mm3 Blast Cells # 0.0 K/mm3 WBC Morphology Not Reportable Hypersegmented Neuts Not Reportable Hyposegmented Neuts Not Reportable Hypogranular Neuts Not Reportable Smudge Cells Not Reportable Toxic Granulation Not Reportable Toxic Vacuolation Not Reportable Dohle Bodies Not Reportable Pelger-Huet Anomaly Not Reportable Philip Rods Not Reportable Platelet Estimate Consistent w auto Clumped Platelets Not Reportable Plt Clumps, EDTA Not Reportable Large Platelets Few Giant Platelets Not Reportable Platelet Satelliting Not Reportable Plt Morphology Comment Not Reportable RBC Morphology Not Reportable Dimorphic RBCs Not Reportable Polychromasia Not Reportable Hypochromasia 1+ Poikilocytosis Not Reportable Anisocytosis 1+ Microcytosis Not Reportable Macrocytosis Not Reportable Spherocytes Not Reportable Pappenheimer Bodies Not Reportable Sickle Cells Not Reportable Target Cells Not Reportable Tear Drop Cells Not Reportable Ovalocytes Not Reportable Helmet Cells Not Reportable Jim[place] Bodies Not Reportable [place] Rings Not Reportable Serenity Cells Not Reportable Bite Cells Not Reportable Crenated Cell Not Reportable Elliptocytes Not Reportable Acanthocytes (Spur) Not Reportable Rouleaux Not Reportable Hemoglobin C Crystals Not Reportable Schistocytes Not Reportable Malaria parasites Not Reportable Tomás Bodies Not Reportable Hem Pathologist Commnt No Sodium 138 (137-145) mmol/L Potassium 4.6 (3.6-5.0) mmol/L Chloride 98.5 (98-107) mmol/L Carbon Dioxide 29 (22-30) mmol/L Anion Gap 15 mmol/L BUN 13 (9-20) mg/dL Creatinine 0.8 (0.8-1.3) mg/dL Estimated GFR > 60 ml/min BUN/Creatinine Ratio 16 % Glucose 96 (75-100) mg/dL Calcium 9.8 (8.4-10.2) mg/dL Total Bilirubin 0.30 (0.1-1.2) mg/dL AST 19 (5-40) units/L ALT 10 (7-56) units/L Alkaline Phosphatase 74 (35-129) units/L Troponin T < 0.010 (0.00-0.029) ng/mL NT-Pro-B Natriuret Pep 87.59 (0-450) pg/mL Total Protein 7.9 (6.3-8.2) g/dL Albumin 4.3 (3.9-5) g/dL Albumin/Globulin Ratio 1.2 % - EKG Data -: EKG Interpreted by Ar - EKG Data When compared to previous EKG there are: no significant change 12/25/20 21:12 Normal sinus rhythm. Left atrial enlargement. Normal axis. Normal intervals. No ectopy. No significant ST segment or T wave abnormalities. - Radiology Data XR chest routine 2V INDICATION / CLINICAL INFORMATION: CP. COMPARISON: 11/18/2019 FINDINGS: SUPPORT DEVICES: None. HEART /PULMONARY VASCULATURE: No significant abnormality. LUNGS / PLEURA: No significant pulmonary or pleural abnormality. No pneumothorax. ADDITIONAL FINDINGS: No significant additional findings. IMPRESSION: 1. No acute findings. Signer Name: Blas Ortega MD Signed: 12/25/2020 5:21 PM Workstation Name: [id number] CTA CHEST WITH CONTRAST INDICATION / CLINICAL INFORMATION: cough, chest pain. TECHNIQUE: Axial CT images were obtained through the chest after injection of IV contrast. 3 plane MIP and/or 3D reconstructions were produced. All CT scans at this location are performed using CT dose reduction for ALARA by means of automated exposure control. COMPARISON: Radiograph from the same date. FINDINGS: Evaluation is limited secondary to respiratory motion. PULMONARY ARTERIES: No large, central pulmonary embolus. THORACIC AORTA: No significant abnormality. HEART: No significant abnormality. CORONARY ARTERIES: No significant calcification. MEDIASTINUM / SAVAGE: No significant abnormality. PLEURA: No pleural effusion. No pneumothorax. LUNGS: No acute air space or interstitial disease. ADDITIONAL FINDINGS: None. UPPER ABDOMEN: No acute findings. SKELETAL STRUCTURES: No significant osseous abnormality. IMPRESSION: 1. Within limitations of respiratory motion, there is no CT evidence for pulmonary embolism. 2. No acute findings. Signer Name: Luis Carlos Shine MD Signed: 12/25/2020 8:46 PM Workstation Name: [id number] - Medical Decision Making 49-year-old male history of hypertension, CHF, COPD, and bipolar disorder, formerly on anticoagulants but no longer presents complaining of 3 days of nonproductive cough as well as chest pain which is constant but intermittently gets worse and radiates to his right arm. Also complains of bilateral lower extremity swelling and pain. On initial assessment, he is afebrile and with normal vital signs. The initial oxygen saturation was charted at 89%, however while I was in the room, the patient was satting 96 to 100% on room air. I am therefore suspicious that this was an erroneous reading. On physical exam, he is in no acute distress. Lungs are clear to auscultation. He has 1+ pitting edema of the bilateral lower extremities. The remainder of his physical exam is unremarkable. Labs were drawn in triage and reveal no significant leukocytosis or anemia. There is no significant electrolyte abnormality. Kidney function is normal. BNP is not elevated at 87.5. Initial troponin is negative. Chest x-ray shows no acute findings. Heart score is 5. JOHNATHON score is 2. On further questioning, the patient states that he he is very stressed and tomorrow is his 50th birthday and "I just want to make sure I do not have cancer. " In light of the patient's symptoms and the lack of clear etiology given his labs and x-ray, we will proceed with CTA of the chest to assess for evidence of pulmonary embolism and or other pulmonary pathology not identified by chest x- ray. Patient given aspirin 325 mg. Will continue to monitor closely. At approximately 10 PM, the CTA of the chest returned negative for PE and negative for any pulmonary abnormalities. Given the patient's story and risk factors, I recommended admission for him for further trending of cardiac enzymes to assess for ACS. The patient stated that he wanted to leave AGAINST MEDICAL ADVICE and see his primary doctor tomorrow who will refer him to a mail rider. I discussed with him the risks of leaving AGAINST MEDICAL ADVICE and refusing admission which include worsening symptoms, missed diagnoses, temporary/pe rmanent disability, or even . The patient expressed understanding of this but was adamant in his decision to leave. He requested a prescription for Tessalon Perles which I provided. I encouraged him to return to the emergency department at any time should he change his mind or should he develop other concerning symptoms. Critical care attestation.: If time is entered above; I have spent that time in minutes in the direct care of this critically ill patient, excluding procedure time. ED Disposition Clinical Impression: Cough, Angina at rest Disposition: DC-07 LEFT AGAINST MED ADVICE Is pt being admited?: No Condition: Stable Instructions: Coronary Artery Disease, Male, Cough, Adult, [id number], Nonspecific Chest Pain, Adult, Angina, [id number] Prescriptions: Benzonatate [Tessalon Perles] 100 mg PO Q8HR PRN #20 capsule PRN Reason: Cough Referrals: PRIMARY CARE, [Primary Care Provider] - 3-5 Days Forms: AMA Form
[2020-12-25] MEDS ORDERED: ASPIRIN 81 MG TAB CHEW PO ONE (21:22)
--- NOTE | 2020-12-25 21:50 | Cat Scan Report ---
CTA CHEST WITH CONTRAST INDICATION / CLINICAL INFORMATION: cough, chest pain. TECHNIQUE: Axial CT images were obtained through the chest after injection of IV contrast. 3 plane MIP and/or 3D reconstructions were produced. All CT scans at this location are performed using CT dose reduction f or ALARA by means of automated exposure control. COMPARISON: Radiograph from the same date. FINDINGS: Evaluation is limited secondary to respiratory motion. PULMONARY ARTERIES: No large, central pulmonary embolus. THORACIC AORTA: No significant abnormality. HEART: No significant abnormality. CORONARY ARTERIES: No significant calcification. MEDIASTINUM / SAVAGE: No significant abnormality. PLEURA: No pleural effusion. No pneumothorax. LUNGS: No acute air space or interstitial disease. ADDITIONAL FINDINGS: None. UPPER ABDOMEN: No acute findings. SKELETAL STRUCTURES: No significant osseous abnormality. IMPRESSION: 1. Within limitations of respiratory motion, there is no CT evidence for pulmonary embolism. 2. No acute findings. Signer Name: Luis Carlos Shine MD Signed: 12/25/2020 9:46 PM Workstation Name: [id number]
[2020-12-25 21:53] VITALS: BP 155/98
[2020-12-25] MEDS ORDERED: BENZONATATE 100 MG CAP PO ONE (21:54)
--- NOTE | 2020-12-26 19:42 | Electrocardiograph Report ---
[facility] Test Date: 2020-12-25 Test Time: 17:10:37 Pat Name: NANCY SOTO Department: Room: Gender: M Bulk Filler: ADAMS : 1970 Requested By: SATYA ALANIZ Order Number: [id number] Reading MD: Sushil Hollis Measurements Intervals [place] Rate: 82 P: 42 [place]: 179 QRS: 70 QRSD: 94 T: 76 QT: 388 QTc: 455 Interpretive Statements Sinus rhythm Probable left atrial enlargement Non specific ST changes noted. No previous ECG available for comparison Electronically Signed On 12-26-2020 19:41:56 EDT by Sushil Hollis
== END 2020-12-25 22:15 | disposition left against medical advice (07) ==
LOC: ED 17:00
DX: I20.9 Angina pectoris, unspecified (principal); R05 Cough; I11.0 Hypertensive heart disease with heart failure; I50.9 Heart failure, unspecified; M19.91 Primary osteoarthritis, unspecified site; J44.9 Chronic obstructive pulmonary disease, unspecified; F32.9 Major depressive disorder, single episode, unspecified; F17.200 Nicotine dependence, unspecified, uncomplicated; Z98.890 Other specified postprocedural states; Z79.899 Other long term (current) drug therapy; Z88.8 Allergy status to other drugs, medicaments and biological substances
CPT/HCPCS: 36415; 71046; 71275; 80053; 83880; 84484; 85007; 85025; 93005; 99284; Q9967

== ENCOUNTER 2021-01-06 18:44 | Emergency (ER) | payer MEDICARE ==
[2021-01-06] MEDS ORDERED: ASPIRIN 325 MG TAB PO ONE (19:32)
[2021-01-06] MEDS ORDERED: IPRATROPIUM/ALBUTEROL SULFATE 3 ML AMPUL.NEB IH ONE (19:35)
[2021-01-06 19:48] VITALS: BP 117/65
[2021-01-06] MEDS ORDERED: methylPREDNISolone Sod Succinate 125 MG/2 ML INJ IV ONE (19:57)
[2021-01-06 20:03] LABS: Bacteria,Urine 1+ /HPF (Negative); Bilirubin,Urine NEG (Negative); Blood,Urine NEG (Negative); Color,Urine Yellow (Yellow); Hyaline Casts,Urine 1 /LPF; Mucus,Urine FEW /HPF
[2021-01-06 20:06] LABS: Amphetamine Screen,Urine Negative; Benzodiazepines Screen,Urine Negative; Cannabinoid Screen,Urine Negative; Cocaine Screen,Urine Negative; Methadone Screen,Urine Negative; Opiate Screen,Urine Negative
[2021-01-06 20:11] LABS: Mean Corpuscular HGB Conc 31 % (32-34); Mean Corpuscular Volume 73 fl (84-94); Red Blood Count 6.33 M/mm3 (3.65-5.03); Red Cell Distribution Width 17.8 % (13.2-15.2)
[2021-01-06 20:16] LABS: Hemoglobin 14.3 gm/dl (11.8-15.2); Platelet Count 123 K/mm3 (140-440)
[2021-01-06 20:22] LABS: INR 0.95 (0.87-1.13)
--- NOTE | 2021-01-06 20:22 | Emergency Department Report ---
ED Chest Pain HPI - General Chief Complaint: Chest Pain Stated Complaint: RAPID HEART RATE Time Seen by Provider: 01/06/21 19:22 Source: patient Mode of arrival: Ambulatory Limitations: No Limitations - History of Present Illness Initial Comments: 50 year old male with history of bipolar disorder, hypertension, ANGELICA, CHF, and COPD is brought in by EMS due to frequent palpitations and chest pain for the past 2 days. According to the EMS report, the patient was a and o x4 when he arrived. He was placed on a quality assurance monitor body and was found to have a normal heart rate. However, during transport to the hospital, the patient at one point underwent a rhythm change and went into SVT with a rate of 180. After period of about 5 to 10 seconds, this spontaneously converted to sinus rhythm. No medications were given. The patient states that for the past 2 days he has been having recurrent palpitations lasting few minutes at a time. During episodes of the palpitations he feels lightheaded and has mid substernal chest pain. For the past 2 days it has been only seconds to minutes at a time, but today the chest pain lasted for 1.5 hours and terminated while in the ambulance. The chest pain never radiated to his jaw or shoulders but was accompanied by shortness of breath and palpitations. The patient admits that he is not using any of his pulmonary medications or breathing treatments. He does say he has been taking his psychiatric medications. He reports that "there is sometyhing in my urinary tract." When asked for clarification, he states that "I dont know, people are spiking my drink or something." He is chest pain free at this time and has no other symptoms. - Related Data Home Medications Medication Instructions Recorded Confirmed Last Taken Albuterol Sulfate [Ventolin Hfa] 2 puff IH PRN PRN 07/18/18 08/08/19 Unknown Fluticasone/Vilanterol [Breo 1 each IH DAILY 08/08/19 08/08/19 Unknown Ellipta 100-25 Mcg INH] Rivaroxaban [Xarelto] 15 mg PO BID 08/08/19 08/08/19 Unknown amLODIPine [Norvasc] 10 mg PO DAILY 08/08/19 08/08/19 Unknown lisinopriL [Zestril] 20 mg PO QDAY 08/08/19 08/08/19 Unknown Previous Rx's Medication Instructions Recorded Last Taken Type Polymyxin B Sulf/Trimethoprim 1 drop OP Q3HR 3 Days #1 bottle 07/31/18 Unknown Rx [Polytrim Eye Drops 35782urons/0.1%] Divalproex ER [Depakote ER] 2,000 mg PO HS 30 Days tablet 12/26/18 Unknown Rx Nicotine [Habitrol] 14 mg TD QDAY #30 patch 12/26/18 Unknown Rx OLANzapine [Zyprexa] 20 mg PO HS 30 Days #30 tablet 07/16/19 Unknown Rx traZODone [Desyrel] 150 mg PO QHS 30 Days #30 tablet 07/16/19 Unknown Rx levoFLOXacin [Levaquin] 750 mg PO QDAY #5 tablet 08/06/19 Unknown Rx Acetaminophen [Non-Aspirin Extra 500 mg PO Q6HR PRN #30 tablet 11/18/19 Unknown Rx Strength] Albuterol Sulfate [Proair 90 mcg IH Q4HR PRN #2 aer.pow.ba 11/18/19 Unknown Rx Respiclick] Furosemide [Lasix] 20 mg PO QDAY #30 tablet 11/18/19 Unknown Rx Furosemide [Lasix TAB] 40 mg PO QDAY 30 Days #30 tablet 12/29/19 Unknown Rx Naproxen [Naprosyn] 500 mg PO BID #14 tablet 10/25/20 Unknown Rx Benzonatate [Tessalon Perles] 100 mg PO Q8HR PRN #20 capsule 12/25/20 Unknown Rx Allergies Allergy/AdvReac Type Severity Reaction Status Date / Time ziprasidone [From Geodon] Allergy Unknown Verified 01/06/21 19:40 tramadol AdvReac Unknown Verified 01/06/21 19:40 Heart Score - HEART Score History: Moderately suspicious EKG: Normal Age: 45-65 Risk factors: > 3 risk factors or hx of atherosclerotic disease Troponin: < normal limit HEART Score: 4 - EKG Read Time Time EKG Completed: 19:41 EKG Read Time: 19:51 ED Review of Systems ROS: Stated complaint: RAPID HEART RATE Other details as noted in HPI Constitutional: denies: chills, fever Eyes: denies: eye pain, vision change ENT: denies: throat pain, congestion Respiratory: cough, shortness of breath Cardiovascular: chest pain, palpitations. denies: syncope Gastrointestinal: denies: abdominal pain, nausea, vomiting Genitourinary: denies: dysuria, frequency Musculoskeletal: denies: back pain, myalgia Skin: denies: rash Neurological: denies: headache, weakness, numbness ED Past Medical Hx - Past Medical History Hx Hypertension: Yes Hx Congestive Heart Failure: Yes Hx Diabetes: No Hx Renal Disease: No Hx Arthritis: Yes Hx Seizures: No Hx Psychiatric Treatment: Yes (bipolar and depression) Hx Asthma: Yes Hx COPD: Yes Hx Tuberculosis: Yes (POSITIVE SKIN TEST,TOOK [place] , NEG CXR) Hx Dementia: No Hx HIV: No Additional medical history: sleep apnea - Surgical History Hx Cholecystectomy: No Hx Appendectomy: No Additional Surgical History: right knee surgery - Social History Smoking Status: Current Every Day Smoker - Medications Home Medications: Home Medications Medication Instructions Recorded Confirmed Last Taken Type Albuterol Sulfate [Ventolin Hfa] 2 puff IH PRN PRN 07/18/18 08/08/19 Unknown History Polymyxin B Sulf/Trimethoprim 1 drop OP Q3HR 3 Days #1 bottle 07/31/18 08/08/19 Unknown Rx [Polytrim Eye Drops 57437jkdza/0.1%] Divalproex ER [Depakote ER] 2,000 mg PO HS 30 Days tablet 12/26/18 08/08/19 Unknown Rx Nicotine [Habitrol] 14 mg TD QDAY #30 patch 12/26/18 08/08/19 Unknown Rx OLANzapine [Zyprexa] 20 mg PO HS 30 Days #30 tablet 07/16/19 08/08/19 Unknown Rx traZODone [Desyrel] 150 mg PO QHS 30 Days #30 tablet 07/16/19 08/08/19 Unknown Rx levoFLOXacin [Levaquin] 750 mg PO QDAY #5 tablet 08/06/19 08/08/19 Unknown Rx Fluticasone/Vilanterol [Breo 1 each IH DAILY 08/08/19 08/08/19 Unknown History Ellipta 100-25 Mcg INH] Rivaroxaban [Xarelto] 15 mg PO BID 08/08/19 08/08/19 Unknown History amLODIPine [Norvasc] 10 mg PO DAILY 08/08/19 08/08/19 Unknown History lisinopriL [Zestril] 20 mg PO QDAY 08/08/19 08/08/19 Unknown History Acetaminophen [Non-Aspirin Extra 500 mg PO Q6HR PRN #30 tablet 11/18/19 Unknown Rx Strength] Albuterol Sulfate [Proair 90 mcg IH Q4HR PRN #2 aer.pow.ba 11/18/19 Unknown Rx Respiclick] Furosemide [Lasix] 20 mg PO QDAY #30 tablet 11/18/19 Unknown Rx Furosemide [Lasix TAB] 40 mg PO QDAY 30 Days #30 tablet 12/29/19 Unknown Rx Naproxen [Naprosyn] 500 mg PO BID #14 tablet 10/25/20 Unknown Rx Benzonatate [Tessalon Perles] 100 mg PO Q8HR PRN #20 capsule 12/25/20 Unknown Rx ED Physical Exam - General Limitations: No Limitations - Other Other exam information: GENERAL: Well developed and well nourished. No acute distress HEENT: Normocephalic. No obvious signs of trauma. Moist mucous membranes. EYES: Extraocular movements are intact. NECK: Supple. Trachea is midline. LUNGS: Slightly tachypneic but without accessory muscle use. Equal chest rise bilaterally. There is globally decreased air movement throughout without discrete wheezes or rales appreciated. HEART/CARDIOVASCULAR: Regular rate and rhythm. No murmurs or rubs. VASCULAR: 2+ peripheral pulses. Cap refill < 2 seconds ABDOMEN: Abdomen is soft and nondistended. There is no significant tenderness, guarding or rebound. GENITOURINARY: (Nurse present as technical research scientist) Normal appearing circumcised penis with not lesions or rashes. Normal testicular lie SKIN: Skin is warm and dry NEURO: Patient is awake, alert, and oriented. linux unix administrator [id number] grossly intact. No focal deficits. Normal motor and sensory exam throughout. Normal speech. Normal gait. MUSCULOSKELETAL: No obvious deformities. No significant tenderness. Normal ROM throughout. ED Course Vital Signs 01/06/21 01/06/21 19:45 21:00 Temperature 97.7 F Pulse Rate 71 Pulse Rate [ 58 L Bilateral Throughout] Respiratory 12 Rate Respiratory 16 Rate [Bilateral Throughout] Blood Pressure 117/65 [Left] O2 Sat by Pulse 95 Oximetry JOHNATHON score - Johnathon Score Age > 65: (0) No Aspirin use within the Past 7 Days: (0) No 3 or more CAD Risk Factors: (1) Yes 2 or more Angina events in past 24 hrs: (1) Yes Known CAD with more than 50% Stenosis: (0) No Elevated Cardiac Markers: (0) No ST Deviation Greater than 0.5mm: (0) No JOHNATHON Score: 2 ED Medical Decision Making - Lab Data Result diagrams: 01/06/21 19:44 01/06/21 19:44 Labs 01/06/21 01/06/21 01/06/21 19:44 19:44 19:44 WBC 4.6 RBC 6.33 H Hgb 14.3 Hct 46.0 H MCV 73 L MCH 23 L MCHC 31 L RDW 17.8 H Plt Count 123 L Add Manual Diff Complete Total Counted 100 Seg Neutrophils % Wild Animal Caretaker Seg Neuts % (Manual) 33.0 L Lymphocytes % (Manual) 49.0 H Monocytes % (Manual) 15.0 H Eosinophils % (Manual) 2.0 Basophils % (Manual) 1.0 Nucleated RBC % Not Reportable Seg Neutrophils # Man 1.5 L Band Neutrophils # 0.0 Lymphocytes # (Manual) 2.3 Abs React Lymphs (Man) 0.0 Monocytes # (Manual) 0.7 Eosinophils # (Manual) 0.1 Basophils # (Manual) 0.0 Metamyelocytes # 0.0 Myelocytes # 0.0 Promyelocytes # 0.0 Blast Cells # 0.0 WBC Morphology Not Reportable Hypersegmented Neuts Not Reportable Hyposegmented Neuts Not Reportable Hypogranular Neuts Not Reportable Smudge Cells Not Reportable Toxic Granulation Not Reportable Toxic Vacuolation Not Reportable Dohle Bodies Not Reportable Pelger-Huet Anomaly Not Reportable Philip Rods Not Reportable Platelet Estimate Not Reportable Clumped Platelets Rare Plt Clumps, EDTA Not Reportable Large Platelets Few Giant Platelets Not Reportable Platelet Satelliting Not Reportable Plt Morphology Comment Not Reportable RBC Morphology Not Reportable Dimorphic RBCs Not Reportable Polychromasia Not Reportable Hypochromasia 1+ Poikilocytosis Not Reportable Anisocytosis 1+ Microcytosis Rare Macrocytosis Not Reportable Spherocytes Not Reportable Pappenheimer Bodies Not Reportable Sickle Cells Not Reportable Target Cells Not Reportable Tear Drop Cells Not Reportable Ovalocytes Not Reportable Helmet Cells Not Reportable Jimenez-Hungry Horse Bodies Not Reportable [place] Rings Not Reportable Serenity Cells Not Reportable Bite Cells Not Reportable Crenated Cell Not Reportable Elliptocytes Not Reportable Acanthocytes (Spur) Not Reportable Rouleaux Not Reportable Hemoglobin C Crystals Not Reportable Schistocytes Not Reportable Malaria parasites Not Reportable Tomás Bodies Not Reportable Hem Pathologist Commnt No PT 13.3 INR 0.95 APTT 29.4 Sodium 139 Potassium 4.3 Chloride 99.8 Carbon Dioxide 33 H Anion Gap 11 BUN 14 Creatinine 0.7 L Estimated GFR > 60 BUN/Creatinine Ratio 20 Glucose 80 POC Glucose Calcium 9.4 Magnesium Total Bilirubin 0.20 AST 16 ALT 8 Alkaline Phosphatase 60 Troponin T < 0.010 NT-Pro-B Natriuret Pep Total Protein 7.2 Albumin 3.9 Albumin/Globulin Ratio 1.2 TSH Urine Color Urine Turbidity Urine pH Ur Specific Rudd Urine Protein Urine Glucose (UA) Urine Ketones Urine Blood Urine Nitrite Urine Bilirubin Urine Urobilinogen Ur Leukocyte Esterase Urine WBC (Auto) Urine RBC (Auto) U Epithel Cells (Auto) Urine Bacteria (Auto) Hyaline Casts Urine Mucus Urine Opiates Screen Urine Methadone Screen Ur Barbiturates Screen Ur Phencyclidine Scrn Ur Amphetamines Screen U Benzodiazepines Scrn Urine Cocaine Screen U Marijuana (THC) Screen Drugs of Abuse Note 01/06/21 01/06/21 01/06/21 19:44 19:44 19:47 WBC RBC Hgb Hct MCV MCH MCHC RDW Plt Count Add Manual Diff Total Counted Seg Neutrophils % Seg Neuts % (Manual) Lymphocytes % (Manual) Monocytes % (Manual) Eosinophils % (Manual) Basophils % (Manual) Nucleated RBC % Seg Neutrophils # Man Band Neutrophils # Lymphocytes # (Manual) Abs React Lymphs (Man) Monocytes # (Manual) Eosinophils # (Manual) Basophils # (Manual) Metamyelocytes # Myelocytes # Promyelocytes # Blast Cells # WBC Morphology Hypersegmented Neuts Hyposegmented Neuts Hypogranular Neuts Smudge Cells Toxic Granulation Toxic Vacuolation Dohle Bodies Pelger-Huet Anomaly Philip Rods Platelet Estimate Clumped Platelets Plt Clumps, EDTA Large Platelets Giant Platelets Platelet Satelliting Plt Morphology Comment RBC Morphology Dimorphic RBCs Polychromasia Hypochromasia Poikilocytosis Anisocytosis Microcytosis Macrocytosis Spherocytes Pappenheimer Bodies Sickle Cells Target Cells Tear Drop Cells Ovalocytes Helmet Cells Jimenez-Hungry Horse Bodies [place] Rings [place] Cells Bite Cells Crenated Cell Elliptocytes Acanthocytes (Spur) Rouleaux Hemoglobin C Crystals Schistocytes Malaria parasites Tomás Bodies Hem Pathologist Commnt PT INR APTT Sodium Potassium Chloride Carbon Dioxide Anion Gap BUN Creatinine Estimated GFR BUN/Creatinine Ratio Glucose POC Glucose Calcium Magnesium 2.10 Total Bilirubin AST ALT Alkaline Phosphatase Troponin T NT-Pro-B Natriuret Pep 180.8 Total Protein Albumin Albumin/Globulin Ratio TSH 2.160 Urine Color Yellow Urine Turbidity Clear Urine pH 7.0 Ur Specific Rudd 1.019 Urine Protein 100 mg/dl Urine Glucose (UA) Neg Urine Ketones Neg Urine Blood Neg Urine Nitrite Neg Urine Bilirubin Neg Urine Urobilinogen 4.0 Ur Leukocyte Esterase Neg Urine WBC (Auto) 1.0 Urine RBC (Auto) 7.0 U Epithel Cells (Auto) < 1.0 Urine Bacteria (Auto) 1+ Hyaline Casts 1 Urine Mucus Few Urine Opiates Screen Urine Methadone Screen Ur Barbiturates Screen Ur Phencyclidine Scrn Ur Amphetamines Screen U Benzodiazepines Scrn Urine Cocaine Screen U Marijuana (THC) Screen Drugs of Abuse Note 01/06/21 01/06/21 19:47 19:50 WBC RBC Hgb Hct MCV MCH MCHC RDW Plt Count Add Manual Diff Total Counted Seg Neutrophils % Seg Neuts % (Manual) Lymphocytes % (Manual) Monocytes % (Manual) Eosinophils % (Manual) Basophils % (Manual) Nucleated RBC % Seg Neutrophils # Man Band Neutrophils # Lymphocytes # (Manual) Abs React Lymphs (Man) Monocytes # (Manual) Eosinophils # (Manual) Basophils # (Manual) Metamyelocytes # Myelocytes # Promyelocytes # Blast Cells # WBC Morphology Hypersegmented Neuts Hyposegmented Neuts Hypogranular Neuts Smudge Cells Toxic Granulation Toxic Vacuolation Dohle Bodies Pelger-Huet Anomaly Philip Rods Platelet Estimate Clumped Platelets Plt Clumps, EDTA Large Platelets Giant Platelets Platelet Satelliting Plt Morphology Comment RBC Morphology Dimorphic RBCs Polychromasia Hypochromasia Poikilocytosis Anisocytosis Microcytosis Macrocytosis Spherocytes Pappenheimer Bodies Sickle Cells Target Cells Tear Drop Cells Ovalocytes Helmet Cells Jimenez-Hungry Horse Bodies Cum[place] Rings Serenity Cells Bite Cells Crenated Cell Elliptocytes Acanthocytes (Spur) Rouleaux Hemoglobin C Crystals Schistocytes Malaria parasites Tomás Bodies Hem Pathologist Commnt PT INR APTT Sodium Potassium Chloride Carbon Dioxide Anion Gap BUN Creatinine Estimated GFR BUN/Creatinine Ratio Glucose POC Glucose 81 Calcium Magnesium Total Bilirubin AST ALT Alkaline Phosphatase Troponin T NT-Pro-B Natriuret Pep Total Protein Albumin Albumin/Globulin Ratio TSH Urine Color Urine Turbidity Urine pH Ur Specific Rudd Urine Protein Urine Glucose (UA) Urine Ketones Urine Blood Urine Nitrite Urine Bilirubin Urine Urobilinogen Ur Leukocyte Esterase Urine WBC (Auto) Urine RBC (Auto) U Epithel Cells (Auto) Urine Bacteria (Auto) Hyaline Casts Urine Mucus Urine Opiates Screen Negative Urine Methadone Screen Negative Ur Barbiturates Screen Negative Ur Phencyclidine Scrn Negative Ur Amphetamines Screen Negative U Benzodiazepines Scrn Negative Urine Cocaine Screen Negative U Marijuana (THC) Screen Negative Drugs of Abuse Note Disclamer - EKG Data -: EKG Interpreted by Ct - EKG Data 01/06/21 22:08 Normal sinus rhythm. Normal axis. Normal intervals. No significant ST segment or T wave abnormalities. - Radiology Data CHEST 1 VIEW INDICATION / CLINICAL INFORMATION: sob. COMPARISON: 12/25/2020 FINDINGS: SUPPORT DEVICES: None. HEART / MEDIASTINUM: No significant abnormality. LUNGS / PLEURA: No significant pulmonary or pleural abnormality. No pneumothorax. ADDITIONAL FINDINGS: No significant additional findings. IMPRESSION: No acute disease or interval change from 12/25/2020 Signer Name: Hayden Shine MD FACR Signed: 01/06/2021 7:23 PM Workstation Name: [id number] - Medical Decision Making 50 year old male with history of bipolar disorder, hypertension, ANGELICA, CHF, and COPD is brought in by EMS due to frequent palpitations and chest pain for the past 2 days. According to the EMS report, the patient was a no x4 when he arrived. He was placed on a quality assurance monitor body and was found to have a normal hear t rate. However, during transport to the hospital, the patient at one point underwent a rhythm change and went into SVT with a rate of 180. After period of about 5 to 10 seconds, this spontaneously converted to sinus rhythm. No medications were given. A copy of the rhythm strips was provided and upon my review, I agree that the first rhythm strip shows SVT at a rate of 180. Subsequent rhythm strip shows normal sinus rhythm with a rate of approximately 70. Patient has been having episodes of chest pain and palpitations for the past couple days but today his chest pain became constant for 1.5 hours and terminated just prior to arrival. He does admit to feeling short of breath all day today and has not been using any breathing treatments. On initial assessment, the patient is in no acute distress. He is afebrile and with normal vital signs. Heart sounds are normal. Lung auscultation reveals globally decreased air movement throughout without any identifiable wheezes, rales, or r honchi. Patient has a history of schizoaffective disorder and has made several statements indicating that he might have some slight paranoia including his feeling that there is something crawling inside his urinary tract as well as his belief that people are trying to spike his drink or poison him. Nonetheless, the patient denies auditory or visual hallucinations. He denies SI/HI. None of these statements, although paranoid, constitute a risk to himself or others. Given the patient's history of COPD and his admission that he has not been using breathing treatments, as well as the fact that lung auscultation reveals globally decreased air movement throughout, it is possible that the SVT is related to his COPD. Nonetheless, we will perform broad work-up with a full set of labs, EKG, chest x-ray. We will give aspirin as well as duo nebs x2 and 125 mg of Solu-Medrol. We will keep him on a quality assurance monitor body and continue to observe him closely. On repeat assessment at 9:20 PM, the patient is sitting up in bed in no acute distress. He states that he feels better and wants to go home. Review of the patient's labs reveals no significant leukocytosis or anemia. There are no significant electrolyte abnormalities and kidney function is normal. Troponin is negative. BNP is normal. TSH is normal. Chest x-ray is clear. Lung auscultation after breathing treatments reveals improved air entry throughout. I discussed with the patient the fact that given his presentation with chest pain and an arrhythmia, I recommend that he stay for further testing and monitoring as well as trending of cardiac enzymes to rule out heart attack. I stated that I feel the patient is likely suffering from a COPD exacerbation which would benefit from a short course of steroids. He states that he does not want to wait for these prescriptions and wants to leave AGAINST MEDICAL ADVICE. He is of sound mind to make decisions for himself. He understands that the risks of leaving AGAINST MEDICAL ADVICE include possible worsening symptoms, missed diagnoses, temporary/permanent disability, and even . He was encouraged to return to emergency department should he change his mind or develo p new concerning symptoms. Critical care attestation.: If time is entered above; I have spent that time in minutes in the direct care of this critically ill patient, excluding procedure time. ED Disposition Clinical Impression: Paroxysmal SVT (supraventricular tachycardia), COPD exacerbation, Palpitations Chest pain Qualifiers: Chest pain type: unspecified Qualified Code(s): R07.9 - Chest pain, unspecified Bipolar disorder Qualifiers: Current episode severity: unspecified Disposition: LEFT AGAINST MED ADVICE Is pt being admited?: No Condition: Undetermined Instructions: Chronic Obstructive Pulmonary Disease (ED) Referrals: PRIMARY CARE, [Primary Care Provider] - 3-5 Days Forms: AMA Form
[2021-01-06 20:23] LABS: Partial Thromboplastin Time 29.4 Sec. (24.2-36.6)
--- NOTE | 2021-01-06 20:28 | XRay Report ---
CHEST 1 VIEW INDICATION / CLINICAL INFORMATION: sob. COMPARISON: 12/25/2020 FINDINGS: SUPPORT DEVICES: None. HEART / MEDIASTINUM: No significant abnormality. LUNGS / PLEURA: No significant pulmonary or pleural abnormality. No pneumothorax. ADDITIONAL FINDINGS: No significant additional findings. IMPRESSION: No acute disease or interval change from 12/25/2020 Signer Name: Hayden Shine MD FACR Signed: 01/06/2021 8:23 PM Workstation Name: [id number]
[2021-01-06 20:38] LABS: Alanine Aminotransferase 8 units/L (7-56); Albumin 3.9 g/dL (3.9-5); BUN/Creatinine Ratio 20; Blood Urea Nitrogen 14 mg/dL (9-20); Calcium 9.4 mg/dL (8.4-10.2); Hemolysis Index 11
[2021-01-06 21:50] LABS: Total Cells Counted 100
[2021-01-06 21:51] LABS: Anisocytosis 1+; Hypochromasia 1+; Large Platelets Few; Platelet Clumps Rare
--- NOTE | 2021-01-07 09:58 | Electrocardiograph Report ---
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
== END 2021-01-06 22:33 | disposition left against medical advice (07) ==
LOC: ED 18:44
DX: J44.1 Chronic obstructive pulmonary disease with (acute) exacerbation (principal); I47.1 Supraventricular tachycardia; R07.89 Other chest pain; R00.2 Palpitations; F31.9 Bipolar disorder, unspecified; I11.0 Hypertensive heart disease with heart failure; I50.9 Heart failure, unspecified; M19.91 Primary osteoarthritis, unspecified site; F17.200 Nicotine dependence, unspecified, uncomplicated; Z90.49 Acquired absence of other specified parts of digestive tract; Z98.890 Other specified postprocedural states; Z79.899 Other long term (current) drug therapy; Z88.8 Allergy status to other drugs, medicaments and biological substances
CPT/HCPCS: 36415; 71045; 80053; 80307; 81001; 82962; 83735; 83880; 84443; 84484; 85007; 85025; 85610; 85730; 93005; 94640; 96374; 99284; J2930; 94644

== ENCOUNTER 2021-01-08 04:43 | Emergency (ER) | payer MEDICARE ==
--- NOTE | 2021-01-08 06:27 | Emergency Department Report ---
ED General Adult HPI - General Stated complaint: MH EVAL, BODY ACHES PUI?: No Time Seen by Provider: 01/08/21 06:23 Source: patient Mode of arrival: Ambulatory Limitations: No Limitations - History of Present Illness Initial comments: Chief complaint: "I have aches all over my body." HPI: This is a 50-year-old male with history of bipolar disorder, obstructive sleep apnea, COPD, schizoaffective disorder who presents with body aches. I am very familar with Mr. Villalpando. I have evaluated him on several previous occasions. He arrived per EMS for body aches. He denies fever, chest pain, shortness of breath. He denies suicidal homicidal ideation. Denies hallucinations. -: Gradual, days(s) (1 to 2 days prior) Location: left, right, upper extremity, lower extremity Consistency: constant Improves with: none Worsens with: none Associated Symptoms: denies other symptoms Treatments Prior to Arrival: other (EMS transport) - Related Data Home Medications Medication Instructions Recorded Confirmed Last Taken Albuterol Sulfate [Ventolin Hfa] 2 puff IH PRN PRN 07/18/18 08/08/19 Unknown Fluticasone/Vilanterol [Breo 1 each IH DAILY 08/08/19 08/08/19 Unknown Ellipta 100-25 Mcg INH] Rivaroxaban [Xarelto] 15 mg PO BID 08/08/19 08/08/19 Unknown amLODIPine [Norvasc] 10 mg PO DAILY 08/08/19 08/08/19 Unknown lisinopriL [Zestril] 20 mg PO QDAY 08/08/19 08/08/19 Unknown Previous Rx's Medication Instructions Recorded Last Taken Type Polymyxin B Sulf/Trimethoprim 1 drop OP Q3HR 3 Days #1 bottle 07/31/18 Unknown Rx [Polytrim Eye Drops 73469syhto/0.1%] Divalproex ER [Depakote ER] 2,000 mg PO HS 30 Days tablet 12/26/18 Unknown Rx Nicotine [Habitrol] 14 mg TD QDAY #30 patch 12/26/18 Unknown Rx OLANzapine [Zyprexa] 20 mg PO HS 30 Days #30 tablet 07/16/19 Unknown Rx traZODone [Desyrel] 150 mg PO QHS 30 Days #30 tablet 07/16/19 Unknown Rx levoFLOXacin [Levaquin] 750 mg PO QDAY #5 tablet 08/06/19 Unknown Rx Acetaminophen [Non-Aspirin Extra 500 mg PO Q6HR PRN #30 tablet 11/18/19 Unknown Rx Strength] Albuterol Sulfate [Proair 90 mcg IH Q4HR PRN #2 aer.pow.ba 11/18/19 Unknown Rx Respiclick] Furosemide [Lasix] 20 mg PO QDAY #30 tablet 11/18/19 Unknown Rx Furosemide [Lasix TAB] 40 mg PO QDAY 30 Days #30 tablet 12/29/19 Unknown Rx Naproxen [Naprosyn] 500 mg PO BID #14 tablet 10/25/20 Unknown Rx Benzonatate [Tessalon Perles] 100 mg PO Q8HR PRN #20 capsule 12/25/20 Unknown Rx Allergies Allergy/AdvReac Type Severity Reaction Status Date / Time ziprasidone [From Geodon] Allergy Unknown Verified 01/06/21 19:40 tramadol AdvReac Unknown Verified 01/06/21 19:40 ED Review of Systems ROS: Stated complaint: MH EVAL, BODY ACHES Other details as noted in HPI Comment: All other systems reviewed and negative Constitutional: denies: fever, malaise Respiratory: denies: cough, orthopnea, shortness of breath Gastrointestinal: denies: abdominal pain, nausea, vomiting ED Past Medical Hx - Past Medical History Previous Medical History?: Yes Hx Hypertension: Yes Hx Congestive Heart Failure: Yes Hx Diabetes: No Hx Renal Disease: No Hx Arthritis: Yes Hx Seizures: No Hx Psychiatric Treatment: Yes (bipolar and depression) Hx Asthma: Yes Hx COPD: Yes Hx Tuberculosis: Yes (POSITIVE SKIN TEST,TOOK [place] , NEG CXR) Hx Dementia: No Hx HIV: No Additional medical history: sleep apnea - Surgical History Past Surgical History?: Yes Hx Cholecystectomy: No Hx Appendectomy: No Additional Surgical History: right knee surgery - Social History Smoking Status: Current Every Day Smoker - Medications Home Medications: Home Medications Medication Instructions Recorded Confirmed Last Taken Type Albuterol Sulfate [Ventolin Hfa] 2 puff IH PRN PRN 07/18/18 08/08/19 Unknown History Polymyxin B Sulf/Trimethoprim 1 drop OP Q3HR 3 Days #1 bottle 07/31/18 08/08/19 Unknown Rx [Polytrim Eye Drops 19433jyfjr/0.1%] Divalproex ER [Depakote ER] 2,000 mg PO HS 30 Days tablet 12/26/18 08/08/19 Unknown Rx Nicotine [Habitrol] 14 mg TD QDAY #30 patch 12/26/18 08/08/19 Unknown Rx OLANzapine [Zyprexa] 20 mg PO HS 30 Days #30 tablet 07/16/19 08/08/19 Unknown Rx traZODone [Desyrel] 150 mg PO QHS 30 Days #30 tablet 07/16/19 08/08/19 Unknown Rx levoFLOXacin [Levaquin] 750 mg PO QDAY #5 tablet 08/06/19 08/08/19 Unknown Rx Fluticasone/Vilanterol [Breo 1 each IH DAILY 08/08/19 08/08/19 Unknown History Ellipta 100-25 Mcg INH] Rivaroxaban [Xarelto] 15 mg PO BID 08/08/19 08/08/19 Unknown History amLODIPine [Norvasc] 10 mg PO DAILY 08/08/19 08/08/19 Unknown History lisinopriL [Zestril] 20 mg PO QDAY 08/08/19 08/08/19 Unknown History Acetaminophen [Non-Aspirin Extra 500 mg PO Q6HR PRN #30 tablet 11/18/19 Unknown Rx Strength] Albuterol Sulfate [Proair 90 mcg IH Q4HR PRN #2 aer.pow.ba 11/18/19 Unknown Rx Respiclick] Furosemide [Lasix] 20 mg PO QDAY #30 tablet 11/18/19 Unknown Rx Furosemide [Lasix TAB] 40 mg PO QDAY 30 Days #30 tablet 12/29/19 Unknown Rx Naproxen [Naprosyn] 500 mg PO BID #14 tablet 10/25/20 Unknown Rx Benzonatate [Tessalon Perles] 100 mg PO Q8HR PRN #20 capsule 12/25/20 Unknown Rx ED Physical Exam - General Limitations: No Limitations General appearance: alert, in no apparent distress - Head Head exam: Present: atraumatic, normocephalic - Eye Eye exam: Present: normal appearance - ENT ENT exam: Present: mucous membranes moist - Neck Neck exam: Present: normal inspection, full ROM - Respiratory Respiratory exam: Present: normal lung sounds bilaterally. Absent: respiratory distress, wheezes, rales, rhonchi - Cardiovascular Cardiovascular Exam: Present: regular rate, normal rhythm, normal heart sounds. Absent: systolic murmur, diastolic murmur, rubs, gallop - GI/Abdominal GI/Abdominal exam: Present: soft, normal bowel sounds. Absent: distended, tenderness, guarding, rebound - Rectal Rectal exam: Present: deferred - Extremities Exam Extremities exam: Present: normal inspection - Neurological Exam Neurological exam: Present: alert, oriented X3 - Psychiatric Psychiatric exam: Present: normal affect, normal mood - Skin Skin exam: Present: warm, dry, intact, normal color. Absent: rash ED Medical Decision Making - Medical Decision Making Nonspecific body aches without evidence of infection for acute emergent condition. Patient does not require acute psychiatric care at this time. He is discharged to self-care. Critical care attestation.: If time is entered above; I have spent that time in minutes in the direct care of this critically ill patient, excluding procedure time. ED Disposition Clinical Impression: Body aches Disposition: DC-01 TO HOME OR SELFCARE Is pt being admited?: No Does the pt Need Aspirin: No Condition: Stable Referrals: PRIMARY CARE, [Primary Care Provider] - 3-5 Days
[2021-01-08 06:42] VITALS: BP 146/74
== END 2021-01-08 06:42 | disposition home or self-care (01) ==
LOC: ED 04:43
DX: R52 Pain, unspecified (principal); I11.0 Hypertensive heart disease with heart failure; I50.9 Heart failure, unspecified; M19.90 Unspecified osteoarthritis, unspecified site; J44.9 Chronic obstructive pulmonary disease, unspecified; F31.9 Bipolar disorder, unspecified; F17.200 Nicotine dependence, unspecified, uncomplicated; Z98.890 Other specified postprocedural states; Z79.899 Other long term (current) drug therapy; Z88.8 Allergy status to other drugs, medicaments and biological substances
CPT/HCPCS: 99282

== ENCOUNTER 2021-01-08 19:46 | Emergency (ER) | payer MEDICARE ==
--- NOTE | 2021-01-09 01:38 | Emergency Department Report ---
ED General Adult HPI - General Chief complaint: Extremity Problem,Nontraumatic Stated complaint: BODYACHES Time Seen by Provider: 01/09/21 00:45 Source: patient Mode of arrival: Ambulatory Limitations: No Limitations - History of Present Illness Initial comments: PT is a 50 year old male with history of bipolar disorder, hypertension, ANGELICA, CHF, and COPD who presents tonight for bilae LE pain and swelling. Pt states he does not have chest pain or sob no nausea vomiting, no fever or chills. Patient describes pain as 4/10 exacerbated by aching and prolonged walking. Patient advises symptoms are exacerbated by prolonged standing and walking. Symptoms are relieved by nothing tried. Severity scale (0 -10): 3 - Related Data Home Medications Medication Instructions Recorded Confirmed Last Taken Albuterol Sulfate [Ventolin Hfa] 2 puff IH PRN PRN 07/18/18 08/08/19 Unknown Fluticasone/Vilanterol [Breo 1 each IH DAILY 08/08/19 08/08/19 Unknown Ellipta 100-25 Mcg INH] Rivaroxaban [Xarelto] 15 mg PO BID 08/08/19 08/08/19 Unknown amLODIPine [Norvasc] 10 mg PO DAILY 08/08/19 08/08/19 Unknown lisinopriL [Zestril] 20 mg PO QDAY 08/08/19 08/08/19 Unknown Previous Rx's Medication Instructions Recorded Last Taken Type Polymyxin B Sulf/Trimethoprim 1 drop OP Q3HR 3 Days #1 bottle 07/31/18 Unknown Rx [Polytrim Eye Drops 53385nwrry/0.1%] Divalproex ER [Depakote ER] 2,000 mg PO HS 30 Days tablet 12/26/18 Unknown Rx Nicotine [Habitrol] 14 mg TD QDAY #30 patch 12/26/18 Unknown Rx OLANzapine [Zyprexa] 20 mg PO HS 30 Days #30 tablet 07/16/19 Unknown Rx traZODone [Desyrel] 150 mg PO QHS 30 Days #30 tablet 07/16/19 Unknown Rx levoFLOXacin [Levaquin] 750 mg PO QDAY #5 tablet 08/06/19 Unknown Rx Acetaminophen [Non-Aspirin Extra 500 mg PO Q6HR PRN #30 tablet 11/18/19 Unknown Rx Strength] Albuterol Sulfate [Proair 90 mcg IH Q4HR PRN #2 aer.pow.ba 11/18/19 Unknown Rx Respiclick] Furosemide [Lasix] 20 mg PO QDAY #30 tablet 11/18/19 Unknown Rx Furosemide [Lasix TAB] 40 mg PO QDAY 30 Days #30 tablet 12/29/19 Unknown Rx Naproxen [Naprosyn] 500 mg PO BID #14 tablet 10/25/20 Unknown Rx Benzonatate [Tessalon Perles] 100 mg PO Q8HR PRN #20 capsule 12/25/20 Unknown Rx Naproxen 500 mg PO BID PRN #30 tablet 01/09/21 Unknown Rx Allergies Allergy/AdvReac Type Severity Reaction Status Date / Time ziprasidone [From Geodon] Allergy Unknown Verified 01/06/21 19:40 tramadol AdvReac Unknown Verified 01/06/21 19:40 ED Review of Systems ROS: Stated complaint: BODYACHES Other details as noted in HPI Constitutional: denies: chills, fever Eyes: denies: eye pain, eye discharge, vision change ENT: denies: ear pain, throat pain Respiratory: denies: cough, shortness of breath, wheezing Cardiovascular: denies: chest pain, palpitations Endocrine: no symptoms reported Gastrointestinal: denies: abdominal pain, nausea, diarrhea Genitourinary: denies: urgency, dysuria Musculoskeletal: arthralgia. denies: back pain, joint swelling Skin: denies: rash, lesions Neurological: denies: headache, weakness, paresthesias Psychiatric: denies: anxiety, depression Hematological/Lymphatic: denies: easy bleeding, easy bruising ED Past Medical Hx - Past Medical History Hx Hypertension: Yes Hx Congestive Heart Failure: Yes Hx Diabetes: No Hx Renal Disease: No Hx Arthritis: Yes Hx Seizures: No Hx Psychiatric Treatment: Yes (bipolar and depression) Hx Asthma: Yes Hx COPD: Yes Hx Tuberculosis: Yes (POSITIVE SKIN TEST,TOOK [place] , NEG CXR) Hx Dementia: No Hx HIV: No Additional medical history: sleep apnea - Surgical History Hx Cholecystectomy: No Hx Appendectomy: No Additional Surgical History: right knee surgery - Social History Smoking Status: Current Every Day Smoker - Medications Home Medications: Home Medications Medication Instructions Recorded Confirmed Last Taken Type Albuterol Sulfate [Ventolin Hfa] 2 puff IH PRN PRN 07/18/18 08/08/19 Unknown History Polymyxin B Sulf/Trimethoprim 1 drop OP Q3HR 3 Days #1 bottle 01/21/19 01/29/20 Unknown Rx [Polytrim Eye Drops 10072kagyf/0.1%] Divalproex ER [Depakote ER] 2,000 mg PO HS 30 Days tablet 12/26/18 08/08/19 Unknown Rx Nicotine [Habitrol] 14 mg TD QDAY #30 patch 12/26/18 08/08/19 Unknown Rx OLANzapine [Zyprexa] 20 mg PO HS 30 Days #30 tablet 07/16/19 08/08/19 Unknown Rx traZODone [Desyrel] 150 mg PO QHS 30 Days #30 tablet 07/16/19 08/08/19 Unknown Rx levoFLOXacin [Levaquin] 750 mg PO QDAY #5 tablet 08/06/19 08/08/19 Unknown Rx Fluticasone/Vilanterol [Breo 1 each IH DAILY 08/08/19 08/08/19 Unknown History Ellipta 100-25 Mcg INH] Rivaroxaban [Xarelto] 15 mg PO BID 08/08/19 08/08/19 Unknown History amLODIPine [Norvasc] 10 mg PO DAILY 08/08/19 08/08/19 Unknown History lisinopriL [Zestril] 20 mg PO QDAY 08/08/19 08/08/19 Unknown History Acetaminophen [Non-Aspirin Extra 500 mg PO Q6HR PRN #30 tablet 11/18/19 Unknown Rx Strength] Albuterol Sulfate [Proair 90 mcg IH Q4HR PRN #2 aer.pow.ba 11/18/19 Unknown Rx Respiclick] Furosemide [Lasix] 20 mg PO QDAY #30 tablet 11/18/19 Unknown Rx Furosemide [Lasix TAB] 40 mg PO QDAY 30 Days #30 tablet 12/29/19 Unknown Rx Naproxen [Naprosyn] 500 mg PO BID #14 tablet 10/25/20 Unknown Rx Benzonatate [Tessalon Perles] 100 mg PO Q8HR PRN #20 capsule 12/25/20 Unknown Rx Naproxen 500 mg PO BID PRN #30 tablet 01/09/21 Unknown Rx ED Physical Exam - General Limitations: No Limitations General appearance: alert, in no apparent distress - Head Head exam: Present: atraumatic, normocephalic - Eye Eye exam: Present: normal appearance, EOMI Pupils: Present: normal accommodation - ENT ENT exam: Present: mucous membranes moist - Neck Neck exam: Present: normal inspection, full ROM. Absent: tenderness, meningismus, lymphadenopathy, thyromegaly - Respiratory Respiratory exam: Present: normal lung sounds bilaterally, wheezes, stridor, chest wall tenderness. Absent: respiratory distress - Cardiovascular Cardiovascular Exam: Present: regular rate, normal rhythm, normal heart sounds. Absent: systolic murmur, diastolic murmur, rubs, gallop - GI/Abdominal GI/Abdominal exam: Present: soft, normal bowel sounds. Absent: distended, tenderness - Rectal Rectal exam: Present: deferred - Extremities Exam Extremities exam: Present: normal inspection, full ROM, normal capillary refill. Absent: tenderness, pedal edema, calf tenderness - Back Exam Back exam: Present: normal inspection, full ROM. Absent: tenderness, CVA tenderness (R) - Neurological Exam Neurological exam: Absent: alert - Psychiatric Psychiatric exam: Present: normal affect, normal mood - Skin Skin exam: Present: warm, dry, intact, normal color. Absent: rash ED Course Vital Signs 01/08/21 20:55 Temperature 98.4 F Pulse Rate 104 H Respiratory 18 Rate Blood Pressure 130/90 [Left] O2 Sat by Pulse 95 Oximetry ED Medical Decision Making - Medical Decision Making Chest x-ray normal, troponin normal, pain was improved by offloading. Distal pulses are intact bilateral. There is no edema no pitting edema, no open wound, distal pulses intact bilat, pt is ambulatory with steady gait. Critical care attestation.: If time is entered above; I have spent that time in minutes in the direct care of this critically ill patient, excluding procedure time. ED Disposition Clinical Impression: Musculoskeletal pain Arthralgia Qualifiers: Joint pain location: unspecified Qualified Code(s): M25.50 - Pain in unspecified joint Disposition: - TO HOME OR SELFCARE Is pt being admited?: No Does the pt Need Aspirin: No Condition: Stable Instructions: Myofascial Pain Syndrome and Fibromyalgia, Musculoskeletal Pain Additional Instructions: Follow-up with your doctor in 2 to 3 days. Return to emergency should symptoms worsen. Prescriptions: Naproxen 500 mg PO BID PRN #30 tablet PRN Reason: Pain , Severe (7-10) Referrals: ZANDRA EDOUARD MD [Staff Physician] - 3-5 Days Time of Disposition: 01:56
[2021-01-09] MEDS ORDERED: NAPROXEN 500 MG TAB PO ONE (01:46)
[2021-01-09 03:06] VITALS: BP 131/81
== END 2021-01-09 03:07 | disposition home or self-care (01) ==
LOC: ED 19:46
DX: M19.91 Primary osteoarthritis, unspecified site (principal); I11.0 Hypertensive heart disease with heart failure; I50.9 Heart failure, unspecified; F31.9 Bipolar disorder, unspecified; J44.9 Chronic obstructive pulmonary disease, unspecified; F17.200 Nicotine dependence, unspecified, uncomplicated; Z98.890 Other specified postprocedural states; Z79.899 Other long term (current) drug therapy; Z88.8 Allergy status to other drugs, medicaments and biological substances
CPT/HCPCS: 99282

== ENCOUNTER 2021-01-25 20:09 | Emergency (ER) | payer MEDICARE ==
[2021-01-26 00:57] VITALS: BP 127/92
--- NOTE | 2021-01-26 02:28 | XRay Report ---
CHEST 2 VIEWS INDICATION / CLINICAL INFORMATION: pain LT SIDE CHEST PAIN. COMPARISON: 01/06/2021 FINDINGS: SUPPORT DEVICES: None. HEART / MEDIASTINUM: No significant abnormality. LUNGS / PLEURA: No significant pulmonary or pleural abnormality. No pneumothorax. ADDITIONAL FINDINGS: No significant additional findings. IMPRESSION: 1. No acute findings. No significant change Signer Name: Mynor Monson MD Signed: 01/26/2021 2:24 AM Workstation Name: [id number]
== END 2021-01-26 11:00 ==
LOC: ED 20:09
DX: R07.9 Chest pain, unspecified (principal); Z53.21 Procedure and treatment not carried out due to patient leaving prior to being seen by health care provider
CPT/HCPCS: 71046

== ENCOUNTER 2021-01-29 02:53 | Emergency (ER) | payer MEDICARE ==
--- NOTE | 2021-01-29 03:43 | XRay Report ---
CHEST 2 VIEWS INDICATION / CLINICAL INFORMATION: chest pain. COMPARISON: 01/27/2020 FINDINGS: SUPPORT DEVICES: None. HEART / MEDIASTINUM: No significant abnormality. LUNGS / PLEURA: No significant pulmonary or pleural abnormality. No pneumothorax. ADDITIONAL FINDINGS: No significant additional findings. IMPRESSION: 1. No significant change. Signer Name: Mynor Monson MD Signed: 01/29/2021 3:39 AM Workstation Name: [id number]
[2021-01-29 04:07] LABS: Hematocrit 42.7 % (35.5-45.6); Hemoglobin 13.7 gm/dl (11.8-15.2); Mean Corpuscular HGB Conc 32 % (32-34); Mean Corpuscular Volume 72 fl (84-94); Red Blood Count 5.94 M/mm3 (3.65-5.03)
[2021-01-29 04:10] LABS: Platelet Count 75 K/mm3 (140-440)
[2021-01-29 04:33] LABS: Alanine Aminotransferase 12 units/L (7-56); Albumin 3.9 g/dL (3.9-5); BUN/Creatinine Ratio 30; Blood Urea Nitrogen 24 mg/dL (9-20); Calcium 8.6 mg/dL (8.4-10.2); Hemolysis Index 73
[2021-01-29 04:58] LABS: Anisocytosis 1+; Hypochromasia 1+; Large Platelets Few; Platelet Clumps Rare; Total Cells Counted 100
[2021-01-29] MEDS ORDERED: ASPIRIN 81 MG TAB CHEW PO ONE (11:17)
--- NOTE | 2021-01-29 11:17 | Event Note ---
ED Screening Note Date of service: 01/29/21 Time: 11:15 ED Screening Note: 50-year-old male patient with history of schizophrenia, hypertension, diabetes, tobacco use, and BMI >41 presents to the emergency department with complaints of chest pain for 3 days. Describes the pain as "sharp," radiating to his back, no identifiable exacerbating or relieving factors. States he was prescribed Metformin by his primary care provider but he "only takes it once in awhile." States he has previously been evaluated by a solar installation manager, but he is unsure why. General: Awake, appropriately interactive, no acute distress. Neck: Supple. Full range of motion intact. Cardiovascular: Normal peripheral perfusion. Pulmonary: No respiratory distress. Patient is speaking normally without use of accessory muscles. Skin: No apparent rashes or lesions. Neurological: No facial asymmetry. Speech is clear. Follows commands. Patient is alert and oriented. Musculoskeletal: Moves all four extremities spontaneously with normal range of motion. Psych: Cooperative. Appropriate mood and affect. I have greeted and performed a focused rapid initial assessment of this patient. A comprehensive ED assessment and evaluation of the patient, analysis of all test results, and completion of the medical decision-making process will be conducted by additional ED providers. This initial assessment/diagnostic orders/clinical plan/treatment(s) is/are subject to change based on patients health status, clinical progression and re-assessment. Further treatment and workup at subsequent clinical provider's discretion. Patient/guardian urged not to elope from the ED as their condition may be serious if not clinically assessed and managed.
--- NOTE | 2021-01-29 11:41 | Emergency Department Report ---
ED Chest Pain HPI - General Chief Complaint: Chest Pain Stated Complaint: CHEST PAIN Time Seen by Provider: 01/29/21 11:30 Source: patient Mode of arrival: Ambulatory Limitations: No Limitations - History of Present Illness Initial Comments: Chief complaint: Chest pain HPI: This is a 50-year-old male with history of COPD, coronary artery disease, CHF, asthma, bipolar disorder, hypertension who presents with chest burning for several days. He denies fever, cough, shortness of breath, vomiting. Pain is persistent even at rest. No change with exertion or inspiration cough. recent CT angiogram of the chest obtained December 25, 2020, ruled out pulmonary embolism. MD Complaint: chest pain -: Gradual, days(s) (3 DAYS) Onset: during rest Pain Radiation: none Severity: moderate Quality: sharp, other (burning) Improves With: nothing Worsens With: nothing Treatments Prior to Arrival: none - Related Data Home Medications Medication Instructions Recorded Confirmed Last Taken Albuterol Sulfate [Ventolin Hfa] 2 puff IH PRN PRN 07/18/18 08/08/19 Unknown Fluticasone/Vilanterol [Breo 1 each IH DAILY 08/08/19 08/08/19 Unknown Ellipta 100-25 Mcg INH] Rivaroxaban [Xarelto] 15 mg PO BID 08/08/19 08/08/19 Unknown amLODIPine [Norvasc] 10 mg PO DAILY 08/08/19 08/08/19 Unknown lisinopriL [Zestril] 20 mg PO QDAY 08/08/19 08/08/19 Unknown Previous Rx's Medication Instructions Recorded Last Taken Type Polymyxin B Sulf/Trimethoprim 1 drop OP Q3HR 3 Days #1 bottle 07/31/18 Unknown Rx [Polytrim Eye Drops 14426jebkr/0.1%] Divalproex ER [Depakote ER] 2,000 mg PO HS 30 Days tablet 12/26/18 Unknown Rx Nicotine [Habitrol] 14 mg TD QDAY #30 patch 12/26/18 Unknown Rx OLANzapine [Zyprexa] 20 mg PO HS 30 Days #30 tablet 07/16/19 Unknown Rx traZODone [Desyrel] 150 mg PO QHS 30 Days #30 tablet 07/16/19 Unknown Rx levoFLOXacin [Levaquin] 750 mg PO QDAY #5 tablet 08/06/19 Unknown Rx Acetaminophen [Non-Aspirin Extra 500 mg PO Q6HR PRN #30 tablet 11/18/19 Unknown Rx Strength] Albuterol Sulfate [Proair 90 mcg IH Q4HR PRN #2 aer.pow.ba 11/18/19 Unknown Rx Respiclick] Furosemide [Lasix] 20 mg PO QDAY #30 tablet 11/18/19 Unknown Rx Furosemide [Lasix TAB] 40 mg PO QDAY 30 Days #30 tablet 12/29/19 Unknown Rx Naproxen [Naprosyn] 500 mg PO BID #14 tablet 10/25/20 Unknown Rx Benzonatate [Tessalon Perles] 100 mg PO Q8HR PRN #20 capsule 12/25/20 Unknown Rx Naproxen 500 mg PO BID PRN #30 tablet 01/09/21 Unknown Rx Allergies Allergy/AdvReac Type Severity Reaction Status Date / Time ziprasidone [From Geodon] Allergy Unknown Verified 01/26/21 01:14 tramadol AdvReac Unknown Verified 01/26/21 01:14 Heart Score - HEART Score History: Slightly suspicious EKG: Normal Age: 45-65 Risk factors: 1-2 risk factors Troponin: < normal limit HEART Score: 2 - EKG Read Time Time EKG Completed: 11:17 EKG Read Time: 11:23 - Critical Actions Critical Actions: 0-3 pts:0.9-1.7%risk of adverse cardiac event.Candidate for discharge ED Review of Systems ROS: Stated complaint: CHEST PAIN Other details as noted in HPI Comment: All other systems reviewed and negative Constitutional: denies: fever, malaise Respiratory: denies: cough, shortness of breath Cardiovascular: chest pain Gastrointestinal: denies: abdominal pain, nausea, vomiting Skin: denies: rash, lesions Neurological: denies: headache ED Past Medical Hx - Past Medical History Previous Medical History?: Yes Hx Hypertension: Yes Hx Congestive Heart Failure: Yes Hx Diabetes: No Hx Renal Disease: No Hx Arthritis: Yes Hx Seizures: No Hx Psychiatric Treatment: Yes (bipolar and depression) Hx Asthma: Yes Hx COPD: Yes Hx Tuberculosis: Yes (POSITIVE SKIN TEST,TOOK [place] , NEG CXR) Hx Dementia: No Hx HIV: No Additional medical history: sleep apnea - Surgical History Past Surgical History?: Yes Hx Cholecystectomy: No Hx Appendectomy: No Additional Surgical History: right knee surgery - Family History Family history: hypertension - Social History Smoking Status: Current Every Day Smoker Substance Use Type: None - Medications Home Medications: Home Medications Medication Instructions Recorded Confirmed Last Taken Type Albuterol Sulfate [Ventolin Hfa] 2 puff IH PRN PRN 07/18/18 08/08/19 Unknown History Polymyxin B Sulf/Trimethoprim 1 drop OP Q3HR 3 Days #1 bottle 07/31/18 08/08/19 Unknown Rx [Polytrim Eye Drops 76616nwesc/0.1%] Divalproex ER [Depakote ER] 2,000 mg PO HS 30 Days tablet 12/26/18 08/08/19 Unknown Rx Nicotine [Habitrol] 14 mg TD QDAY #30 patch 12/26/18 08/08/19 Unknown Rx OLANzapine [Zyprexa] 20 mg PO HS 30 Days #30 tablet 07/16/19 08/08/19 Unknown Rx traZODone [Desyrel] 150 mg PO QHS 30 Days #30 tablet 07/16/19 08/08/19 Unknown Rx levoFLOXacin [Levaquin] 750 mg PO QDAY #5 tablet 08/06/19 08/08/19 Unknown Rx Fluticasone/Vilanterol [Breo 1 each IH DAILY 08/08/19 08/08/19 Unknown History Ellipta 100-25 Mcg INH] Rivaroxaban [Xarelto] 15 mg PO BID 08/08/19 08/08/19 Unknown History amLODIPine [Norvasc] 10 mg PO DAILY 08/08/19 08/08/19 Unknown History lisinopriL [Zestril] 20 mg PO QDAY 08/08/19 08/08/19 Unknown History Acetaminophen [Non-Aspirin Extra 500 mg PO Q6HR PRN #30 tablet 11/18/19 Unknown Rx Strength] Albuterol Sulfate [Proair 90 mcg IH Q4HR PRN #2 aer.pow.ba 11/18/19 Unknown Rx Respiclick] Furosemide [Lasix] 20 mg PO QDAY #30 tablet 11/18/19 Unknown Rx Furosemide [Lasix TAB] 40 mg PO QDAY 30 Days #30 tablet 12/29/19 Unknown Rx Naproxen [Naprosyn] 500 mg PO BID #14 tablet 10/25/20 Unknown Rx Benzonatate [Tessalon Perles] 100 mg PO Q8HR PRN #20 capsule 12/25/20 Unknown Rx Naproxen 500 mg PO BID PRN #30 tablet 01/09/21 Unknown Rx ED Physical Exam - General Limitations: No Limitations General appearance: alert, in no apparent distress - Head Head exam: Present: atraumatic, normocephalic - Eye Eye exam: Present: normal appearance - ENT ENT exam: Present: mucous membranes moist - Neck Neck exam: Present: normal inspection, full ROM - Respiratory Respiratory exam: Present: normal lung sounds bilaterally. Absent: respiratory distress, wheezes, rales, rhonchi - Cardiovascular Cardiovascular Exam: Present: regular rate, normal rhythm, normal heart sounds. Absent: systolic murmur, diastolic murmur, rubs, gallop - GI/Abdominal GI/Abdominal exam: Present: soft, normal bowel sounds. Absent: distended, tenderness, rebound - Rectal Rectal exam: Present: deferred - Extremities Exam Extremities exam: Present: normal inspection - Neurological Exam Neurological exam: Present: alert, oriented X3 - Psychiatric Psychiatric exam: Present: normal affect, normal mood - Skin Skin exam: Present: warm, dry, intact, normal color. Absent: rash ED Course Vital Signs 01/29/21 03:17 Temperature 97.9 F Pulse Rate 86 Respiratory 18 Rate Blood Pressure 121/85 O2 Sat by Pulse 94 Oximetry JUSTYN score - Justyn Score Age > 65: (0) No Aspirin use within the Past 7 Days: (0) No 3 or more CAD Risk Factors: (1) Yes 2 or more Angina events in past 24 hrs: (1) Yes Known CAD with more than 50% Stenosis: (0) No Elevated Cardiac Markers: (0) No ST Deviation Greater than 0.5mm: (0) No JUSTYN Score: 2 ED Medical Decision Making - Lab Data Result diagrams: 01/29/21 03:35 01/29/21 03:35 - EKG Data -: EKG Interpreted by Mt EKG shows normal: sinus rhythm, axis, intervals, QRS complexes, ST-T waves Rate: normal - EKG Data Interpretation: normal EKG - Radiology Data Radiology results: report reviewed Chest radiograph 2 views: No significant change according to radiology impression, no acute abnormality. - Medical Decision Making GERD, musculoskeletal chest pain: This is noncardiac in nature. Normal EKG. Tr oponin x2 -. Recently evaluated and ruled out for pulmonary embolism. Patient has had recurrent chest pain. Considerations stable angina. Patient received Maalox [place] in the emergency department for comfort. He is discharged to follow-up with his personal physician. Critical care attestation.: If time is entered above; I have spent that time in minutes in the direct care of this critically ill patient, excluding procedure time. ED Disposition Clinical Impression: Chest wall pain, GERD (gastroesophageal reflux disease) Disposition: TO HOME OR SELFCARE Is pt being admited?: No Does the pt Need Aspirin: No Condition: Stable Instructions: Nonspecific Chest Pain, Adult Referrals: ZANDRA EDOUARD MD [Staff Physician] - 3-5 Days
[2021-01-29] MEDS ORDERED: ALUM-MAG HYDROXIDE-SIMETHICONE 200-200-20MG/5ML ORAL LIQD 30 ML PO ONE (11:42)
[2021-01-29] MEDS ORDERED: HYDROcodone/ACETAMINOPHEN 5-325 MG TAB PO ONE (11:42)
[2021-01-29 11:54] VITALS: BP 131/94
--- NOTE | 2021-01-29 12:41 | Electrocardiograph Report ---
[facility] [place] Test Date: 2021-01-29 Test Time: 11:17:22 Pat Name: NANCY SOTO Department: Room: Gender: M Director Of Learning: CORI : 1970 Requested By: MARYAM RUIZ Order Number: [id number] Reading MD: Pa Bennett Measurements Intervals [place] Rate: 70 P: 30 [place]: 190 QRS: 53 QRSD: 95 T: 87 QT: 392 QTc: 424 Interpretive Statements Sinus rhythm Probable left atrial enlargement Nonspecific T wave abnormality Compared to ECG 01/06/2021 19:41:28 No significant changes Electronically Signed On 01-29-2021 12:40:55 EDT by Pa Bennett
== END 2021-01-29 12:33 | disposition home or self-care (01) ==
LOC: ED 02:53
DX: K21.9 Gastro-esophageal reflux disease without esophagitis (principal); R07.89 Other chest pain; I11.0 Hypertensive heart disease with heart failure; I50.9 Heart failure, unspecified; M19.91 Primary osteoarthritis, unspecified site; J44.9 Chronic obstructive pulmonary disease, unspecified; F17.200 Nicotine dependence, unspecified, uncomplicated; Z98.890 Other specified postprocedural states; Z79.899 Other long term (current) drug therapy; Z88.8 Allergy status to other drugs, medicaments and biological substances
CPT/HCPCS: 36415; 71046; 80053; 84484; 85007; 85025; 93005

== ENCOUNTER 2021-02-25 06:57 | Emergency (ER) | payer MEDICARE ==
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
--- NOTE | 2021-02-25 11:12 | XRay Report ---
CHEST PA AND LATERAL VIEWS INDICATION: cough. COMPARISON: 01/29/2021 FINDINGS: Support devices: None. Heart: Stable. Lungs/Pleura: No acute pulmonary or pleural findings. IMPRESSION: 1. No significant change. Signer Name: Chris Tolentino MD Signed: 02/25/2021 11:08 AM Workstation Name: [id number]
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
[2021-02-25 12:23] LABS: Hematocrit 44.7 % (35.5-45.6); Hemoglobin 14.4 gm/dl (11.8-15.2); Mean Corpuscular HGB Conc 32 % (32-34); Mean Corpuscular Volume 73 fl (84-94); Red Cell Distribution Width 17.4 % (13.2-15.2)
[2021-02-25 12:42] LABS: Alanine Aminotransferase 14 units/L (7-56); Blood Urea Nitrogen 21 mg/dL (9-20); Calcium 9.2 mg/dL (8.4-10.2); Hemolysis Index 15
[2021-02-25 12:45] LABS: BUN/Creatinine Ratio 30
[2021-02-25] MEDS ORDERED: diphenhydrAMINE 50 MG/ML VIAL IM ONE (13:08)
[2021-02-25] MEDS: LORazepam 2 MG/ML VIAL IM SCH (13:34)
[2021-02-25] MEDS ORDERED: POTASSIUM CHLORIDE ER 20 MEQ TAB PO ONE ×2 (13:40→18:00)
[2021-02-25] MEDS: DIVALPROEX DR 250 MG TAB PO SCH ×2 (13:51→22:52)
[2021-02-25] MEDS: risperiDONE 0.25 MG TAB PO SCH ×2 (13:51→22:52)
[2021-02-25 16:21] LABS: Bilirubin,Urine NEG (Negative); Blood,Urine NEG (Negative); Color,Urine Yellow (Yellow); Protein,Urine <15 mg/dL mg/dL (Negative); RBC,Urine < 1.0 /HPF (0.0-6.0); Urobilinogen,Urine < 2.0 mg/dL (<2.0)
[2021-02-25 16:25] LABS: Amphetamine Screen,Urine Negative; Benzodiazepines Screen,Urine Negative; Cannabinoid Screen,Urine Negative; Cocaine Screen,Urine Negative; Methadone Screen,Urine Negative; Opiate Screen,Urine Negative
[2021-02-25 19:22] LABS: Anisocytosis 1+; Total Cells Counted 100
[2021-02-25 19:23] LABS: Hypochromasia Few; Large Platelets Few; Platelet Clumps Rare
[2021-02-25 19:25] LABS: Platelet Count 93 K/mm3 (140-440)
[2021-02-25] MEDS ORDERED: traZODone 50 MG TAB PO SCH (22:00)
[2021-02-26] MEDS ORDERED: IBUPROFEN 800 MG TAB PO ONE (04:14)
[2021-02-26] MEDS: LORazepam 2 MG/ML VIAL IM SCH (04:34)
[2021-02-26 08:11] VITALS: BP 114/70
--- NOTE | 2021-02-26 09:32 | Progress Note ---
Subjective - Reason for Consult Consult date: 02/26/21 Reason for consult: MHE - Chief Complaint Chief complaint: The patient was seen today. He is calm and cooperative. He is much calmer than yesterday. His thoughts are more organized. He is still very talkative. He remembers me and tells me that I misunderstood him. The patient verbalizes feeling much better. He says "I've just been going through a lot lately." He denies SI/HI. He says "listen. I hope you didn't write down anything about me wanting to hurt myself or anybody. I never told you that not even yesterday." He then says "I'm not there or not even getting close to do anything like that." The patient denies hallucinations of any kind. He says "I hope you are letting me go. I slept good and I age good. But I could use more food." REVIEW OF SYSTEMS Constitutional: Negative for weight loss ENT: Negative for stridor Respiratory: Negative for cough or hemoptysis All other systems reviewed and are negative MENTAL STATUS EXAMINATION General Appearance and Behavior: Age appropriate, good hygiene, wearing appropriate clothes, good eye contact, cooperative Cooperation: cooperative Mood: good Affect and affective range: congruent with stated mood Thought Process: goal oriented Thought Content: None Speech: normal tone and pace Suicidal Ideation: Denies Homicidal Ideation: Denies Hallucinations: Denies Delusions: None elicited Impulse Control: impaired Insight and Judgment:Limited insight and judgement Memory: Limited Attention: Normal Orientation: Alert, oriented Assessment and Plan Bipolar Disorder Treatment D/c 1013 Depakote D 250mg po BID Risperidone 0.5mg po BID Trazodone 50mg po qhs Sitter: Defer to primary Medical: per primary Disposition: Do not recommend acute psychiatric inpatient treatment The patient to follow up with outpatient psych in 7 to 14 days upon discharge Will sign off. Thanks. Case staffed with Dr. Oliveira Mental Status Exam - Vital signs Last Vital Signs Temp 97.9 F 02/26/21 08:09 Pulse 74 02/26/21 08:09 Resp 20 02/26/21 08:09 BP 114/70 02/26/21 08:09 Pulse Ox 98 02/26/21 08:09
[2021-02-26] MEDS: DIVALPROEX DR 250 MG TAB PO SCH (09:34)
[2021-02-26] MEDS: risperiDONE 0.25 MG TAB PO SCH (09:34)
--- NOTE | 2021-02-26 09:58 | Electrocardiograph Report ---
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
--- NOTE | 2021-02-26 10:08 | Event Note ---
Mr. Villalpando will be discharged. He was cleared by mental health team for discharge. He currently does not require inpatient psychiatric treatment.
== END 2021-02-26 10:37 | disposition home or self-care (01) ==
LOC: ED 06:57 → EEVIPCON 06:57 → ED 02-26 10:37
DX: F23 Brief psychotic disorder (principal); F31.9 Bipolar disorder, unspecified; I11.0 Hypertensive heart disease with heart failure; M19.90 Unspecified osteoarthritis, unspecified site; J45.909 Unspecified asthma, uncomplicated; J44.9 Chronic obstructive pulmonary disease, unspecified; A15.9 Respiratory tuberculosis unspecified; G47.30 Sleep apnea, unspecified; Z98.890 Other specified postprocedural states; Z20.822 Contact with and (suspected) exposure to COVID-19
CPT/HCPCS: 36415; 71046; 80053; 80307; 81001; 84484; 85007; 85025; 93005; 96372; 99284; J1200; J2060; U0003; 80320; 99285; G0480

== ENCOUNTER 2021-03-02 07:19 | Emergency (ER) | payer MEDICARE ==
[2021-03-02 07:45] VITALS: BP 131/66
[2021-03-02] MEDS ORDERED: ASPIRIN 325 MG TAB PO ONE (07:50)
[2021-03-02 22:13] LABS: Hemoglobin 13.3 gm/dl (11.8-15.2); Mean Corpuscular HGB Conc 32 % (32-34); Mean Corpuscular Volume 73 fl (84-94); Red Blood Count 5.63 M/mm3 (3.65-5.03); Red Cell Distribution Width 17.1 % (13.2-15.2)
[2021-03-02 22:14] LABS: Platelet Count 99 K/mm3 (140-440)
[2021-03-02 22:20] LABS: BUN/Creatinine Ratio 32; Blood Urea Nitrogen 19 mg/dL (9-20); Calcium 9.3 mg/dL (8.4-10.2); Hemolysis Index 75
[2021-03-02 23:05] LABS: Anisocytosis 1+; Total Cells Counted 100
[2021-03-02 23:06] LABS: Hypochromasia Few
--- NOTE | 2021-03-03 10:01 | Electrocardiograph Report ---
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
== END 2021-03-03 01:00 | disposition left against medical advice (07) ==
LOC: ED 07:19
DX: R07.9 Chest pain, unspecified (principal); Z53.21 Procedure and treatment not carried out due to patient leaving prior to being seen by health care provider
CPT/HCPCS: 36415; 80048; 80320; 85007; 85025; 93005; G0480

== ENCOUNTER 2021-03-03 05:22 | Emergency (ER) | payer MEDICARE | END 2021-03-03 08:00 | disposition hospice, home (50) | LOC: ED 05:22 | DX: M79.606 Pain in leg, unspecified (principal); Z53.21 Procedure and treatment not carried out due to patient leaving prior to being seen by health care provider ==

== ENCOUNTER 2021-03-03 08:27 | Emergency (ER) | payer MEDICARE | END 2021-03-03 09:00 | disposition left against medical advice (07) | LOC: ED 08:27 | DX: R07.9 Chest pain, unspecified (principal); Z53.21 Procedure and treatment not carried out due to patient leaving prior to being seen by health care provider ==

== ENCOUNTER 2021-03-03 11:54 | Emergency (ER) | payer MEDICARE | END 2021-03-03 22:18 | LOC: ED 11:54 | DX: R07.9 Chest pain, unspecified (principal); Z53.21 Procedure and treatment not carried out due to patient leaving prior to being seen by health care provider ==

== ENCOUNTER 2021-03-07 22:11 | Emergency (ER) | payer MEDICARE ==
[2021-03-08 01:57] VITALS: BP 141/88
[2021-03-08 02:40] LABS: Basophils % (Auto) 0.6 % (0.0-1.8); Eosinophils # (Auto) 0.1 K/mm3 (0.0-0.4); Eosinophils % (Auto) 1.7 % (0.0-4.3); Hematocrit 41.2 % (35.5-45.6); Hemoglobin 13.1 gm/dl (11.8-15.2); Lymphocytes # (Auto) 2.4 K/mm3 (1.2-5.4); Lymphocytes % (Auto) 50.9 % (13.4-35.0); Mean Corpuscular HGB Conc 32 % (32-34); Mean Corpuscular Volume 74 fl (84-94); Monocytes # (Auto) 0.6 K/mm3 (0.0-0.8); Monocytes % (Auto) 11.6 % (0.0-7.3); Platelet Count 119 K/mm3 (140-440); Red Blood Count 5.57 M/mm3 (3.65-5.03); Red Cell Distribution Width 16.6 % (13.2-15.2)
[2021-03-08 02:54] LABS: BUN/Creatinine Ratio 23; Blood Urea Nitrogen 21 mg/dL (9-20); Calcium 9.8 mg/dL (8.4-10.2); Hemolysis Index 5
[2021-03-08 04:04] LABS: Bilirubin,Urine NEG (Negative); Blood,Urine NEG (Negative); Color,Urine Yellow (Yellow); Protein,Urine <15 mg/dL mg/dL (Negative); WBC,Urine < 1.0 /HPF (0.0-6.0)
[2021-03-08 04:41] LABS: Amphetamine Screen,Urine Negative; Benzodiazepines Screen,Urine Negative; Cannabinoid Screen,Urine Negative; Cocaine Screen,Urine Negative; Methadone Screen,Urine Negative; Opiate Screen,Urine Negative
== END 2021-03-08 07:59 | disposition left against medical advice (07) ==
LOC: ED 22:11
DX: R07.9 Chest pain, unspecified (principal); Z53.21 Procedure and treatment not carried out due to patient leaving prior to being seen by health care provider
CPT/HCPCS: 36415; 80048; 80307; 80320; 81001; 84484; 85025; G0480

== ENCOUNTER 2021-04-09 02:12 | Emergency (ER) | payer MEDICARE ==
[2021-04-09 02:18] VITALS: BP 120/78
--- NOTE | 2021-04-09 02:37 | Emergency Department Report ---
ED Medical Clearance HPI - General Chief complaint: Medical Clearance Stated complaint: NOT FEELING WELL Time Seen by Provider: 04/09/21 02:15 Source: patient Mode of arrival: Ambulatory - History of Present Illness Initial comments: Patient is a 50-year-old male who presents emergency room with complaints of not feeling well. Patient states he has been not feeling well for 3 years. Patient states the symptoms are worsening. Patient denies chest pain. Patient denies shortness of breath. Patient denies fever or chills. Patient states he was able to walk to the hospital. Patient states he has a primary care. Patient states he is compliant with all of his medications. Patient denies recent travel. Patient denies recent international travel. Patient denies exposure to the novel coronavirus. Patient denies sick contacts. Patient denies fever and chills. Patient denies cough. Patient denies diarrhea. Patient denies coming in contact with anybody with symptoms of the novel coronavirus. Patient is not vaccinated against COVID-19. MD Complaint: medical clearance request -: Sudden Place: home Alledged Intoxication: No Compliant with Home Medications: Yes Traumatic Symptoms: denies traumatic injury Associated Symptoms: denies other symptoms. denies: chest pain, shortness of breath, palpitations, diaphoresis, confusion, cough, fever/chills, headaches, anorexia, malaise, nausea/vomiting, rash, seizure, syncope, weakness Treatments Prior to Arrival: none Home medications: Home Medications Medication Instructions Recorded Confirmed Last Taken Albuterol Sulfate [Ventolin Hfa] 2 puff IH PRN PRN 07/18/18 08/08/19 Unknown Fluticasone/Vilanterol [Breo 1 each IH DAILY 08/08/19 08/08/19 Unknown Ellipta 100-25 Mcg INH] Rivaroxaban [Xarelto] 15 mg PO BID 08/08/19 08/08/19 Unknown amLODIPine [Norvasc] 10 mg PO DAILY 08/08/19 08/08/19 Unknown lisinopriL [Zestril] 20 mg PO QDAY 08/08/19 08/08/19 Unknown Previous Rx's Medication Instructions Recorded Last Taken Type Polymyxin B Sulf/Trimethoprim 1 drop OP Q3HR 3 Days #1 bottle 07/31/18 Unknown Rx [Polytrim Eye Drops 19611mepix/0.1%] Divalproex ER [Depakote ER] 2,000 mg PO HS 30 Days tablet 12/26/18 Unknown Rx Nicotine [Habitrol] 14 mg TD QDAY #30 patch 12/26/18 Unknown Rx OLANzapine [Zyprexa] 20 mg PO HS 30 Days #30 tablet 07/16/19 Unknown Rx traZODone [Desyrel] 150 mg PO QHS 30 Days #30 tablet 07/16/19 Unknown Rx levoFLOXacin [Levaquin] 750 mg PO QDAY #5 tablet 08/06/19 Unknown Rx Acetaminophen [Non-Aspirin Extra 500 mg PO Q6HR PRN #30 tablet 11/18/19 Unknown Rx Strength] Albuterol Sulfate [Proair 90 mcg IH Q4HR PRN #2 aer.pow.ba 11/18/19 Unknown Rx Respiclick] Furosemide [Lasix] 20 mg PO QDAY #30 tablet 11/18/19 Unknown Rx Furosemide [Lasix TAB] 40 mg PO QDAY 30 Days #30 tablet 12/29/19 Unknown Rx Naproxen [Naprosyn] 500 mg PO BID #14 tablet 10/25/20 Unknown Rx Benzonatate [Tessalon Perles] 100 mg PO Q8HR PRN #20 capsule 12/25/20 Unknown Rx Naproxen 500 mg PO BID PRN #30 tablet 01/09/[address] [DepaKOTE DR] 250 mg PO BID #60 tablet 02/26/21 Unknown Rx risperiDONE [RisperDAL] 0.5 mg PO BID #60 tablet 02/26/21 Unknown Rx traZODone [Desyrel] 50 mg PO QHS #30 tab 02/26/21 Unknown Rx Allergies/Adverse reactions: Allergies Allergy/AdvReac Type Severity Reaction Status Date / Time ziprasidone [From [place]] Allergy Unknown Verified 04/09/21 02:18 tramadol AdvReac Unknown Verified 04/09/21 02:18 ED Review of Systems ROS: Stated complaint: NOT FEELING WELL Other details as noted in HPI Constitutional: denies: chills, fever Eyes: denies: eye pain, eye discharge, vision change ENT: denies: ear pain, throat pain Respiratory: denies: cough, shortness of breath, wheezing Cardiovascular: denies: chest pain, palpitations Endocrine: no symptoms reported Gastrointestinal: denies: abdominal pain, nausea, diarrhea Genitourinary: denies: urgency, dysuria Musculoskeletal: denies: back pain, joint swelling, arthralgia Skin: denies: rash, lesions Neurological: denies: headache, weakness, paresthesias Psychiatric: denies: anxiety, depression, auditory hallucinations, visual hallucinations, homicidal thoughts, suicidal thoughts Hematological/Lymphatic: denies: easy bleeding, easy bruising ED Past Medical Hx - Past Medical History Previous Medical History?: Yes Hx Hypertension: Yes Hx Congestive Heart Failure: Yes Hx Diabetes: No Hx Renal Disease: No Hx Arthritis: Yes Hx Seizures: No Hx Psychiatric Treatment: Yes (bipolar and depression) Hx Asthma: Yes Hx COPD: Yes Hx Tuberculosis: Yes (POSITIVE SKIN TEST,TOOK [place] , NEG CXR) Hx Dementia: No Hx HIV: No Additional medical history: sleep apnea - Surgical History Past Surgical History?: Yes Hx Cholecystectomy: No Hx Appendectomy: No Additional Surgical History: right knee surgery - Family History Family history: no significant - Social History Smoking Status: Never Smoker Substance Use Type: None - Medications Home Medications: Home Medications Medication Instructions Recorded Confirmed Last Taken Type Albuterol Sulfate [Ventolin Hfa] 2 puff IH PRN PRN 07/18/18 08/08/19 Unknown History Polymyxin B Sulf/Trimethoprim 1 drop OP Q3HR 3 Days #1 bottle 07/31/18 08/08/19 Unknown Rx [Polytrim Eye Drops 01769upnko/0.1%] Divalproex ER [Depakote ER] 2,000 mg PO HS 30 Days tablet 12/26/18 08/08/19 Unknown Rx Nicotine [Habitrol] 14 mg TD QDAY #30 patch 12/26/18 08/08/19 Unknown Rx OLANzapine [Zyprexa] 20 mg PO HS 30 Days #30 tablet 07/16/19 08/08/19 Unknown Rx traZODone [Desyrel] 150 mg PO QHS 30 Days #30 tablet 07/16/19 08/08/19 Unknown Rx levoFLOXacin [Levaquin] 750 mg PO QDAY #5 tablet 08/06/19 08/08/19 Unknown Rx Fluticasone/Vilanterol [Breo 1 each IH DAILY 08/08/19 08/08/19 Unknown History Ellipta 100-25 Mcg INH] Rivaroxaban [Xarelto] 15 mg PO BID 08/08/19 08/08/19 Unknown History amLODIPine [Norvasc] 10 mg PO DAILY 08/08/19 08/08/19 Unknown History lisinopriL [Zestril] 20 mg PO QDAY 08/08/19 08/08/19 Unknown History Acetaminophen [Non-Aspirin Extra 500 mg PO Q6HR PRN #30 tablet 11/18/19 Unknown Rx Strength] Albuterol Sulfate [Proair 90 mcg IH Q4HR PRN #2 aer.pow.ba 11/18/19 Unknown Rx Respiclick] Furosemide [Lasix] 20 mg PO QDAY #30 tablet 11/18/19 Unknown Rx Furosemide [Lasix TAB] 40 mg PO QDAY 30 Days #30 tablet 12/29/19 Unknown Rx Naproxen [Naprosyn] 500 mg PO BID #14 tablet 10/25/20 Unknown Rx Benzonatate [Tessalon Perles] 100 mg PO Q8HR PRN #20 capsule 12/25/20 Unknown Rx Naproxen 500 mg PO BID PRN #30 tablet 01/09/[address] [DepaKOTE DR] 250 mg PO BID #60 tablet 02/26/21 Unknown Rx risperiDONE [RisperDAL] 0.5 mg PO BID #60 tablet 02/26/21 Unknown Rx traZODone [Desyrel] 50 mg PO QHS #30 tab 02/26/21 Unknown Rx ED Physical Exam - General Limitations: No Limitations General appearance: alert, in no apparent distress - Head Head exam: Present: atraumatic, normocephalic - Eye Eye exam: Present: normal appearance, PERRL Pupils: Present: normal accommodation - ENT ENT exam: Present: mucous membranes moist - Neck Neck exam: Present: normal inspection - Respiratory Respiratory exam: Present: normal lung sounds bilaterally. Absent: respiratory distress - Cardiovascular Cardiovascular Exam: Present: regular rate, normal rhythm. Absent: systolic murmur, diastolic murmur, rubs, gallop - GI/Abdominal GI/Abdominal exam: Present: soft, normal bowel sounds. Absent: distended, tende rness, guarding - Rectal Rectal exam: Present: deferred - Extremities Exam Extremities exam: Present: normal inspection - Back Exam Back exam: Present: normal inspection - Neurological Exam Neurological exam: Present: alert, oriented X3, CN II-XII intact, normal gait, reflexes normal. Absent: abnormal gait, motor sensory deficit - Expanded Neurological Exam Expanded Cranial nerves: EOM's Intact: Normal, Tongue Deviation: Normal, Facial Sensation: Normal Cerebellar function: Finger to Nose: Normal, Heel to Silva: Normal, [place]: Normal Motor strength exam: RUE: 5, LUE: 5, RLE: 5, LLE: 5 Best Eye Response ([place]): (4) open spontaneously Best Motor Response ([place]): (6) obeys commands Best Verbal Response ([place]): (5) oriented [place] Total: 15 - Psychiatric Psychiatric exam: Present: normal affect, normal mood - Skin Skin exam: Present: warm, dry, intact, normal color. Absent: rash ED Course Vital Signs 04/09/21 02:13 Temperature 98.6 F Pulse Rate 93 H Respiratory 18 Rate Blood Pressure 120/78 O2 Sat by Pulse 97 Oximetry - Reevaluation(s) Reevaluation #1: I discussed all results and clinical findings with patient. I discussed plan of care with patient. Patient agrees with plan of care. Patient is stable for discharge. Patient will be discharged home. Patient given discharge instructions. Patient voiced understanding of discharge instructions. 04/09/21 02:34 ED Medical Decision Making - Medical Decision Making Patient is a 50-year-old male who presents emergency room with complaints of not feeling well. Patient states been going on for many years. Patient's not feeling well is a chronic condition. Patient does not require any further emergency medical service. Patient not require inpatient services. Patient's vital signs are reassuring. Patient has had multiple visits to the ER. Patient at this time is stable. Patient can follow-up with his primary care and can be followed as an outpatient for his chronic condition. Patient instructed to continue all his medications and follow-up with his primary care for further evaluation and treatment. - Differential Diagnosis Medical clearance, medical screening ED Disposition Clinical Impression: Encounter for medical screening examination Hypertension Qualifiers: Hypertension type: unspecified Qualified Code(s): I10 - Essential (primary) hypertension Disposition: HOME / SELF CARE / HOMELESS Is pt being admited?: No Does the pt Need Aspirin: No Condition: Stable Instructions: Medical Screening Exam, Preventing Hypertension, Hypertension (ED) Additional Instructions: Patient to follow-up with primary care in 2 to 3 days. Patient to monitor blood pressure at home. Patient to keep a blood pressure log. Patient to take blood pressure log to all follow-up appointments. Patient to eat a low-salt diet. Patient to rest. Patient to increase water. Patient continue all medications. Patient to return to the ER if condition worsens, changes or new symptoms arise. Referrals: PRIMARY CARE, [Primary Care Provider] - 3-5 Days Time of Disposition: 02:37
== END 2021-04-09 02:55 | disposition home or self-care (01) ==
LOC: ED 02:12
DX: Z00.00 Encounter for general adult medical examination without abnormal findings (principal); I11.0 Hypertensive heart disease with heart failure; M19.90 Unspecified osteoarthritis, unspecified site; J44.9 Chronic obstructive pulmonary disease, unspecified; F32.9 Major depressive disorder, single episode, unspecified; G47.30 Sleep apnea, unspecified; A15.9 Respiratory tuberculosis unspecified; Z98.890 Other specified postprocedural states; Z88.5 Allergy status to narcotic agent; Z88.8 Allergy status to other drugs, medicaments and biological substances
CPT/HCPCS: 99282

== ENCOUNTER 2021-04-09 08:51 | Emergency (ER) | payer MEDICARE ==
--- NOTE | 2021-04-09 09:30 | Emergency Department Report ---
ED General Adult HPI - General Stated complaint: NUMBNESS IN BOTH HANDS Time Seen by Provider: 04/09/21 09:09 - History of Present Illness Initial comments: Patient presents secondary to numbness in both hands. He actually tells me that he has had numbness and tingling in both hands and he thinks that he might have a pinched nerve in his neck. This is been going on for at least a year. He states that he cannot see his doctor because everything is done on telemedicine. He came here for evaluation. He demands that we do blood work and x-rays to of care what is going on. He states that he has a toxin in his body as well. He believes that he needs to be tested for a toxin. He also request that we tested for STDs despite the fact that he says he is not sexually active. He states that he demands us to do blood work and x-rays to figure out what is causing his symptoms. He states that he does not have any new symptoms. All of his symptoms have been ongoing. They have not been progressive. He has been seen numerous times for these issues. Work-ups previously have been inconclusive and unremarkable. He reports that he knows there is something wrong internally and demands that we do something about it. He states that I should "just do my job and test him." - Related Data Home Medications Medication Instructions Recorded Confirmed Last Taken Albuterol Sulfate [Ventolin Hfa] 2 puff IH PRN PRN 07/18/18 08/08/19 Unknown Fluticasone/Vilanterol [Breo 1 each IH DAILY 08/08/19 08/08/19 Unknown Ellipta 100-25 Mcg INH] Rivaroxaban [Xarelto] 15 mg PO BID 08/08/19 08/08/19 Unknown amLODIPine [Norvasc] 10 mg PO DAILY 08/08/19 08/08/19 Unknown lisinopriL [Zestril] 20 mg PO QDAY 08/08/19 08/08/19 Unknown Previous Rx's Medication Instructions Recorded Last Taken Type Polymyxin B Sulf/Trimethoprim 1 drop OP Q3HR 3 Days #1 bottle 07/31/18 Unknown Rx [Polytrim Eye Drops 61820pcxzr/0.1%] Divalproex ER [Depakote ER] 2,000 mg PO HS 30 Days tablet 12/26/18 Unknown Rx Nicotine [Habitrol] 14 mg TD QDAY #30 patch 12/26/18 Unknown Rx OLANzapine [Zyprexa] 20 mg PO HS 30 Days #30 tablet 07/16/19 Unknown Rx traZODone [Desyrel] 150 mg PO QHS 30 Days #30 tablet 07/16/19 Unknown Rx levoFLOXacin [Levaquin] 750 mg PO QDAY #5 tablet 08/06/19 Unknown Rx Acetaminophen [Non-Aspirin Extra 500 mg PO Q6HR PRN #30 tablet 11/18/19 Unknown Rx Strength] Albuterol Sulfate [Proair 90 mcg IH Q4HR PRN #2 aer.pow.ba 11/18/19 Unknown Rx Respiclick] Furosemide [Lasix] 20 mg PO QDAY #30 tablet 11/18/19 Unknown Rx Furosemide [Lasix TAB] 40 mg PO QDAY 30 Days #30 tablet 12/29/19 Unknown Rx Naproxen [Naprosyn] 500 mg PO BID #14 tablet 10/25/20 Unknown Rx Benzonatate [Tessalon Perles] 100 mg PO Q8HR PRN #20 capsule 12/25/20 Unknown Rx Naproxen 500 mg PO BID PRN #30 tablet 01/09/[address] [DepaKOTE DR] 250 mg PO BID #60 tablet 02/26/21 Unknown Rx risperiDONE [RisperDAL] 0.5 mg PO BID #60 tablet 02/26/21 Unknown Rx traZODone [Desyrel] 50 mg PO QHS #30 tab 02/26/21 Unknown Rx Allergies Allergy/AdvReac Type Severity Reaction Status Date / Time ziprasidone [From [facility]] Allergy Unknown Verified 04/09/21 02:18 tramadol AdvReac Unknown Verified 04/09/21 02:18 ED Review of Systems ROS: Stated complaint: NUMBNESS IN BOTH HANDS Other details as noted in HPI Comment: All other systems reviewed and negative Constitutional: denies: fever Eyes: denies: vision change ENT: denies: ear pain Respiratory: denies: cough Cardiovascular: denies: chest pain Endocrine: denies: unexplained weight loss Gastrointestinal: denies: vomiting Genitourinary: denies: hematuria, discharge Musculoskeletal: denies: back pain Skin: denies: rash Neurological: headache ( Chronically) Psychiatric: denies: suicidal thoughts Hematological/Lymphatic: denies: easy bruising ED Past Medical Hx - Past Medical History Hx Hypertension: Yes Hx Congestive Heart Failure: Yes Hx Diabetes: No Hx Renal Disease: No Hx Arthritis: Yes Hx Seizures: No Hx Psychiatric Treatment: Yes (bipolar and depression) Hx Asthma: Yes Hx COPD: Yes Hx Tuberculosis: Yes (POSITIVE SKIN TEST,TOOK [place] , NEG CXR) Hx Dementia: No Hx HIV: No Additional medical history: sleep apnea - Surgical History Hx Cholecystectomy: No Hx Appendectomy: No Additional Surgical History: right knee surgery - Family History Family history: hypertension - Social History Smoking Status: Never Smoker Substance Use Type: None - Medications Home Medications: Home Medications Medication Instructions Recorded Confirmed Last Taken Type Albuterol Sulfate [Ventolin Hfa] 2 puff IH PRN PRN 07/18/18 08/08/19 Unknown History Polymyxin B Sulf/Trimethoprim 1 drop OP Q3HR 3 Days #1 bottle 07/31/18 08/08/19 Unknown Rx [Polytrim Eye Drops 25169kiawf/0.1%] Divalproex ER [Depakote ER] 2,000 mg PO HS 30 Days tablet 12/26/18 08/08/19 Unknown Rx Nicotine [Habitrol] 14 mg TD QDAY #30 patch 12/26/18 08/08/19 Unknown Rx OLANzapine [Zyprexa] 20 mg PO HS 30 Days #30 tablet 07/16/19 08/08/19 Unknown Rx traZODone [Desyrel] 150 mg PO QHS 30 Days #30 tablet 07/16/19 08/08/19 Unknown Rx levoFLOXacin [Levaquin] 750 mg PO QDAY #5 tablet 08/06/19 08/08/19 Unknown Rx Fluticasone/Vilanterol [Breo 1 each IH DAILY 08/08/19 08/08/19 Unknown History Ellipta 100-25 Mcg INH] Rivaroxaban [Xarelto] 15 mg PO BID 08/08/19 08/08/19 Unknown History amLODIPine [Norvasc] 10 mg PO DAILY 08/08/19 08/08/19 Unknown History lisinopriL [Zestril] 20 mg PO QDAY 08/08/19 08/08/19 Unknown History Acetaminophen [Non-Aspirin Extra 500 mg PO Q6HR PRN #30 tablet 11/18/19 Unknown Rx Strength] Albuterol Sulfate [Proair 90 mcg IH Q4HR PRN #2 aer.pow.ba 11/18/19 Unknown Rx Respiclick] Furosemide [Lasix] 20 mg PO QDAY #30 tablet 11/18/19 Unknown Rx Furosemide [Lasix TAB] 40 mg PO QDAY 30 Days #30 tablet 12/29/19 Unknown Rx Naproxen [Naprosyn] 500 mg PO BID #14 tablet 10/25/20 Unknown Rx Benzonatate [Tessalon Perles] 100 mg PO Q8HR PRN #20 capsule 12/25/20 Unknown Rx Naproxen 500 mg PO BID PRN #30 tablet 01/09/[address] [DepaKOTE DR] 250 mg PO BID #60 tablet 02/26/21 Unknown Rx risperiDONE [RisperDAL] 0.5 mg PO BID #60 tablet 02/26/21 Unknown Rx traZODone [Desyrel] 50 mg PO QHS #30 tab 02/26/21 Unknown Rx ED Physical Exam - General Limitations: No Limitations, Other ( pulse ox is noted and normal for him. This appears to be at his baseline.) General appearance: alert, in no apparent distress, obese - Head Head exam: Present: atraumatic, normocephalic, normal inspection - Eye Eye exam: Present: normal appearance, EOMI. Absent: scleral icterus - ENT ENT exam: Present: normal exam, normal orophraynx - Neck Neck exam: Present: normal inspection. Absent: meningismus - Respiratory Respiratory exam: Absent: respiratory distress - Cardiovascular Cardiovascular Exam: Present: other ( Normal pulses) - GI/Abdominal GI/Abdominal exam: Present: other ( obese) - Extremities Exam Extremities exam: Present: normal inspection, normal capillary refill - Back Exam Back exam: Present: full ROM - Neurological Exam Neurological exam: Present: alert, oriented X3, normal gait - Psychiatric Psychiatric exam: Present: agitated, other ( demanding and confrontational) - Skin Skin exam: Present: warm, dry ED Course Vital Signs 04/09/21 08:55 Temperature 97.9 F Pulse Rate 74 Respiratory 16 Rate Blood Pressure 142/89 O2 Sat by Pulse 91 Oximetry - Reevaluation(s) Reevaluation #1: 04/09/21 11:55 patient was discharged. ED Medical Decision Making - Medical Decision Making Patient presents secondary to reports of paresthesias in both arms. He has numerous other complaints. All of these have been ongoing and chronic. There is no indication for medical work-up. He is demanding that we do blood work. I have reviewed his chart. We did blood work on him about 1 month prior and it was normal. I have gone over those results with him. At this time, there is no medical indication to repeat any blood work. There is no indication that he needs any kind of imaging. Patient states that he does not want to be confrontational. He just wants me to "do my job." Patient was subsequently discharged as he does not seem to have any obvious emergent medical condition. Critical care attestation.: If time is entered above; I have spent that time in minutes in the direct care of this critically ill patient, excluding procedure time. ED Disposition Clinical Impression: Paresthesia Disposition: 01 HOME / SELF CARE / HOMELESS Is pt being admited?: No Condition: Stable Instructions: Paresthesia Additional Instructions: Follow-up with your regular doctor for consideration of MRI. Referrals: PRIMARY MD EMILIA [Referring] - 3-5 Days EUSEBIO HARLEY MD [Staff Physician] - 3-5 Days
[2021-04-09 09:45] VITALS: BP 142/89
== END 2021-04-09 10:22 | disposition home or self-care (01) ==
LOC: ED 08:51
DX: R20.2 Paresthesia of skin (principal); I11.0 Hypertensive heart disease with heart failure; M19.90 Unspecified osteoarthritis, unspecified site; J44.9 Chronic obstructive pulmonary disease, unspecified; A15.9 Respiratory tuberculosis unspecified; G47.30 Sleep apnea, unspecified; F32.9 Major depressive disorder, single episode, unspecified; Z98.890 Other specified postprocedural states; Z88.5 Allergy status to narcotic agent; Z88.8 Allergy status to other drugs, medicaments and biological substances
CPT/HCPCS: 99281; 99282

== ENCOUNTER 2021-04-17 21:45 | Emergency (ER) | payer MEDICARE ==
[2021-04-18 00:50] VITALS: BP 114/84
--- NOTE | 2021-04-18 01:11 | Event Note ---
ED Screening Note Date of service: 04/18/21 Time: 01:08 ED Screening Note: 50 y/o male pt w/ hx of mental health disorder presents to ED w/ multiple complaints, including: shortness of breath, dizziness, "sugar is up," rectal bleeding, and hearing voices. Pt states, "I know what I'm saying isn't making any sense, I haven't slept in four days." General: Somnolent but arousable with verbal stimulation. SpO2 91% on room air. Neck: Supple. Full range of motion intact. Cardiovascular: Normal peripheral perfusion. Pulmonary: No respiratory distress. Patient is speaking normally without use of accessory muscles. Skin: No apparent rashes or lesions. Neurological: No facial asymmetry. Speech is clear. Follows commands. Patient is alert and oriented. Musculoskeletal: Moves all four extremities spontaneously with normal range of motion. Psych: Cooperative. EKG, labs, chest x-ray ordered. I have greeted and performed a focused rapid initial assessment of this patient. A comprehensive ED assessment and evaluation of the patient, analysis of all test results, and completion of the medical decision-making process will be conducted by additional ED providers. This initial assessment/diagnostic orders/clinical plan/treatment(s) is/are subject to change based on patients health status, clinical progression and re-assessment. Further treatment and workup at subsequent clinical provider's discretion. Patient/guardian urged not to elope from the ED as their condition may be serious if not clinically assessed and managed.
[2021-04-18 01:28] LABS: Basophils % (Auto) 0.5 % (0.0-1.8); Eosinophils # (Auto) 0.1 K/mm3 (0.0-0.4); Eosinophils % (Auto) 1.5 % (0.0-4.3); Hemoglobin 12.4 gm/dl (11.8-15.2); Lymphocytes # (Auto) 2.7 K/mm3 (1.2-5.4); Lymphocytes % (Auto) 44.2 % (13.4-35.0); Mean Corpuscular HGB Conc 33 % (32-34); Mean Corpuscular Volume 71 fl (84-94); Monocytes # (Auto) 0.9 K/mm3 (0.0-0.8); Monocytes % (Auto) 15.7 % (0.0-7.3); Platelet Count 136 K/mm3 (140-440); Red Blood Count 5.34 M/mm3 (3.65-5.03); Red Cell Distribution Width 15.8 % (13.2-15.2)
[2021-04-18 01:40] LABS: INR 0.91 (0.87-1.13)
[2021-04-18 01:41] LABS: Partial Thromboplastin Time 25.3 Sec. (24.2-36.6)
[2021-04-18 01:47] LABS: Alanine Aminotransferase 13 units/L (7-56); Albumin 4.2 g/dL (3.9-5); Blood Urea Nitrogen 14 mg/dL (9-20); Calcium 9.7 mg/dL (8.4-10.2); Hemolysis Index 4
--- NOTE | 2021-04-18 01:51 | Emergency Department Report ---
ED General Adult HPI - General Chief complaint: Dyspnea/Respdistress Stated complaint: JOSE LUIS PUI?: No Time Seen by Provider: 04/18/21 01:05 Source: patient Mode of arrival: Ambulatory Limitations: No Limitations - History of Present Illness Initial comments: Patient is a 50-year-old male that presents emergency room with multiple complaints. Patient states that he is having shortness of breath, hearing voices, rectal bleeding, dizziness, elevated sugar. patient states his sugar has been elevated. Patient states shortness breath been going on for 3 years. Patient states been hearing voices for many years. Patient denies suicidal homicidal ideations. Patient states he sees a psychiatrist. Patient states his vision has been going on for 3 years as well. Patient states he had rectal bleeding 6 weeks ago. Patient states he has not had any rectal bleeding since. Patient states has been seen here multiple times for these problems. Patient states he has not followed up with a primary care. Patient denies fever and chills. Patient denies chest pain. Patient denies nausea vomiting. Patient denies recent blood in his stool. Patient denies recent travel. Patient denies recent international travel. Patient denies exposure to the novel coronavirus. Patient denies sick contacts. Patient denies fever and chills. Patient denies cough. Patient denies diarrhea. Patient denies coming in contact with anybody with symptoms of the novel coronavirus. -: Sudden Consistency: now resolved - Related Data Home Medications Medication Instructions Recorded Confirmed Last Taken Albuterol Sulfate [Ventolin Hfa] 2 puff IH PRN PRN 07/18/18 08/08/19 Unknown Fluticasone/Vilanterol [Breo 1 each IH DAILY 08/08/19 08/08/19 Unknown Ellipta 100-25 Mcg INH] Rivaroxaban [Xarelto] 15 mg PO BID 08/08/19 08/08/19 Unknown amLODIPine [Norvasc] 10 mg PO DAILY 08/08/19 08/08/19 Unknown lisinopriL [Zestril] 20 mg PO QDAY 08/08/19 08/08/19 Unknown Previous Rx's Medication Instructions Recorded Last Taken Type Polymyxin B Sulf/Trimethoprim 1 drop OP Q3HR 3 Days #1 bottle 07/31/18 Unknown Rx [Polytrim Eye Drops 37742nwmsk/0.1%] Divalproex ER [Depakote ER] 2,000 mg PO HS 30 Days tablet 12/26/18 Unknown Rx Nicotine [Habitrol] 14 mg TD QDAY #30 patch 12/26/18 Unknown Rx OLANzapine [Zyprexa] 20 mg PO HS 30 Days #30 tablet 07/16/19 Unknown Rx traZODone [Desyrel] 150 mg PO QHS 30 Days #30 tablet 07/16/19 Unknown Rx levoFLOXacin [Levaquin] 750 mg PO QDAY #5 tablet 08/06/19 Unknown Rx Acetaminophen [Non-Aspirin Extra 500 mg PO Q6HR PRN #30 tablet 11/18/19 Unknown Rx Strength] Albuterol Sulfate [Proair 90 mcg IH Q4HR PRN #2 aer.pow.ba 11/18/19 Unknown Rx Respiclick] Furosemide [Lasix] 20 mg PO QDAY #30 tablet 11/18/19 Unknown Rx Furosemide [Lasix TAB] 40 mg PO QDAY 30 Days #30 tablet 12/29/19 Unknown Rx Naproxen [Naprosyn] 500 mg PO BID #14 tablet 10/25/20 Unknown Rx Benzonatate [Tessalon Perles] 100 mg PO Q8HR PRN #20 capsule 12/25/20 Unknown Rx Naproxen 500 mg PO BID PRN #30 tablet 01/09/[address] [DepaKOTE DR] 250 mg PO BID #60 tablet 02/26/21 Unknown Rx risperiDONE [RisperDAL] 0.5 mg PO BID #60 tablet 02/26/21 Unknown Rx traZODone [Desyrel] 50 mg PO QHS #30 tab 02/26/21 Unknown Rx Allergies Allergy/AdvReac Type Severity Reaction Status Date / Time ziprasidone [From [facility]] Allergy Unknown Verified 04/18/21 00:49 tramadol AdvReac Unknown Verified 04/18/21 00:49 ED Review of Systems ROS: Stated complaint: JOSE LUIS Other details as noted in HPI Constitutional: denies: chills, fever Eyes: denies: eye pain, eye discharge, vision change ENT: denies: ear pain, throat pain Respiratory: see HPI, shortness of breath. denies: cough, wheezing Cardiovascular: denies: chest pain, palpitations Endocrine: no symptoms reported Gastrointestinal: hematochezia. denies: abdominal pain, nausea, diarrhea Genitourinary: denies: urgency, dysuria Musculoskeletal: denies: back pain, joint swelling, arthralgia Skin: denies: rash, lesions Neurological: as per HPI. denies: headache, weakness, paresthesias Psychiatric: as per HPI, auditory hallucinations. denies: anxiety, depression Hematological/Lymphatic: denies: easy bleeding, easy bruising ED Past Medical Hx - Past Medical History Previous Medical History?: Yes Hx Hypertension: Yes Hx Congestive Heart Failure: Yes Hx Diabetes: No Hx Renal Disease: No Hx Arthritis: Yes Hx Seizures: No Hx Psychiatric Treatment: Yes (bipolar and depression) Hx Asthma: Yes Hx COPD: Yes Hx Tuberculosis: Yes (POSITIVE SKIN TEST,TOOK [place] , NEG CXR) Hx Dementia: No Hx HIV: No Additional medical history: sleep apnea - Surgical History Past Surgical History?: Yes Hx Cholecystectomy: No Hx Appendectomy: No Additional Surgical History: right knee surgery - Family History Family history: no significant - Social History Smoking Status: Current Every Day Smoker Substance Use Type: None - Medications Home Medications: Home Medications Medication Instructions Recorded Confirmed Last Taken Type Albuterol Sulfate [Ventolin Hfa] 2 puff IH PRN PRN 07/18/18 08/08/19 Unknown History Polymyxin B Sulf/Trimethoprim 1 drop OP Q3HR 3 Days #1 bottle 07/31/18 08/08/19 Unknown Rx [Polytrim Eye Drops 76579nzplz/0.1%] Divalproex ER [Depakote ER] 2,000 mg PO HS 30 Days tablet 12/26/18 08/08/19 Unknown Rx Nicotine [Habitrol] 14 mg TD QDAY #30 patch 12/26/18 08/08/19 Unknown Rx OLANzapine [Zyprexa] 20 mg PO HS 30 Days #30 tablet 07/16/19 08/08/19 Unknown Rx traZODone [Desyrel] 150 mg PO QHS 30 Days #30 tablet 07/16/19 08/08/19 Unknown Rx levoFLOXacin [Levaquin] 750 mg PO QDAY #5 tablet 08/06/19 08/08/19 Unknown Rx Fluticasone/Vilanterol [Breo 1 each IH DAILY 08/08/19 08/08/19 Unknown History Ellipta 100-25 Mcg INH] Rivaroxaban [Xarelto] 15 mg PO BID 08/08/19 08/08/19 Unknown History amLODIPine [Norvasc] 10 mg PO DAILY 08/08/19 08/08/19 Unknown History lisinopriL [Zestril] 20 mg PO QDAY 08/08/19 08/08/19 Unknown History Acetaminophen [Non-Aspirin Extra 500 mg PO Q6HR PRN #30 tablet 11/18/19 Unknown Rx Strength] Albuterol Sulfate [Proair 90 mcg IH Q4HR PRN #2 aer.pow.ba 11/18/19 Unknown Rx Respiclick] Furosemide [Lasix] 20 mg PO QDAY #30 tablet 11/18/19 Unknown Rx Furosemide [Lasix TAB] 40 mg PO QDAY 30 Days #30 tablet 12/29/19 Unknown Rx Naproxen [Naprosyn] 500 mg PO BID #14 tablet 10/25/20 Unknown Rx Benzonatate [Tessalon Perles] 100 mg PO Q8HR PRN #20 capsule 12/25/20 Unknown Rx Naproxen 500 mg PO BID PRN #30 tablet 01/09/[address] [DepaKOTE DR] 250 mg PO BID #60 tablet 02/26/21 Unknown Rx risperiDONE [RisperDAL] 0.5 mg PO BID #60 tablet 02/26/21 Unknown Rx traZODone [Desyrel] 50 mg PO QHS #30 tab 02/26/21 Unknown Rx ED Physical Exam - General Limitations: No Limitations General appearance: alert, in no apparent distress - Head Head exam: Present: atraumatic, normocephalic - Eye Eye exam: Present: normal appearance - ENT ENT exam: Present: mucous membranes moist - Neck Neck exam: Present: normal inspection - Respiratory Respiratory exam: Present: normal lung sounds bilaterally. Absent: respiratory distress - Cardiovascular Cardiovascular Exam: Present: regular rate, normal rhythm. Absent: systolic murmur, diastolic murmur, rubs, gallop - GI/Abdominal GI/Abdominal exam: Present: soft, normal bowel sounds. Absent: distended, tenderness, guarding - Rectal Rectal exam: Present: deferred - Extremities Exam Extremities exam: Present: normal inspection - Back Exam Back exam: Present: normal inspection. Absent: full ROM, tenderness, CVA tenderness (R), CVA tenderness (L), muscle spasm, paraspinal tenderness, vertebral tenderness - Neurological Exam Neurological exam: Present: alert, oriented X3, CN II-XII intact, normal gait - Psychiatric Psychiatric exam: Present: normal affect, normal mood. Absent: homicidal ideation, suicidal ideation - Skin Skin exam: Present: warm, dry, intact, normal color. Absent: rash ED Course Vital Signs 04/18/21 00:45 Temperature 98.0 F Pulse Rate 90 Respiratory 18 Rate Blood Pressure 114/84 O2 Sat by Pulse 91 Oximetry - Reevaluation(s) Reevaluation #1: I discussed all results and clinical findings with patient. I discussed plan of care with patient. Patient agrees with plan of care. Patient is stable for discharge. Patient will be discharged home. Patient given discharge instructions. Patient voiced understanding of discharge instructions. Patient states he does not want the EKG be done. 04/18/21 02:31 ED Medical Decision Making - Lab Data Result diagrams: 04/18/21 01:11 04/18/21 01:11 - Radiology Data Radiology results: report reviewed, image reviewed interpreted by me: Chest x-ray: No pneumonia, no pneumothorax, no foreign body, no osseous findings, no acute findings CHEST 2 VIEWS INDICATION / CLINICAL INFORMATION: SOB. COMPARISON: 10/26/2020 FINDINGS: SUPPORT DEVICES: None. HEART / MEDIASTINUM: No significant abnormality. LUNGS / PLEURA: No significant pulmonary or pleural abnormality. No pneumothorax. ADDITIONAL FINDINGS: No significant additional findings. IMPRESSION: 1. No acute findings. - Medical Decision Making Patient is a 50-year-old male who presents emergency room with multiple complaints. Patient's complaints are all chronic. Patient complains of shortness of breath, hearing voices, rectal bleeding, dizziness and elevated sugar. Patient's labs are done and are essentially unremarkable. Patient's not anemic. Patient is chemistry is essentially normal. Patient can follow-up as an outpatient. Patient will refer to a barrel bung remover and dumper. Patient referred back to his primary care. Patient had a chest x-ray which was negative for acute findings. I personally reviewed the chest x-ray. Patient refused EKG. I discussed all results and clinical findings with patient. I discussed plan of care with patient. Patient agrees with plan of care. Patient is stable for discharge. Patient will be discharged home. Patient given discharge instructions. Patient voiced understanding of discharge instructions. - Differential Diagnosis Multiple complaints, shortness of breath, chronic conditions, Critical care attestation.: If time is entered above; I have spent that time in minutes in the direct care of this critically ill patient, excluding procedure time. ED Disposition Clinical Impression: Shortness of breath, Rectal bleeding, Dizziness, Schizoaffective disorder, bipolar type Disposition: HOME / SELF CARE / HOMELESS Is pt being admited?: No Does the pt Need Aspirin: No Condition: Stable Instructions: Shortness of Breath, Adult, [id number], Dizziness, [id number] Additional Instructions: Patient to follow-up with primary care in 2 to 3 days. Patient to follow-up with gastroenterology in 2 to 3 days. Patient to rest. Patient to increase water. Patient to take Tylenol or ibuprofen as needed for pain. Patient to continue all home meds. Patient to return to the ER if condition worsens, changes or new symptoms arise. Referrals: PRIMARY CARE, [Primary Care Provider] - 2-3 Days LIDIA STODDARD MD [Staff Physician] - 2-3 Days Time of Disposition: 02:35
[2021-04-18 01:56] LABS: BUN/Creatinine Ratio 20
--- NOTE | 2021-04-18 02:18 | XRay Report ---
CHEST 2 VIEWS INDICATION / CLINICAL INFORMATION: SOB. COMPARISON: 10/26/2020 FINDINGS: SUPPORT DEVICES: None. HEART / MEDIASTINUM: No significant abnormality. LUNGS / PLEURA: No significant pulmonary or pleural abnormality. No pneumothorax. ADDITIONAL FINDINGS: No significant additional findings. IMPRESSION: 1. No acute findings. Signer Name: Martinez Espinoza MD Signed: 04/18/2021 2:13 AM Workstation Name: [id number]
== END 2021-04-18 03:45 | disposition home or self-care (01) ==
LOC: ED 21:45
DX: R06.02 Shortness of breath (principal); K62.5 Hemorrhage of anus and rectum; R42 Dizziness and giddiness; F25.0 Schizoaffective disorder, bipolar type; R73.9 Hyperglycemia, unspecified; I10 Essential (primary) hypertension; M19.90 Unspecified osteoarthritis, unspecified site; F31.9 Bipolar disorder, unspecified; J45.909 Unspecified asthma, uncomplicated; J44.9 Chronic obstructive pulmonary disease, unspecified; G47.30 Sleep apnea, unspecified; Z98.890 Other specified postprocedural states; F17.200 Nicotine dependence, unspecified, uncomplicated; Z88.8 Allergy status to other drugs, medicaments and biological substances
CPT/HCPCS: 36415; 71046; 80053; 83735; 84484; 85025; 85610; 85730; 99283

== ENCOUNTER 2021-04-19 01:21 | Emergency (ER) | payer MEDICARE ==
--- NOTE | 2021-04-19 01:39 | Emergency Department Report ---
ED General Adult HPI - General Stated complaint: BILATERAL LEG NUMBNESS Time Seen by Provider: 04/19/21 01:35 Source: patient - History of Present Illness Initial comments: Patient is 50 years old male, very familiar to this ER secondary to recurrent visits. Patient has history of bipolar disorder and hypertension. Patient bro ught to the emergency room via EMS from a local gas station. Patient chief complaint is bilateral lower extremity pain and numbness. Patient stated that he has borderline diabetes. Patient is sleepy but answers questions. He denied any chest pain or shortness of breath. No abdominal pain, nausea or vomiting. No headache focal weakness. No suicidal or homicidal ideation. - Related Data Home Medications Medication Instructions Recorded Confirmed Last Taken Albuterol Sulfate [Ventolin Hfa] 2 puff IH PRN PRN 07/18/18 08/08/19 Unknown Fluticasone/Vilanterol [Breo 1 each IH DAILY 08/08/19 08/08/19 Unknown Ellipta 100-25 Mcg INH] Rivaroxaban [Xarelto] 15 mg PO BID 08/08/19 08/08/19 Unknown amLODIPine [Norvasc] 10 mg PO DAILY 08/08/19 08/08/19 Unknown lisinopriL [Zestril] 20 mg PO QDAY 08/08/19 08/08/19 Unknown Previous Rx's Medication Instructions Recorded Last Taken Type Polymyxin B Sulf/Trimethoprim 1 drop OP Q3HR 3 Days #1 bottle 07/31/18 Unknown Rx [Polytrim Eye Drops 92203ladqn/0.1%] Divalproex ER [Depakote ER] 2,000 mg PO HS 30 Days tablet 12/26/18 Unknown Rx Nicotine [Habitrol] 14 mg TD QDAY #30 patch 12/26/18 Unknown Rx OLANzapine [Zyprexa] 20 mg PO HS 30 Days #30 tablet 07/16/19 Unknown Rx traZODone [Desyrel] 150 mg PO QHS 30 Days #30 tablet 07/16/19 Unknown Rx levoFLOXacin [Levaquin] 750 mg PO QDAY #5 tablet 08/06/19 Unknown Rx Acetaminophen [Non-Aspirin Extra 500 mg PO Q6HR PRN #30 tablet 11/18/19 Unknown Rx Strength] Albuterol Sulfate [Proair 90 mcg IH Q4HR PRN #2 aer.pow.ba 11/18/19 Unknown Rx Respiclick] Furosemide [Lasix] 20 mg PO QDAY #30 tablet 11/18/19 Unknown Rx Furosemide [Lasix TAB] 40 mg PO QDAY 30 Days #30 tablet 12/29/19 Unknown Rx Naproxen [Naprosyn] 500 mg PO BID #14 tablet 10/25/20 Unknown Rx Benzonatate [Tessalon Perles] 100 mg PO Q8HR PRN #20 capsule 12/25/20 Unknown Rx Naproxen 500 mg PO BID PRN #30 tablet 01/09/[address] [DepaKOTE DR] 250 mg PO BID #60 tablet 02/26/21 Unknown Rx risperiDONE [RisperDAL] 0.5 mg PO BID #60 tablet 02/26/21 Unknown Rx traZODone [Desyrel] 50 mg PO QHS #30 tab 02/26/21 Unknown Rx Allergies Allergy/AdvReac Type Severity Reaction Status Date / Time ziprasidone [From Geodon] Allergy Unknown Verified 04/18/21 00:49 tramadol AdvReac Unknown Verified 04/18/21 00:49 ED Review of Systems ROS: Stated complaint: BILATERAL LEG NUMBNESS Other details as noted in HPI Comment: All other systems reviewed and negative Constitutional: denies: chills, fever Respiratory: denies: cough, shortness of breath, SOB with exertion Cardiovascular: denies: chest pain Gastrointestinal: denies: abdominal pain, nausea, vomiting, diarrhea, constipation, hematemesis, melena, hematochezia Musculoskeletal: denies: back pain Neurological: numbness. denies: headache, weakness, paresthesias, confusion, abnormal gait ED Past Medical Hx - Past Medical History Hx Hypertension: Yes Hx Congestive Heart Failure: Yes Hx Diabetes: No Hx Renal Disease: No Hx Arthritis: Yes Hx Seizures: No Hx Psychiatric Treatment: Yes (bipolar and depression) Hx Asthma: Yes Hx COPD: Yes Hx Tuberculosis: Yes (POSITIVE SKIN TEST,TOOK TX , NEG CXR) Hx Dementia: No Hx HIV: No Additional medical history: sleep apnea - Surgical History Hx Cholecystectomy: No Hx Appendectomy: No Additional Surgical History: right knee surgery - Social History Smoking Status: Current Every Day Smoker Substance Use Type: None - Medications Home Medications: Home Medications Medication Instructions Recorded Confirmed Last Taken Type Albuterol Sulfate [Ventolin Hfa] 2 puff IH PRN PRN 07/18/18 08/08/19 Unknown History Polymyxin B Sulf/Trimethoprim 1 drop OP Q3HR 3 Days #1 bottle 07/31/18 08/08/19 Unknown Rx [Polytrim Eye Drops 06321yhudc/0.1%] Divalproex ER [Depakote ER] 2,000 mg PO HS 30 Days tablet 12/26/18 08/08/19 Unknown Rx Nicotine [Habitrol] 14 mg TD QDAY #30 patch 12/26/18 08/08/19 Unknown Rx OLANzapine [Zyprexa] 20 mg PO HS 30 Days #30 tablet 07/16/19 08/08/19 Unknown Rx traZODone [Desyrel] 150 mg PO QHS 30 Days #30 tablet 07/16/19 08/08/19 Unknown Rx levoFLOXacin [Levaquin] 750 mg PO QDAY #5 tablet 08/06/19 08/08/19 Unknown Rx Fluticasone/Vilanterol [Breo 1 each IH DAILY 08/08/19 08/08/19 Unknown History Ellipta 100-25 Mcg INH] Rivaroxaban [Xarelto] 15 mg PO BID 08/08/19 08/08/19 Unknown History amLODIPine [Norvasc] 10 mg PO DAILY 08/08/19 08/08/19 Unknown History lisinopriL [Zestril] 20 mg PO QDAY 08/08/19 08/08/19 Unknown History Acetaminophen [Non-Aspirin Extra 500 mg PO Q6HR PRN #30 tablet 11/18/19 Unknown Rx Strength] Albuterol Sulfate [Proair 90 mcg IH Q4HR PRN #2 aer.pow.ba 11/18/19 Unknown Rx Respiclick] Furosemide [Lasix] 20 mg PO QDAY #30 tablet 11/18/19 Unknown Rx Furosemide [Lasix TAB] 40 mg PO QDAY 30 Days #30 tablet 12/29/19 Unknown Rx Naproxen [Naprosyn] 500 mg PO BID #14 tablet 10/25/20 Unknown Rx Benzonatate [Tessalon Perles] 100 mg PO Q8HR PRN #20 capsule 12/25/20 Unknown Rx Naproxen 500 mg PO BID PRN #30 tablet 01/09/[address] [DepaKOTE DR] 250 mg PO BID #60 tablet 02/26/21 Unknown Rx risperiDONE [RisperDAL] 0.5 mg PO BID #60 tablet 02/26/21 Unknown Rx traZODone [Desyrel] 50 mg PO QHS #30 tab 02/26/21 Unknown Rx ED Physical Exam - General General appearance: alert, in no apparent distress - Head Head exam: Present: atraumatic, normocephalic, normal inspection - Eye Eye exam: Present: normal appearance, PERRL - ENT ENT exam: Present: normal exam, normal orophraynx, mucous membranes moist - Neck Neck exam: Present: normal inspection, full ROM. Absent: tenderness, meningismus - Respiratory Respiratory exam: Present: normal lung sounds bilaterally - Cardiovascular Cardiovascular Exam: Present: regular rate, normal rhythm, normal heart sounds - GI/Abdominal GI/Abdominal exam: Present: soft, normal bowel sounds. Absent: distended, tenderness, guarding, rebound, rigid, organomegaly, mass, bruit, pulsatile mass, hernia - Extremities Exam Extremities exam: Present: normal inspection, full ROM, normal capillary refill. Absent: tenderness, pedal edema, joint swelling, calf tenderness - Back Exam Back exam: Present: normal inspection, full ROM. Absent: CVA tenderness (R), CVA tenderness (L) - Neurological Exam Neurological exam: Present: alert, oriented X3, CN II-XII intact, normal gait, reflexes normal. Absent: motor sensory deficit - Psychiatric Psychiatric exam: Present: normal mood - Skin Skin exam: Present: warm, intact, normal color ED Course Vital Signs 04/19/21 04/19/21 01:50 02:40 Temperature 97.4 F L Pulse Rate 77 Respiratory 18 20 Rate Blood Pressure 111/78 Blood Pressure 129/75 [Right] O2 Sat by Pulse 97 Oximetry ED Medical Decision Making - Lab Data Result diagrams: 04/19/21 03:13 04/19/21 03:13 - EKG Data -: EKG Interpreted by Tn EKG shows normal: sinus rhythm Rate: normal - EKG Data Interpretation: no acute changes - Medical Decision Making Patient is 50 years old male, very familiar to this ER secondary to recurrent visits. Patient has history of bipolar disorder and hypertension. Patient brought to the emergency room via EMS from a local gas station. Patient chief complaint is bilateral lower extremity pain and numbness. Patient stated that he has borderline diabetes. Patient is sleepy but answers questions. He denied any chest pain or shortness of breath. No abdominal pain, nausea or vomiting. No headache focal weakness. No suicidal or homicidal ideation. Patient remained stable in the ER is a stable vital signs. Patient slept the whole time he is in ER and patient is easily arousable. EKG showed no acute abnormalities. Labs reviewed including a negative troponin. Patient given prescription for Neurontin for his lower extremity neuropathy and advised to follow-up with his primary doctor in the next 2 to 3 days and to return to the ER if he develop any new symptoms. Critical care attestation.: If time is entered above; I have spent that time in minutes in the direct care of this critically ill patient, excluding procedure time. ED Disposition Clinical Impression: Acute chest pain, Peripheral neuropathy Disposition: 01 HOME / SELF CARE / HOMELESS Is pt being admited?: No Condition: Stable Instructions: Chest Pain (ED), Peripheral Neuropathy, Nonspecific Chest Pain, Adult Referrals: PRIMARY CARE, [Referring] - 3-5 Days
[2021-04-19 03:29] LABS: Basophils # (Auto) 0.1 K/mm3 (0.0-0.1); Basophils % (Auto) 1.7 % (0.0-1.8); Eosinophils # (Auto) 0.1 K/mm3 (0.0-0.4); Eosinophils % (Auto) 1.4 % (0.0-4.3); Hematocrit 42.5 % (35.5-45.6); Hemoglobin 13.4 gm/dl (11.8-15.2); Lymphocytes # (Auto) 3.1 K/mm3 (1.2-5.4); Lymphocytes % (Auto) 47.8 % (13.4-35.0); Mean Corpuscular HGB Conc 32 % (32-34); Mean Corpuscular Volume 73 fl (84-94); Monocytes # (Auto) 0.9 K/mm3 (0.0-0.8); Monocytes % (Auto) 13.7 % (0.0-7.3); Platelet Count 143 K/mm3 (140-440); Red Blood Count 5.86 M/mm3 (3.65-5.03); Red Cell Distribution Width 15.9 % (13.2-15.2)
[2021-04-19 03:46] LABS: BUN/Creatinine Ratio 13; Blood Urea Nitrogen 10 mg/dL (9-20); Hemolysis Index 6
[2021-04-19 05:12] VITALS: BP 138/78
== END 2021-04-19 08:09 | disposition home or self-care (01) ==
LOC: ED 01:21
DX: R07.9 Chest pain, unspecified (principal); G62.9 Polyneuropathy, unspecified; I11.0 Hypertensive heart disease with heart failure; I50.9 Heart failure, unspecified; M19.90 Unspecified osteoarthritis, unspecified site; J44.9 Chronic obstructive pulmonary disease, unspecified; F20.9 Schizophrenia, unspecified; F31.9 Bipolar disorder, unspecified; A15.9 Respiratory tuberculosis unspecified; G47.30 Sleep apnea, unspecified; Z98.890 Other specified postprocedural states; F17.200 Nicotine dependence, unspecified, uncomplicated; Z88.5 Allergy status to narcotic agent
CPT/HCPCS: 36415; 80048; 80320; 84484; 85025; 99283; G0480

== ENCOUNTER 2021-05-24 00:33 | Emergency (ER) | payer MEDICARE ==
[2021-05-24 01:24] VITALS: BP 137/99
--- NOTE | 2021-05-24 02:25 | Emergency Department Report ---
ED General Adult HPI - General Chief complaint: Extremity Problem,Nontraumatic Stated complaint: LEG PAIN Time Seen by Provider: 05/24/21 02:13 Source: patient Mode of arrival: Ambulatory Limitations: No Limitations - History of Present Illness Initial comments: 50-year-old male presents emerged department complaining of a several week history of left lower extremity pain swelling no open atraumatic etiology pain starts at the lateral aspect of his left knee and radiates down to the tibia and calf region. No numbness or tingling pain is dull and throbbing worse with palpation and range of motion. -: Gradual Radiation: non-radiation Quality: dull Improves with: none Worsens with: none Associated Symptoms: denies other symptoms - Related Data Home Medications Medication Instructions Recorded Confirmed Last Taken Albuterol Sulfate [Ventolin Hfa] 2 puff IH PRN PRN 07/18/18 08/08/19 Unknown Fluticasone/Vilanterol [Breo 1 each IH DAILY 08/08/19 08/08/19 Unknown Ellipta 100-25 Mcg INH] Rivaroxaban [Xarelto] 15 mg PO BID 08/08/19 08/08/19 Unknown amLODIPine [Norvasc] 10 mg PO DAILY 08/08/19 08/08/19 Unknown lisinopriL [Zestril] 20 mg PO QDAY 08/08/19 08/08/19 Unknown Previous Rx's Medication Instructions Recorded Last Taken Type Polymyxin B Sulf/Trimethoprim 1 drop OP Q3HR 3 Days #1 bottle 07/31/18 Unknown Rx [Polytrim Eye Drops 46085gmgwm/0.1%] Divalproex ER [Depakote ER] 2,000 mg PO HS 30 Days tablet 12/26/18 Unknown Rx Nicotine [Habitrol] 14 mg TD QDAY #30 patch 12/26/18 Unknown Rx OLANzapine [Zyprexa] 20 mg PO HS 30 Days #30 tablet 07/16/19 Unknown Rx traZODone [Desyrel] 150 mg PO QHS 30 Days #30 tablet 07/16/19 Unknown Rx levoFLOXacin [Levaquin] 750 mg PO QDAY #5 tablet 08/06/19 Unknown Rx Acetaminophen [Non-Aspirin Extra 500 mg PO Q6HR PRN #30 tablet 11/18/19 Unknown Rx Strength] Albuterol Sulfate [Proair 90 mcg IH Q4HR PRN #2 aer.pow.ba 11/18/19 Unknown Rx Respiclick] Furosemide [Lasix] 20 mg PO QDAY #30 tablet 11/18/19 Unknown Rx Furosemide [Lasix TAB] 40 mg PO QDAY 30 Days #30 tablet 12/29/19 Unknown Rx Naproxen [Naprosyn] 500 mg PO BID #14 tablet 10/25/20 Unknown Rx Benzonatate [Tessalon Perles] 100 mg PO Q8HR PRN #20 capsule 12/25/20 Unknown Rx Naproxen 500 mg PO BID PRN #30 tablet 01/09/[address] [DepaKOTE DR] 250 mg PO BID #60 tablet 02/26/21 Unknown Rx risperiDONE [RisperDAL] 0.5 mg PO BID #60 tablet 02/26/21 Unknown Rx traZODone [Desyrel] 50 mg PO QHS #30 tab 02/26/21 Unknown Rx Gabapentin 100 mg PO BID #30 capsule 04/19/21 Unknown Rx Allergies Allergy/AdvReac Type Severity Reaction Status Date / Time ziprasidone [From Geodon] Allergy Unknown Verified 04/18/21 00:49 tramadol AdvReac Unknown Verified 04/18/21 00:49 ED Review of Systems ROS: Stated complaint: LEG PAIN Other details as noted in HPI Comment: All other systems reviewed and negative ED Past Medical Hx - Past Medical History Hx Hypertension: Yes Hx Congestive Heart Failure: Yes Hx Diabetes: No Hx Renal Disease: No Hx Arthritis: Yes Hx Seizures: No Hx Psychiatric Treatment: Yes (bipolar and depression) Hx Asthma: Yes Hx COPD: Yes Hx Tuberculosis: Yes (POSITIVE SKIN TEST,TOOK [place] , NEG CXR) Hx Dementia: No Hx HIV: No Additional medical history: sleep apnea - Surgical History Hx Cholecystectomy: No Hx Appendectomy: No Additional Surgical History: right knee surgery - Social History Smoking Status: Current Every Day Smoker Substance Use Type: None - Medications Home Medications: Home Medications Medication Instructions Recorded Confirmed Last Taken Type Albuterol Sulfate [Ventolin Hfa] 2 puff IH PRN PRN 07/18/18 08/08/19 Unknown History Polymyxin B Sulf/Trimethoprim 1 drop OP Q3HR 3 Days #1 bottle 07/31/18 08/08/19 Unknown Rx [Polytrim Eye Drops 91384tcldz/0.1%] Divalproex ER [Depakote ER] 2,000 mg PO HS 30 Days tablet 12/26/18 08/08/19 Unknown Rx Nicotine [Habitrol] 14 mg TD QDAY #30 patch 12/26/18 08/08/19 Unknown Rx OLANzapine [Zyprexa] 20 mg PO HS 30 Days #30 tablet 07/16/19 08/08/19 Unknown Rx traZODone [Desyrel] 150 mg PO QHS 30 Days #30 tablet 07/16/19 08/08/19 Unknown Rx levoFLOXacin [Levaquin] 750 mg PO QDAY #5 tablet 08/06/19 08/08/19 Unknown Rx Fluticasone/Vilanterol [Breo 1 each IH DAILY 08/08/19 08/08/19 Unknown History Ellipta 100-25 Mcg INH] Rivaroxaban [Xarelto] 15 mg PO BID 08/08/19 08/08/19 Unknown History amLODIPine [Norvasc] 10 mg PO DAILY 08/08/19 08/08/19 Unknown History lisinopriL [Zestril] 20 mg PO QDAY 08/08/19 08/08/19 Unknown History Acetaminophen [Non-Aspirin Extra 500 mg PO Q6HR PRN #30 tablet 11/18/19 Unknown Rx Strength] Albuterol Sulfate [Proair 90 mcg IH Q4HR PRN #2 aer.pow.ba 11/18/19 Unknown Rx Respiclick] Furosemide [Lasix] 20 mg PO QDAY #30 tablet 11/18/19 Unknown Rx Furosemide [Lasix TAB] 40 mg PO QDAY 30 Days #30 tablet 12/29/19 Unknown Rx Naproxen [Naprosyn] 500 mg PO BID #14 tablet 10/25/20 Unknown Rx Benzonatate [Tessalon Perles] 100 mg PO Q8HR PRN #20 capsule 12/25/20 Unknown Rx Naproxen 500 mg PO BID PRN #30 tablet 01/09/[address] [DepaKOTE DR] 250 mg PO BID #60 tablet 02/26/21 Unknown Rx risperiDONE [RisperDAL] 0.5 mg PO BID #60 tablet 02/26/21 Unknown Rx traZODone [Desyrel] 50 mg PO QHS #30 tab 02/26/21 Unknown Rx Gabapentin 100 mg PO BID #30 capsule 04/19/21 Unknown Rx ED Physical Exam - General Limitations: No Limitations General appearance: alert, in no apparent distress - Head Head exam: Present: atraumatic, normocephalic - Eye Eye exam: Present: normal appearance, PERRL, EOMI Pupils: Present: normal accommodation - ENT ENT exam: Present: normal exam, normal orophraynx, mucous membranes moist, TM's normal bilaterally - Neck Neck exam: Present: normal inspection, full ROM - Respiratory Respiratory exam: Present: normal lung sounds bilaterally. Absent: respiratory distress, wheezes, rales, chest wall tenderness - Cardiovascular Cardiovascular Exam: Present: regular rate, normal rhythm. Absent: systolic murmur, diastolic murmur, rubs, gallop - GI/Abdominal GI/Abdominal exam: Present: soft, normal bowel sounds - Rectal Rectal exam: Present: deferred - Extremities Exam Extremities exam: Present: normal inspection, tenderness, other (Some nonpitting edema to the left lower extremity and pain with palpation around the anterior tibial area. No Homans' sign, no cord sign. Pulses are 2+. There is no popliteal mass. Pain also to the lateral knee but the joint is stable. No effusion is noted.) - Back Exam Back exam: Present: normal inspection - Neurological Exam Neurological exam: Present: alert, oriented X3 - Psychiatric Psychiatric exam: Present: normal affect, normal mood - Skin Skin exam: Present: warm, dry, intact, normal color. Absent: rash ED Course Vital Signs 05/24/21 01:16 Temperature 98.5 F Pulse Rate 88 Respiratory 20 Rate Blood Pressure 137/99 [Right] O2 Sat by Pulse 96 Oximetry ED Medical Decision Making - Radiology Data Radiology results: report reviewed [address] [address] XRay Report Signed Patient: BRENDA SOTO MR#: [id number] 0 : 1970 Acct:[id number] Age/Sex: 50 / M ADM Date: 05/24/21 Loc: ED Attending Dr: Ordering Physician: LEONORA SANTANA Date of Service: 05/24/21 Procedure(s): XR tibia fibula 2V LT Accession Number(s): [id number] cc: LEONORA SANTANA Fluoro Time In Minutes: LEFT TIBIA AND FIBULA 2 VIEWS INDICATION / CLINICAL INFORMATION: leg pain COMPARISON: None available. FINDINGS: BONES / JOINT(S): No acute fracture or subluxation. 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 SOFT TISSUES: Soft tissue edema posteriorly. ADDITIONAL FINDINGS: None. Signer Name: Marv Meier MD Signed: 05/24/2021 4:31 AM Workstation Name: [id number] Transcribed By: RAGHAV Dictated By: Marv Meier MD Electronically Authenticated By: Marv Meier MD Signed Date/Time: 05/24/21 043 [facility] [address] [place] [address] Vascular Lab Report Signed Patient: BRENDA SOTO MR#: [id number] 0 : 1970 Acct:[id number] Age/Sex: 50 / M ADM Date: 05/24/21 Loc: ED Attending Dr: Ordering Physician: LEONORA SANTANA Date of Service: 05/24/21 Procedure(s): VL venous duplex LE LT Accession Number(s): [id number] cc: LEONORA SANTANA DUPLEX DOPPLER LOWER EXTREMITY VEINS, LEFT INDICATION: swelling pain. TECHNIQUE: Duplex doppler imaging was performed through the veins of the left lower extremity using venous compression and other maneuvers. COMPARISON: None available. FINDINGS: Common femoral vein: Negative. Superficial femoral vein: Negative. Popliteal vein: Negative. Calf veins: Negative. Additional findings: None. IMPRESSION: Negative for DVT. Signer Name: Marv Meier MD Signed: 05/24/2021 4:56 AM Workstation Name: [id number] Transcribed By: RAGHAV Dictated By: Marv Meier MD Electronically Authenticated By: Marv Meier MD Signed Date/Time: 05/24/21 045 DD/ 4 TD/TT: Print - Medical Decision Making 50-year-old male Cassy emerged from complaining of chronic leg pain with suspic ion of DVT per ultrasound shows no evidence of any DVT no osseous injury on the x-ray. Will advise patient to continue utilization of Tylenol and Motrin as needed for pain and follow-up with his primary care Ortho for definitive management and treatment options. He is been advised on icing as well as compression stockings to assist with the swelling. Critical care attestation.: If time is entered above; I have spent that time in minutes in the direct care of this critically ill patient, excluding procedure time. ED Disposition Clinical Impression: Left leg pain, Leg edema Disposition: HOME / SELF CARE / HOMELESS Is pt being admited?: No Does the pt Need Aspirin: No Condition: Stable Instructions: How to Use Cold Therapy, [id number], Pain Without a Known Cause, Peripheral Edema Additional Instructions: X-ray and ultrasound of the leg showed no pathology Referrals: PRIMARY CARE, [Primary Care Provider] - 3-5 Days SANTA GARG MD [Staff Physician] - 3-5 Days
--- NOTE | 2021-05-24 04:36 | XRay Report ---
LEFT TIBIA AND FIBULA 2 VIEWS INDICATION / CLINICAL INFORMATION: leg pain COMPARISON: None available. FINDINGS: BONES / JOINT(S): No acute fracture or subluxation. 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 SOFT TISSUES: Soft tissue edema posteriorly. ADDITIONAL FINDINGS: None. Signer Name: Marv Meier MD Signed: 05/24/2021 4:31 AM Workstation Name: [id number]
--- NOTE | 2021-05-24 05:00 | Vascular Lab Report ---
DUPLEX DOPPLER LOWER EXTREMITY VEINS, LEFT INDICATION: swelling pain. TECHNIQUE: Duplex doppler imaging was performed through the veins of the left lower extremity using venous compr ession and other maneuvers. COMPARISON: None available. FINDINGS: Common femoral vein: Negative. Superficial femoral vein: Negative. Popliteal vein: Negative. Calf veins: Negative. Additional findings: None. IMPRESSION: Negative for DVT. Signer Name: Marv Meier MD Signed: 05/24/2021 4:56 AM Workstation Name: [id number]
== END 2021-05-24 07:18 | disposition home or self-care (01) ==
LOC: ED 00:33
DX: M79.605 Pain in left leg (principal); R60.0 Localized edema; I10 Essential (primary) hypertension; Z86.79 Personal history of other diseases of the circulatory system; F31.9 Bipolar disorder, unspecified; J45.909 Unspecified asthma, uncomplicated; F17.200 Nicotine dependence, unspecified, uncomplicated; Z88.5 Allergy status to narcotic agent; Z88.8 Allergy status to other drugs, medicaments and biological substances
CPT/HCPCS: 99284

== ENCOUNTER 2021-10-22 13:07 | Emergency (ER) | payer MEDICARE ==
[2021-10-22 13:32] VITALS: BP 112/72
--- NOTE | 2021-10-22 13:32 | Emergency Department Report ---
ED General Adult HPI - General Chief complaint: Medical Clearance Stated complaint: ADM SHOT Time Seen by Provider: 10/22/21 13:31 Source: patient, EMS ( EMS documentation not available at time of chart dictation ), RN notes reviewed, old records reviewed Mode of arrival: Stretcher Limitations: No Limitations - History of Present Illness Initial comments: This patient is a pleasant and cooperative 50-year-old gentleman, who presents to the ER today with a request that we administer his bimonthly haloperidol injection. He reports that he is typically supposed to have his haloperidol administered at an outpatient psychiatric clinic, but reports that coordination for his visits are difficult, as he typically has to arrange a ride share 3 days in advance. He denies physical pain. He denies homicidality and suicidality. He denies overdose and hallucinations. He denies additional complaints. Severity scale (0 -10): 0 Consistency: constant Improves with: other (Administration of intramuscular Haldol) Associated Symptoms: denies other symptoms - Related Data Home Medications Medication Instructions Recorded Confirmed Last Taken Albuterol Sulfate [Ventolin Hfa] 2 puff IH PRN PRN 07/18/18 08/08/19 Unknown Fluticasone/Vilanterol [Breo 1 each IH DAILY 08/08/19 08/08/19 Unknown Ellipta 100-25 Mcg INH] Rivaroxaban [Xarelto] 15 mg PO BID 08/08/19 08/08/19 Unknown amLODIPine [Norvasc] 10 mg PO DAILY 08/08/19 08/08/19 Unknown lisinopriL [Zestril] 20 mg PO QDAY 08/08/19 08/08/19 Unknown Previous Rx's Medication Instructions Recorded Last Taken Type Polymyxin B Sulf/Trimethoprim 1 drop OP Q3HR 3 Days #1 bottle 07/31/18 Unknown Rx [Polytrim Eye Drops 69965bqzjj/0.1%] Divalproex ER [Depakote ER] 2,000 mg PO HS 30 Days tablet 12/26/18 Unknown Rx Nicotine [Habitrol] 14 mg TD QDAY #30 patch 12/26/18 Unknown Rx OLANzapine [Zyprexa] 20 mg PO HS 30 Days #30 tablet 07/16/19 Unknown Rx traZODone [Desyrel] 150 mg PO QHS 30 Days #30 tablet 07/16/19 Unknown Rx levoFLOXacin [Levaquin] 750 mg PO QDAY #5 tablet 08/06/19 Unknown Rx Acetaminophen [Non-Aspirin Extra 500 mg PO Q6HR PRN #30 tablet 11/18/19 Unknown Rx Strength] Albuterol Sulfate [Proair 90 mcg IH Q4HR PRN #2 aer.pow.ba 11/18/19 Unknown Rx Respiclick] Furosemide [Lasix] 20 mg PO QDAY #30 tablet 11/18/19 Unknown Rx Furosemide [Lasix TAB] 40 mg PO QDAY 30 Days #30 tablet 12/29/19 Unknown Rx Naproxen [Naprosyn] 500 mg PO BID #14 tablet 10/25/20 Unknown Rx Benzonatate [Tessalon Perles] 100 mg PO Q8HR PRN #20 capsule 12/25/20 Unknown Rx Naproxen 500 mg PO BID PRN #30 tablet 01/09/[address] [Kamini CLARK] 250 mg PO BID #60 tablet 02/26/21 Unknown Rx risperiDONE [RisperDAL] 0.5 mg PO BID #60 tablet 02/26/21 Unknown Rx traZODone [Desyrel] 50 mg PO QHS #30 tab 02/26/21 Unknown Rx Gabapentin 100 mg PO BID #30 capsule 04/19/21 Unknown Rx Magnesium Oxide [Mag-Ox] 400 mg PO QDAY #20 tablet 04/23/21 Unknown Rx Butalb/Acetamin/Caff 50-325-40 1 tab PO Q6HR PRN #24 tab 04/29/21 Unknown Rx [Fioricet] Hydrocortisone [Hydrocortisone 20 gm TP BID #1 oint...g. 04/29/21 Unknown Rx 2.5% OINT] Gabapentin 300 mg PO TID #21 capsule 06/15/21 Unknown Rx Mineral Oil/Hydrophil Petrolat 50 gm TP BID #1 oint...g. 06/20/21 Unknown Rx [Aquaphor Healing Ointment] Allergies Allergy/AdvReac Type Severity Reaction Status Date / Time ziprasidone [From Geodon] Allergy Unknown Verified 10/22/21 13:32 tramadol AdvReac Unknown Verified 10/22/21 13:32 ED Review of Systems ROS: Stated complaint: ADM SHOT Other details as noted in HPI Comment: All other systems reviewed and negative Psychiatric: denies: depression, auditory hallucinations, visual hallucinations, homicidal thoughts, suicidal thoughts ED Past Medical Hx - Past Medical History Hx Hypertension: Yes Hx Congestive Heart Failure: Yes Hx Diabetes: Yes Hx Renal Disease: No Hx Arthritis: Yes Hx Seizures: No Hx Psychiatric Treatment: Yes (bi-polar) Hx Asthma: Yes Hx COPD: Yes Hx Tuberculosis: Yes (POSITIVE SKIN TEST,TOOK TX , NEG CXR) Hx Dementia: No Hx HIV: No Additional medical history: Chronic Knee pain - Surgical History Hx Cholecystectomy: No Hx Appendectomy: No Additional Surgical History: right knee surgery - Social History Smoking Status: Never Smoker Substance Use Type: None - Medications Home Medications: Home Medications Medication Instructions Recorded Confirmed Last Taken Type Albuterol Sulfate [Ventolin Hfa] 2 puff IH PRN PRN 07/18/18 08/08/19 Unknown History Polymyxin B Sulf/Trimethoprim 1 drop OP Q3HR 3 Days #1 bottle 07/31/18 08/08/19 Unknown Rx [Polytrim Eye Drops 66025gdghw/0.1%] Divalproex ER [Depakote ER] 2,000 mg PO HS 30 Days tablet 12/26/18 08/08/19 Unknown Rx Nicotine [Habitrol] 14 mg TD QDAY #30 patch 12/26/18 08/08/19 Unknown Rx OLANzapine [Zyprexa] 20 mg PO HS 30 Days #30 tablet 07/16/19 08/08/19 Unknown Rx traZODone [Desyrel] 150 mg PO QHS 30 Days #30 tablet 07/16/19 08/08/19 Unknown Rx levoFLOXacin [Levaquin] 750 mg PO QDAY #5 tablet 08/06/19 08/08/19 Unknown Rx Fluticasone/Vilanterol [Breo 1 each IH DAILY 08/08/19 08/08/19 Unknown History Ellipta 100-25 Mcg INH] Rivaroxaban [Xarelto] 15 mg PO BID 08/08/19 08/08/19 Unknown History amLODIPine [Norvasc] 10 mg PO DAILY 08/08/19 08/08/19 Unknown History lisinopriL [Zestril] 20 mg PO QDAY 08/08/19 08/08/19 Unknown History Acetaminophen [Non-Aspirin Extra 500 mg PO Q6HR PRN #30 tablet 11/18/19 Unknown Rx Strength] Albuterol Sulfate [Proair 90 mcg IH Q4HR PRN #2 aer.pow.ba 11/18/19 Unknown Rx Respiclick] Furosemide [Lasix] 20 mg PO QDAY #30 tablet 11/18/19 Unknown Rx Furosemide [Lasix TAB] 40 mg PO QDAY 30 Days #30 tablet 12/29/19 Unknown Rx Naproxen [Naprosyn] 500 mg PO BID #14 tablet 10/25/20 Unknown Rx Benzonatate [Tessalon Perles] 100 mg PO Q8HR PRN #20 capsule 12/25/20 Unknown Rx Naproxen 500 mg PO BID PRN #30 tablet 01/09/[address] [DepaKOTE DR] 250 mg PO BID #60 tablet 02/26/21 Unknown Rx risperiDONE [RisperDAL] 0.5 mg PO BID #60 tablet 02/26/21 Unknown Rx traZODone [Desyrel] 50 mg PO QHS #30 tab 02/26/21 Unknown Rx Gabapentin 100 mg PO BID #30 capsule 04/19/21 Unknown Rx Magnesium Oxide [Mag-Ox] 400 mg PO QDAY #20 tablet 04/23/21 Unknown Rx Butalb/Acetamin/Caff 50-325-40 1 tab PO Q6HR PRN #24 tab 04/29/21 Unknown Rx [Fioricet] Hydrocortisone [Hydrocortisone 20 gm TP BID #1 oint...g. 04/29/21 Unknown Rx 2.5% OINT] Gabapentin 300 mg PO TID #21 capsule 06/15/21 Unknown Rx Mineral Oil/Hydrophil Petrolat 50 gm TP BID #1 oint...g. 06/20/21 Unknown Rx [Aquaphor Healing Ointment] ED Physical Exam - General Limitations: No Limitations General appearance: alert, in no apparent distress - Head Head exam: Present: atraumatic, normocephalic - Eye Eye exam: Present: normal appearance, EOMI. Absent: nystagmus - ENT ENT exam: Present: normal exam, normal orophraynx, mucous membranes moist, normal external ear exam - Neck Neck exam: Present: normal inspection, full ROM. Absent: tenderness, meningismus - Respiratory Respiratory exam: Present: normal lung sounds bilaterally. Absent: respiratory distress, wheezes, rales, rhonchi, stridor, decreased breath sounds - Cardiovascular Cardiovascular Exam: Present: regular rate, normal rhythm, normal heart sounds. Absent: bradycardia, tachycardia, irregular rhythm, systolic murmur, diastolic murmur, rubs, gallop - GI/Abdominal GI/Abdominal exam: Present: soft. Absent: distended, tenderness, guarding, rebound, rigid, pulsatile mass - Rectal Rectal exam: Present: deferred - Extremities Exam Extremities exam: Present: normal inspection, full ROM, other (2+ pulses noted in the bilateral upper extremities. There is no long bony tenderness. The muscular compartments are soft). Absent: pedal edema, calf tenderness - Back Exam Back exam: Present: normal inspection. Absent: tenderness, CVA tenderness (R), CVA tenderness (L), paraspinal tenderness, vertebral tenderness - Neurological Exam Neurological exam: Present: alert, oriented X3, normal gait, other (No facial droop. Tongue midline. Extraocular movements intact bilaterally. Facial sensation intact to light touch in V1, V2, V3 distribution bilaterally. 5 and a 5 strength in 4 extremities. Sensation intact to light touch in 4 extremities.). Absent: motor sensory deficit - Psychiatric Psychiatric exam: Present: anxious. Absent: homicidal ideation, suicidal ideation - Skin Skin exam: Present: warm, dry, intact, normal color. Absent: rash ED Course Vital Signs 10/22/21 13:31 Temperature 98.1 F Pulse Rate 89 Respiratory 16 Rate Blood Pressure 112/72 [Left] O2 Sat by Pulse 97 Oximetry ED Medical Decision Making - Lab Data Vital Signs 10/22/21 13:31 Temperature 98.1 F Pulse Rate 89 Respiratory 16 Rate Blood Pressure 112/72 [Left] O2 Sat by Pulse 97 Oximetry - Medical Decision Making Differential diagnosis, including but not limited to: Encounter for medical screening examination, encounter for behavioral health screening examination, encounter for routine medication administration Assessment and plan: 50-year-old gentleman, who is afebrile, with reassuring vital signs, clinically sober, who has no acute or emergent medical complaints at this time, presenting with a request for his routine haloperidol injection which she has on himself. He does not meet criteria for 1013 or involuntary hold or confinement. Nursing team to administer patient's own haloperidol as an injection. He may be discharged to follow-up with his outpatient primary care doctor or psychiatrist otherwise. Return precautions are reviewed. Critical care attestation.: If time is entered above; I have spent that time in minutes in the direct care of this critically ill patient, excluding procedure time. ED Disposition Clinical Impression: Encounter for medical screening examination, Encounter for behavioral health screening Disposition: HOME / SELF CARE / HOMELESS Is pt being admited?: No Does the pt Need Aspirin: No Condition: Good Additional Instructions: Please continue current outpatient medications. Please follow-up with your outpatient psychiatrist within the next week. Please follow-up with your outpatient primary care doctor within the next week. Please return to the emergency room right away with new pain, worsened pain, migration of pain, projectile vomiting, change in mental status, confusion, inability tolerate liquid feeds, new, worsened or different symptoms not present on the initial emergency room evaluation Referrals: PRIMARY CARE, [Primary Care Provider] - 3-5 Days [facility] [Outside] - 3-5 Days [facility] [Outside] - 3-5 Days
== END 2021-10-22 16:05 | disposition home or self-care (01) ==
LOC: ED 13:07
DX: Z00.00 Encounter for general adult medical examination without abnormal findings (principal); Z13.39 Encounter for screening examination for other mental health and behavioral disorders; I11.0 Hypertensive heart disease with heart failure; I50.9 Heart failure, unspecified; E11.9 Type 2 diabetes mellitus without complications; M19.90 Unspecified osteoarthritis, unspecified site; J45.909 Unspecified asthma, uncomplicated; A15.9 Respiratory tuberculosis unspecified; F31.9 Bipolar disorder, unspecified; Z98.890 Other specified postprocedural states; Z79.899 Other long term (current) drug therapy
CPT/HCPCS: 99283

== ENCOUNTER 2021-11-22 05:15 | Emergency (ER) | payer MEDICARE ==
[2021-11-22 05:47] VITALS: BP 125/83
== END 2021-11-22 07:00 | disposition left against medical advice (07) ==
LOC: ED 05:15
DX: R52 Pain, unspecified (principal); Z53.21 Procedure and treatment not carried out due to patient leaving prior to being seen by health care provider

== ENCOUNTER 2021-11-22 23:51 | Emergency (ER) | payer MEDICARE ==
[2021-11-23 01:36] VITALS: BP 147/90
[2021-11-23 09:55] LABS: Alanine Aminotransferase 9 units/L (7-56); Albumin 4.1 g/dL (3.9-5); BUN/Creatinine Ratio 25; Blood Urea Nitrogen 15 mg/dL (9-20); Calcium 9.1 mg/dL (8.4-10.2); Hemolysis Index 28
[2021-11-23 10:05] LABS: Mean Corpuscular HGB Conc 31 % (32-34); Mean Corpuscular Volume 73 fl (84-94); Red Blood Count 5.08 M/mm3 (3.65-5.03); Red Cell Distribution Width 16.7 % (13.2-15.2)
[2021-11-23 10:41] LABS: Hematocrit 36.9 % (35.5-45.6); Hemoglobin 11.3 gm/dl (11.8-15.2)
[2021-11-23 10:53] LABS: INR 0.91 (0.87-1.13); Partial Thromboplastin Time 26.6 Sec. (24.2-36.6)
--- NOTE | 2021-11-23 11:28 | Emergency Department Report ---
ED General Adult HPI - General Chief complaint: Extremity Injury, Lower Stated complaint: ITCHY BODY Time Seen by Provider: 11/23/21 08:11 Source: patient Mode of arrival: Stretcher Limitations: No Limitations - History of Present Illness Initial comments: This is a 50-year-old male nontoxic, well nourished in appearance, no acute signs of distress presents to the ED with c/o of sensation of itching and bilateral leg swelling. Patient stated itching started yesterday but currently has resolved itching. Patient stated bilateral leg swelling has been intermittent for the past 2 years. Otherwise denies any other symptoms or complaints. Patient denies any chest pain, shortness of breath, fever, chills, nausea, vomiting, headache, stiff neck. Denies any pain. Location: lower extremity Severity scale (0 -10): 0 Improves with: none Worsens with: none Associated Symptoms: denies other symptoms. denies: confusion, chest pain, cough, diaphoresis, fever/chills, headaches, loss of appetite, malaise, nausea/vomiting, rash, seizure, shortness of breath, syncope, weakness Treatments Prior to Arrival: none - Related Data Home Medications Medication Instructions Recorded Confirmed Last Taken Albuterol Sulfate [Ventolin Hfa] 2 puff IH PRN PRN 07/18/18 08/08/19 Unknown Fluticasone/Vilanterol [Breo 1 each IH DAILY 08/08/19 08/08/19 Unknown Ellipta 100-25 Mcg INH] Rivaroxaban [Xarelto] 15 mg PO BID 08/08/19 08/08/19 Unknown amLODIPine [Norvasc] 10 mg PO DAILY 08/08/19 08/08/19 Unknown lisinopriL [Zestril] 20 mg PO QDAY 08/08/19 08/08/19 Unknown Previous Rx's Medication Instructions Recorded Last Taken Type Polymyxin B Sulf/Trimethoprim 1 drop OP Q3HR 3 Days #1 bottle 07/31/18 Unknown Rx [Polytrim Eye Drops 09396deayc/0.1%] Divalproex ER [Depakote ER] 2,000 mg PO HS 30 Days tablet 12/26/18 Unknown Rx Nicotine [Habitrol] 14 mg TD QDAY #30 patch 12/26/18 Unknown Rx OLANzapine [Zyprexa] 20 mg PO HS 30 Days #30 tablet 07/16/19 Unknown Rx traZODone [Desyrel] 150 mg PO QHS 30 Days #30 tablet 07/16/19 Unknown Rx levoFLOXacin [Levaquin] 750 mg PO QDAY #5 tablet 08/06/19 Unknown Rx Acetaminophen [Non-Aspirin Extra 500 mg PO Q6HR PRN #30 tablet 11/18/19 Unknown Rx Strength] Albuterol Sulfate [Proair 90 mcg IH Q4HR PRN #2 aer.pow.ba 11/18/19 Unknown Rx Respiclick] Furosemide [Lasix] 20 mg PO QDAY #30 tablet 11/18/19 Unknown Rx Furosemide [Lasix TAB] 40 mg PO QDAY 30 Days #30 tablet 12/29/19 Unknown Rx Naproxen [Naprosyn] 500 mg PO BID #14 tablet 10/25/20 Unknown Rx Benzonatate [Tessalon Perles] 100 mg PO Q8HR PRN #20 capsule 12/25/20 Unknown Rx Naproxen 500 mg PO BID PRN #30 tablet 01/09/21 Unknown Rx Divalproex [Kamini CLARK] 250 mg PO BID #60 tablet 02/26/21 Unknown Rx risperiDONE [RisperDAL] 0.5 mg PO BID #60 tablet 02/26/21 Unknown Rx traZODone [Desyrel] 50 mg PO QHS #30 tab 02/26/21 Unknown Rx Gabapentin 100 mg PO BID #30 capsule 04/19/21 Unknown Rx Magnesium Oxide [Mag-Ox] 400 mg PO QDAY #20 tablet 04/23/21 Unknown Rx Butalb/Acetamin/Caff 50-325-40 1 tab PO Q6HR PRN #24 tab 04/29/21 Unknown Rx [Fioricet] Hydrocortisone [Hydrocortisone 20 gm TP BID #1 oint...g. 04/29/21 Unknown Rx 2.5% OINT] Gabapentin 300 mg PO TID #21 capsule 06/15/21 Unknown Rx Mineral Oil/Hydrophil Petrolat 50 gm TP BID #1 oint...g. 06/20/21 Unknown Rx [Aquaphor Healing Ointment] Allergies Allergy/AdvReac Type Severity Reaction Status Date / Time ziprasidone [From Geodon] Allergy Unknown Verified 10/22/21 13:32 tramadol AdvReac Unknown Verified 10/22/21 13:32 ED Review of Systems ROS: Stated complaint: ITCHY BODY Other details as noted in HPI Comment: All other systems reviewed and negative Constitutional: denies: chills, fever Eyes: denies: eye pain, eye discharge, vision change ENT: denies: ear pain, throat pain Respiratory: denies: cough, shortness of breath, wheezing Cardiovascular: denies: chest pain, palpitations Endocrine: no symptoms reported Gastrointestinal: denies: abdominal pain, nausea, diarrhea Genitourinary: denies: urgency, dysuria Musculoskeletal: denies: back pain, joint swelling, arthralgia Skin: denies: rash, lesions Neurological: denies: headache, weakness, paresthesias Psychiatric: denies: anxiety, depression Hematological/Lymphatic: denies: easy bleeding, easy bruising ED Past Medical Hx - Past Medical History Previous Medical History?: Yes Hx Hypertension: Yes Hx Congestive Heart Failure: Yes Hx Diabetes: Yes Hx Renal Disease: No Hx Arthritis: Yes Hx Seizures: No Hx Psychiatric Treatment: Yes (bi-polar) Hx Asthma: Yes Hx COPD: Yes Hx Tuberculosis: Yes (POSITIVE SKIN TEST,TOOK [place] , NEG CXR) Hx Dementia: No Hx HIV: No Additional medical history: Chronic Knee pain - Surgical History Past Surgical History?: Yes Hx Cholecystectomy: No Hx Appendectomy: No Additional Surgical History: right knee surgery - Social History Smoking Status: Current Every Day Smoker Substance Use Type: None - Medications Home Medications: Home Medications Medication Instructions Recorded Confirmed Last Taken Type Albuterol Sulfate [Ventolin Hfa] 2 puff IH PRN PRN 07/18/18 08/08/19 Unknown History Polymyxin B Sulf/Trimethoprim 1 drop OP Q3HR 3 Days #1 bottle 07/31/18 08/08/19 Unknown Rx [Polytrim Eye Drops 21136ocgpd/0.1%] Divalproex ER [Depakote ER] 2,000 mg PO HS 30 Days tablet 12/26/18 08/08/19 Unknown Rx Nicotine [Habitrol] 14 mg TD QDAY #30 patch 12/26/18 08/08/19 Unknown Rx OLANzapine [Zyprexa] 20 mg PO HS 30 Days #30 tablet 07/16/19 08/08/19 Unknown Rx traZODone [Desyrel] 150 mg PO QHS 30 Days #30 tablet 07/16/19 08/08/19 Unknown Rx levoFLOXacin [Levaquin] 750 mg PO QDAY #5 tablet 08/06/19 08/08/19 Unknown Rx Fluticasone/Vilanterol [Breo 1 each IH DAILY 08/08/19 08/08/19 Unknown History Ellipta 100-25 Mcg INH] Rivaroxaban [Xarelto] 15 mg PO BID 08/08/19 08/08/19 Unknown History amLODIPine [Norvasc] 10 mg PO DAILY 08/08/19 08/08/19 Unknown History lisinopriL [Zestril] 20 mg PO QDAY 08/08/19 08/08/19 Unknown History Acetaminophen [Non-Aspirin Extra 500 mg PO Q6HR PRN #30 tablet 11/18/19 Unknown Rx Strength] Albuterol Sulfate [Proair 90 mcg IH Q4HR PRN #2 aer.pow.ba 11/18/19 Unknown Rx Respiclick] Furosemide [Lasix] 20 mg PO QDAY #30 tablet 11/18/19 Unknown Rx Furosemide [Lasix TAB] 40 mg PO QDAY 30 Days #30 tablet 12/29/19 Unknown Rx Naproxen [Naprosyn] 500 mg PO BID #14 tablet 10/25/20 Unknown Rx Benzonatate [Tessalon Perles] 100 mg PO Q8HR PRN #20 capsule 12/25/20 Unknown Rx Naproxen 500 mg PO BID PRN #30 tablet 01/09/21 Unknown Rx Divalproex [Kamini CLARK] 250 mg PO BID #60 tablet 02/26/21 Unknown Rx risperiDONE [RisperDAL] 0.5 mg PO BID #60 tablet 02/26/21 Unknown Rx traZODone [Desyrel] 50 mg PO QHS #30 tab 02/26/21 Unknown Rx Gabapentin 100 mg PO BID #30 capsule 04/19/21 Unknown Rx Magnesium Oxide [Mag-Ox] 400 mg PO QDAY #20 tablet 04/23/21 Unknown Rx Butalb/Acetamin/Caff 50-325-40 1 tab PO Q6HR PRN #24 tab 04/29/21 Unknown Rx [Fioricet] Hydrocortisone [Hydrocortisone 20 gm TP BID #1 oint...g. 04/29/21 Unknown Rx 2.5% OINT] Gabapentin 300 mg PO TID #21 capsule 06/15/21 Unknown Rx Mineral Oil/Hydrophil Petrolat 50 gm TP BID #1 oint...g. 06/20/21 Unknown Rx [Aquaphor Healing Ointment] ED Physical Exam - General Limitations: No Limitations General appearance: alert, in no apparent distress - Head Head exam: Present: atraumatic, normocephalic - Eye Eye exam: Present: normal appearance - ENT ENT exam: Present: normal exam, normal orophraynx - Neck Neck exam: Present: normal inspection, full ROM. Absent: tenderness, meningismus, lymphadenopathy - Respiratory Respiratory exam: Present: normal lung sounds bilaterally. Absent: respiratory distress, wheezes, rales, rhonchi, stridor, chest wall tenderness, accessory muscle use, decreased breath sounds, prolonged expiratory - Cardiovascular Cardiovascular Exam: Present: regular rate, normal rhythm, normal heart sounds. Absent: bradycardia, tachycardia, irregular rhythm, systolic murmur, diastolic murmur, rubs, gallop - GI/Abdominal GI/Abdominal exam: Present: soft, normal bowel sounds. Absent: distended, tenderness, guarding, rebound, rigid, diminished bowel sounds - Extremities Exam Extremities exam: Present: normal inspection, full ROM, normal capillary refill. Absent: tenderness, pedal edema, joint swelling, calf tenderness - Expanded Lower Extremity Exam Left Hip exam: Present: normal inspection (bilateral exam), full ROM (bilateral exam). Absent: tenderness (bilateral exam), swelling (bilateral exam) Upper Leg exam: Present: normal inspection (bilateral exam), full ROM (bilateral exam). Absent: tenderness (bilateral exam), swelling (bilateral exam) Knee exam: Present: normal inspection (bilateral exam), full ROM (bilateral exam). Absent: tenderness (bilateral exam), swelling (bilateral exam) Lower Leg exam: Present: normal inspection (bilateral exam), full ROM (bilateral exam). Absent: tenderness (bilateral exam), swelling (bilateral exam), abrasion (bilateral exam), laceration (bilateral exam), ecchymosis (bilateral exam), deformity (bilateral exam), crepidus (bilateral exam), dislocation (bilateral exam), erythema (bilateral exam), palpable cord (bilateral exam), Zoila's sign (bilateral exam) Ankle exam: Present: normal inspection (bilateral exam), full ROM (bilateral exam). Absent: tenderness, swelling (bilateral exam), abrasion (bilateral exam), laceration (bilateral exam), ecchymosis (bilateral exam), deformity (bila teral exam), crepidus (bilateral exam), dislocation (bilateral exam), erythema (bilateral exam), anterior draw sign (bilateral exam) Foot/Toe exam: Present: normal inspection, full ROM (bilateral exam). Absent: tenderness (bilateral exam), swelling (bilateral exam) Neuro vascular tendon exam: Present: no vascular compromise (bilateral exam) Gait: Positive: observed and normal - Back Exam Back exam: Present: normal inspection, full ROM. Absent: tenderness, CVA tenderness (R), CVA tenderness (L), muscle spasm, paraspinal tenderness, vertebral tenderness, rash noted - Neurological Exam Neurological exam: Present: alert, oriented X3, normal gait - Psychiatric Psychiatric exam: Present: normal affect, normal mood. Absent: depressed, agitated, anxious, flat affect, manic, homicidal ideation, suicidal ideation - Skin Skin exam: Present: warm, dry, intact, normal color. Absent: rash ED Course Vital Signs 11/23/21 01:29 Temperature 98 F Pulse Rate 96 H Respiratory 18 Rate Blood Pressure 147/90 O2 Sat by Pulse 97 Oximetry - Reevaluation(s) Reevaluation #1: 11/23/21 11:26 Patient is speaking in full sentences with no signs of distress noted. ED Medical Decision Making - Lab Data Result diagrams: 11/23/21 09:09 11/23/21 09:09 Lab Results 11/23/21 11/23/21 11/23/21 Range/Units 09:09 09:09 09:09 WBC 5.4 (4.5-11.0) K/mm3 RBC 5.08 H (3.65-5.03) M/mm3 Hgb 11.3 L (11.8-15.2) gm/dl Hct 36.9 (35.5-45.6) % MCV 73 L (84-94) fl MCH 22 L (28-32) pg MCHC 31 L (32-34) % RDW 16.7 H (13.2-15.2) % Luce % (Auto) Barn Operator Seg Neutrophils % Barn Operator PT 13.2 (12.2-14.9) Sec. INR 0.91 (0.87-1.13) APTT 26.6 (24.2-36.6) Sec. Sodium 140 (137-145) mmol/L Potassium 3.8 (3.6-5.0) mmol/L Chloride 103.6 (98-107) mmol/L Carbon Dioxide 24 (22-30) mmol/L Anion Gap 16 mmol/L BUN 15 (9-20) mg/dL Creatinine 0.6 L (0.8-1.3) mg/dL Estimated GFR > 60 ml/min BUN/Creatinine Ratio 25 % Glucose 80 (75-100) mg/dL Calcium 9.1 (8.4-10.2) mg/dL Total Bilirubin < 0.20 (0.1-1.2) mg/dL AST 15 (5-40) units/L ALT 9 (7-56) units/L Alkaline Phosphatase 75 (35-129) units/L Total Protein 6.9 (6.3-8.2) g/dL Albumin 4.1 (3.9-5) g/dL Albumin/Globulin Ratio 1.5 % - Medical Decision Making 50-year-old male that presents with complaints of itching and bilateral leg swelling. Patient is stable and was examined by me. Physical exam is unr emarkable and does not show any swelling to bilateral legs or a rash. Labs has been obtained. Patient is notified of the results with no questions noted by the patient. Patient was instructed to follow-up with a primary care doctor in 3-5 days or if symptoms worsen and continue return to emergency room as soon as possible. At time of discharge, the patient does not seem toxic or ill in appearance. No acute signs of distress noted. Patient agrees to discharge treatment plan of care. No further questions noted by the patient. Critical care attestation.: If time is entered above; I have spent that time in minutes in the direct care of this critically ill patient, excluding procedure time. ED Disposition Clinical Impression: Itching, Leg swelling Disposition: 01 HOME / SELF CARE / HOMELESS Is pt being admited?: No Does the pt Need Aspirin: No Condition: Stable Additional Instructions: Follow-up with a primary care doctor in 3-5 days or if symptoms worsen and continue return to emergency room as soon as possible. Referrals: PRIMARY MD EMILIA [Primary Care Provider] - 3-5 Days ZANDRA EDOUARD MD [Staff Physician] - 3-5 Days Time of Disposition: 11:27
[2021-11-23 11:38] LABS: Anisocytosis 1+; Total Cells Counted 100
[2021-11-23 11:39] LABS: Hypochromasia 1+; Large Platelets Few; Platelet Estimate Consistent w Auto
[2021-11-23 11:46] LABS: Platelet Count 126 K/mm3 (140-440)
== END 2021-11-23 14:53 | disposition home or self-care (01) ==
LOC: ED 23:51
DX: L29.9 Pruritus, unspecified (principal); M25.48 Effusion, other site; I11.0 Hypertensive heart disease with heart failure; I50.9 Heart failure, unspecified; E11.9 Type 2 diabetes mellitus without complications; M19.90 Unspecified osteoarthritis, unspecified site; J45.909 Unspecified asthma, uncomplicated; F31.9 Bipolar disorder, unspecified; Z98.890 Other specified postprocedural states; Z91.09 Other allergy status, other than to drugs and biological substances; Z79.899 Other long term (current) drug therapy; F17.200 Nicotine dependence, unspecified, uncomplicated
CPT/HCPCS: 36415; 80053; 85007; 85025; 85610; 85730; 99283

== ENCOUNTER 2021-11-23 22:58 | Emergency (ER) | payer MEDICARE ==
[2021-11-24 02:26] VITALS: BP 128/80
== END 2021-11-24 09:00 | disposition left against medical advice (07) ==
LOC: ED 22:58
DX: R10.9 Unspecified abdominal pain (principal); Z53.21 Procedure and treatment not carried out due to patient leaving prior to being seen by health care provider

== ENCOUNTER 2021-11-27 01:31 | Emergency (ER) | payer MEDICARE ==
[2021-11-27] MEDS ORDERED: predniSONE 20 MG TAB PO ONE (12:22)
[2021-11-27] MEDS ORDERED: KETOROLAC 10 MG TAB PO ONE (12:22)
--- NOTE | 2021-11-27 12:48 | XRay Report ---
ABDOMEN 1 VIEW(S) INDICATION / CLINICAL INFORMATION: abdominal pain, no bm. COMPARISON: None available. FINDINGS: TUBES / LINES: None. BOWEL GAS PATTERN/EXTRALUMINAL GAS: No acute findings. Moderate constipation. No pneumatosis or secon wu signs of free air. ADDITIONAL FINDINGS: No significant additional findings. IMPRESSION: 1. No acute findings. Moderate constipation. Signer Name: Neeraj Houser MD Signed: 11/27/2021 12:44 PM Workstation Name: [id number]
[2021-11-27] MEDS ORDERED: MAGNESIUM CITRATE 300 ML ORAL LIQD PO ONE (13:21)
--- NOTE | 2021-11-27 13:27 | Emergency Department Report ---
ED Abdominal Pain HPI - General Chief Complaint: Pain General Stated Complaint: MEDICAL ISSUES Time Seen by Provider: 11/27/21 12:21 Source: patient Mode of arrival: Ambulatory Limitations: No Limitations - History of Present Illness Initial Comments: 50-year-old black male with a past medical history of depression presents to the emergency department for evaluation of body aches, cough, headache, and abdominal pain. He states that he has not been able to have a bowel movement for the last 4 days and he usually has a bowel movement at least once per day. He has not taken any medication for that symptom. He also complains of generalized body aches cough, and headache that started several days ago. He denies fever, runny nose, dysuria. MD Complaint: abdominal pain -: Gradual, days(s) (3-4) Location: LLQ, RLQ Radiation: none Migration to: no migration Severity: moderate Severity scale (0 -10): 5 Quality: cramping Consistency: intermittent Associated Symptoms: constipation. denies: nausea, vomiting, diarrhea, fever, chills, dysuria, hematemesis, hematochezia, melena - Related Data Home Medications Medication Instructions Recorded Confirmed Last Taken Albuterol Sulfate [Ventolin Hfa] 2 puff IH PRN PRN 07/18/18 08/08/19 Unknown Fluticasone/Vilanterol [Breo 1 each IH DAILY 08/08/19 08/08/19 Unknown Ellipta 100-25 Mcg INH] Rivaroxaban [Xarelto] 15 mg PO BID 08/08/19 08/08/19 Unknown amLODIPine [Norvasc] 10 mg PO DAILY 08/08/19 08/08/19 Unknown lisinopriL [Zestril] 20 mg PO QDAY 08/08/19 08/08/19 Unknown Previous Rx's Medication Instructions Recorded Last Taken Type Polymyxin B Sulf/Trimethoprim 1 drop OP Q3HR 3 Days #1 bottle 07/31/18 Unknown Rx [Polytrim Eye Drops 12919usgwp/0.1%] Divalproex ER [Depakote ER] 2,000 mg PO HS 30 Days tablet 12/26/18 Unknown Rx Nicotine [Habitrol] 14 mg TD QDAY #30 patch 12/26/18 Unknown Rx OLANzapine [Zyprexa] 20 mg PO HS 30 Days #30 tablet 07/16/19 Unknown Rx traZODone [Desyrel] 150 mg PO QHS 30 Days #30 tablet 07/16/19 Unknown Rx levoFLOXacin [Levaquin] 750 mg PO QDAY #5 tablet 08/06/19 Unknown Rx Acetaminophen [Non-Aspirin Extra 500 mg PO Q6HR PRN #30 tablet 11/18/19 Unknown Rx Strength] Albuterol Sulfate [Proair 90 mcg IH Q4HR PRN #2 aer.pow.ba 11/18/19 Unknown Rx Respiclick] Furosemide [Lasix] 20 mg PO QDAY #30 tablet 11/18/19 Unknown Rx Furosemide [Lasix TAB] 40 mg PO QDAY 30 Days #30 tablet 12/29/19 Unknown Rx Naproxen [Naprosyn] 500 mg PO BID #14 tablet 10/25/20 Unknown Rx Benzonatate [Tessalon Perles] 100 mg PO Q8HR PRN #20 capsule 12/25/20 Unknown Rx Naproxen 500 mg PO BID PRN #30 tablet 01/09/[address] [Kamini CLARK] 250 mg PO BID #60 tablet 02/26/21 Unknown Rx risperiDONE [RisperDAL] 0.5 mg PO BID #60 tablet 02/26/21 Unknown Rx traZODone [Desyrel] 50 mg PO QHS #30 tab 02/26/21 Unknown Rx Gabapentin 100 mg PO BID #30 capsule 04/19/21 Unknown Rx Magnesium Oxide [Mag-Ox] 400 mg PO QDAY #20 tablet 04/23/21 Unknown Rx Butalb/Acetamin/Caff 50-325-40 1 tab PO Q6HR PRN #24 tab 04/29/21 Unknown Rx [Fioricet] Hydrocortisone [Hydrocortisone 20 gm TP BID #1 oint...g. 04/29/21 Unknown Rx 2.5% OINT] Gabapentin 300 mg PO TID #21 capsule 06/15/21 Unknown Rx Mineral Oil/Hydrophil Petrolat 50 gm TP BID #1 oint...g. 06/20/21 Unknown Rx [Aquaphor Healing Ointment] Allergies Allergy/AdvReac Type Severity Reaction Status Date / Time ziprasidone [From Geodon] Allergy Unknown Verified 11/27/21 08:22 tramadol AdvReac Unknown Verified 11/27/21 08:22 ED Review of Systems ROS: Stated complaint: MEDICAL ISSUES Other details as noted in HPI Constitutional: denies: chills, fever, malaise, weakness Eyes: denies: eye pain, eye discharge, vision change ENT: denies: congestion Respiratory: cough. denies: shortness of breath, SOB with exertion, SOB at rest, stridor, wheezing Cardiovascular: denies: chest pain, palpitations, dyspnea on exertion, orthopnea, edema, syncope, paroxysmal nocturnal dyspnea Gastrointestinal: abdominal pain, constipation. denies: nausea, vomiting, diarrhea, hematemesis, melena, hematochezia Genitourinary: denies: urgency, dysuria, frequency, hematuria, discharge, testicular pain Musculoskeletal: denies: back pain Skin: denies: rash, lesions Neurological: denies: headache, weakness, numbness, paresthesias, confusion, abnormal gait ED Past Medical Hx - Past Medical History Hx Hypertension: Yes Hx Congestive Heart Failure: Yes Hx Diabetes: Yes Hx Renal Disease: No Hx Arthritis: Yes Hx Seizures: No Hx Psychiatric Treatment: Yes (bi-polar) Hx Asthma: Yes Hx COPD: Yes Hx Tuberculosis: Yes (POSITIVE SKIN TEST,TOOK [place] , NEG CXR) Hx Dementia: No Hx HIV: No Additional medical history: Chronic Knee pain - Surgical History Hx Cholecystectomy: No Hx Appendectomy: No Additional Surgical History: right knee surgery - Social History Smoking Status: Current Every Day Smoker Substance Use Type: None - Medications Home Medications: Home Medications Medication Instructions Recorded Confirmed Last Taken Type Albuterol Sulfate [Ventolin Hfa] 2 puff IH PRN PRN 07/18/18 08/08/19 Unknown History Polymyxin B Sulf/Trimethoprim 1 drop OP Q3HR 3 Days #1 bottle 07/31/18 08/08/19 Unknown Rx [Polytrim Eye Drops 10507qqazc/0.1%] Divalproex ER [Depakote ER] 2,000 mg PO HS 30 Days tablet 12/26/18 08/08/19 Unk nown Rx Nicotine [Habitrol] 14 mg TD QDAY #30 patch 12/26/18 08/08/19 Unknown Rx OLANzapine [Zyprexa] 20 mg PO HS 30 Days #30 tablet 07/16/19 08/08/19 Unknown Rx traZODone [Desyrel] 150 mg PO QHS 30 Days #30 tablet 07/16/19 08/08/19 Unknown Rx levoFLOXacin [Levaquin] 750 mg PO QDAY #5 tablet 08/06/19 08/08/19 Unknown Rx Fluticasone/Vilanterol [Breo 1 each IH DAILY 08/08/19 08/08/19 Unknown History Ellipta 100-25 Mcg INH] Rivaroxaban [Xarelto] 15 mg PO BID 08/08/19 08/08/19 Unknown History amLODIPine [Norvasc] 10 mg PO DAILY 08/08/19 08/08/19 Unknown History lisinopriL [Zestril] 20 mg PO QDAY 08/08/19 08/08/19 Unknown History Acetaminophen [Non-Aspirin Extra 500 mg PO Q6HR PRN #30 tablet 11/18/19 Unknown Rx Strength] Albuterol Sulfate [Proair 90 mcg IH Q4HR PRN #2 aer.pow.ba 11/18/19 Unknown Rx Respiclick] Furosemide [Lasix] 20 mg PO QDAY #30 tablet 11/18/19 Unknown Rx Furosemide [Lasix TAB] 40 mg PO QDAY 30 Days #30 tablet 12/29/19 Unknown Rx Naproxen [Naprosyn] 500 mg PO BID #14 tablet 10/25/20 Unknown Rx Benzonatate [Tessalon Perles] 100 mg PO Q8HR PRN #20 capsule 12/25/20 Unknown Rx Naproxen 500 mg PO BID PRN #30 tablet 01/09/21 Unknown Rx Divalproex [Kamini CLARK] 250 mg PO BID #60 tablet 02/26/21 Unknown Rx risperiDONE [RisperDAL] 0.5 mg PO BID #60 tablet 02/26/21 Unknown Rx traZODone [Desyrel] 50 mg PO QHS #30 tab 02/26/21 Unknown Rx Gabapentin 100 mg PO BID #30 capsule 04/19/21 Unknown Rx Magnesium Oxide [Mag-Ox] 400 mg PO QDAY #20 tablet 04/23/21 Unknown Rx Butalb/Acetamin/Caff 50-325-40 1 tab PO Q6HR PRN #24 tab 04/29/21 Unknown Rx [Fioricet] Hydrocortisone [Hydrocortisone 20 gm TP BID #1 oint...g. 04/29/21 Unknown Rx 2.5% OINT] Gabapentin 300 mg PO TID #21 capsule 06/15/21 Unknown Rx Mineral Oil/Hydrophil Petrolat 50 gm TP BID #1 oint...g. 06/20/21 Unknown Rx [Aquaphor Healing Ointment] ED Physical Exam - General Limitations: No Limitations General appearance: alert, in no apparent distress - Head Head exam: Present: atraumatic, normocephalic - Eye Eye exam: Present: normal appearance. Absent: conjunctival injection - Neck Neck exam: Present: normal inspection, full ROM. Absent: tenderness, meningismus, lymphadenopathy, thyromegaly - Respiratory Respiratory exam: Present: normal lung sounds bilaterally. Absent: respiratory distress, wheezes, rales, rhonchi, stridor, chest wall tenderness - Cardiovascular Cardiovascular Exam: Present: normal heart sounds - GI/Abdominal GI/Abdominal exam: Present: soft, normal bowel sounds. Absent: distended, tenderness, guarding, rebound, rigid - Extremities Exam Extremities exam: Present: normal inspection, normal capillary refill. Absent: pedal edema, joint swelling, calf tenderness - Back Exam Back exam: Present: normal inspection. Absent: CVA tenderness (R), CVA tenderness (L), vertebral tenderness - Neurological Exam Neurological exam: Present: alert, oriented X3, normal gait - Psychiatric Psychiatric exam: Present: normal affect, normal mood - Skin Skin exam: Present: warm, dry, intact, normal color ED Medical Decision Making - Radiology Data Radiology results: report reviewed, image reviewed KUB: FINDINGS: TUBES / LINES: None. BOWEL GAS PATTERN/EXTRALUMINAL GAS: No acute findings. Moderate constipation. No pneumatosis or secondary signs of free air. ADDITIONAL FINDINGS: No significant additional findings. IMPRESSION: 1. No acute findings. Moderate constipation. - Medical Decision Making 50-year-old black male with a past medical history of depression presents to the emergency department for evaluation of body aches, cough, headache, and abdominal pain. He states that he has not been able to have a bowel movement for the last 4 days and he usually has a bowel movement at least once per day. He has not taken any medication for that symptom. He also complains of generalized body aches cough, and headache that started several days ago. He denies fever, runny nose, dysuria. No gross abnormalities noted on labs. KUB positive for moderate constipation. Patient will be treated with one-time dose of steroids, Tessalon Perle, and Toradol for cough and body aches. He will be given one-time dose of mag citrate for constipation. He is advised to increase noncaffeinated fluid intake and increase dietary fiber. He is advised to follow-up with primary care provider if worsening symptoms. He is advised to return to the emergency department for any concerning symptoms he verbalizes understanding of and agreement with plan of care. Critical care attestation.: If time is entered above; I have spent that time in minutes in the direct care of this critically ill patient, excluding procedure time. ED Disposition Clinical Impression: URI with cough and congestion Constipation Qualifiers: Constipation type: unspecified constipation type Qualified Code(s): K59.00 - Constipation, unspecified Disposition: HOME / SELF CARE / HOMELESS Is pt being admited?: No Does the pt Need Aspirin: No Condition: Stable Instructions: Upper Respiratory Infection, Adult, [id number], Constipation, Adult, [id number], Cough, Adult, [id number] Additional Instructions: Follow-up with primary care provider if you have worsening symptoms. Return to the emergency department as needed. Referrals: ZANDRA EDOUARD MD [Primary Care Provider] - 3-5 Days Time of Disposition: 13:29
[2021-11-27 13:48] VITALS: BP 124/89
== END 2021-11-27 13:48 | disposition home or self-care (01) ==
LOC: ED 01:31
DX: J06.9 Acute upper respiratory infection, unspecified (principal); K59.00 Constipation, unspecified; Z88.6 Allergy status to analgesic agent; I10 Essential (primary) hypertension; E11.9 Type 2 diabetes mellitus without complications; J45.909 Unspecified asthma, uncomplicated; F17.200 Nicotine dependence, unspecified, uncomplicated
CPT/HCPCS: 74018; 82962; 99283

== ENCOUNTER → 2021-11-28 | Emergency (ER) | payer MEDICARE ==
[2021-11-28 09:30] VITALS: BP 120/74
== END ==
LOC: ED 08:41
DX: M25.561 Pain in right knee (principal); Z53.21 Procedure and treatment not carried out due to patient leaving prior to being seen by health care provider; R51.9 Headache, unspecified

== ENCOUNTER 2021-12-02 23:45 | Emergency (ER) | payer MEDICARE ==
[2021-12-03 00:01] VITALS: BP 144/93
== END 2021-12-03 07:46 | disposition left against medical advice (07) ==
LOC: ED 23:45
DX: R10.9 Unspecified abdominal pain (principal); Z53.21 Procedure and treatment not carried out due to patient leaving prior to being seen by health care provider

== ENCOUNTER 2022-03-08 02:07 | Emergency (ER) | payer MEDICARE ==
[2022-03-08 03:23] LABS: Basophils % (Auto) 0.5 % (0.0-1.8); Eosinophils # (Auto) 0.1 K/mm3 (0.0-0.4); Eosinophils % (Auto) 1.4 % (0.0-4.3); Hematocrit 36.4 % (35.5-45.6); Hemoglobin 11.8 gm/dl (11.8-15.2); Lymphocytes # (Auto) 2.7 K/mm3 (1.2-5.4); Lymphocytes % (Auto) 47.4 % (13.4-35.0); Mean Corpuscular HGB Conc 33 % (32-34); Mean Corpuscular Volume 72 fl (84-94); Monocytes # (Auto) 0.6 K/mm3 (0.0-0.8); Monocytes % (Auto) 10.7 % (0.0-7.3); Red Blood Count 5.09 M/mm3 (3.65-5.03); Red Cell Distribution Width 16.9 % (13.2-15.2)
[2022-03-08 03:28] LABS: Platelet Count 146 K/mm3 (140-440)
[2022-03-08 03:37] LABS: BUN/Creatinine Ratio 24; Blood Urea Nitrogen 19 mg/dL (9-20); Calcium 9.5 mg/dL (8.4-10.2); Hemolysis Index 32
--- NOTE | 2022-03-08 09:56 | Emergency Department Report ---
ED Medical Clearance HPI - General Chief complaint: Medical Clearance Stated complaint: MEDICAL CLEARANCE FOR [facility] Time Seen by Provider: 03/08/22 08:38 Source: patient Mode of arrival: Ambulatory - History of Present Illness Initial comments: 51 YO MALE COMES TO ER FOR MEDICAL CLEARANCE FOR [facility]. HE IS GOING THERE FOR HIS PSYCHOSIS SECONDARY TO HIS BIPOLAR HE HAS NO HI. NO SI. HE IS KNOWN TO US IN ER HE STATES HE WENT TO [facility] AND THEY SENT HIM HERE BECAUSE BP WAS HIGH. Vital Signs 03/08/22 03/08/22 02:20 10:00 Temperature 97.8 F 97.8 F Pulse Rate 91 H 74 Respiratory 16 16 Rate Blood Pressure 142/87 Blood Pressure 142/86 [Left] O2 Sat by Pulse 99 100 Oximetry HE HAS NO CP HE HAS NO SOB MD Complaint: medical clearance request Home medications: Home Medications Medication Instructions Recorded Confirmed Last Taken Albuterol Sulfate [Ventolin Hfa] 2 puff IH PRN PRN 07/18/18 08/08/19 Unknown Fluticasone/Vilanterol [Breo 1 each IH DAILY 08/08/19 08/08/19 Unknown Ellipta 100-25 Mcg INH] Rivaroxaban [Xarelto] 15 mg PO BID 08/08/19 08/08/19 Unknown amLODIPine [Norvasc] 10 mg PO DAILY 08/08/19 08/08/19 Unknown lisinopriL [Zestril] 20 mg PO QDAY 08/08/19 08/08/19 Unknown Previous Rx's Medication Instructions Recorded Last Taken Type Polymyxin B Sulf/Trimethoprim 1 drop OP Q3HR 3 Days #1 bottle 07/31/18 Unknown Rx [Polytrim Eye Drops 72762aufew/0.1%] Divalproex ER [Depakote ER] 2,000 mg PO HS 30 Days tablet 12/26/18 Unknown Rx Nicotine [Habitrol] 14 mg TD QDAY #30 patch 12/26/18 Unknown Rx OLANzapine [Zyprexa] 20 mg PO HS 30 Days #30 tablet 07/16/19 Unknown Rx traZODone [Desyrel] 150 mg PO QHS 30 Days #30 tablet 07/16/19 Unknown Rx levoFLOXacin [Levaquin] 750 mg PO QDAY #5 tablet 08/06/19 Unknown Rx Acetaminophen [Non-Aspirin Extra 500 mg PO Q6HR PRN #30 tablet 11/18/19 Unknown Rx Strength] Albuterol Sulfate [Proair 90 mcg IH Q4HR PRN #2 aer.pow.ba 11/18/19 Unknown Rx Respiclick] Furosemide [Lasix] 20 mg PO QDAY #30 tablet 11/18/19 Unknown Rx Furosemide [Lasix TAB] 40 mg PO QDAY 30 Days #30 tablet 12/29/19 Unknown Rx Naproxen [Naprosyn] 500 mg PO BID #14 tablet 10/25/20 Unknown Rx Benzonatate [Tessalon Perles] 100 mg PO Q8HR PRN #20 capsule 12/25/20 Unknown Rx Naproxen 500 mg PO BID PRN #30 tablet 01/09/[address] [DepaKOTRISH DR] 250 mg PO BID #60 tablet 02/26/21 Unknown Rx risperiDONE [RisperDAL] 0.5 mg PO BID #60 tablet 02/26/21 Unknown Rx traZODone [Desyrel] 50 mg PO QHS #30 tab 02/26/21 Unknown Rx Gabapentin 100 mg PO BID #30 capsule 04/19/21 Unknown Rx Magnesium Oxide [Mag-Ox] 400 mg PO QDAY #20 tablet 04/23/21 Unknown Rx Butalb/Acetamin/Caff 50-325-40 1 tab PO Q6HR PRN #24 tab 04/29/21 Unknown Rx [Fioricet] Hydrocortisone [Hydrocortisone 20 gm TP BID #1 oint...g. 04/29/21 Unknown Rx 2.5% OINT] Gabapentin 300 mg PO TID #21 capsule 06/15/21 Unknown Rx Mineral Oil/Hydrophil Petrolat 50 gm TP BID #1 oint...g. 06/20/21 Unknown Rx [Aquaphor Healing Ointment] Allergies/Adverse reactions: Allergies Allergy/AdvReac Type Severity Reaction Status Date / Time ziprasidone [From Geodon] Allergy Unknown Verified 11/27/21 08:22 tramadol AdvReac Unknown Verified 11/27/21 08:22 ED Review of Systems ROS: Stated complaint: MEDICAL CLEARANCE FOR [id number] Other details as noted in HPI Comment: All other systems reviewed and negative ED Past Medical Hx - Past Medical History Previous Medical History?: Yes Hx Hypertension: Yes Hx Congestive Heart Failure: Yes Hx Diabetes: Yes Hx Renal Disease: No Hx Arthritis: Yes Hx Seizures: No Hx Psychiatric Treatment: Yes (bi-polar) Hx Asthma: Yes Hx COPD: Yes Hx Tuberculosis: Yes (POSITIVE SKIN TEST,TOOK [place] , NEG CXR) Hx Dementia: No Hx HIV: No Additional medical history: Chronic Knee pain - Surgical History Past Surgical History?: Yes Hx Cholecystectomy: No Hx Appendectomy: No Additional Surgical History: right knee surgery - Family History Family history: no significant - Social History Smoking Status: Current Every Day Smoker Substance Use Type: None - Medications Home Medications: Home Medications Medication Instructions Recorded Confirmed Last Taken Type Albuterol Sulfate [Ventolin Hfa] 2 puff IH PRN PRN 07/18/18 08/08/19 Unknown History Polymyxin B Sulf/Trimethoprim 1 drop OP Q3HR 3 Days #1 bottle 07/31/18 08/08/19 Unknown Rx [Polytrim Eye Drops 22784espnw/0.1%] Divalproex ER [Depakote ER] 2,000 mg PO HS 30 Days tablet 12/26/18 08/08/19 Unknown Rx Nicotine [Habitrol] 14 mg TD QDAY #30 patch 12/26/18 08/08/19 Unknown Rx OLANzapine [Zyprexa] 20 mg PO HS 30 Days #30 tablet 07/16/19 08/08/19 Unknown Rx traZODone [Desyrel] 150 mg PO QHS 30 Days #30 tablet 07/16/19 08/08/19 Unknown Rx levoFLOXacin [Levaquin] 750 mg PO QDAY #5 tablet 08/06/19 08/08/19 Unknown Rx Fluticasone/Vilanterol [Breo 1 each IH DAILY 08/08/19 08/08/19 Unknown History Ellipta 100-25 Mcg INH] Rivaroxaban [Xarelto] 15 mg PO BID 08/08/19 08/08/19 Unknown History amLODIPine [Norvasc] 10 mg PO DAILY 08/08/19 08/08/19 Unknown History lisinopriL [Zestril] 20 mg PO QDAY 08/08/19 08/08/19 Unknown History Acetaminophen [Non-Aspirin Extra 500 mg PO Q6HR PRN #30 tablet 11/18/19 Unknown Rx Strength] Albuterol Sulfate [Proair 90 mcg IH Q4HR PRN #2 aer.pow.ba 11/18/19 Unknown Rx Respiclick] Furosemide [Lasix] 20 mg PO QDAY #30 tablet 11/18/19 Unknown Rx Furosemide [Lasix TAB] 40 mg PO QDAY 30 Days #30 tablet 12/29/19 Unknown Rx Naproxen [Naprosyn] 500 mg PO BID #14 tablet 10/25/20 Unknown Rx Benzonatate [Tessalon Perles] 100 mg PO Q8HR PRN #20 capsule 12/25/20 Unknown Rx Naproxen 500 mg PO BID PRN #30 tablet 01/09/[address] [DepaKOTE DR] 250 mg PO BID #60 tablet 02/26/21 Unknown Rx risperiDONE [RisperDAL] 0.5 mg PO BID #60 tablet 02/26/21 Unknown Rx traZODone [Desyrel] 50 mg PO QHS #30 tab 02/26/21 Unknown Rx Gabapentin 100 mg PO BID #30 capsule 04/19/21 Unknown Rx Magnesium Oxide [Mag-Ox] 400 mg PO QDAY #20 tablet 04/23/21 Unknown Rx Butalb/Acetamin/Caff 50-325-40 1 tab PO Q6HR PRN #24 tab 04/29/21 Unknown Rx [Fioricet] Hydrocortisone [Hydrocortisone 20 gm TP BID #1 oint...g. 04/29/21 Unknown Rx 2.5% OINT] Gabapentin 300 mg PO TID #21 capsule 06/15/21 Unknown Rx Mineral Oil/Hydrophil Petrolat 50 gm TP BID #1 oint...g. 06/20/21 Unknown Rx [Aquaphor Healing Ointment] ED Physical Exam - General Limitations: No Limitations General appearance: alert, in no apparent distress - Head Head exam: Present: atraumatic, normocephalic - Eye Eye exam: Present: normal appearance - ENT ENT exam: Present: mucous membranes moist - Neck Neck exam: Present: normal inspection - Respiratory Respiratory exam: Present: normal lung sounds bilaterally. Absent: respiratory distress - Cardiovascular Cardiovascular Exam: Present: regular rate, normal rhythm. Absent: systolic murmur, diastolic murmur, rubs, gallop - GI/Abdominal GI/Abdominal exam: Present: soft, normal bowel sounds - Rectal Rectal exam: Present: deferred - Extremities Exam Extremities exam: Present: normal inspection - Back Exam Back exam: Present: normal inspection - Neurological Exam Neurological exam: Present: alert, oriented X3 - Psychiatric Psychiatric exam: Present: agitated - Skin Skin exam: Present: warm, dry, intact, normal color. Absent: rash ED Course Vital Signs 03/08/22 03/08/22 02:20 10:00 Temperature 97.8 F 97.8 F Pulse Rate 91 H 74 Respiratory 16 16 Rate Blood Pressure 142/87 Blood Pressure 142/86 [Left] O2 Sat by Pulse 99 100 Oximetry ED Medical Decision Making - Lab Data Result diagrams: 03/08/22 02:54 03/08/22 02:54 - Medical Decision Making Lab Results 03/08/22 03/08/22 03/08/22 Range/Units 02:54 02:54 02:54 WBC 5.7 (4.5-11.0) K/mm3 RBC 5.09 H (3.65-5.03) M/mm3 Hgb 11.8 (11.8-15.2) gm/dl Hct 36.4 (35.5-45.6) % MCV 72 L (84-94) fl MCH 23 L (28-32) pg MCHC 33 (32-34) % RDW 16.9 H (13.2-15.2) % Plt Count 146 (140-440) K/mm3 Lymph % (Auto) 47.4 H (13.4-35.0) % [place] % (Auto) 10.7 H (0.0-7.3) % Eos % (Auto) 1.4 (0.0-4.3) % Baso % (Auto) 0.5 (0.0-1.8) % Lymph # (Auto) 2.7 (1.2-5.4) K/mm3 [place] # (Auto) 0.6 (0.0-0.8) K/mm3 Eos # (Auto) 0.1 (0.0-0.4) K/mm3 Baso # (Auto) 0.0 (0.0-0.1) K/mm3 Seg Neutrophils % 40.0 (40.0-70.0) % Seg Neutrophils # 2.3 (1.8-7.7) K/mm3 Sodium 141 (137-145) mmol/L Potassium 4.2 (3.6-5.0) mmol/L Chloride 103.3 (98-107) mmol/L Carbon Dioxide 27 (22-30) mmol/L Anion Gap 15 mmol/L BUN 19 (9-20) mg/dL Creatinine 0.8 (0.8-1.3) mg/dL Estimated GFR > 60 ml/min BUN/Creatinine Ratio 24 % Glucose 98 (75-100) mg/dL Calcium 9.5 (8.4-10.2) mg/dL Salicylates < 0.3 L (2.8-20.0) mg/dL Acetaminophen (10.0-30.0) ug/mL 03/08/22 Range/Units 02:54 WBC (4.5-11.0) K/mm3 RBC (3.65-5.03) M/mm3 Hgb (11.8-15.2) gm/dl Hct (35.5-45.6) % MCV (84-94) fl MCH (28-32) pg MCHC (32-34) % RDW (13.2-15.2) % Plt Count (140-440) K/mm3 Lymph % (Auto) (13.4-35.0) % [place] % (Auto) (0.0-7.3) % Eos % (Auto) (0.0-4.3) % Baso % (Auto) (0.0-1.8) % Lymph # (Auto) (1.2-5.4) K/mm3 [place] # (Auto) (0.0-0.8) K/mm3 Eos # (Auto) (0.0-0.4) K/mm3 Baso # (Auto) (0.0-0.1) K/mm3 Seg Neutrophils % (40.0-70.0) % Seg Neutrophils # (1.8-7.7) K/mm3 Sodium (137-145) mmol/L Potassium (3.6-5.0) mmol/L Chloride (98-107) mmol/L Carbon Dioxide (22-30) mmol/L Anion Gap mmol/L BUN (9-20) mg/dL Creatinine (0.8-1.3) mg/dL Estimated GFR ml/min BUN/Creatinine Ratio % Glucose (75-100) mg/dL Calcium (8.4-10.2) mg/dL Salicylates (2.8-20.0) mg/dL Acetaminophen 5.0 L (10.0-30.0) ug/mL Vital Signs 03/08/22 03/08/22 02:20 10:00 Temperature 97.8 F 97.8 F Pulse Rate 91 H 74 Respiratory 16 16 Rate Blood Pressure 142/87 Blood Pressure 142/86 [Left] O2 Sat by Pulse 99 100 Oximetry BP DOES NOT REQUIRE INTERVENTION AT THIS TIME. HE HAS NO CP/SOB OR OTHER CO HE HAS BEEN GIVEN MED CLEARANCE FOR [facility]. ON DC AMBULATORY/TAKING PO/NAD REFERRAL TO PCP GIVEN - Differential Diagnosis MED CLEARANCE ED Disposition Clinical Impression: Medical clearance for psychiatric admission, History of hypertension Disposition: 01 HOME / SELF CARE / HOMELESS Is pt being admited?: No Does the pt Need Aspirin: No Condition: Stable Additional Instructions: SEE PCP FOR CHRONIC CONDITIONS Referrals: ZANDRA EDOUARD MD [Staff Physician] - 3-5 Days Time of Disposition: 09:55
[2022-03-08 10:05] VITALS: BP 142/86
== END 2022-03-08 09:56 | disposition home or self-care (01) ==
LOC: ED 02:07
DX: Z13.30 Encounter for screening examination for mental health and behavioral disorders, unspecified (principal); I11.0 Hypertensive heart disease with heart failure; I50.9 Heart failure, unspecified; E11.9 Type 2 diabetes mellitus without complications; M19.90 Unspecified osteoarthritis, unspecified site; F31.9 Bipolar disorder, unspecified; J45.909 Unspecified asthma, uncomplicated; A15.9 Respiratory tuberculosis unspecified; Z91.09 Other allergy status, other than to drugs and biological substances; Z79.899 Other long term (current) drug therapy
CPT/HCPCS: 36415; 80048; 80320; 85025; 99283; G0480

== ENCOUNTER 2022-03-16 02:38 | Emergency (ER) | payer MEDICARE ==
[2022-03-16 02:45] VITALS: BP 152/91
== END 2022-03-16 06:14 | disposition left against medical advice (07) ==
LOC: ED 02:38
DX: M79.18 Myalgia, other site (principal); Z53.21 Procedure and treatment not carried out due to patient leaving prior to being seen by health care provider

== ENCOUNTER 2022-03-20 01:26 | Emergency (ER) | payer MEDICARE ==
[2022-03-20 02:18] VITALS: BP 122/87
--- NOTE | 2022-03-20 08:00 | Emergency Department Report ---
ED General Adult HPI - General Chief complaint: Pain General Stated complaint: PAIN ALL OVER BODY/COUGHING Source: patient Mode of arrival: Ambulatory Limitations: No Limitations - History of Present Illness Initial comments: 51-year-old male presents to the ED complaining cough body ache x2 to 3 days. He states that he stays in a motel and that his other roommates are always c oughing over him. Patient states that he has body ache and fever and chills. Denies any chest pain or shortness of breath at present time. Patient is alert and oriented x3. No acute distress noted. No ill appearance noted. - Related Data Home Medications Medication Instructions Recorded Confirmed Last Taken Albuterol Sulfate [Ventolin Hfa] 2 puff IH PRN PRN 07/18/18 08/08/19 Unknown Fluticasone/Vilanterol [Breo 1 each IH DAILY 08/08/19 08/08/19 Unknown Ellipta 100-25 Mcg INH] Rivaroxaban [Xarelto] 15 mg PO BID 08/08/19 08/08/19 Unknown amLODIPine [Norvasc] 10 mg PO DAILY 08/08/19 08/08/19 Unknown lisinopriL [Zestril] 20 mg PO QDAY 08/08/19 08/08/19 Unknown Previous Rx's Medication Instructions Recorded Last Taken Type Polymyxin B Sulf/Trimethoprim 1 drop OP Q3HR 3 Days #1 bottle 07/31/18 Unknown Rx [Polytrim Eye Drops 28609vcfiq/0.1%] Divalproex ER [Depakote ER] 2,000 mg PO HS 30 Days tablet 12/26/18 Unknown Rx Nicotine [Habitrol] 14 mg TD QDAY #30 patch 12/26/18 Unknown Rx OLANzapine [Zyprexa] 20 mg PO HS 30 Days #30 tablet 07/16/19 Unknown Rx traZODone [Desyrel] 150 mg PO QHS 30 Days #30 tablet 07/16/19 Unknown Rx levoFLOXacin [Levaquin] 750 mg PO QDAY #5 tablet 08/06/19 Unknown Rx Acetaminophen [Non-Aspirin Extra 500 mg PO Q6HR PRN #30 tablet 11/18/19 Unknown Rx Strength] Albuterol Sulfate [Proair 90 mcg IH Q4HR PRN #2 aer.pow.ba 11/18/19 Unknown Rx Respiclick] Furosemide [Lasix] 20 mg PO QDAY #30 tablet 11/18/19 Unknown Rx Furosemide [Lasix TAB] 40 mg PO QDAY 30 Days #30 tablet 12/29/19 Unknown Rx Naproxen [Naprosyn] 500 mg PO BID #14 tablet 10/25/20 Unknown Rx Benzonatate [Tessalon Perles] 100 mg PO Q8HR PRN #20 capsule 12/25/20 Unknown Rx Naproxen 500 mg PO BID PRN #30 tablet 01/09/[address] [DepWendy DR] 250 mg PO BID #60 tablet 02/26/21 Unknown Rx risperiDONE [RisperDAL] 0.5 mg PO BID #60 tablet 02/26/21 Unknown Rx traZODone [Desyrel] 50 mg PO QHS #30 tab 02/26/21 Unknown Rx Gabapentin 100 mg PO BID #30 capsule 04/19/21 Unknown Rx Magnesium Oxide [Mag-Ox] 400 mg PO QDAY #20 tablet 04/23/21 Unknown Rx Butalb/Acetamin/Caff 50-325-40 1 tab PO Q6HR PRN #24 tab 04/29/21 Unknown Rx [Fioricet] Hydrocortisone [Hydrocortisone 20 gm TP BID #1 oint...g. 04/29/21 Unknown Rx 2.5% OINT] Gabapentin 300 mg PO TID #21 capsule 06/15/21 Unknown Rx Mineral Oil/Hydrophil Petrolat 50 gm TP BID #1 oint...g. 06/20/21 Unknown Rx [Aquaphor Healing Ointment] Amoxicillin [Amoxicillin TAB] 875 mg PO BID 10 Days #20 tab 03/20/22 Unknown Rx Allergies Allergy/AdvReac Type Severity Reaction Status Date / Time ziprasidone [From Geodon] Allergy Unknown Verified 11/27/21 08:22 tramadol AdvReac Unknown Verified 11/27/21 08:22 ED Review of Systems ROS: Stated complaint: PAIN ALL OVER BODY/COUGHING Other details as noted in HPI Constitutional: denies: chills, fever Eyes: denies: eye pain, eye discharge, vision change ENT: denies: ear pain, throat pain Respiratory: denies: cough, shortness of breath, wheezing Cardiovascular: denies: chest pain, palpitations Endocrine: no symptoms reported Gastrointestinal: denies: abdominal pain, nausea, diarrhea Genitourinary: denies: urgency, dysuria Musculoskeletal: denies: back pain, joint swelling, arthralgia Skin: denies: rash, lesions Neurological: denies: headache, weakness, paresthesias Psychiatric: denies: anxiety, depression Hematological/Lymphatic: denies: easy bleeding, easy bruising ED Past Medical Hx - Past Medical History Hx Hypertension: Yes Hx Congestive Heart Failure: Yes Hx Diabetes: Yes Hx Renal Disease: No Hx Arthritis: Yes Hx Seizures: No Hx Psychiatric Treatment: Yes (bi-polar) Hx Asthma: Yes Hx COPD: Yes Hx Tuberculosis: Yes (POSITIVE SKIN TEST,TOOK TX , NEG CXR) Hx Dementia: No Hx HIV: No Additional medical history: Chronic Knee pain - Surgical History Hx Cholecystectomy: No Hx Appendectomy: No Additional Surgical History: right knee surgery - Social History Smoking Status: Current Every Day Smoker Substance Use Type: None - Medications Home Medications: Home Medications Medication Instructions Recorded Confirmed Last Taken Type Albuterol Sulfate [Ventolin Hfa] 2 puff IH PRN PRN 07/18/18 08/08/19 Unknown History Polymyxin B Sulf/Trimethoprim 1 drop OP Q3HR 3 Days #1 bottle 07/31/18 08/08/19 Unknown Rx [Polytrim Eye Drops 60111irmgv/0.1%] Divalproex ER [Depakote ER] 2,000 mg PO HS 30 Days tablet 12/26/18 08/08/19 Unknown Rx Nicotine [Habitrol] 14 mg TD QDAY #30 patch 12/26/18 08/08/19 Unknown Rx OLANzapine [Zyprexa] 20 mg PO HS 30 Days #30 tablet 07/16/19 08/08/19 Unknown Rx traZODone [Desyrel] 150 mg PO QHS 30 Days #30 tablet 07/16/19 08/08/19 Unknown Rx levoFLOXacin [Levaquin] 750 mg PO QDAY #5 tablet 08/06/19 08/08/19 Unknown Rx Fluticasone/Vilanterol [Breo 1 each IH DAILY 08/08/19 08/08/19 Unknown History Ellipta 100-25 Mcg INH] Rivaroxaban [Xarelto] 15 mg PO BID 08/08/19 08/08/19 Unknown History amLODIPine [Norvasc] 10 mg PO DAILY 08/08/19 08/08/19 Unknown History lisinopriL [Zestril] 20 mg PO QDAY 08/08/19 08/08/19 Unknown History Acetaminophen [Non-Aspirin Extra 500 mg PO Q6HR PRN #30 tablet 11/18/19 Unknown Rx Strength] Albuterol Sulfate [Proair 90 mcg IH Q4HR PRN #2 aer.pow.ba 11/18/19 Unknown Rx Respiclick] Furosemide [Lasix] 20 mg PO QDAY #30 tablet 11/18/19 Unknown Rx Furosemide [Lasix TAB] 40 mg PO QDAY 30 Days #30 tablet 12/29/19 Unknown Rx Naproxen [Naprosyn] 500 mg PO BID #14 tablet 10/25/20 Unknown Rx Benzonatate [Tessalon Perles] 100 mg PO Q8HR PRN #20 capsule 12/25/20 Unknown Rx Naproxen 500 mg PO BID PRN #30 tablet 01/09/[address] [DepaKOTE DR] 250 mg PO BID #60 tablet 02/26/21 Unknown Rx risperiDONE [RisperDAL] 0.5 mg PO BID #60 tablet 02/26/21 Unknown Rx traZODone [Desyrel] 50 mg PO QHS #30 tab 02/26/21 Unknown Rx Gabapentin 100 mg PO BID #30 capsule 04/19/21 Unknown Rx Magnesium Oxide [Mag-Ox] 400 mg PO QDAY #20 tablet 04/23/21 Unknown Rx Butalb/Acetamin/Caff 50-325-40 1 tab PO Q6HR PRN #24 tab 04/29/21 Unknown Rx [Fioricet] Hydrocortisone [Hydrocortisone 20 gm TP BID #1 oint...g. 04/29/21 Unknown Rx 2.5% OINT] Gabapentin 300 mg PO TID #21 capsule 06/15/21 Unknown Rx Mineral Oil/Hydrophil Petrolat 50 gm TP BID #1 oint...g. 06/20/21 Unknown Rx [Aquaphor Healing Ointment] Amoxicillin [Amoxicillin TAB] 875 mg PO BID 10 Days #20 tab 03/20/22 Unknown Rx ED Physical Exam - General Limitations: No Limitations General appearance: alert, in no apparent distress - Head Head exam: Present: atraumatic, normocephalic - Eye Eye exam: Present: normal appearance - ENT ENT exam: Present: mucous membranes moist - Neck Neck exam: Present: normal inspection - Respiratory Respiratory exam: Present: normal lung sounds bilaterally. Absent: respiratory distress - Cardiovascular Cardiovascular Exam: Present: regular rate, normal rhythm. Absent: systolic murmur, diastolic murmur, rubs, gallop - GI/Abdominal GI/Abdominal exam: Present: soft, normal bowel sounds - Rectal Rectal exam: Present: deferred - Extremities Exam Extremities exam: Present: normal inspection - Back Exam Back exam: Present: normal inspection - Neurological Exam Neurological exam: Present: alert, oriented X3 - Psychiatric Psychiatric exam: Present: normal affect, normal mood - Skin Skin exam: Present: warm, dry, intact, normal color. Absent: rash ED Course Vital Signs 03/20/22 03/20/22 02:06 08:07 Temperature 98.2 F Pulse Rate 94 H 83 Respiratory 16 17 Rate Blood Pressure 122/87 O2 Sat by Pulse 98 98 Oximetry ED Medical Decision Making - Medical Decision Making 51-year-old male presents to the ED complaining cough body ache x2 to 3 days. He states that he stays in a motel and that his other roommates are always coughing over him. Patient states that he has body ache and fever and chills. Denies any chest pain or shortness of breath at present time. Patient is alert and oriented x3. No acute distress noted. No ill appearance noted. Rechecked the patient is resting quietly , comfortable and feeling better. I discussed the results of diagnostic study, my clinical impression and the plan for further treatment with the patient. Patient agrees with plan and discharge at this present time. All question addressed. I have given the patient instruction regarding a diagnosis ,expectation ,follow- up and return precaution. I explained to the patient that emergent condition may arise and to return to the ED for new worsen and any new persisting condition. I have explained the importance of following up with the primary care physician or referral physician listed below has instructed. The patient verbalized understanding of discharge instruction. Critical care attestation.: If time is entered above; I have spent that time in minutes in the direct care of this critically ill patient, excluding procedure time. ED Disposition Clinical Impression: URI (upper respiratory infection) Qualifiers: URI type: unspecified URI Qualified Code(s): J06.9 - Acute upper respiratory infection, unspecified Disposition: 01 HOME / SELF CARE / HOMELESS Is pt being admited?: No Does the pt Need Aspirin: No Condition: Stable Instructions: Cough, Adult, [id number], Upper Respiratory Infection, Adult, [id number] Additional Instructions: Take medication as prescribed Return to the ED for any worsening symptoms Prescriptions: Amoxicillin [Amoxicillin TAB] 875 mg PO BID 10 Days #20 tab Referrals: ZANDRA EDOUARD MD [Primary Care Provider] - 3-5 Days Forms: Work/School Release Form(ED) Time of Disposition: 08:00
== END 2022-03-20 08:07 | disposition home or self-care (01) ==
LOC: ED 01:26
DX: J06.9 Acute upper respiratory infection, unspecified (principal); I11.0 Hypertensive heart disease with heart failure; I50.9 Heart failure, unspecified; J44.9 Chronic obstructive pulmonary disease, unspecified; E11.9 Type 2 diabetes mellitus without complications; M19.90 Unspecified osteoarthritis, unspecified site; F31.9 Bipolar disorder, unspecified; G89.29 Other chronic pain; F17.200 Nicotine dependence, unspecified, uncomplicated; Z88.6 Allergy status to analgesic agent; Z88.8 Allergy status to other drugs, medicaments and biological substances; Z79.899 Other long term (current) drug therapy
CPT/HCPCS: 99282